=== PATIENT | male | born 1955 | race Caucasian/White ===

== ENCOUNTER → 2020-12-16 08:27 | Outpatient (BNVA) | payer MEDICARE, MEDICAID, SELFPAY | PROVIDERS: PCP Family Medicine; Visit Provider Anesthesiology | DX: M96.1 Postlaminectomy syndrome, not elsewhere classified (principal); M51.16 Intervertebral disc disorders with radiculopathy, lumbar region; G89.4 Chronic pain syndrome; Z79.899 Other long term (current) drug therapy | CPT/HCPCS: 99212 ==

== ENCOUNTER 2021-03-21 07:26 | Day surgery (SDC) | payer MEDICARE, MEDICAID, SELFPAY ==
[2021-03-17 13:58] VITALS: BMI 27.9
--- NOTE | 2021-03-20 09:15 | P.CONAN_ITS ---
Documented by User: Aiyana Andre 03/20/21 09:15 HPI - Anesthesia Eval Consult details Narrative: 65yo M for Lumbar Spinal Cord Simulation Trial prn opioids PMFSH Active Problems Active Problems: All Active Problems (Updated 03/17/21 @ 14:00 by Davina Bae) Chronic pain syndrome (Acute) Radiculopathy due to lumbar intervertebral disc disorder (Acute) Postlaminectomy syndrome (Acute) Past Medical History Medical History Chronic pain syndrome History of numbness History of urinary retention Postlaminectomy syndrome Radiculopathy due to lumbar intervertebral disc disorder Surgical History Surgical History History of back surgery History of basal cell carcinoma excision History of laminectomy History of lumbar laminectomy Hx of arthroscopy of shoulder Hx of repair of rotator cuff Social History Social History Patient Tobacco Use Status: Former Tobacco user Quit Date: years ago Are you DNR?: No Advance Directives: No Advance Directives Information Provided: No Advance Directives on File: No Meds Allergies Allergy/AdvReac Type Severity Reaction Status Date / Time No Known Allergies Allergy Verified 03/17/21 14:01 [No Known Allergies*] Home Medications Medication Instructions Recorded Confirmed Last Taken Type hydrocodone 7.5 mg-acetaminophen 1 tab PO BID PRN 12/16/20 03/17/21 Unknown History 300 mg tablet pregabalin 75 mg capsule 75 mg PO DAILY 12/16/20 03/17/21 Unknown History quetiapine 50 mg tablet 100 mg PO BEDTIME 12/16/20 03/17/21 Unknown History selegiline 6 mg/24 hr transdermal 1 patch TRANSDERMAL DAILY 12/16/20 03/17/21 Unknown History 24 hour patch Exam Exam Date and Time: March 20, 2021 0915 Height,Weight and Vital Signs: Height 5 ft 10 in Weight 88.451 kg Assessment and Plan Assessment Anesthesia Assessment: Chart Reviewed Documented by User: Saira Barron 03/21/21 08:31 [facility] Past Medical History Medical History Chronic pain syndrome History of numbness History of urinary retention Postlaminectomy syndrome Radiculopathy due to lumbar intervertebral disc disorder Family History Family history of problems with anesthesia: No Surgical History Surgical History History of back surgery History of basal cell carcinoma excision History of laminectomy History of lumbar laminectomy Hx of arthroscopy of shoulder Hx of repair of rotator cuff History of Problems with Anesthesia: No Social History Social History Patient Tobacco Use Status: Former Tobacco user Quit Date: years ago Are you DNR?: No Advance Directives: No Advance Directives Information Provided: No Advance Directives on File: No Meds Allergies Allergy/AdvReac Type Severity Reaction Status Date / Time No Known Allergies Allergy Verified 03/17/21 14:01 [No Known Allergies*] Home Medications Medication Instructions Recorded Confirmed Last Taken Type hydrocodone 7.5 mg-acetaminophen 1 tab PO BID PRN 12/16/20 03/17/21 Unknown History 300 mg tablet pregabalin 75 mg capsule 75 mg PO DAILY 12/16/20 03/17/21 Unknown History quetiapine 50 mg tablet 100 mg PO BEDTIME 12/16/20 03/17/21 Unknown History selegiline 6 mg/24 hr transdermal 1 patch TRANSDERMAL DAILY 12/16/20 03/17/21 Unknown History 24 hour patch Exam Height,Weight and Vital Signs: Vital Signs Temp Pulse Resp BP Pulse Ox 03/21/21 07:45 96.3 F L 56 16 132/82 97 Airway Mallampati Class: II TM Dist: >3cm Neck ROM: Full Loose/Missing/Broken Teeth: No Heart: RRR Lungs: CTAB Assessment and Plan Assessment Anesthesia Assessment: Anesthesia Plan Discussed and Chart Reviewed Final Anesthetic Review NPO: Yes ASA Class: II Final Preanesthetic Review: No Changes in Pt Med Stat, Meds/Allgs Chart Reviewed, Consent Obtained/Reviewed and Anes Risks/Benef Reviewed Patient Risk: Low Procedure Risk: Low Assessment/Block/Sedation in SS: Assess/Block/Sedation-SS Anesthetic Plan Anesthetic Plan: MAC: Disposition: Standard PACU
--- NOTE | ~2021-03-21 | FL_ITS ---
EXAMINATION: XR FLUOROSCOPY WITH IMAGES CLINICAL INFORMATION: Lumbar spinal cord stimulation. COMPARISON: None. TECHNIQUE: Fluoroscopy performed by Dr. Dimas Bhardwaj. Fluoroscopy time: 24.3 minutes DAP: 63 mGycm2 Images: 3 FINDINGS: Images demonstrate lead placement projecting over the lower thoracic spinal canal. FL/FL guidance in OR IMPRESSION: Fluoroscopic guidance for lumbar spinal cord stimulation.
[2021-03-21 07:45] VITALS: BP 132/82; PULSE 56; RESP 16; TEMP 35.7; O2SAT 97
[2021-03-21] MEDS: Lactated Ringers 1,000 ML 100 ML IVCONT (08:00)
--- NOTE | 2021-03-21 08:31 | MHC.SHP ---
Pre-Procedural Eval Section A The patient is an INPATIENT: No Changes since office visit: Yes Patient answered all questions The History & Physical has been completed within 30 days and I have reviewed it.: No Section B Chief Complaint: Postlaminectomy syndrome Details of Present Illness: as above, radiculopathy LE right Relevant Family History (Specify if Yes): No Relevant Social History: None Present Medications: None Medical History: Significant History (lumbar fusion) Allergies: Allergies Allergy/AdvReac Type Severity Reaction Status Date / Time No Known Allergies Allergy Verified 03/17/21 14:01 [No Known Allergies*] Review of Systems Sugical H&P ROS: Negative: Constitution, Cardiovascular, Respiratory, Neurological, Psychiatric, Hem-Onc, Allergic/Immunologic, Gastrointestinal, Genitourinary, Musculoskeletal, Integumentary, Endocrine and Eyes/Ears/Nose/Throat Exam Surgical H&P Exam: Normal: HEENT, Normal: Heart, Normal: Lungs, Normal: Extremities, Normal: Abdomen, Normal: Skin and Normal: Neurological Plan Diagnosis/Plan: Unchanged I have reviewed the history and physical and performed a pertinent physical examination on my patient. No changes have occurred unless specified.
[2021-03-21 11:15] VITALS: BP 148/71; PULSE 45; RESP 18; TEMP 36.2; O2SAT 98
--- NOTE | 2021-03-21 11:26 | P.BOP_ITS ---
Brief Operative Note Date of Service: 03/21/21 Pre-op diagnosis: Postlaminectomy syndrome Post-op diagnosis: same Procedure: Trial of [employer] spinal cord stimulator Implants: None permanent Surgeon: Dimas Bhardwaj MD Anesthesia: MAC Was an [employer] Instructor used for this Procedure?: No Estimated blood loss (mL): 5 Disposition: PACU
--- NOTE | 2021-03-21 11:28 | P.OP_ITS ---
Operative Note Operative Note Date of Service: 03/21/21 Narrative: Hernán is very pleasant 65 years old gentleman who came today into the operating room for trial of spinal cord stimulator for the treatment of pain related to degenerative disc disease, postlaminectomy syndrome and chronic pain syndrome. Preoperatively patient received 2 g cefazolin _approximately 30 minutes before the procedure. After obtaining informed consent patient was brought to the operating room, he was positioned prone on operating table, [employer] monitors were applied and patient was deeply sedated. Time-out was performed delineating correct site, side, the nature of the proc edure, patient's allergy, preoperative antibiotic. All operating room staff was participating in OR time-out procedure. Patient's entire back was prepped with ChloraPrep twice and draped with full body drape. Sterilely draped C-arm was brought over operating field and square picture of T12, L1, L2 vertebrae as were demonstrated on the screen. . Attention FIRST was concentrated on the RIGHT T12-L1 epidural interspace. The location of the projection of the right pedicle center of the L2 vertebra was found on the skin using C-arm. This location was injected with mixture of lidocaine 2% and Marcaine 0.5% 5 cc in approximate direction of needle advancement.. After that 10 cm 14 gauge straight introducer epidural needle was inserted through the césar in the skin and advanced toward T12-L1 epidural interspace. The advancement of the needle was performed on anterior posterior and lateral views. Guitar wire and loss of resistance technique were used to locate epidural space. When guitar wire was spread in the epidural fashion, epidural lead was inserted through the skin and it was advanced in the posterior epidural space to the mid body of T8 vertebra slightly right to midline. After that location of the projection of the LEFT pedicle center of the L2 vertebra was found -using C-arm. This location was injected with mixture of lidocaine 2% and Marcaine 0.5% 5 cc.. . 10 cm 14 gauge straight introducer epidural needle was inserted through the skin and advanced to T12-L1 epidural interspace. The advancement of the needle was performed on anterior posterior and lateral views. Guitar wire and loss of resistance technique were used to locate epidural space. When guitar wire was spread in the epidural fashion, epidural lead was inserted through the needle and an attempt of the advancement of the epidural lead was made to the target of the T8 vertebra in the posterior epidural space. However on this side the resistance was felt secondary to epidural adhesions. The epidural lead was not able to advance more than 3 and half to 4 cm from the needle tip. In the projection of the T12 vertebra the lead felt resistance and deviated into the anterior epidural space. After that attention was concentrated on the RIGHT T11-T12 epidural interspace. The location of the projection of the right pedicle center of the L1 vertebra was found on the skin using C-arm. This location was injected with mixture of lidocaine 2% and Marcaine 0.5% 5 cc in approximate direction of needle advancement.. After that 10 cm 14 gauge straight introducer epidural needle was inserted through the césar in the skin and advanced toward T11-T12 epidural interspace. The advancement of the needle was performed on anterior posterior and lateral views. Guitar wire and loss of resistance technique were used to locate epidural space. When guitar wire was spread in the epidural fashion, epidural lead was inserted through the skin and it was advanced in the posterior epidural space to the mid body of T8 vertebra slightly right to midline. However when we made lateral x-ray this lead appeared to be in the anterior epidural space. The attempt of the advancement of the epidural space left to the existing electrode was not successful. Again the lead was deviating mostly to the right gutter. At this moment the needle was withdrawn and blue sheath introducer was dislodged over the epidural lead. First short and then long blue sheath introducer was used in the attempt to direct the epidural lead appropriately. However unfortunately the epidural lead continued to deviate aw ay from the posterior epidural space into the gutter and most likely into anterior epidural space. After that attention was concentrated on the right L1-L2 epidural interspace. At the projection of the L 3 right pedicle the skin injection was made with mixture of lidocaine 2% and Marcaine 0.5%. Again 10 cm 14 gauge straight introducer epidural needle was inserted through the skin advanced to were L1-L2 epidural interspace. Loss of resistance technique to air and guitar wire were used to locate epidural space. When the epidural space was reached guitar wire was spread in the epidural fashion. After that the electrode was inserted into the needle and was advanced to were the epidural space immediately left from the existing electrode. Lateral picture was performed demonstrating epidural leads in the posterior epidural space. It appears to be that both epidural leads were position slightly right to the midline. At this moment the patient was awaken and the epidural leads were connected to testing device. The test was performed demonstrating good spread of the epidural space stimulation in the right lower extremity as well as in the lower back on the right. The patient did not feel any stimulation on the left. The patient's pain is mostly on the right lower extremity. The decision was made to continue with the trial of those leads in the patient's epidural space. After that the epidural needles were removed while care was taken to keep the epidural electrodes in place. Anchoring devices were dislodged on the each of the epidural leads to the level of the skin. They were engaged at the level of the skin. After that they were sutured to the skin using 0 silk sutures Bacitracin ointment was applied to the level of the skin. Sterile dressing was applied. At this moment patient was taken to the PACU where he recovered uneventfully.
[2021-03-21 11:30] VITALS: BP 137/77; PULSE 55; RESP 17; O2SAT 98
[2021-03-21 11:45] VITALS: BP 138/85; PULSE 48; RESP 17; O2SAT 97
[2021-03-21 12:00] VITALS: BP 150/84; PULSE 47; RESP 17; O2SAT 98
[2021-03-21 12:12] VITALS: BP 143/84; PULSE 50; RESP 17; O2SAT 98
== END 2021-03-21 12:50 | disposition home or self-care (01) ==
PROVIDERS: PCP Family Medicine; Visit Provider Anesthesiology
PROC: (CPT 63650; principal; 2021-03-21 09:00)
DX: M96.1 Postlaminectomy syndrome, not elsewhere classified (principal); M51.16 Intervertebral disc disorders with radiculopathy, lumbar region; G89.4 Chronic pain syndrome; G96.12 Meningeal adhesions (cerebral) (spinal); Z87.891 Personal history of nicotine dependence; Z79.899 Other long term (current) drug therapy
CPT/HCPCS: 63650 ×2; C1778; J0690; J1100; J2250; J2405; J3010

== ENCOUNTER → 2021-03-26 08:59 | Outpatient (BNVA) | payer MEDICARE, MEDICAID, SELFPAY | PROVIDERS: PCP Family Medicine; Visit Provider Anesthesiology | DX: M96.1 Postlaminectomy syndrome, not elsewhere classified (principal); M51.16 Intervertebral disc disorders with radiculopathy, lumbar region; G89.4 Chronic pain syndrome | CPT/HCPCS: 99212 ==

== ENCOUNTER → 2021-03-28 15:36 | Outpatient (BNVA) | payer MEDICARE, MEDICAID, SELFPAY | PROVIDERS: PCP Family Medicine; Visit Provider Anesthesiology | DX: Z96.82 Presence of neurostimulator (principal) | CPT/HCPCS: 99211 ==

== ENCOUNTER 2024-01-19 14:09 | Outpatient (AMB) | payer MEDICARE, MEDICAID, SELFPAY ==
--- NOTE | 2024-01-19 14:15 | A.OFFVIS_ITS ---
Intake Vital Signs 01/19/24 14:19 Height 5 ft 10 in Weight 199 lb 6 oz BMI 28.6 BP 128/82 Blood Pressure Location Lt brachial Position Sitting Respiration 16 Pulse 57 Pulse Source Pulse Oximeter Pulse Oximetry (%) 97 Oxygen Delivery Method Room Air Intake Visit Reasons: PROCEDURE OPTIONS Intake Note: Patient comes in to discuss procedure options. Reports pain 5/10. Allergies No Known Allergies [No Known Allergies*] Allergy (Verified 01/19/24 14:18) HPI HPI Comments History of Present Illness Details Hernán is back in my office after 2 years of absence. He is suffering from postlaminectomy syndrome. I tried spinal cord stimulator on him [employer]. The procedure was very difficult technically. However I was able to establish 2 leads in the thoracic spine. Patient reported minimal pain improvement while on stimulation. At the end of the [employer] trial he was switched to [employer] SCS, unfortunately that did not help his pain in more extent either. He was absent from my care for 2 years now he is coming back requesting the discussion about pain pump she was offered to him at that time. I explained to him the procedure, I gave him brochure of [facility] point psychology to schedule evaluation. As soon as he will pass evaluation I will schedule him for pain pump trial. He is currently taking [place] 7.5 mg and I prefer to try 1st bupivacaine. He also reports some stress incontinence increased urging with urination. Bupivacaine in the situation may be helpful for this condition as well. Prior: referral from Dr. Ch for evaluation for a spinal cord stimulator. He is s/p laminectomy L3-4 and L5-S1 discectomy with posterior lateral fusion. He continues to suffer from a right L5 radiculopathy, which is an EMG confirmed. Updated MRI showed no significant compression of L5 nerve root. It did show right L3 nerve root compression. Dr. Ch did not recommend additional surgical intervention and advised he undergo a SCS trial, and thus he was referred to us. He describes a numbness and burning down his right posterior lateral leg extending to the top of his right into his toes. This is worsened with sitting, reaching pain level 8-9/10. He had done extensive PT and also had multiple injections prior to his surgery while seeing pain management provider Dr. Geronimo in [place]. [facility] Medical History Chronic pain syndrome History of numbness History of urinary retention Postlaminectomy syndrome Radiculopathy due to lumbar intervertebral disc disorder Surgical History History of back surgery History of basal cell carcinoma excision History of laminectomy History of lumbar laminectomy Hx of arthroscopy of shoulder Hx of repair of rotator cuff Social History Patient Tobacco Use Status: Former Tobacco user Quit Date: years ago Review of Systems Const All systems reviewed & are unremarkable except as noted in HPI and below ENT Reports Normal hearing present Neuro Reports Normal hearing present, Denies confusion and Denies Sensory deficit (Neuro) Psych Denies confusion Physical Exam Vital Signs: Last Vital Signs Pulse 57 01/19/24 14:19 Resp 16 01/19/24 14:19 BP 128/82 01/19/24 14:19 Pulse Ox 97 01/19/24 14:19 Oxygen Delivery Method Room Air 01/19/24 14:19 BMI result Body Mass Index 28.6 Const General: No confusion Orientation/consciousness: No confusion Eyes Pupils: Equal, round and reactive pupils present EOM: EOMs intact bilaterally Chest Chest palpation & inspection: normal inspection of the chest Resp Effort & Inspection: normal respiratory effort, able to speak in complete sentences, normal respiratory pattern, no audible wheezes and no cough Cardio Jugular venous distension: no JVD Back/Spine/Pelvis Other: Lumbar Spine/Lower back/SIJ: SACROILIAC JOINT No tenderness to palpation. INSPECTION: normal curvature of spine, scar from previous surgery. RANGE OF MOTION decreased extention. PALPATION: no vertebral spine tenderness. STRAIGHT LEG RAISING TEST: positive at 45 degrees on right. MOTOR SYSTEM: 5/5 bilateral lower extremities. SENSORY EXAM: paresthesias right L4-5 distribution. REFLEXES: symmetrical 2+. GAIT: unremarkable. Neuro General: No confusion Cranial nerves: Yes Equal, round and reactive pupils present and Yes Normal hearing present Sensory Exam: No Sensory deficit (Neuro) Psych Speech and movement: Normal speech and movement present Affect: normal affect Attitude: cooperative Thought process: Normal thought process present Thought content: Normal thought content present Insight: Good insight present (Psych) Judgement: Good judgement present (Psych) Assessment & Plan Assessment & Plan (1) Postlaminectomy syndrome: Code(s): M96.1 - Postlaminectomy syndrome, not elsewhere classified (2) Radiculopathy due to lumbar intervertebral disc disorder: Code(s): M51.16 - Intervertebral disc disorders with radiculopathy, lumbar region (3) Chronic pain syndrome: Code(s): G89.4 - Chronic pain syndrome Plan Two years ago neither Nevro no [employer] SCS trial were helpful for this patient's pain. Pain pump was offered to the patient for treatment of postlaminectomy syndrome /chronic pain syndrome. Now he is in my office, we need to repeat psychological evaluation because the previous 1 . As soon as he passes psychological evaluation I will do trial with bupivacaine see the reasoning above. . Patient Instructions: I here by testify that I spent 32 minutes in conversation with this patient, as well as evaluating his prior records, prior diagnostic images as well as completing this note. Coding Level of Care Code Est Pt Level 4 (59270) Diagnoses Postlaminectomy syndrome M96.1 Radiculopathy due to lumbar intervertebral disc disorder M51.16 Chronic pain syndrome G89.4
[2024-01-19 14:19] VITALS: BP 128/82; PULSE 57; RESP 16; O2SAT 97; BMI 28.6
== END 2024-01-19 14:37 | disposition home or self-care (01) ==
PROVIDERS: PCP Family Medicine; Visit Provider Anesthesiology
DX: M96.1 Postlaminectomy syndrome, not elsewhere classified (principal); M51.16 Intervertebral disc disorders with radiculopathy, lumbar region; G89.4 Chronic pain syndrome
CPT/HCPCS: 99214

== ENCOUNTER → 2024-01-19 14:09 | Outpatient (BNVA) | payer MEDICARE, MEDICAID, SELFPAY | PROVIDERS: PCP Family Medicine; Visit Provider Anesthesiology | DX: M96.1 Postlaminectomy syndrome, not elsewhere classified (principal); M51.16 Intervertebral disc disorders with radiculopathy, lumbar region; G89.4 Chronic pain syndrome | CPT/HCPCS: 99212 ==

== ENCOUNTER 2024-03-07 06:14 | Outpatient (REF) | payer MEDICARE, MEDICAID, SELFPAY ==
--- NOTE | ~2024-03-07 | FL_ITS ---
EXAMINATION: XR FLUOROSCOPY WITH IMAGES CLINICAL INFORMATION: Chronic pain syndrome. COMPARISON: None available. TECHNIQUE: Fluoroscopy Supervised By: Dr. Bhardwaj. Fluoroscopy Time: 2 min. Cumulative Dose: 4.03 mGy. DAP: 0.0700 Gycm2. Images: 2. FINDINGS: Intraoperative fluoroscopy and spot films were performed during a procedure in the OR. Spinal needle is present in the epidural space at the L3 level. Degenerative changes are seen at L3-L4 and L4-L5. Please see Dr. Bhardwaj's report for complete details. FL/FL guidance in treatment room IMPRESSION: Intraoperative fluoroscopy and spot films were obtained. Please see Dr. Bhardwaj's report for complete details.
== END 2024-03-07 06:15 | disposition home or self-care (01) ==
LOC: CF 06:14
PROVIDERS: Visit Provider Anesthesiology
DX: G89.4 Chronic pain syndrome (principal); M51.16 Intervertebral disc disorders with radiculopathy, lumbar region; M96.1 Postlaminectomy syndrome, not elsewhere classified
CPT/HCPCS: 62323; J0665

== ENCOUNTER 2024-03-07 10:36 | Outpatient (AMB) | payer MEDICARE, MEDICAID, SELFPAY ==
--- NOTE | 2024-03-07 11:05 | A.OFFVIS_ITS ---
Vital Signs 03/07/24 12:30 03/07/24 12:31 Height 5 ft 10 in Weight 199 lb BMI 28.6 BP 124/74 126/64 Blood Pressure Location Lt brachial Lt brachial Position Sitting Sitting Respiration 20 18 Pulse 70 73 Pulse Source Pulse Oximeter Pulse Oximeter Pulse Oximetry (%) 98 96 Oxygen Delivery Method Room Air Room Air Comment Pre-Op Post-Op Intake Visit Reasons: ITDD TRIAL WITH BUPIVACAIN Allergies No Known Allergies [No Known Allergies*] Allergy (Verified 01/19/24 14:18) [facility] Medical History Chronic pain syndrome History of numbness History of urinary retention Postlaminectomy syndrome Radiculopathy due to lumbar intervertebral disc disorder Surgical History History of back surgery History of basal cell carcinoma excision History of laminectomy History of lumbar laminectomy Hx of arthroscopy of shoulder Hx of repair of rotator cuff Social History Patient Tobacco Use Status: Former Tobacco user Quit Date: years ago Physical Exam Vital Signs: Last Vital Signs Pulse 73 03/07/24 12:31 Resp 18 03/07/24 12:31 BP 126/64 03/07/24 12:31 Pulse Ox 96 03/07/24 12:31 Oxygen Delivery Method Room Air 03/07/24 12:31 BMI result Body Mass Index 28.6 Assessment & Plan Assessment & Plan (1) Chronic pain syndrome: Code(s): G89.4 - Chronic pain syndrome Category: Medical (2) Radiculopathy due to lumbar intervertebral disc disorder: Code(s): M51.16 - Intervertebral disc disorders with radiculopathy, lumbar region Category: Medical (3) Postlaminectomy syndrome: Code(s): M96.1 - Postlaminectomy syndrome, not elsewhere classified Category: Medical Plan Intrathecal pain pump trial Informed consent was explained to the patient. All questions were explained and answered. The patient was taken inside of the operating room where she was positioned prone on the operating table. Time-out was performed delineating patient's name and date of , correct site, side, the nature of the procedure, patient's allergy, All operating room staff and the patient were participating in OR time-out procedure. the patient's lower back was prepped with ChloraPrep and draped with sterile utility draped. Sterilely draped C-arm was brought over the operating field and sq picture of lumbar vertebrae were delineated on the screen. the target of needle insertion was chosen between L2 and L3 vertebrae. The projection of the right lamina of the L3 vertebra was chosen as the starting point of the injection. 22 gauge 3-1/2 inch Wittaker needle was inserted through the skin after skin wheal was raised with lidocaine 2%. The needle was directed to the L2-L3 interlaminar space. The advancement of the needle was performed on intermittent anterior posterior and lateral views. On anterior posterior view needle was positioned strictly in the midline. On the lateral view needle entered in the projection of the center of the spinal canal. At that moment the stylet was removed from the needle and clear flow CSF was detected in the needle hub. After that 3 mLof the solution containing trial medication preservative-free bupivacaine 2.5 mg was injected into the needle. After that needle was removed sterile dressing was applied. Patient tolerated procedure well. He was taken outside of the operating room to the recovery room where he recovered uneventfully. Orders: Orders FL guidance in treatment room Today G89.4 - Chronic pain syndrome Coding Level of Care Code Procedure Only Diagnoses Chronic pain syndrome G89.4 Radiculopathy due to lumbar intervertebral disc disorder M51.16 Postlaminectomy syndrome M96.1
[2024-03-07 12:30] VITALS: BP 124/74; PULSE 70; RESP 20; O2SAT 98; BMI 28.6
[2024-03-07 12:31] VITALS: BP 126/64; PULSE 73; RESP 18; O2SAT 96
== END 2024-03-07 12:32 | disposition home or self-care (01) ==
LOC: HO.PMCPRC 10:36
PROVIDERS: PCP Family Medicine; Visit Provider Anesthesiology
DX: M51.16 Intervertebral disc disorders with radiculopathy, lumbar region (principal); M96.1 Postlaminectomy syndrome, not elsewhere classified; G89.4 Chronic pain syndrome
CPT/HCPCS: 62323

== ENCOUNTER 2024-03-13 11:22 | Outpatient (AMB) | payer MEDICARE, MEDICAID, SELFPAY ==
--- NOTE | 2024-03-13 11:28 | A.OFFVIS_ITS ---
Intake Visit Reasons: ITDD TRIAL WITH BUPIVACAIN Allergies No Known Allergies [No Known Allergies*] Allergy (Verified 01/19/24 14:18) HPI Comments Details: Markers in my office to assess results of the trial of pain pump with bupivacaine. He reports about 65-70% pain improvement for the 1st hours after the trial. He reported today that he tried to perform most of the maneuvers which usually aggravate his pain in the back, he reported that he was able to complete all the tasks which usually were almost impossible for him. He wants to schedule an implant. He was asking multiple questions about the pain pump today. I answered them for the patient to complete satisfaction. Prior: Originally he was referred by Dr. Nix for evaluation for spinal cord stimulator. He is status post laminectomy L3-L4 and L5-S1 diskectomy with posterior lateral fusion. He has L5 radiculopathy EMG confirmed. On recommendation of Dr. Ch I tried spinal cord stimulator on him [facility]. The procedure was very difficult technically. However I was able to establish 2 leads in the thoracic spine. Patient reported minimal pain improvement while on stimulation. At the end of the [facility] scientific trial he was switched to Nevro SCS, unfortunately that did not help his pain in more extent either. He was absent from my care for 2 years now he is coming back requesting the discussion about pain pump she was offered to him at that time. I explained to him the procedure, I gave him brochure of [employer] to schedule evaluation. As soon as he will pass evaluation I will schedule him for pain pump trial. He is currently taking [place] 7.5 mg and I prefer to try 1st bupivacaine. He also reports some stress incontinence increased urging with urination. Bupivacaine in the situation may be helpful for this condition as well. Dr. Ch did not recommend additional surgical intervention and advised he undergo a SCS trial, and thus he was referred to us. He describes a numbness and burning down his right posterior lateral leg extending to the top of his right into his toes. This is worsened with sitting, reaching pain level 8-9/10. He had done extensive PT and also had multiple injections prior to his surgery while seeing pain management provider Dr. Geronimo in [place]. [facility] Medical History Chronic pain syndrome History of numbness History of urinary retention Postlaminectomy syndrome Radiculopathy due to lumbar intervertebral disc disorder Surgical History History of back surgery History of basal cell carcinoma excision History of laminectomy History of lumbar laminectomy Hx of arthroscopy of shoulder Hx of repair of rotator cuff Social History Patient Tobacco Use Status: Former Tobacco user Review of Systems Const All systems reviewed & are unremarkable except as noted in HPI and below ENT Reports Normal hearing present Neuro Reports Normal hearing present, Denies confusion and Denies Sensory deficit (Neuro) Psych Denies confusion Physical Exam Const General: No confusion Orientation/consciousness: No confusion Eyes Pupils: Equal, round and reactive pupils present EOM: EOMs intact bilaterally Chest Chest palpation & inspection: normal inspection of the chest Resp Effort & Inspection: normal respiratory effort, able to speak in complete sentences, normal respiratory pattern, no audible wheezes and no cough Cardio Jugular venous distension: no JVD Back/Spine/Pelvis Other: Lumbar Spine/Lower back/SIJ: SACROILIAC JOINT No tenderness to palpation. INSPECTION: normal curvature of spine, scar from previous surgery. RANGE OF MOTION decreased extention. PALPATION: no vertebral spine tenderness. STRAIGHT LEG RAISING TEST: positive at 45 degrees on right. MOTOR SYSTEM: 5/5 bilateral lower extremities. SENSORY EXAM: paresthesias right L4-5 distribution. REFLEXES: symmetrical 2+. GAIT: unremarkable. Neuro General: No confusion Cranial nerves: Yes Equal, round and reactive pupils present and Yes Normal hearing present Sensory Exam: No Sensory deficit (Neuro) Psych Speech and movement: Normal speech and movement present Affect: normal affect Attitude: cooperative Thought process: Normal thought process present Thought content: Normal thought content present Insight: Good insight present (Psych) Judgement: Good judgement present (Psych) Assessment & Plan Assessment & Plan (1) Chronic pain syndrome: Code(s): G89.4 - Chronic pain syndrome Category: Medical (2) Radiculopathy due to lumbar intervertebral disc disorder: Code(s): M51.16 - Intervertebral disc disorders with radiculopathy, lumbar region Category: Medical (3) Postlaminectomy syndrome: Code(s): M96.1 - Postlaminectomy syndrome, not elsewhere classified Category: Medical Plan I will schedule the patient for implantation of the pain pump. I will order bupivacaine preservative-free 10 mg to start the patient on the medication immediately the day of the surgery. He will be given PTM device as well. After surgery is approved I will schedule the patient in the operating room for implant. Patient Instructions: I here by testify that I spent 38 minutes in conversation with this patient as well as planning his care and organizing this note. Coding Level of Care Code Est Pt Level 4 (96837) Diagnoses Chronic pain syndrome G89.4 Radiculopathy due to lumbar intervertebral disc disorder M51.16 Postlaminectomy syndrome M96.1
== END 2024-03-13 12:04 | disposition home or self-care (01) ==
PROVIDERS: PCP Family Medicine; Visit Provider Anesthesiology
DX: G89.4 Chronic pain syndrome (principal); M51.16 Intervertebral disc disorders with radiculopathy, lumbar region; M96.1 Postlaminectomy syndrome, not elsewhere classified
CPT/HCPCS: 99214

== ENCOUNTER → 2024-03-13 11:22 | Outpatient (BNVA) | payer MEDICARE, MEDICAID, SELFPAY | PROVIDERS: PCP Family Medicine; Visit Provider Anesthesiology | DX: G89.4 Chronic pain syndrome (principal); M96.1 Postlaminectomy syndrome, not elsewhere classified; M51.16 Intervertebral disc disorders with radiculopathy, lumbar region; N31.9 Neuromuscular dysfunction of bladder, unspecified; N39.46 Mixed incontinence | CPT/HCPCS: 99212 ==

== ENCOUNTER 2024-05-12 07:45 | Day surgery (SDC) | payer MEDICARE, MEDICAID, SELFPAY ==
--- NOTE | 2024-05-10 14:37 | HO.ANESPROP2 ---
Documented by User: Aiyana Andre NP 05/10/24 14:40 HPI - Anesthesia Eval Consult details Narrative: 68yo M for Intrathecal Drug Delivery Pain Pump Implant PMFSH Active Problems Active Problems: All Active Problems Chronic pain syndrome (Acute) Radiculopathy due to lumbar intervertebral disc disorder (Acute) Postlaminectomy syndrome (Acute) Past Medical History Medical History History of urinary retention History of numbness Chronic pain syndrome Radiculopathy due to lumbar intervertebral disc disorder Postlaminectomy syndrome Family History Family history of problems with anesthesia: No Surgical History Surgical History History of surgery History of basal cell carcinoma excision History of lumbar laminectomy History of laminectomy History of back surgery Hx of arthroscopy of shoulder Hx of repair of rotator cuff History of Problems with Anesthesia: No Social History Social History Patient Tobacco Use Status: Former Tobacco user Use of substances other than those prescribed or required for medical reasons: No Are you DNR?: No Advance Directives: No Advance Directives Information Provided: Yes Meds Allergies Allergy/AdvReac Type Severity Reaction Status Date / Time No Known Allergies Allergy Verified 01/19/24 14:18 [No Known Allergies*] Home Medications ?Medication ?Instructions ?Recorded ?Confirmed ?Last Taken ?Type hydrocodone 7.5 mg-acetaminophen 1 tab PO BID PRN Pain 12/16/20 03/28/21 Unknown History 300 mg tablet pregabalin 75 mg capsule 75 mg PO DAILY 12/16/20 03/28/21 Unknown History quetiapine 50 mg tablet (Seroquel) 100 mg PO BEDTIME 12/16/20 03/28/21 Unknown History selegiline 6 mg/24 hr transdermal 1 patch transdermal DAILY 12/16/20 03/28/21 Unknown History 24 hour patch (Emsam) Assessment and Plan Assessment Anesthesia Assessment: Chart Reviewed Final Anesthetic Review Family History of Problems with Anesthesia: No History of Problems with Anesthesia: No Documented by User: Sonya Parikh MD 05/12/24 09:08 [facility] Past Medical History Medical History History of urinary retention History of numbness Chronic pain syndrome Radiculopathy due to lumbar intervertebral disc disorder Postlaminectomy syndrome Surgical History Surgical History History of surgery History of basal cell carcinoma excision History of lumbar laminectomy History of laminectomy History of back surgery Hx of arthroscopy of shoulder Hx of repair of rotator cuff Social History Social History Patient Tobacco Use Status: Former Tobacco user Use of substances other than those prescribed or required for medical reasons: No Are you DNR?: No Advance Directives: No Advance Directives Information Provided: Yes Meds Allergies Allergy/AdvReac Type Severity Reaction Status Date / Time No Known Allergies Allergy Verified 01/19/24 14:18 [No Known Allergies*] Home Medications ?Medication ?Instructions ?Recorded ?Confirmed ?Last Taken ?Type hydrocodone 7.5 mg-acetaminophen 1 tab PO BID PRN Pain 12/16/20 03/28/21 Unknown History 300 mg tablet pregabalin 75 mg capsule 75 mg PO DAILY 12/16/20 03/28/21 Unknown History quetiapine 50 mg tablet (Seroquel) 100 mg PO BEDTIME 12/16/20 03/28/21 Unknown History selegiline 6 mg/24 hr transdermal 1 patch transdermal DAILY 12/16/20 03/28/21 Unknown History 24 hour patch (Emsam) Exam Airway Mallampati Class: II TM Dist: >3cm Neck ROM: Limited Heart: rrr Lungs: cta Assessment and Plan Assessment Anesthesia Assessment: Anesthesia Plan Discussed Final Anesthetic Review NPO: Yes ASA Class: III Final Preanesthetic Review: No Changes in Pt Med Stat, Meds/Allgs Chart Reviewed, Consent Obtained/Reviewed and Anes Risks/Benef Reviewed Patient Risk: Intermediate Procedure Risk: Intermediate Anesthetic Plan Anesthetic Plan: GA Disposition: Standard PACU
--- NOTE | ~2024-05-12 | FL_ITS ---
EXAMINATION: XR FLUOROSCOPY WITH IMAGES CLINICAL INFORMATION: Epidural pain catheter/pump placement, lumbar spine COMPARISON: 03/07/2024 TECHNIQUE: Fluoroscopy provided to: Dr. Bhardwaj Fluoroscopy time: 0.4 minutes DAP: 3.43 Gycm2 Images: 3 FINDINGS: 3 images demonstrate probe overlying the dorsal right pedicle of L2, with subsequent lateral view of needle in place just below left L1 pedicle, and final image demonstrating localizer hemostat clamp tip overlying the left sacral wing. FL/FL guidance in OR IMPRESSION: Fluoroscopic guidance. Please refer to the full operative report for details. Electronically signed by: Roberto Fairchild MD 07/06/2024 03:51 PM EDT
[2024-05-12 07:54] VITALS: BMI 27.8
[2024-05-12 08:13] VITALS: BP 128/81; PULSE 57; RESP 16; TEMP 36.5; O2SAT 98
[2024-05-12] MEDS: Lactated Ringers 1,000 ML 100 ML IVCONT (08:27)
--- NOTE | 2024-05-12 09:14 | MHC.SHP ---
Pre-Procedural Eval Section A - 24 Hr Update-Section A only Date of Service: 05/12/24 Section B - Complete if H&P > 30 days Chief Complaint: Postlaminectomy syndrome, not elsewhere classified Details of Present Illness: As above Relevant Family History (Specify if Yes): No Relevant Social History: None Medical History: No relevant PMH History of Previous Operations: No relevant previous surgery Allergies: Allergies Allergy/AdvReac Type Severity Reaction Status Date / Time No Known Allergies Allergy Verified 01/19/24 14:18 [No Known Allergies*] Review of Systems Sugical H&P ROS: Negative: Constitution, Cardiovascular, Respiratory, Neurological, Psychiatric, Hem-Onc, Allergic/Immunologic, Gastrointestinal, Genitourinary, Musculoskeletal, Integumentary, Endocrine and Eyes/Ears/Nose/Throat Exam Surgical H&P Exam: Normal: HEENT, Normal: Heart, Normal: Lungs, Normal: Extremities, Normal: Abdomen, Normal: Skin and Normal: Neurological Plan Diagnosis/Plan: Unchanged I have reviewed the history and physical and performed a pertinent physical examination on my patient. No changes have occurred unless specified. Time Spent With Patient Time: Total time managing care of this patient today ___5 _ minutes.
[2024-05-12 11:02] LABS: MRSA Nasal PCR NEGATIVE (Negative); SA Nasal PCR POSITIVE (Negative)
--- NOTE | 2024-05-12 12:07 | PM.OP ---
Brief Operative Note Date of Service: 05/12/24 Pre-op diagnosis: Postlaminectomy syndrome, chronic pain syndrome. Post-op diagnosis: same Procedure: Implantation of intrathecal drug delivery system pain pump [employer] SynchroMed 3 and ascenda intrathecal catheter. Implants: SynchroMed 3 intrathecal pain pump and ascenda intrathecal catheter Surgeon: Dimas Bhardwaj MD Anesthesia: GETA Was an [employer] used for this Procedure?: No Estimated blood loss (mL): 28 Condition: stable Disposition: PACU
--- NOTE | 2024-05-12 12:10 | P.OP_ITS ---
Operative Note Operative Note Date of Service: 05/12/24 Narrative: Implantation of intrathecal drug delivery system pain pump SynchroMed 3 and intrathecal catheter Ascenda. After obtaining informed consent and explaining to the patient risks, benefits and alternatives to treat her pain, the patient was brought up to the operating room where he was positioned supine on the stretcher. [employer] monitors were applied and general anesthesia was induced with endotracheal intubation. After that the patient was transferred to the operating table prone. All pressure points protected. The patient received antibiotic cefazolin 2 g intravenously 30 minutes before incision. Time-out was performed delineating correct site and side of the procedure, name and date of of the patient, risk of fire, need for antibiotic prophylaxis risk of DVT and need for DVT prophylaxis. After that the patient entire back was prepped with chloroprep and draped with fool body drape including ioban film. Sterilely drape C-arm was brought over the OR field and square pictures of the T12, L1, L2, L3 vertebrae were demonstrated on the screen. the entrance point for the catheter was chosen as the L1-L2 interspace. In the strict midline fashion 6.5 cm vertical skin incision was made with #10 scalpel. The incision was widened with the Weitlaner retractor and deepened with electrocautery. Thorough hemostasis was obtained using electrocautery. the prevertebral fascia was freed from overlaying tissues. After that 100 mm introducer spinal 16 g needle was incerted under x-ray guidance in the projection of the right L2 pedicle. The needle advanced under the x-ray guidance with intemitteny A-P and lateral pictures toward the spinal canal. When on the lateral view the needle entered the spinal canal the stylet was removed and the clear flow of the CSF was obtain through the needle hub. Intrathecal Ascenda catheter was inserted through the needle and advanced under the x-ray guidance toward the mid T8 vertebral body projection. The stylet was removed from the catheter and the flow of CSF fluid straw colored and clear was observed coming from the catheter. Purse-string suture was applied surrounding the a needle and it was tied. After that the needle was withdrawn with care taken to keep the catheter in place. Anchoring device was dislodged on the catheter and advanced until it met prevertebral fascia. It was engaged on the body of the catheter. Three anchoring Tycron sutures were used to suture left wing of the anchor to prevertebral fascia . After that the thorough irrigation of the wound was performed and wound was packed with vancomycin soaked 4 x 4. Attention then was concentrated on the patient's left buttock. Sterilely draped C-arm was brought over the operative field again and position of the patient's iliac crest on the left was demonstrated on the screen. 2 cm below the projection of the iliac crest to the skin of the local anesthetic bupivacaine was injected in the linear horizontal fashion. After that 9.5 cm incision was performed in patient's left buttock alongside the injected line. Thorough hemostasis was obtained using cautery device. After that the wound was widened and made 2.5 cm deep . The wound was extended medially and laterally as well as caudally and cranially to form the space to accommodate the body of the pump. Thorough hemostasis was performed. The wound was irrigated with vancomycin containing normal saline and then tunneling device was used to connect both wounds and dislodged the intrathecal catheter into the side left buttock wound. The catheter was trimmed appropriately after that and sutureless connection device was mounted on the catheter. After that sutureless connection device was connected to the pump. Aspiration of the side port of the pump revealed clear flow of CSF. Two anchoring 0-0 Tycron sutures were applied in most superior lateral and inferior lateral corners of the wound. After that the sutures were connected to the bracket is on the body of the pump, intrathecal catheter was gathered behind the body of the pump and pump was dislodged into the wound. After that the anchoring sutures were tied. Aspiration of the side port of the pump again revealed clear flow of CSF without blood or air. Thorough irrigation was performed again in both wounds. Thorough hemostasis was verified. 0 polisorb sutures were used to close both wounds, 2-0 suture of the same nature were used to approximate the skin. Sandie were applied to the skin line and Bacitracin ointment was applied to the staple lines. Sterile dressing with sterile 4x4s was performed, abdominal binder was applied. Upon completion of the procedure patient was awaken extubated and taken outside of the operating room to recovery room where HE recovered uneventfully.
[2024-05-12 12:11] VITALS: BP 139/65; PULSE 94; RESP 14; TEMP 36.1; O2SAT 94
[2024-05-12 12:15] VITALS: BP 110/65; PULSE 63; RESP 16; O2SAT 95
[2024-05-12 12:20] VITALS: BP 117/57; PULSE 61; RESP 16; O2SAT 96
[2024-05-12 12:24] VITALS: BP 119/61; PULSE 61; RESP 16; O2SAT 95
[2024-05-12 12:38] VITALS: BP 125/62; PULSE 60; RESP 18; TEMP 36.1; O2SAT 18
== END 2024-05-12 13:25 | disposition home or self-care (01) ==
PROVIDERS: Registered Nurse Emergency; PCP Family Medicine; Visit Provider Anesthesiology
PROC: (CPT 62362; principal; 2024-05-12 09:30)
DX: M51.16 Intervertebral disc disorders with radiculopathy, lumbar region (principal); G89.4 Chronic pain syndrome; M96.1 Postlaminectomy syndrome, not elsewhere classified; Z87.891 Personal history of nicotine dependence
CPT/HCPCS: 62362; 62350; 87640; 87641; C1755; C1772; J0330; J0690; J1100; J1596; J2250; J2405; J2704; J2795; J3010; J3370

== ENCOUNTER → 2024-05-12 07:45 | Outpatient (BNV) | payer MEDICARE, MEDICAID, SELFPAY | PROVIDERS: PCP Family Medicine; Visit Provider Anesthesiology | DX: M96.1 Postlaminectomy syndrome, not elsewhere classified (principal); G89.4 Chronic pain syndrome | CPT/HCPCS: 62362 ==

== ENCOUNTER 2024-05-17 08:57 | Outpatient (AMB) | payer MEDICARE, MEDICAID, SELFPAY ==
--- NOTE | 2024-05-17 09:01 | A.OFFVIS_ITS ---
Vital Signs 05/17/24 09:26 Height 5 ft 9 in Weight 187 lb 6 oz BMI 27.7 BP 116/74 Blood Pressure Location Lt brachial Position Sitting Respiration 16 Pulse 73 Pulse Source Pulse Oximeter Pulse Oximetry (%) 98 Oxygen Delivery Method Room Air Intake Visit Reasons: S/p ITDD Pain Pump Implant 05/12/24 Intake Note: Patient comes in for post-op. Reports pain 5/10. Allergies No Known Allergies [No Known Allergies*] Allergy (Verified 05/17/24 09:26) HPI Comments Details: Hernán is in my office today after implantation of intrathecal bupivacaine pain pump. He did not use the device yet. He will be using the device and in 1 week he will report on effectiveness of the device. At the time we can adjust the frequency of the application of the bolus doses or we can adjust the magnitude of the doses itself. The patient was informed that he needs to continue using the device and report any side effects and or complications of the medication as well as effectiveness of the medication itself. The dressing change was performed today. The wounds are minimally swollen, no redness, no tenderness on palpation, no local temperature increase, no pathological discharge, edges competent, sonia are competent. The wounds were worst with ChloraPrep sterile dressing with sterile 4x4s were applied. Dressing change and staple removal in 1 week. Hernán head 70% pain improvement after the bupivacaine trial. Prior: Originally he was referred by Dr. Nix for evaluation for spinal cord stimulator. He is status post laminectomy L3-L4 and L5-S1 diskectomy with posterior lateral fusion. He has L5 radiculopathy EMG confirmed. On recommendation of Dr. Ch I tried spinal cord stimulator on him [place] [facility]. The procedure was very difficult technically. However I was able to establish 2 leads in the thoracic spine. Patient reported minimal pain improvement while on stimulation. At the end of the [place] [facility] trial he was switched to Nevro SCS, unfortunately that did not help his pain in more extent either. He was absent from my care for 2 years now he is coming back requesting the discussion about pain pump she was offered to him at that time. I explained to him the procedure, I gave him brochure of [employer] [facility] [employer] to schedule evaluation. As soon as he will pass evaluation I will schedule him for pain pump trial. He is currently taking [place] 7.5 mg and I prefer to try 1st bupivacaine. He also reports some stress incontinence increased urging with urination. Bupivacaine in the situation may be helpful for this condition as well. Dr. Ch did not recommend additional surgical intervention and advised he undergo a SCS trial, and thus he was referred to us. He describes a numbness and burning down his right posterior lateral leg extending to the top of his right into his toes. This is worsened with sitting, reaching pain level 8-9/10. He had done extensive PT and also had multiple injections prior to his surgery while seeing pain management provider Dr. Geronimo in [place]. [facility] Medical History History of urinary retention History of numbness Chronic pain syndrome Radiculopathy due to lumbar intervertebral disc disorder Postlaminectomy syndrome Surgical History History of surgery History of basal cell carcinoma excision History of lumbar laminectomy History of laminectomy History of back surgery Hx of arthroscopy of shoulder Hx of repair of rotator cuff Social History Patient Tobacco Use Status: Former Tobacco user Review of Systems Const All systems reviewed & are unremarkable except as noted in HPI and below ENT Reports Normal hearing present Neuro Reports Normal hearing present, Denies confusion and Denies Sensory deficit (Neuro) Psych Denies confusion Physical Exam Vital Signs: Last Vital Signs Pulse 73 05/17/24 09:26 Resp 16 05/17/24 09:26 BP 116/74 05/17/24 09:26 Pulse Ox 98 05/17/24 09:26 Oxygen Delivery Method Room Air 05/17/24 09:26 BMI result Body Mass Index 27.7 Const General: No confusion Orientation/consciousness: No confusion Eyes Pupils: Equal, round and reactive pupils present EOM: EOMs intact bilaterally Chest Chest palpation & inspection: normal inspection of the chest Resp Effort & Inspection: normal respiratory effort, able to speak in complete sentences, normal respiratory pattern, no audible wheezes and no cough Cardio Jugular venous distension: no JVD Back/Spine/Pelvis Other: Lumbar Spine/Lower back/SIJ: SACROILIAC JOINT No tenderness to palpation. INSPECTION: normal curvature of spine, scar from previous surgery. RANGE OF MOTION decreased extention. PALPATION: no vertebral spine tenderness. STRAIGHT LEG RAISING TEST: positive at 45 degrees on right. MOTOR SYSTEM: 5/5 bilateral lower extremities. SENSORY EXAM: paresthesias right L4-5 distribution. REFLEXES: symmetrical 2+. GAIT: unremarkable. Neuro General: No confusion Cranial nerves: Yes Equal, round and reactive pupils present and Yes Normal hearing present Sensory Exam: No Sensory deficit (Neuro) Psych Speech and movement: Normal speech and movement present Affect: normal affect Attitude: cooperative Thought process: Normal thought process present Thought content: Normal thought content present Insight: Good insight present (Psych) Judgement: Good judgement present (Psych) Assessment & Plan Assessment & Plan (1) Chronic pain syndrome: Code(s): G89.4 - Chronic pain syndrome Category: Medical (2) Radiculopathy due to lumbar intervertebral disc disorder: Code(s): M51.16 - Intervertebral disc disorders with radiculopathy, lumbar region Category: Medical (3) Postlaminectomy syndrome: Code(s): M96.1 - Postlaminectomy syndrome, not elsewhere classified Category: Medical Plan Implantation of the pain pump was performed on 05/12/2024. The patient did not use the pump yet of 1 attempt to apply the PTM dose. Dressing changes as above. Wounds are healing appropriately. Staple removal in 1 week. Next week the pump can not be read and depending on how the patient reports the magnitude of the pain relief on the dose and longevity of pain relief on the dose the doses need to be adjusted. The patient is taking gabapentinoids and he is concerned about combination of those medications with oral opioids for postoperative pain. The risks were explained to the patient. The patient understood the risks. He was prescribed postoperatively Narcan and he expressed understanding of the Narcan action. He states that his is dental hygienist and she knows how to use Narcan. Patient Instructions: I here by testify that I spent 32 minutes in conversation with this patient as well as planning his care and organizing this note. Coding Level of Care Code Est Pt Level 4 (70612) Diagnoses Chronic pain syndrome G89.4 Radiculopathy due to lumbar intervertebral disc disorder M51.16 Postlaminectomy syndrome M96.1
[2024-05-17 09:26] VITALS: BP 116/74; PULSE 73; RESP 16; O2SAT 98; BMI 27.7
== END 2024-05-17 09:18 | disposition home or self-care (01) ==
PROVIDERS: PCP Family Medicine; Visit Provider Anesthesiology
DX: G89.4 Chronic pain syndrome (principal); M51.16 Intervertebral disc disorders with radiculopathy, lumbar region; M96.1 Postlaminectomy syndrome, not elsewhere classified
CPT/HCPCS: 99024

== ENCOUNTER → 2024-05-17 08:57 | Outpatient (BNVA) | payer MEDICARE, MEDICAID, SELFPAY | PROVIDERS: PCP Family Medicine; Visit Provider Anesthesiology | DX: M51.16 Intervertebral disc disorders with radiculopathy, lumbar region (principal); M96.1 Postlaminectomy syndrome, not elsewhere classified; G89.4 Chronic pain syndrome | CPT/HCPCS: 99212 ==

== ENCOUNTER 2024-05-26 10:37 | Outpatient (AMB) | payer MEDICARE, MEDICAID, SELFPAY ==
--- NOTE | 2024-05-26 10:38 | MHC.OFFVIS ---
Vital Signs 05/26/24 10:48 Height 5 ft 9 in Weight 187 lb BMI 27.6 BP 119/73 Blood Pressure Location Lt brachial Position Sitting Pulse 67 Pulse Source Pulse Oximeter Pulse Oximetry (%) 97 Oxygen Delivery Method Room Air Intake Visit Reasons: S/p ITDD Pain Pump Implant 05/12/24 (2nd visit) Allergies No Known Allergies [No Known Allergies*] Allergy (Verified 05/26/24 10:48) HPI Comments Details: Patient is a pleasant 68 years old male presents today for sonia removal, 2 weeks status post ITDD Pain Pump Implant 05/12/[address] Bhardwaj. Patient reports he used the device for the first time last week and felt slightly lightheaded and nauseous with mild weakness in his legs which lasted for half?an hour. He rested and symptoms self-resolve. Patient reports he continued to use PTM bolus on most days since implant with missing a few days in between without any further side effects. The dressings were removed. The incisional wounds are slightly swollen with mild redness at sonia points but no incisional line redness, tenderness, erythema, temperature increase or pathological discharge. The wounds were washed with ChloraPrep and sonia were removed today. The wounds were washed again with ChloraPrep, Steri-strips and bacitracin ointment with dry sterile dressings were applied. The ITDD machine was interrogated today and PTM bolus dose was adjusted from 2.5 mg once a day to 0.5 mg twice a day per Dr. Elena. At this time, he reports acute pain due to recent surgery and chronic pain syndrome, post laminectomy syndrome. He continues to take hydrocodone-acetaminophen and Pregabalin. We will continue to work on establishing good pain control for this patient.?Denies any recent cough, cold, infection, fever, any significant changes in her medical history, medications or recent hospitalizations. PRIOR Dr. Bhardwaj 05/17/24: Hernán is in my office today after implantation of intrathecal bupivacaine pain pump. He did not use the device yet. He will be using the device and in 1 week he will report on effectiveness of the device. At the time we can adjust the frequency of the application of the bolus doses or we can adjust the magnitude of the doses itself. The patient was informed that he needs to continue using the device and report any side effects and or complications of the medication as well as effectiveness of the medication itself. The dressing change was performed today. The wounds are minimally swollen, no redness, no tenderness on palpation, no local temperature increase, no pathological discharge, edges competent, sonia are competent. The wounds were worst with ChloraPrep sterile dressing with sterile 4x4s were applied. Dressing change and staple removal in 1 week. Hernán head 70% pain improvement after the bupivacaine trial. Prior: Originally he was referred by Dr. Nix for evaluation for spinal cord stimulator. He is status post laminectomy L3-L4 and L5-S1 diskectomy with posterior lateral fusion. He has L5 radiculopathy EMG confirmed. On recommendation of Dr. Ch I tried spinal cord stimulator on him [place] [employer]. The procedure was very difficult technically. However I was able to establish 2 leads in the thoracic spine. Patient reported minimal pain improvement while on stimulation. At the end of the [place] [employer] trial he was switched to [place] SCS, unfortunately that did not help his pain in more extent either. He was absent from my care for 2 years now he is coming back requesting the discussion about pain pump she was offered to him at that time. I explained to him the procedure, I gave him brochure of [facility] to schedule evaluation. As soon as he will pass evaluation I will schedule him for pain pump trial. He is currently taking [place] 7.5 mg and I prefer to try 1st bupivacaine. He also reports some stress incontinence increased urging with urination. Bupivacaine in the situation may be helpful for this condition as well. Dr. Ch did not recommend additional surgical intervention and advised he undergo a SCS trial, and thus he was referred to us. He describes a numbness and burning down his right posterior lateral leg extending to the top of his right into his toes. This is worsened with sitting, reaching pain level 8-9/10. He had done extensive PT and also had multiple injections prior to his surgery while seeing pain management provider Dr. Geronimo in [place]. [facility] Medical History History of urinary retention History of numbness Chronic pain syndrome Radiculopathy due to lumbar intervertebral disc disorder Postlaminectomy syndrome Surgical History History of surgery History of basal cell carcinoma excision History of lumbar laminectomy History of laminectomy History of back surgery Hx of arthroscopy of shoulder Hx of repair of rotator cuff Social History Patient Tobacco Use Status: Former Tobacco user Review of Systems Const All systems reviewed & are unremarkable except as noted in HPI and below Physical Exam Vital Signs: Last Vital Signs Pulse 67 05/26/24 10:48 BP 119/73 05/26/24 10:48 Pulse Ox 97 05/26/24 10:48 Oxygen Delivery Method Room Air 05/26/24 10:48 BMI result Body Mass Index 27.6 General: Appears afebrile. No acute distress. Alert and oriented. Mood and affect appropriate. Follows and participates in conversation appropriately. Respiratory effort is unlabored. No cough. Able to transition from sit to stand unassisted. Uses cane with ambulation. Ambulates with bilaterally normal heel strike and toe off. Dressing change done in clinic today. Sonia were removed. No tenderness overlying the pump device. Psych Appearance: grossly normal Mental Status: mental status grossly normal Speech and movement: Normal speech and movement present Affect: normal affect Attitude: cooperative Thought process: Normal thought process present Thought content: Normal thought content present, suicidality (none), no hallucinations and No Depressive thoughts present Insight: Good insight present (Psych) Judgement: Good judgement present (Psych) Results Reviewed Results Reviewed: MRI FINDINGS: MRI 10/2019: Postoperative and degenerative changes. Moderate to marked narrowing right L3 nerve root with effacement foraminal. Suspected right L3 nerve root construction. Improved alignment/diminished anterolisthesis L5 referable to S1 and decreased severity of L5 nerve root foraminal stenosis Assessment & Plan Assessment & Plan (1) Chronic pain syndrome: Code(s): G89.4 - Chronic pain syndrome Category: Medical (2) Radiculopathy due to lumbar intervertebral disc disorder: Code(s): M51.16 - Intervertebral disc disorders with radiculopathy, lumbar region Category: Medical (3) Postlaminectomy syndrome: Code(s): M96.1 - Postlaminectomy syndrome, not elsewhere classified Category: Medical (4) S/P insertion of intrathecal pump: Code(s): Z98.890 - Other specified postprocedural states Category: Surgical Plan Patient is 2 weeks s/p Implantation of the pain pump which was performed on 05/12/2024. The patient has initiated device use and reported mild lightheadedness, nausea and leg weakness on 1st attempt of PTM dose which self-resolved within 30 min per patient. He continued to use PTM one bolus/day on most days per patient without any further side effects. Dressing changes as above. Wounds are healing appropriately. Staple were removed today. Patient may remove dressing in 3 days and start shower, he is aware to leave Steri-strips intact. Activity restrictions and precautions were reviewed with patient. We will continue to work on establishing good pain control for this patient.?Patient will follow up with Dr. Bhardwaj in 2 weeks and sooner as needed. Coding Level of Care Code Est Pt Level 4 (20947) Diagnoses Chronic pain syndrome G89.4 Radiculopathy due to lumbar intervertebral disc disorder M51.16 Postlaminectomy syndrome M96.1 S/P insertion of intrathecal pump Z98.890
[2024-05-26 10:48] VITALS: BP 119/73; PULSE 67; O2SAT 97; BMI 27.6
== END 2024-05-26 11:21 | disposition home or self-care (01) ==
PROVIDERS: PCP Family Medicine; Visit Provider Nurse Practitioner Family
DX: G89.4 Chronic pain syndrome (principal); M51.16 Intervertebral disc disorders with radiculopathy, lumbar region; M96.1 Postlaminectomy syndrome, not elsewhere classified; Z98.890 Other specified postprocedural states
CPT/HCPCS: 99214

== ENCOUNTER → 2024-05-26 10:37 | Outpatient (BNVA) | payer MEDICARE, SELFPAY | PROVIDERS: PCP Family Medicine; Visit Provider Nurse Practitioner Family | DX: M54.16 Radiculopathy, lumbar region (principal); M96.1 Postlaminectomy syndrome, not elsewhere classified; G89.4 Chronic pain syndrome; Z98.890 Other specified postprocedural states | CPT/HCPCS: 99212 ==

== ENCOUNTER 2024-06-15 10:42 | Outpatient (AMB) | payer MEDICARE, MEDICAID, SELFPAY ==
[2024-06-15 10:47] VITALS: BP 128/77; PULSE 54; O2SAT 97; BMI 27.3
--- NOTE | 2024-06-15 10:47 | MHC.OFFVIS ---
Vital Signs 06/15/24 10:47 Height 5 ft 9 in Weight 185 lb BMI 27.3 BP 128/77 Blood Pressure Location Rt brachial Position Sitting Pulse 54 Pulse Source Pulse Oximeter Pulse Oximetry (%) 97 Oxygen Delivery Method Room Air Intake Visit Reasons: 2 weeks follow up Allergies No Known Allergies [No Known Allergies*] Allergy (Verified 06/15/24 10:48) Medication List - Last Reconciled 06/15/24 by Trini Sullivan cephalexin 1,000 mg (2 x 500 mg) PO Q8H 16 days hydrocodone-acetaminophen 7.5-300 mg 1 tab PO BID PRN hydrocodone-acetaminophen 7.5-300 mg 1 tab PO Q4H PRN 5 days MDD 6 pills naloxone 4 mg/actuation 4 mg intranasal Q2M 1 day pregabalin 75 mg PO DAILY quetiapine (Seroquel) 100 mg PO BEDTIME selegiline (Emsam) 1 patch transdermal DAILY HPI Comments Details: Hernán presents back to the office today for follow-up, he is 4 weeks status post ITDD Pain Pump Implant 05/12/[address] Bhardwaj. At last visit PTM boluses were adjusted from 2.5 mg once a day to 0.5 mg twice daily. He reports no improvement in his pain since the adjustments. He is no longer having side effects that he was doing with the higher dose however there is no pain relief on the current dose. Pain today is rated as a 5/10, worse with activity and in the evenings Denies any cough, fever, chills, pain at the surgical site, nausea, vomiting, diarrhea Prior: Patient is a pleasant 68 years old male presents today for sonia removal, 2 weeks status post ITDD Pain Pump Implant 05/12/[address] Bhardwaj. Patient reports he used the device for the first time last week and felt slightly lightheaded and nauseous with mild weakness in his legs which lasted for half?an hour. He rested and symptoms self-resolve. Patient reports he continued to use PTM bolus on most days since implant with missing a few days in between without any further side effects. The dressings were removed. The incisional wounds are slightly swollen with mild redness at sonia points but no incisional line redness, tenderness, erythema, temperature increase or pathological discharge. The wounds were washed with ChloraPrep and sonia were removed today. The wounds were washed again with ChloraPrep, Steri-strips and bacitracin ointment with dry sterile dressings were applied. The ITDD machine was interrogated today and PTM bolus dose was adjusted from 2.5 mg once a day to 0.5 mg twice a day per Dr. Elena. At this time, he reports acute pain due to recent surgery and chronic pain syndrome, post laminectomy syndrome. He continues to take hydrocodone-acetaminophen and Pregabalin. We will continue to work on establishing good pain control for this patient.?Denies any recent cough, cold, infection, fever, any significant changes in her medical history, medications or recent hospitalizations. PRIOR Dr. Bhardwaj 05/17/24: Hernán is in my office today after implantation of intrathecal bupivacaine pain pump. He did not use the device yet. He will be using the device and in 1 week he will report on effectiveness of the device. At the time we can adjust the frequency of the application of the bolus doses or we can adjust the magnitude of the doses itself. The patient was informed that he needs to continue using the device and report any side effects and or complications of the medication as well as effectiveness of the medication itself. The dressing change was performed today. The wounds are minimally swollen, no redness, no tenderness on palpation, no local temperature increase, no pathological discharge, edges competent, sonia are competent. The wounds were worst with ChloraPrep sterile dressing with sterile 4x4s were applied. Dressing change and staple removal in 1 week. Hernán head 70% pain improvement after the bupivacaine trial. Prior: Originally he was referred by Dr. Nix for evaluation for spinal cord stimulator. He is status post laminectomy L3-L4 and L5-S1 diskectomy with posterior lateral fusion. He has L5 radiculopathy EMG confirmed. On recommendation of Dr. Ch I tried spinal cord stimulator on him [place] [employer]. The procedure was very difficult technically. However I was able to establish 2 leads in the thoracic spine. Patient reported minimal pain improvement while on stimulation. At the end of the [place] [employer] trial he was switched to Nev[place] SCS, unfortunately that did not help his pain in more extent either. He was absent from my care for 2 years now he is coming back requesting the discussion about pain pump she was offered to him at that time. I explained to him the procedure, I gave him brochure of [employer] [facility] to schedule evaluation. As soon as he will pass evaluation I will schedule him for pain pump trial. He is currently taking [place] 7.5 mg and I prefer to try 1st bupivacaine. He also reports some stress incontinence increased urging with urination. Bupivacaine in the situation may be helpful for this condition as well. Dr. Ch did not recommend additional surgical intervention and advised he undergo a SCS trial, and thus he was referred to us. He describes a numbness and burning down his right posterior lateral leg extending to the top of his right into his toes. This is worsened with sitting, reaching pain level 8-9/10. He had done extensive PT and also had multiple injections prior to his surgery while seeing pain management provider Dr. Geronimo in [place]. [facility] Medical History History of urinary retention History of numbness Chronic pain syndrome Radiculopathy due to lumbar intervertebral disc disorder Postlaminectomy syndrome Surgical History History of surgery History of basal cell carcinoma excision History of lumbar laminectomy History of laminectomy History of back surgery Hx of arthroscopy of shoulder Hx of repair of rotator cuff Social History Patient Tobacco Use Status: Former Tobacco user Review of Systems Const All systems reviewed & are unremarkable except as noted in HPI and below Physical Exam Vital Signs: Last Vital Signs Pulse 54 06/15/24 10:47 BP 128/77 06/15/24 10:47 Pulse Ox 97 06/15/24 10:47 Oxygen Delivery Method Room Air 06/15/24 10:47 BMI result Body Mass Index 27.3 General: awake, alert, oriented. Answers questions appropriately. Fully engaged in examination. Skin: warm, dry, intact. Well-healed surgical scar left lower back without warmth, erythema, exudate, dehiscence HEENT: Normocephalic. Hearing intact. Cardiac: External chest normal in appearance. Respiratory: No cough, audible wheezing or stridor. Abdomen: without gross distension. MS: No obvious swelling or deformities. Neurological: Oriented to person, place, time and situation. Thought process intact. No gait abnormalities appreciated. Psychiatric: Appropriate mood and affect. Good judgment and insight. Results Reviewed Results Reviewed: MRI FINDINGS: MRI 10/2019: Postoperative and degenerative changes. Moderate to marked narrowing right L3 nerve root with effacement foraminal. Suspected right L3 nerve root construction. Improved alignment/diminished anterolisthesis L5 referable to S1 and decreased severity of L5 nerve root foraminal stenosis Assessment & Plan Assessment & Plan (1) Chronic pain syndrome: Code(s): G89.4 - Chronic pain syndrome Category: Medical (2) Radiculopathy due to lumbar intervertebral disc disorder: Code(s): M51.16 - Intervertebral disc disorders with radiculopathy, lumbar region Category: Medical (3) Postlaminectomy syndrome: Code(s): M96.1 - Postlaminectomy syndrome, not elsewhere classified Category: Medical (4) S/P insertion of intrathecal pump: Code(s): Z98.890 - Other specified postprocedural states Category: Surgical Plan Patient presented to the office today for follow-up, 4 weeks s/p Implantation of the pain pump which was performed on 05/12/[address] Bhardwaj. Denies any further side effects. Denies improvement of his pain with current PTM doses. He will follow-up in the office in [address] Bhardwaj to discuss further medication dose adjustments All questions and concerns were answered, patient agrees to the plan. Follow up in 2 weeks, sooner if needed. Coding Level of Care Code Est Pt Level 3 (16936) Complex EM visit Add On G2211 Diagnoses Chronic pain syndrome G89.4 Radiculopathy due to lumbar intervertebral disc disorder M51.16 Postlaminectomy syndrome M96.1 S/P insertion of intrathecal pump Z98.890
== END 2024-06-15 11:17 | disposition home or self-care (01) ==
PROVIDERS: PCP Family Medicine; Visit Provider Registered Nurse Emergency
DX: G89.4 Chronic pain syndrome (principal); M51.16 Intervertebral disc disorders with radiculopathy, lumbar region; M96.1 Postlaminectomy syndrome, not elsewhere classified; Z98.890 Other specified postprocedural states
CPT/HCPCS: 99213; G2211

== ENCOUNTER → 2024-06-15 10:42 | Outpatient (BNVA) | payer MEDICARE, MEDICAID, SELFPAY | PROVIDERS: PCP Family Medicine; Visit Provider Registered Nurse Emergency | DX: M51.16 Intervertebral disc disorders with radiculopathy, lumbar region (principal); M96.1 Postlaminectomy syndrome, not elsewhere classified; G89.4 Chronic pain syndrome; Z98.890 Other specified postprocedural states | CPT/HCPCS: 99212 ==

== ENCOUNTER 2024-06-28 09:53 | Outpatient (AMB) | payer MEDICARE, MEDICAID, SELFPAY ==
--- NOTE | 2024-06-28 09:54 | A.OFFVIS_ITS ---
Vital Signs 06/28/24 10:00 Height 5 ft 9 in Weight 185 lb BMI 27.3 BP 124/68 Blood Pressure Location Lt brachial Position Sitting Respiration 16 Pulse 70 Pulse Source Pulse Oximeter Pulse Oximetry (%) 100 Oxygen Delivery Method Room Air Intake Visit Reasons: 2 Week Follow Up Intake Note: Patient comes in for two weeks followup. Reports pain 02/17. Allergies No Known Allergies [No Known Allergies*] Allergy (Verified 06/28/24 10:01) HPI Comments Details: Hernán is today in the office for pain pump adjustment. He was previously seen in the office by Dr. Elena with complains that PTM dose causes him nausea, weakness in bilateral lower extremity lightheadedness, lightheadedness. He has continuous rate was elevated to 0.7 and PTM dose was decreased to 0.5 b.i.d. from 2.5 q.d.. His symptoms most likely are secondary to rostral spread of the medication. It is sympathetic blockade with a weakness and blood pressure decreased. Today I examined the patient and his pain pump was interrogated. Increase his PTM dose to 0.7 and I recommended him to assume reverse Trendelenburg position while administering PTM dose to allow hyperbaric bupivacaine 2 flow up into the projection of the lumbar area. I also will consider in the future to increase the dose and spread out the time of the administration of the dose to decrease the indications ability to act on sympathetic system. Prior: Patient is a pleasant 68 years old male presents today for sonia removal, 2 weeks status post ITDD Pain Pump Implant 05/12/[address] Bhardwaj. Patient reports he used the device for the first time last week and felt slightly lightheaded and nauseous with mild weakness in his legs which lasted for half?an hour. He rested and symptoms self-resolve. Patient reports he continued to use PTM bolus on most days since implant with missing a few days in between without any further side effects. The dressings were removed. The incisional wounds are slightly swollen with mild redness at sonia points but no incisional line redness, tenderness, erythema, temperature increase or pathological discharge. The wounds were washed with ChloraPrep and sonia were removed today. The wounds were washed again with ChloraPrep, Steri-strips and bacitracin ointment with dry sterile dressings were applied. The ITDD machine was interrogated today and PTM bolus dose was adjusted from 2.5 mg once a day to 0.5 mg twice a day per Dr. Elena. At this time, he reports acute pain due to recent surgery and chronic pain syndrome, post laminectomy syndrome. He continues to take hydrocodone-acetaminophen and Pregabalin. We will continue to work on establishing good pain control for this patient.?Denies any recent cough, cold, infection, fever, any significant changes in her medical history, medications or recent hospitalizations. PRIOR Dr. Bhardwaj 05/17/24: Hernán is in my office today after implantation of intrathecal bupivacaine pain pump. He did not use the device yet. He will be using the device and in 1 week he will report on effectiveness of the device. At the time we can adjust the frequency of the application of the bolus doses or we can adjust the magnitude of the doses itself. The patient was informed that he needs to continue using the device and report any side effects and or complications of the medication as well as effectiveness of the medication itself. The dressing change was performed today. The wounds are minimally swollen, no redness, no tenderness on palpation, no local temperature increase, no pathological discharge, edges competent, sonia are competent. The wounds were worst with ChloraPrep sterile dressing with sterile 4x4s were applied. Dressing change and staple removal in 1 week. Hernán head 70% pain improvement after the bupivacaine trial. Prior: Originally he was referred by Dr. Nix for evaluation for spinal cord stimulator. He is status post laminectomy L3-L4 and L5-S1 diskectomy with posterior lateral fusion. He has L5 radiculopathy EMG confirmed. On recommendation of Dr. Ch I tried spinal cord stimulator on him [place] [employer]. The procedure was very difficult technically. However I was able to establish 2 leads in the thoracic spine. Patient reported minimal pain improvement while on stimulation. At the end of the [place] [employer] trial he was switched to Nevro SCS, unfortunately that did not help his pain in more extent either. He was absent from my care for 2 years now he is coming back requesting the discussion about pain pump she was offered to him at that time. I explained to him the procedure, I gave him brochure of [facility] to schedule evaluation. As soon as he will pass evaluation I will schedule him for pain pump trial. He is currently taking [place] 7.5 mg and I prefer to try 1st bupivacaine. He also reports some stress incontinence increased urging with urination. Bupivacaine in the situation may be helpful for this condition as well. Dr. Ch did not recommend additional surgical intervention and advised he undergo a SCS trial, and thus he was referred to us. He describes a numbness and burning down his right posterior lateral leg extending to the top of his right into his toes. This is worsened with sitting, reaching pain level 8-9/10. He had done extensive PT and also had multiple injections prior to his surgery while seeing pain management provider Dr. Geronimo in [place]. [facility] Medical History History of urinary retention History of numbness Chronic pain syndrome Radiculopathy due to lumbar intervertebral disc disorder Postlaminectomy syndrome Surgical History History of surgery History of basal cell carcinoma excision History of lumbar laminectomy History of laminectomy History of back surgery Hx of arthroscopy of shoulder Hx of repair of rotator cuff Social History Patient Tobacco Use Status: Former Tobacco user Review of Systems Const All systems reviewed & are unremarkable except as noted in HPI and below Physical Exam Vital Signs: Last Vital Signs Pulse 70 06/28/24 10:00 Resp 16 06/28/24 10:00 BP 124/68 06/28/24 10:00 Pulse Ox 100 06/28/24 10:00 Oxygen Delivery Method Room Air 06/28/24 10:00 BMI result Body Mass Index 27.3 General: awake, alert, oriented. Answers questions appropriately. Fully engaged in examination. Skin: warm, dry, intact. Well-healed surgical scar left lower back without w armth, erythema, exudate, dehiscence HEENT: Normocephalic. Hearing intact. Cardiac: External chest normal in appearance. Respiratory: No cough, audible wheezing or stridor. Abdomen: without gross distension. MS: No obvious swelling or deformities. Neurological: Oriented to person, place, time and situation. Thought process intact. No gait abnormalities appreciated. Psychiatric: Appropriate mood and affect. Good judgment and insight. Assessment & Plan Assessment & Plan (1) Chronic pain syndrome: Code(s): G89.4 - Chronic pain syndrome Category: Medical (2) Radiculopathy due to lumbar intervertebral disc disorder: Code(s): M51.16 - Intervertebral disc disorders with radiculopathy, lumbar region Category: Medical (3) Postlaminectomy syndrome: Code(s): M96.1 - Postlaminectomy syndrome, not elsewhere classified Category: Medical (4) S/P insertion of intrathecal pump: Code(s): Z98.890 - Other specified postprocedural states Category: Surgical Plan Patient presented to the office today for follow-up, the adjustment of the medication was performed as above. Recommendation of the body positioning with administration of the bupivacaine was given to the patient. He would need to assume reverse Trendelenburg position to allow hyperbaric bupivacaine to spread out caudally and not cranially. I will consider next time he is here to increase the time of the administration of the PTM doses. I will see this patient in 1 week for pump adjustment. Coding Level of Care Code Est Pt Level 3 (84138) Diagnoses Chronic pain syndrome G89.4 Radiculopathy due to lumbar intervertebral disc disorder M51.16 Postlaminectomy syndrome M96.1 S/P insertion of intrathecal pump Z98.890
[2024-06-28 10:00] VITALS: BP 124/68; PULSE 70; RESP 16; O2SAT 100; BMI 27.3
== END 2024-06-28 10:10 | disposition home or self-care (01) ==
PROVIDERS: PCP Family Medicine; Visit Provider Anesthesiology
DX: G89.4 Chronic pain syndrome (principal); M51.16 Intervertebral disc disorders with radiculopathy, lumbar region; M96.1 Postlaminectomy syndrome, not elsewhere classified; Z98.890 Other specified postprocedural states
CPT/HCPCS: 99213

== ENCOUNTER → 2024-06-28 09:53 | Outpatient (BNVA) | payer MEDICARE, MEDICAID, SELFPAY | PROVIDERS: PCP Family Medicine; Visit Provider Anesthesiology | DX: G89.4 Chronic pain syndrome (principal); M51.16 Intervertebral disc disorders with radiculopathy, lumbar region; M96.1 Postlaminectomy syndrome, not elsewhere classified; Z45.1 Encounter for adjustment and management of infusion pump; Z98.890 Other specified postprocedural states; Z79.899 Other long term (current) drug therapy | CPT/HCPCS: 99212 ==

== ENCOUNTER 2024-07-05 13:09 | Outpatient (AMB) | payer MEDICARE, MEDICAID, SELFPAY ==
--- NOTE | 2024-07-05 13:14 | MHC.OFFVIS ---
Vital Signs 07/05/24 13:17 Height 5 ft 9 in Weight 195 lb 4 oz BMI 28.8 BP 132/72 Blood Pressure Location Lt brachial Position Sitting Respiration 16 Pulse 89 Pulse Source Pulse Oximeter Pulse Oximetry (%) 98 Oxygen Delivery Method Room Air Intake Visit Reasons: 1 Week Follow Up Intake Note: Patient comes in for 1 week follow up. Reports pain 6/10. Allergies No Known Allergies [No Known Allergies*] Allergy (Verified 07/05/24 13:23) HPI Comments Details: Hernán is today in the office for 2nd pain pump adjustment. He was seen by me and I increased the doses of the PTM on the patient to 0.75 mg on demand twice a day and I recommended patient to assume horizontal position with pelvic elevated to receive the medication during the 5 minutes. Today I increased the dose to 1 mg on demand and I also increase the time of the dose administration to 35 minutes the frequency of administration remains twice a day. If patient does not have any additional side effects I will continue to escalate doses of bupivacaine until patient comfortable or until side effects reached. Alternatively patient currently is in the opioid program with a primary care physician he receives [place] 7.5 mg/350 mg 3 times a day. If he is willing to stop his oral opioid medications we can try to introduce intrathecal opioid such as hydromorphone or morphine. He was previously seen in the office by Dr. Elena with complains that PTM dose causes him nausea, weakness in bilateral lower extremity lightheadedness, lightheadedness. He has continuous rate was elevated to 0.7 and PTM dose was decreased to 0.5 b.i.d. from 2.5 q.d.. His symptoms most likely are secondary to rostral spread of the medication. It is sympathetic blockade with a weakness and blood pressure decreased. Today I examined the patient and his pain pump was interrogated. Increase his PTM dose to 0.7 and I recommended him to assume reverse Trendelenburg position while administering PTM dose to allow hyperbaric bupivacaine 2 flow up into the projection of the lumbar area. I also will consider in the future to increase the dose and spread out the time of the administration of the dose to decrease the indications ability to act on sympathetic system. Prior: Patient is a pleasant 68 years old male presents today for sonia removal, 2 weeks status post ITDD Pain Pump Implant 05/12/[address] Bhardwaj. Patient reports he used the device for the first time last week and felt slightly lightheaded and nauseous with mild weakness in his legs which lasted for half?an hour. He rested and symptoms self-resolve. Patient reports he continued to use PTM bolus on most days since implant with missing a few days in between without any further side effects. The dressings were removed. The incisional wounds are slightly swollen with mild redness at sonia points but no incisional line redness, tenderness, erythema, temperature increase or pathological discharge. The wounds were washed with ChloraPrep and sonia were removed today. The wounds were washed again with ChloraPrep, Steri-strips and bacitracin ointment with dry sterile dressings were applied. The ITDD machine was interrogated today and PTM bolus dose was adjusted from 2.5 mg once a day to 0.5 mg twice a day per Dr. Elena. At this time, he reports acute pain due to recent surgery and chronic pain syndrome, post laminectomy syndrome. He continues to take hydrocodone-acetaminophen and Pregabalin. We will continue to work on establishing good pain control for this patient.?Denies any recent cough, cold, infection, fever, any significant changes in her medical history, medications or recent hospitalizations. PRIOR Dr. Bhardwaj 05/17/24: Hernán is in my office today after implantation of intrathecal bupivacaine pain pump. He did not use the device yet. He will be using the device and in 1 week he will report on effectiveness of the device. At the time we can adjust the frequency of the application of the bolus doses or we can adjust the magnitude of the doses itself. The patient was informed that he needs to continue using the device and report any side effects and or complications of the medication as well as effectiveness of the medication itself. The dressing change was performed today. The wounds are minimally swollen, no redness, no tenderness on palpation, no local temperature increase, no pathological discharge, edges competent, sonia are competent. The wounds were worst with ChloraPrep sterile dressing with sterile 4x4s were applied. Dressing change and staple removal in 1 week. Hernán head 70% pain improvement after the bupivacaine trial. Prior: Originally he was referred by Dr. Nix for evaluation for spinal cord stimulator. He is status post laminectomy L3-L4 and L5-S1 diskectomy with posterior lateral fusion. He has L5 radiculopathy EMG confirmed. On recommendation of Dr. Ch I tried spinal cord stimulator on him [place] [employer]. The procedure was very difficult technically. However I was able to establish 2 leads in the thoracic spine. Patient reported minimal pain improvement while on stimulation. At the end of the [place] [employer] trial he was switched to Nevro SCS, unfortunately that did not help his pain in more extent either. He was absent from my care for 2 years now he is coming back requesting the discussion about pain pump she was offered to him at that time. I explained to him the procedure, I gave him brochure of [facility] to schedule evaluation. As soon as he will pass evaluation I will schedule him for pain pump trial. He is currently taking [place] 7.5 mg and I prefer to try 1st bupivacaine. He also reports some stress incontinence increased urging with urination. Bupivacaine in the situation may be helpful for this condition as well. Dr. Ch did not recommend additional surgical intervention and advised he undergo a SCS trial, and thus he was referred to us. He describes a numbness and burning down his right posterior lateral leg extending to the top of his right into his toes. This is worsened with sitting, reaching pain level 8-9/10. He had done extensive PT and also had multiple injections prior to his surgery while seeing pain management provider Dr. Geronimo in [place]. [facility] Medical History History of urinary retention History of numbness Chronic pain syndrome Radiculopathy due to lumbar intervertebral disc disorder Postlaminectomy syndrome Surgical History History of surgery History of basal cell carcinoma excision History of lumbar laminectomy History of laminectomy History of back surgery Hx of arthroscopy of shoulder Hx of repair of rotator cuff Social History Patient Tobacco Use Status: Former Tobacco user Review of Systems Const All systems reviewed & are unremarkable except as noted in HPI and below Physical Exam Vital Signs: Last Vital Signs Pulse 89 07/05/24 13:17 Resp 16 07/05/24 13:17 BP 132/72 07/05/24 13:17 Pulse Ox 98 07/05/24 13:17 Oxygen Delivery Method Room Air 07/05/24 13:17 BMI result Body Mass Index 28.8 General: awake, alert, oriented. Answers questions appropriately. Fully engaged in examination. Skin: warm, dry, intact. Well-healed surgical scar left lower back without warmth, erythema, exudate, dehiscence HEENT: Normocephalic. Hearing intact. Cardiac: External chest normal in appearance. Respiratory: No cough, audible wheezing or stridor. Abdomen: without gross distension. MS: No obvious swelling or deformities. Neurological: Oriented to person, place, time and situation. Thought process intact. No gait abnormalities appreciated. Psychiatric: Appropriate mood and affect. Good judgment and insight. Assessment & Plan Assessment & Plan (1) Chronic pain syndrome: Code(s): G89.4 - Chronic pain syndrome Category: Medical (2) Radiculopathy due to lumbar intervertebral disc disorder: Code(s): M51.16 - Intervertebral disc disorders with radiculopathy, lumbar region Category: Medical (3) Postlaminectomy syndrome: Code(s): M96.1 - Postlaminectomy syndrome, not elsewhere classified Category: Medical (4) S/P insertion of intrathecal pump: Code(s): Z98.890 - Other specified postprocedural states Category: Surgical Plan Hernán presented to the office today for follow-up, the adjustment of the medication was performed as above. Recommendation of the body positioning with administration of the bupivacaine was given to the patient. He would need to assume Trendelenburg position to allow hypobaric bupivacaine to spread out caudally and not cranially. I also increased the the time of the administration of the dose to 35 minutes from 5 minutes. Patient Instructions: I here by testify that I spent 35 minutes in conversation with this patient as well as planning his care and organizing this note. Coding Level of Care Code Est Pt Level 4 (23140) Diagnoses Chronic pain syndrome G89.4 Radiculopathy due to lumbar intervertebral disc disorder M51.16 Postlaminectomy syndrome M96.1 S/P insertion of intrathecal pump Z98.890
[2024-07-05 13:17] VITALS: BP 132/72; PULSE 89; RESP 16; O2SAT 98; BMI 28.8
== END 2024-07-05 13:53 | disposition home or self-care (01) ==
PROVIDERS: PCP Family Medicine; Visit Provider Anesthesiology
DX: G89.4 Chronic pain syndrome (principal); M51.16 Intervertebral disc disorders with radiculopathy, lumbar region; M96.1 Postlaminectomy syndrome, not elsewhere classified; Z98.890 Other specified postprocedural states
CPT/HCPCS: 99214

== ENCOUNTER → 2024-07-05 13:09 | Outpatient (BNVA) | payer MEDICARE, MEDICAID, SELFPAY | PROVIDERS: PCP Family Medicine; Visit Provider Anesthesiology | DX: M51.16 Intervertebral disc disorders with radiculopathy, lumbar region (principal); M96.1 Postlaminectomy syndrome, not elsewhere classified; G89.4 Chronic pain syndrome; Z98.890 Other specified postprocedural states | CPT/HCPCS: 99212 ==

== ENCOUNTER 2024-07-13 11:19 | Outpatient (AMB) | payer MEDICARE, MEDICAID, SELFPAY ==
--- NOTE | 2024-07-13 11:20 | A.OFFVIS_ITS ---
Vital Signs 07/13/24 11:26 Height 5 ft 9 in Weight 195 lb BMI 28.8 BP 125/67 Blood Pressure Location Lt brachial Position Sitting Respiration 16 Pulse 8 L Pulse Source Pulse Oximeter Pulse Oximetry (%) 98 Oxygen Delivery Method Room Air Intake Visit Reasons: F/U Intake Note: Patient comes in for pain pump adjustment. Reports pain 03/20. Allergies No Known Allergies [No Known Allergies*] Allergy (Verified 07/13/24 11:28) HPI Comments Details: Hernán is today in the office for 3rd pain pump adjustment. He was seen by me and I increased the doses of the PTM on the patient to 0.75 mg on demand twice a day and I recommended patient to assume horizontal position with pelvic elevated to receive the medication during the 5 minutes. Today I increased the dose to 1,5 mg on demand over the course of 45 minutes the frequency of administration remains twice a day. He reports no additional side effects from the medications however he denies any help from the boluses. I told him that at this time we can try to add hydromorphone to the admixture of his pain pump, if he will stop his oral opioid medications. He stated today that he takes them as needed and on rare basis and he can easily stop his hydrocodone. Next time in 20 days from today I will refill his pump with new medication admixture which will contain bupivacaine 10 milligrams/mL and hydromorphone 300 micro g per mL. His pain is mostly pain in the right lower extremity radiating to the foot. He was previously seen in the office by Dr. Elena with complains that PTM dose causes him nausea, weakness in bilateral lower extremity lightheadedness, lightheadedness. He has continuous rate was elevated to 0.7 and PTM dose was decreased to 0.5 b.i.d. from 2.5 q.d.. His symptoms most likely are secondary to rostral spread of the medication. It is sympathetic blockade with a weakness and blood pressure decreased. Today I examined the patient and his pain pump was interrogated. Increase his PTM dose to 0.7 and I recommended him to assume reverse Trendelenburg position while administering PTM dose to allow hyperbaric bupivacaine 2 flow up into the projection of the lumbar area. I also will consider in the future to increase the dose and spread out the time of the administration of the dose to decrease the indications ability to act on sympathetic system. Prior: Patient is a pleasant 68 years old male presents today for sonia removal, 2 weeks status post ITDD Pain Pump Implant 05/12/[address] Bhardwaj. Patient reports he used the device for the first time last week and felt slightly lightheaded and nauseous with mild weakness in his legs which lasted for half?an hour. He rested and symptoms self-resolve. Patient reports he continued to use PTM bolus on most days since implant with missing a few days in between without any further side effects. The dressings were removed. The incisional wounds are slightly swollen with mild redness at sonia points but no incisional line redness, tenderness, erythema, temperature increase or pathological discharge. The wounds were washed with ChloraPrep and sonia were removed today. The wounds were washed again with ChloraPrep, Steri-strips and bacitracin ointment with dry sterile dressings were applied. The ITDD machine was interrogated today and PTM bolus dose was adjusted from 2.5 mg once a day to 0.5 mg twice a day per Dr. Elena. At this time, he reports acute pain due to recent surgery and chronic pain syndrome, post laminectomy syndrome. He continues to take hydrocodone-acetaminophen and Pregabalin. We will continue to work on establishing good pain control for this patient.?Denies any recent cough, cold, infection, fever, any significant changes in her medical history, medications or recent hospitalizations. PRIOR Dr. Bhardwaj 05/17/24: Hernán is in my office today after implantation of intrathecal bupivacaine pain pump. He did not use the device yet. He will be using the device and in 1 week he will report on effectiveness of the device. At the time we can adjust the frequency of the application of the bolus doses or we can adjust the magnitude of the doses itself. The patient was informed that he needs to continue using the device and report any side effects and or complications of the medication as well as effectiveness of the medication itself. The dressing change was performed today. The wounds are minimally swollen, no redness, no tenderness on palpation, no local temperature increase, no pathological discharge, edges competent, sonia are competent. The wounds were worst with ChloraPrep sterile dressing with sterile 4x4s were applied. Dressing change and staple removal in 1 week. Hernán head 70% pain improvement after the bupivacaine trial. Prior: Originally he was referred by Dr. Nix for evaluation for spinal cord stimulator. He is status post laminectomy L3-L4 and L5-S1 diskectomy with posterior lateral fusion. He has L5 radiculopathy EMG confirmed. On recommendation of Dr. Ch I tried spinal cord stimulator on him [place] [employer]. The procedure was very difficult technically. However I was able to establish 2 leads in the thoracic spine. Patient reported minimal pain improvement while on stimulation. At the end of the [place] [employer] trial he was switched to Nevro SCS, unfortunately that did not help his pain in more extent either. He was absent from my care for 2 years now he is coming back requesting the discussion about pain pump she was offered to him at that time. I explained to him the procedure, I gave him brochure of [facility] point psychology to schedule evaluation. As soon as he will pass evaluation I will schedule him for pain pump trial. He is currently taking [place] 7.5 mg and I prefer to try 1st bupivacaine. He also reports some stress incontinence increased urging with urination. Bupivacaine in the situation may be helpful for this condition as well. Dr. Ch did not recommend additional surgical intervention and advised he undergo a SCS trial, and thus he was referred to us. He describes a numbness and burning down his right posterior lateral leg extending to the top of his right into his toes. This is worsened with sitting, reaching pain level 8-9/10. He had done extensive PT and also had multiple injections prior to his surgery while seeing pain management provider Dr. Geronimo in [place]. [facility] Medical History History of urinary retention History of numbness Chronic pain syndrome Radiculopathy due to lumbar intervertebral disc disorder Postlaminectomy syndrome Surgical History History of surgery History of basal cell carcinoma excision History of lumbar laminectomy History of laminectomy History of back surgery Hx of arthroscopy of shoulder Hx of repair of rotator cuff Social History Patient Tobacco Use Status: Former Tobacco user Review of Systems Const All systems reviewed & are unremarkable except as noted in HPI and below Physical Exam Vital Signs: Last Vital Signs Pulse 8 L 07/13/24 11:26 Resp 16 07/13/24 11:26 BP 125/67 07/13/24 11:26 Pulse Ox 98 07/13/24 11:26 Oxygen Delivery Method Room Air 07/13/24 11:26 BMI result Body Mass Index 28.8 General: awake, alert, oriented. Answers questions appropriately. Fully engaged in examination. Skin: warm, dry, intact. Well-healed surgical scar left lower back without warmth, erythema, exudate, dehiscence HEENT: Normocephalic. Hearing intact. Cardiac: External chest normal in appearance. Respiratory: No cough, audible wheezing or stridor. Abdomen: without gross distension. MS: No obvious swelling or deformities. Neurological: Oriented to person, place, time and situation. Thought process intact. No gait abnormalities appreciated. Psychiatric: Appropriate mood and affect. Good judgment and insight. Assessment & Plan Assessment & Plan (1) Chronic pain syndrome: Code(s): G89.4 - Chronic pain syndrome Category: Medical (2) Radiculopathy due to lumbar intervertebral disc disorder: Code(s): M51.16 - Intervertebral disc disorders with radiculopathy, lumbar region Category: Medical (3) Postlaminectomy syndrome: Code(s): M96.1 - Postlaminectomy syndrome, not elsewhere classified Category: Medical (4) S/P insertion of intrathecal pump: Code(s): Z98.890 - Other specified postprocedural states Category: Surgical Plan Hernán presented to the office today for follow-up, the adjustment of the medication was performed as above. Next time in 20 days we will refill his pain pump with new admixture containing hydromorphone 300 micro g per mL as well as bupivacaine 10 milligrams/mL. Escalation of hydromorphone probably will be needed to reach all of significant comfort for this patient. Coding Level of Care Code Est Pt Level 3 (36928) Diagnoses Chronic pain syndrome G89.4 Radiculopathy due to lumbar intervertebral disc disorder M51.16 Postlaminectomy syndrome M96.1 S/P insertion of intrathecal pump Z98.890
[2024-07-13 11:26] VITALS: BP 125/67; PULSE 8; RESP 16; O2SAT 98; BMI 28.8
== END 2024-07-13 11:42 | disposition home or self-care (01) ==
PROVIDERS: PCP Family Medicine; Visit Provider Anesthesiology
DX: G89.4 Chronic pain syndrome (principal); M51.16 Intervertebral disc disorders with radiculopathy, lumbar region; M96.1 Postlaminectomy syndrome, not elsewhere classified; Z98.890 Other specified postprocedural states
CPT/HCPCS: 99213

== ENCOUNTER → 2024-07-13 11:19 | Outpatient (BNVA) | payer MEDICARE, MEDICAID, SELFPAY | PROVIDERS: PCP Family Medicine; Visit Provider Anesthesiology | DX: M51.16 Intervertebral disc disorders with radiculopathy, lumbar region (principal); M96.1 Postlaminectomy syndrome, not elsewhere classified; G89.4 Chronic pain syndrome; Z98.890 Other specified postprocedural states | CPT/HCPCS: 99212 ==

== ENCOUNTER 2024-07-31 11:00 | Outpatient (AMB) | payer MEDICARE, MEDICAID, SELFPAY ==
--- NOTE | 2024-07-31 11:08 | A.OFFVIS_ITS ---
Vital Signs 07/31/24 11:17 Height 5 ft 9 in Weight 196 lb 4 oz BMI 29.0 BP 116/65 Blood Pressure Location Lt brachial Position Sitting Respiration 16 Pulse 60 Pulse Source Pulse Oximeter Pulse Oximetry (%) 97 Oxygen Delivery Method Room Air Intake Visit Reasons: ITDD REFILL Intake Note: Patient comes in for intrathecal medication refill. Reports pain 03/20. Allergies No Known Allergies [No Known Allergies*] Allergy (Verified 07/31/24 11:17) HPI Comments Details: Hernán is today in the office for new pump refill and pump adjustment. We ordered today a new medication for this patient which was containing 300 micro g per mL of hydromorphone and 10 milligrams/mL of bupivacaine. The new continuous dose will be guided by concentration of hydromorphone. The minimal dose of hydromorphone is 14.45 micro g a day. With corresponding 0.482 mg of bupivacaine a day. Bridge bolus will be introduced 483 hours. After completion of the bridge bolus patient will be able to receive 60 micro g of hydromorphone and corresponding 1.9 mg of bupivacaine over the course of 60 minutes twice a day. Prior to this he was receiving bupivacaine 1.4 mg a day over the course of 45 minutes and it did not result in any complications like weakness nausea lightheadedness. Risks of hydromorphone and bupivacaine were explained to the patient. Patient has Narcan at home. His relatives know how to use Narcan and when the indication to use Narcan. The patient's next appointment will be scheduled in 40 days. However we would need to schedule him for pump pain adjustments provided this concentrations of the medications will not result in good pain relief. He was previously seen in the office by Dr. Elena with complains that PTM dose causes him nausea, weakness in bilateral lower extremity lightheadedness, lightheadedness. He has continuous rate was elevated to 0.7 and PTM dose was decreased to 0.5 b.i.d. from 2.5 q.d.. His symptoms most likely are secondary to rostral spread of the medication. It is sympathetic blockade with a weakness and blood pressure decreased. Today I examined the patient and his pain pump was interrogated. Increase his PTM dose to 0.7 and I recommended him to assume reverse Trendelenburg position while administering PTM dose to allow hyperbaric bupivacaine 2 flow up into the projection of the lumbar area. I also will consider in the future to increase the dose and spread out the time of the administration of the dose to decrease the indications ability to act on sympathetic system. Prior: Patient is a pleasant 68 years old male presents today for sonia removal, 2 weeks status post ITDD Pain Pump Implant 05/12/[address] Bhardwaj. Patient reports he used the device for the first time last week and felt slightly lightheaded and nauseous with mild weakness in his legs which lasted for half?an hour. He rested and symptoms self-resolve. Patient reports he continued to use PTM bolus on most days since implant with missing a few days in between without any further side effects. The dressings were removed. The incisional wounds are slightly swollen with mild redness at sonia points but no incisional line redness, tenderness, erythema, temperature increase or pathological discharge. The wounds were washed with ChloraPrep and sonia were removed today. The wounds were washed again with ChloraPrep, Steri-strips and bacitracin ointment with dry sterile dressings were applied. The ITDD machine was interrogated today and PTM bolus dose was adjusted from 2.5 mg once a day to 0.5 mg twice a day per Dr. Elena. At this time, he reports acute pain due to recent surgery and chronic pain syndrome, post laminectomy syndrome. He continues to take hydrocodone-acetaminophen and Pregabalin. We will continue to work on establishing good pain control for this patient.?Denies any recent cough, cold, infection, fever, any significant changes in her medical history, medications or recent hospitalizations. PRIOR Dr. Bhardwaj 05/17/24: Hernán is in my office today after implantation of intrathecal bupivacaine pain pump. He did not use the device yet. He will be using the device and in 1 week he will report on effectiveness of the device. At the time we can adjust the frequency of the application of the bolus doses or we can adjust the magnitude of the doses itself. The patient was informed that he needs to continue using the device and report any side effects and or complications of the medication as well as effectiveness of the medication itself. The dressing change was performed today. The wounds are minimally swollen, no redness, no tenderness on palpation, no local temperature increase, no pathological discharge, edges competent, sonia are competent. The wounds were worst with ChloraPrep sterile dressing with sterile 4x4s were applied. Dressing change and staple removal in 1 week. Hernán head 70% pain improvement after the bupivacaine trial. Prior: Originally he was referred by Dr. Nix for evaluation for spinal cord stimulator. He is status post laminectomy L3-L4 and L5-S1 diskectomy with posterior lateral fusion. He has L5 radiculopathy EMG confirmed. On recommendation of Dr. Ch I tried spinal cord stimulator on him [place] [employer]. The procedure was very difficult technically. However I was able to establish 2 leads in the thoracic spine. Patient reported minimal pain improvement while on stimulation. At the end of the [place] [employer] trial he was switched to Nevro SCS, unfortunately that did not help his pain in more extent either. He was absent from my care for 2 years now he is coming back requesting the discussion about pain pump she was offered to him at that time. I explained to him the procedure, I gave him brochure of [facility] point [facility] to schedule evaluation. As soon as he will pass evaluation I will s chedule him for pain pump trial. He is currently taking [place] 7.5 mg and I prefer to try 1st bupivacaine. He also reports some stress incontinence increased urging with urination. Bupivacaine in the situation may be helpful for this condition as well. Dr. Ch did not recommend additional surgical intervention and advised he undergo a SCS trial, and thus he was referred to us. He describes a numbness and burning down his right posterior lateral leg extending to the top of his right into his toes. This is worsened with sitting, reaching pain level 8-9/10. He had done extensive PT and also had multiple injections prior to his surgery while seeing pain management provider Dr. Geronimo in [place]. [facility] Medical History History of urinary retention History of numbness Chronic pain syndrome Radiculopathy due to lumbar intervertebral disc disorder Postlaminectomy syndrome Surgical History History of surgery History of basal cell carcinoma excision History of lumbar laminectomy History of laminectomy History of back surgery Hx of arthroscopy of shoulder Hx of repair of rotator cuff Social History Patient Tobacco Use Status: Former Tobacco user Review of Systems Const All systems reviewed & are unremarkable except as noted in HPI and below ENT Reports Normal hearing present Neuro Reports Normal hearing present, Denies confusion and Denies Sensory deficit (Neuro) Psych Denies confusion Physical Exam Vital Signs: Last Vital Signs Pulse 60 07/31/24 11:17 Resp 16 07/31/24 11:17 BP 116/65 07/31/24 11:17 Pulse Ox 97 07/31/24 11:17 Oxygen Delivery Method Room Air 07/31/24 11:17 BMI result Body Mass Index 29.0 Const General: No confusion Orientation/consciousness: No confusion Eyes Pupils: Equal, round and reactive pupils present EOM: EOMs intact bilaterally Chest Chest palpation & inspection: normal inspection of the chest Resp Effort & Inspection: normal respiratory effort, able to speak in complete sentences, normal respiratory pattern, no audible wheezes and no cough Cardio Jugular venous distension: no JVD Back/Spine/Pelvis Other: Lumbar Spine/Lower back/SIJ: SACROILIAC JOINT No tenderness to palpation. INSPECTION: normal curvature of spine, scar from previous surgery. RANGE OF MOTION decreased extention. PALPATION: no vertebral spine tenderness. STRAIGHT LEG RAISING TEST: positive at 45 degrees on right. MOTOR SYSTEM: 5/5 bilateral lower extremities. SENSORY EXAM: paresthesias right L4-5 distribution. REFLEXES: symmetrical 2+. GAIT: unremarkable. Neuro General: No confusion Cranial nerves: Yes Equal, round and reactive pupils present and Yes Normal hearing present Sensory Exam: No Sensory deficit (Neuro) Psych Speech and movement: Normal speech and movement present Affect: normal affect Attitude: cooperative Thought process: Normal thought process present Thought content: Normal thought content present Insight: Good insight present (Psych) Judgement: Good judgement present (Psych) Assessment & Plan Assessment & Plan (1) Chronic pain syndrome: Code(s): G89.4 - Chronic pain syndrome Category: Medical (2) Radiculopathy due to lumbar intervertebral disc disorder: Code(s): M51.16 - Intervertebral disc disorders with radiculopathy, lumbar region Category: Medical (3) Postlaminectomy syndrome: Code(s): M96.1 - Postlaminectomy syndrome, not elsewhere classified Category: Medical (4) S/P insertion of intrathecal pump: Code(s): Z98.890 - Other specified postprocedural states Category: Surgical Plan: The pump refill is as below. We will schedule him for new pump refill. However if he wants new pump adjustment we will invite him in the office for new pump adjustments. Plan ? Intrathecal pump refill. THE PATIENT CAME TODAY IN THE office for THE CHANGE OF THE MEDICATION IN her PAIN PUMP. The name and date of were verified and informed consent was obtained for the procedure. ?The pump was interrogated and the residual amount of fluid was found to be 5.6 mL. SHE WAS POSITIONED prone on the bed AND THE AREA OF THE INTRATHECAL PUMP WAS PREPPED WITH CHLORAPREP. The fenestrated drape was sterilely applied over the area of the pump. Sterile gloves were worn and of the aspiration system was assembled containing 2 in 22 gauge noncoring needle, the needle was connected to extension tubing which was connected to the 20 cc sterile syringe. The pain pump was palpated under the skin in the patient's right buttock area. The needle was inserted through the skin and the central plug of the pain pump and fluid was aspirated. The clear fluid was going into the syringe the total amount of the fluid was 6.2 mL .. After that a new batch? of medication was obtained which was containing hydromorphone in concentration 300 micro g/ml and bupivacaine 10 mg per ml. The admixture was made in 20 cc syringe prepared by [facility] compounding pharmacy. The syringe was connected to the bacterial filter, and then connected to the extension tubing. After that the medication in the syringe was slowly instilled into the pump with aspirations at 15 and 5 cc lemons.? The pump was reprogrammed for the doses of hydromorphone 14.45 mcg per day with corresponding dose of bupivacaine the rate of the administration will be over 1 hour.? The patient was given 2. doses of PTM 60 micrograms intrathecally with corresponding dose of bupivacaine of 1.998 mg. The patient will be able to receive this medication twice a day. Coding Level of Care Code Est Pt Level 3 (97473) Procedure Only Diagnoses Chronic pain syndrome G89.4 Radiculopathy due to lumbar intervertebral disc disorder M51.16 Postlaminectomy syndrome M96.1 S/P insertion of intrathecal pump Z98.890
[2024-07-31 11:17] VITALS: BP 116/65; PULSE 60; RESP 16; O2SAT 97; BMI 29.0
== END 2024-07-31 12:23 | disposition home or self-care (01) ==
PROVIDERS: PCP Family Medicine; Visit Provider Anesthesiology
DX: G89.4 Chronic pain syndrome (principal); M51.16 Intervertebral disc disorders with radiculopathy, lumbar region; M96.1 Postlaminectomy syndrome, not elsewhere classified; Z45.1 Encounter for adjustment and management of infusion pump
CPT/HCPCS: 62370; 99213

== ENCOUNTER → 2024-07-31 11:00 | Outpatient (BNVA) | payer MEDICARE, MEDICAID, SELFPAY | PROVIDERS: PCP Family Medicine; Visit Provider Anesthesiology | DX: Z45.89 Encounter for adjustment and management of other implanted devices (principal); M51.16 Intervertebral disc disorders with radiculopathy, lumbar region; M96.1 Postlaminectomy syndrome, not elsewhere classified; G89.4 Chronic pain syndrome | CPT/HCPCS: 99212 ==

== ENCOUNTER 2024-08-09 09:42 | Outpatient (AMB) | payer MEDICARE, MEDICAID, SELFPAY ==
--- NOTE | 2024-08-09 09:45 | MHC.OFFVIS ---
Vital Signs 08/09/24 09:50 Height 5 ft 9 in Weight 196 lb 4 oz BMI 29.0 BP 124/70 Blood Pressure Location Lt brachial Position Sitting Respiration 16 Pulse 96 Pulse Source Pulse Oximeter Pulse Oximetry (%) 96 Oxygen Delivery Method Room Air Intake Visit Reasons: Pain Pump Follow Up Intake Note: Patient comes in for pain pump follow up. Reports pain 10. Allergies No Known Allergies [No Known Allergies*] Allergy (Verified 08/09/24 09:50) HPI Comments Details: Hernán is today in the office for new pump refill and pump adjustment. He developed side effect on the opioid medication added to the bupivacaine. He reports urinary retention. He reports difficulty urinating, he reports that he is able to urinate but he has to do it several times. There is no complete urinary retention. I will refer him to the urologist to make sure that there is no urological pathology which could make issues aggravated in combination with intrathecal medications. I will refer him to our urologist Dr. Morse. Today I interrogated his pain pump. Unfortunately I can not make the continuous dose smaller. He reports the issue to persist even if he does not invoke the PTM device. I decrease the dose the PTM for him to hydromorphone 40 micro g per mL and at the same time I increase the time of the administration of PTM dose to 30 minutes. He reports his pain is getting better with the addition of the hydromorphone and I want to preserve this medication. I will try in the future to stop bupivacaine and maybe without bupivacaine his urinary retention will become better. We will try to joel the new medication hydromorphone 0.3 mg/300 micro g per mL in 20 mL preservative-free syringe. He was previously seen in the office by Dr. Elena with complains that PTM dose causes him nausea, weakness in bilateral lower extremity lightheadedness, lightheadedness. He has continuous rate was elevated to 0.7 and PTM dose was decreased to 0.5 b.i.d. from 2.5 q.d.. His symptoms most likely are secondary to rostral spread of the medication. It is sympathetic blockade with a weakness and blood pressure decreased. Today I examined the patient and his pain pump was interrogated. Increase his PTM dose to 0.7 and I recommended him to assume reverse Trendelenburg position while administering PTM dose to allow hyperbaric bupivacaine 2 flow up into the projection of the lumbar area. I also will consider in the future to increase the dose and spread out the time of the administration of the dose to decrease the indications ability to act on sympathetic system. Prior: Patient is a pleasant 68 years old male presents today for sonia removal, 2 weeks status post ITDD Pain Pump Implant 05/12/[address] Bhardwaj. Patient reports he used the device for the first time last week and felt slightly lightheaded and nauseous with mild weakness in his legs which lasted for half?an hour. He rested and symptoms self-resolve. Patient reports he continued to use PTM bolus on most days since implant with missing a few days in between without any further side effects. The dressings were removed. The incisional wounds are slightly swollen with mild redness at sonia points but no incisional line redness, tenderness, erythema, temperature increase or pathological discharge. The wounds were washed with ChloraPrep and sonia were removed today. The wounds were washed again with ChloraPrep, Steri-strips and bacitracin ointment with dry sterile dressings were applied. The ITDD machine was interrogated today and PTM bolus dose was adjusted from 2.5 mg once a day to 0.5 mg twice a day per Dr. Elena. At this time, he reports acute pain due to recent surgery and chronic pain syndrome, post laminectomy syndrome. He continues to take hydrocodone-acetaminophen and Pregabalin. We will continue to work on establishing good pain control for this patient.?Denies any recent cough, cold, infection, fever, any significant changes in her medical history, medications or recent hospitalizations. PRIOR Dr. Bhardwaj 05/17/24: Hernán is in my office today after implantation of intrathecal bupivacaine pain pump. He did not use the device yet. He will be using the device and in 1 week he will report on effectiveness of the device. At the time we can adjust the frequency of the application of the bolus doses or we can adjust the magnitude of the doses itself. The patient was informed that he needs to continue using the device and report any side effects and or complications of the medication as well as effectiveness of the medication itself. The dressing change was performed today. The wounds are minimally swollen, no redness, no tenderness on palpation, no local temperature increase, no pathological discharge, edges competent, sonia are competent. The wounds were worst with ChloraPrep sterile dressing with sterile 4x4s were applied. Dressing change and staple removal in 1 week. Hernán head 70% pain improvement after the bupivacaine trial. Prior: Originally he was referred by Dr. Nix for evaluation for spinal cord stimulator. He is status post laminectomy L3-L4 and L5-S1 diskectomy with posterior lateral fusion. He has L5 radiculopathy EMG confirmed. On recommendation of Dr. Ch I tried spinal cord stimulator on him [place] [employer]. The procedure was very difficult technically. However I was able to establish 2 leads in the thoracic spine. Patient reported minimal pain improvement while on stimulation. At the end of the [place] [employer] trial he was switched to Nevro SCS, unfortunately that did not help his pain in more extent either. He was absent from my care for 2 years now he is coming back requesting the discussion about pain pump she was offered to him at that time. I explained to him the procedure, I gave him brochure of [facility] psychology to schedule evaluation. As soon as he will pass evaluation I will schedule him for pain pump trial. He is currently taking Joppa 7.5 mg and I prefer to try 1st bupivacaine. He also reports some stress incontinence increased urging with urination. Bupivacaine in the situation may be helpful for this condition as well. Dr. Ch did not recommend additional surgical intervention and advised he undergo a SCS trial, and thus he was referred to us. He describes a numbness and burning down his right posterior lateral leg extending to the top of his right into his toes. This is worsened with sitting, reaching pain level 8-9/10. He had done extensive PT and also had multiple injections prior to his surgery while seeing pain management provider Dr. Geronimo in [place]. [facility] Medical History History of urinary retention History of numbness Chronic pain syndrome Radiculopathy due to lumbar intervertebral disc disorder Postlaminectomy syndrome Surgical History History of surgery History of basal cell carcinoma excision History of lumbar laminectomy History of laminectomy History of back surgery Hx of arthroscopy of shoulder Hx of repair of rotator cuff Social History Patient Tobacco Use Status: Former Tobacco user Review of Systems Const All systems reviewed & are unremarkable except as noted in HPI and below ENT Reports Normal hearing present Neuro Reports Normal hearing present, Denies confusion and Denies Sensory deficit (Neuro) Psych Denies confusion Physical Exam Vital Signs: Last Vital Signs Pulse 96 08/09/24 09:50 Resp 16 08/09/24 09:50 BP 124/70 08/09/24 09:50 Pulse Ox 96 08/09/24 09:50 Oxygen Delivery Method Room Air 08/09/24 09:50 BMI result Body Mass Index 29.0 Const General: No confusion Orientation/consciousness: No confusion Eyes Pupils: Equal, round and reactive pupils present EOM: EOMs intact bilaterally Chest Chest palpation & inspection: normal inspection of the chest Resp Effort & Inspection: normal respiratory effort, able to speak in complete sentences, normal respiratory pattern, no audible wheezes and no cough Cardio Jugular venous distension: no JVD Back/Spine/Pelvis Other: Lumbar Spine/Lower back/SIJ: SACROILIAC JOINT No tenderness to palpation. INSPECTION: normal curvature of spine, scar from previous surgery. RANGE OF MOTION decreased extention. PALPATION: no vertebral spine tenderness. STRAIGHT LEG RAISING TEST: positive at 45 degrees on right. MOTOR SYSTEM: 5/5 bilateral lower extremities. SENSORY EXAM: paresthesias right L4-5 distribution. REFLEXES: symmetrical 2+. GAIT: unremarkable. Neuro General: No confusion Cranial nerves: Yes Equal, round and reactive pupils present and Yes Normal hearing present Sensory Exam: No Sensory deficit (Neuro) Psych Speech and movement: Normal speech and movement present Affect: normal affect Attitude: cooperative Thought process: Normal thought process present Thought content: Normal thought content present Insight: Good insight present (Psych) Judgement: Good judgement present (Psych) Assessment & Plan Assessment & Plan (1) Chronic pain syndrome: Code(s): G89.4 - Chronic pain syndrome Category: Medical (2) Radiculopathy due to lumbar intervertebral disc disorder: Code(s): M51.16 - Intervertebral disc disorders with radiculopathy, lumbar region Category: Medical (3) Postlaminectomy syndrome: Code(s): M96.1 - Postlaminectomy syndrome, not elsewhere classified Category: Medical (4) S/P insertion of intrathecal pump: Code(s): Z98.890 - Other specified postprocedural states Category: Surgical Plan: The pump refill is as below. We will schedule him for new pump refill. However if he wants new pump adjustment we will invite him in the office for new pump adjustments. Plan ? Intrathecal pump interrogation and adjustment. Intrathecal pain pump was interrogated. The continuous dose will stay the same it is a smaller dose at this concentration hydromorphone 14.45 micro g per mL. With corresponding dose of bupivacaine. PTM was changed as well, I decreased the amount of PTM to 39.98 micro g per mL over the course of 30 minutes instead of 9 minutes as before he will be able to administer 2 doses for himself of this medication. Coding Level of Care Code Est Pt Level 3 (72166) Procedure Only Diagnoses Chronic pain syndrome G89.4 Radiculopathy due to lumbar intervertebral disc disorder M51.16 Postlaminectomy syndrome M96.1 S/P insertion of intrathecal pump Z98.890
[2024-08-09 09:50] VITALS: BP 124/70; PULSE 96; RESP 16; O2SAT 96; BMI 29.0
== END 2024-08-09 10:10 | disposition home or self-care (01) ==
LOC: HO.PMC 09:42
PROVIDERS: PCP Family Medicine; Visit Provider Anesthesiology
DX: G89.4 Chronic pain syndrome (principal); M51.16 Intervertebral disc disorders with radiculopathy, lumbar region; M96.1 Postlaminectomy syndrome, not elsewhere classified; Z45.1 Encounter for adjustment and management of infusion pump
CPT/HCPCS: 95991; 99213

== ENCOUNTER → 2024-08-09 09:42 | Outpatient (BNVA) | payer MEDICARE, MEDICAID, SELFPAY | PROVIDERS: PCP Family Medicine; Visit Provider Anesthesiology | DX: G89.4 Chronic pain syndrome (principal); M51.16 Intervertebral disc disorders with radiculopathy, lumbar region; M96.1 Postlaminectomy syndrome, not elsewhere classified; Z97.8 Presence of other specified devices | CPT/HCPCS: 99212 ==

== ENCOUNTER 2024-08-14 11:40 | Outpatient (AMB) | payer MEDICARE, MEDICAID, SELFPAY ==
--- NOTE | 2024-08-14 11:42 | MHC.OFFVIS ---
Vital Signs 08/14/24 11:51 Height 5 ft 9 in Weight 196 lb BMI 28.9 BP 122/71 Blood Pressure Location Lt brachial Position Sitting Respiration 14 Pulse 59 Pulse Source Pulse Oximeter Pulse Oximetry (%) 97 Oxygen Delivery Method Room Air Intake Visit Reasons: ITDD refill Intake Note: Patient comes in for intrathecal medication refill. Reports pain 3-4. Allergies No Known Allergies [No Known Allergies*] Allergy (Verified 08/14/24 11:52) HPI Comments Details: Hernán is today in the office for new pump refill and pump adjustment. He developed side effect on the opioid medication added to the bupivacaine. He reports urinary retention. He reported difficulty urinating, he developed non complete urinary retention Today he came to the office to remove the old admixture of bupivacaine and hydromorphone and instill new medication of hydromorphone only. He reported today that he no longer experienced urinary retention. He also reported today that he started to feel pain getting better. The pump was interrogated today, and it was refilled. See refill as below. Prior: Patient is a pleasant 68 years old male presents today for sonia removal, 2 weeks status post ITDD Pain Pump Implant 05/12/24. Originally he was referred by Dr. Nix for evaluation for spinal cord stimulator. He is status post laminectomy L3-L4 and L5-S1 diskectomy with posterior lateral fusion. He has L5 radiculopathy EMG confirmed. On recommendation of Dr. Ch I tried spinal cord stimulator on him [place] [employer]. The procedure was very difficult technically. However I was able to establish 2 leads in the thoracic spine. Patient reported minimal pain improvement while on stimulation. At the end of the [place] [employer] trial he was switched to Nevro SCS, unfortunately that did not help his pain in more extent either. He was absent from my care for 2 years now he is coming back requesting the discussion about pain pump she was offered to him at that time. I explained to him the procedure, I gave him brochure of [facility] psychology to schedule evaluation. As soon as he will pass evaluation I will schedule him for pain pump trial. He is currently taking Jeffrey 7.5 mg and I prefer to try 1st bupivacaine. He also reports some stress incontinence increased urging with urination. Bupivacaine in the situation may be helpful for this condition as well. Dr. Ch did not recommend additional surgical intervention and advised he undergo a SCS trial, and thus he was referred to us. He describes a numbness and burning down his right posterior lateral leg extending to the top of his right into his toes. This is worsened with sitting, reaching pain level 8-9/10. He had done extensive PT and also had multiple injections prior to his surgery while seeing pain management provider Dr. Geronimo in [place]. COUNT INCLUDES THE [facility] Medical History History of urinary retention History of numbness Chronic pain syndrome Radiculopathy due to lumbar intervertebral disc disorder Postlaminectomy syndrome Surgical History History of surgery History of basal cell carcinoma excision History of lumbar laminectomy History of laminectomy History of back surgery Hx of arthroscopy of shoulder Hx of repair of rotator cuff Social History Patient Tobacco Use Status: Former Tobacco user Review of Systems Const All systems reviewed & are unremarkable except as noted in HPI and below ENT Reports Normal hearing present Neuro Reports Normal hearing present, Denies confusion and Denies Sensory deficit (Neuro) Psych Denies confusion Physical Exam Vital Signs: Last Vital Signs Pulse 59 08/14/24 11:51 Resp 14 08/14/24 11:51 BP 122/71 08/14/24 11:51 Pulse Ox 97 08/14/24 11:51 Oxygen Delivery Method Room Air 08/14/24 11:51 BMI result Body Mass Index 28.9 Const General: No confusion Orientation/consciousness: No confusion Eyes Pupils: Equal, round and reactive pupils present EOM: EOMs intact bilaterally Chest Chest palpation & inspection: normal inspection of the chest Resp Effort & Inspection: normal respiratory effort, able to speak in complete sentences, normal respiratory pattern, no audible wheezes and no cough Cardio Jugular venous distension: no JVD Back/Spine/Pelvis Other: Lumbar Spine/Lower back/SIJ: SACROILIAC JOINT No tenderness to palpation. INSPECTION: normal curvature of spine, scar from previous surgery. RANGE OF MOTION decreased extention. PALPATION: no vertebral spine tenderness. STRAIGHT LEG RAISING TEST: positive at 45 degrees on right. MOTOR SYSTEM: 5/5 bilateral lower extremities. SENSORY EXAM: paresthesias right L4-5 distribution. REFLEXES: symmetrical 2+. GAIT: unremarkable. Neuro General: No confusion Cranial nerves: Yes Equal, round and reactive pupils present and Yes Normal hearing present Sensory Exam: No Sensory deficit (Neuro) Psych Speech and movement: Normal speech and movement present Affect: normal affect Attitude: cooperative Thought process: Normal thought process present Thought content: Normal thought content present Insight: Good insight present (Psych) Judgement: Good judgement present (Psych) Assessment & Plan Assessment & Plan (1) Chronic pain syndrome: Code(s): G89.4 - Chronic pain syndrome Category: Medical (2) Radiculopathy due to lumbar intervertebral disc disorder: Code(s): M51.16 - Intervertebral disc disorders with radiculopathy, lumbar region Category: Medical (3) Postlaminectomy syndrome: Code(s): M96.1 - Postlaminectomy syndrome, not elsewhere classified Category: Medical (4) S/P insertion of intrathecal pump: Code(s): Z98.890 - Other specified postprocedural states Category: Surgical Plan: The pump refill is as below. We will schedule him for new pump refill in the October. However if he wants to make a new pump adjustments he is welcome to schedule an appointment with me in 2 weeks. The bridge bolus for 6 days was introduced pump program Plan ? Intrathecal pump refill. THE PATIENT CAME TODAY IN THE office for THE CHANGE OF THE MEDICATION IN her PAIN PUMP. The name and date of were verified and informed consent was obtained for the procedure. ?The pump was interrogated and the residual amount of fluid was found to be 18.6 mL. SHE WAS POSITIONED prone on the bed AND THE AREA OF THE INTRATHECAL PUMP WAS PREPPED WITH CHLORAPREP. The fenestrated drape was sterilely applied over the area of the pump. Sterile gloves were worn and of the aspiration system was assembled containing 2 in 22 gauge noncoring needle, the needle was connected to extension tubing which was connected to the 20 cc sterile syringe. The pain pump was palpated under the skin in the patient's right buttock area. The needle was inserted through the skin and the central plug of the pain pump and fluid was aspirated. The clear fluid was going into the syringe the total amount of the fluid was 18.3 mL .. After that a new batch? of medication was obtained which was containing hydromorphone in concentration 300 micro g/ml. The admixture was made in 20 cc syringe prepared by [facility] compounding pharmacy. The syringe was connected to the bacterial filter, and then connected to the extension tubing. After that the medication in the syringe was slowly instilled into the pump with aspirations at 15 and 5 cc lemons.? The pump was reprogrammed for the doses of hydromorphone 19.99 mcg per day The patient was given 2. doses of PTM 40 micrograms intrathecally twice in 24 hour 8 hours apart. The bridge bolus for 6 days was introduced. Coding Level of Care Code Est Pt Level 3 (39759) Procedure Only Diagnoses Chronic pain syndrome G89.4 Radiculopathy due to lumbar intervertebral disc disorder M51.16 Postlaminectomy syndrome M96.1 S/P insertion of intrathecal pump Z98.890
[2024-08-14 11:51] VITALS: BP 122/71; PULSE 59; RESP 14; O2SAT 97; BMI 28.9
== END 2024-08-14 12:16 | disposition home or self-care (01) ==
LOC: HO.PMC 11:41
PROVIDERS: PCP Family Medicine; Visit Provider Anesthesiology
DX: G89.4 Chronic pain syndrome (principal); M51.16 Intervertebral disc disorders with radiculopathy, lumbar region; M96.1 Postlaminectomy syndrome, not elsewhere classified; Z45.1 Encounter for adjustment and management of infusion pump
CPT/HCPCS: 62370; 99213

== ENCOUNTER → 2024-08-14 11:40 | Outpatient (BNVA) | payer MEDICARE, MEDICAID, SELFPAY | PROVIDERS: PCP Family Medicine; Visit Provider Anesthesiology | DX: M51.16 Intervertebral disc disorders with radiculopathy, lumbar region (principal); M96.1 Postlaminectomy syndrome, not elsewhere classified; G89.4 Chronic pain syndrome; Z98.890 Other specified postprocedural states | CPT/HCPCS: 62370; 99212 ==

== ENCOUNTER 2024-09-06 10:06 | Outpatient (AMB) | payer MEDICARE, SELFPAY ==
--- NOTE | 2024-09-06 10:20 | MHC.OFFVIS ---
Intake Visit Reasons: difficulty with urination Intake Note: New patient Presents for Difficulty Urination Any Urology Medication: None Antibiotic Allergies: None Blood Thinners: None Any Family History (Urological): Bladder Cancer? None Prostate Cancer? 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 He is a patient of . He is seen for the following urologic conditions - incomplete bladder emptying with weakness of stream Lower urinary tract symptoms Developed following intrathecal pump pain management Notices weak stream with incomplete in emptying No prior medications Plan bladder ultrasound, PSA, trial terazosin 2 month follow-up [facility] Medical History History of urinary retention History of numbness Chronic pain syndrome Radiculopathy due to lumbar intervertebral disc disorder Postlaminectomy syndrome Surgical History History of surgery History of basal cell carcinoma excision History of lumbar laminectomy History of laminectomy History of back surgery Hx of arthroscopy of shoulder Hx of repair of rotator cuff Social History Patient Tobacco Use Status: Former Tobacco user Review of Systems Const Denies chills and Denies fever(s) Card Reports no additional complaints and Denies syncope Resp Denies cough GI Denies abdominal pain and Denies heartburn Reports as per HPI and Denies change in libido Neuro Denies syncope Psych Denies change in libido Endo Denies change in libido Physical Exam Const General: cooperative, healthy appearing, comfortable and no acute distress Orientation/consciousness: patient oriented x3 HEENT Face and sinus: Yes normal facial exam Mouth: moist mucous membranes Neck Neck: Yes normal visual inspection, Yes full ROM and Yes trachea midline Chest Chest palpation & inspection: normal inspection of the chest Resp Effort & Inspection: normal respiratory effort, able to speak in complete sentences and no respiratory distress GI Inspection: Yes normal to inspection Back/Spine/Pelvis Cervical Spine: normal cervical lordosis Thoracic/Lumbar Spine: thoracic and lumbar spine normal to inspection Skin General skin exam: no rashes or lesions noted Neuro General: patient oriented x3, gait normal, tone normal and moves all extremities Extrem General: Yes normal to inspection and Yes capillary refill normal Office Procedures Post Void Residual Post Residual Void Post Void Residual (PVR): 207 [id number] Void Residual by ultrasound Assessment & Plan Assessment & Plan (1) Urinary retention with incomplete bladder emptying: Code(s): R33.9 - Retention of urine, unspecified Category: Medical Plan 2 month follow-up imaging, labs, medications Orders: Orders AMB Post Void Residual by ultrasound Today R33.9 - Retention of urine, unspecified US bladder Today R33.9 - Retention of urine, unspecified PSA,Total (Free>4and<10) Today R33.9 - Retention of urine, unspecified Medications: New terazosin 5 mg PO BEDTIME 30 days 30 caps 1RF N40.1 - Benign prostatic hyperplasia with lower urinary tract symptoms, R33.9 - Retention of urine, unspecified, R35.0 - Frequency of micturition Patient Instructions: Imaging studies, laboratory and physical exam results were discussed and reviewed in detail. No major barriers to patient understanding were identified. An opportunity to ask questions regarding the treatment plan was provided. All questions were answered. The patient expressed understanding and agreement with the above treatment plan. The patient is aware they should contact our office by phone for worsening of their current condition or the appearance of new urologic symptoms. Compliance is encouraged with any medications and followup testing that is ordered. It is a privilege to participate in the urologic care of your patient. If you have any questions or concerns regarding treatment for the above conditions, or other urologic issues, please do not hesitate to contact me. The office telephone contact is [phone]. This note is constructed using voice recognition software. While every effort has been made to ensure accuracy telecommunications specialist errors may have been included. Yours sincerely, Dr Daron Jackson MD, [facility] - Urology Providers of Expert, Compassionate Care for the Genitourinary System Coding Level of Care Code New Pt Level 4 (15150) Diagnoses Urinary retention with incomplete bladder emptying R33.9 CPT Codes Post Residual Void - PVR CPT Code: 44307-Yhrw Void Residual by ultrasound ([id number])
== END 2024-09-06 10:59 | disposition home or self-care (01) ==
PROVIDERS: PCP Family Medicine; Visit Provider Urology
DX: R33.9 Retention of urine, unspecified (principal)
CPT/HCPCS: 99204

== ENCOUNTER → 2024-09-06 10:06 | Outpatient (BNVA) | payer MEDICARE, SELFPAY | PROVIDERS: PCP Family Medicine; Visit Provider Urology | DX: R33.9 Retention of urine, unspecified (principal) | CPT/HCPCS: 51798; 99202 ==

== ENCOUNTER 2024-10-12 11:22 | Outpatient (AMB) | payer MEDICARE, MEDICAID, SELFPAY ==
--- NOTE | 2024-10-12 11:36 | MHC.OFFVIS ---
Vital Signs 10/12/24 11:38 Height 5 ft 9 in BP 122/64 Blood Pressure Location Lt brachial Position Sitting Pulse 62 Pulse Source Pulse Oximeter Pulse Oximetry (%) 96 Oxygen Delivery Method Room Air Intake Visit Reasons: ITDD Refill Allergies No Known Allergies [No Known Allergies*] Allergy (Verified 10/12/24 11:36) Medication List - Last Reconciled 10/12/24 by Paige Malloy, COMPUTER TECHNICIAN cephalexin 1,000 mg (2 x 500 mg) PO Q8H 16 days naloxone 4 mg/actuation 4 mg intranasal Q2M 1 day pregabalin 75 mg PO DAILY quetiapine (Seroquel) 100 mg PO BEDTIME selegiline (Emsam) 1 patch transdermal DAILY terazosin 5 mg PO BEDTIME 30 days HPI Comments Details: Hernán is today in the office for intrathecal pain pump refill. This time we will be refilling his pain pump with hydromorphone 300 micro g per mL. He reported today that he does not feel much of the pain relief from the pain pump. On top of that he reports that each time he attempts to apply PTM dose to alleviate his pain he feels dizziness and vertigo. This is unusual complication which would be related to his pain pump. I specifically asked him whether or not he has weakness in bilateral lower extremities or dizziness and he reported that dizziness is most likely he experiences. I decided today to stop his PTM and continue only with continuous dose of hydromorphone. We decided that patient will schedule an appointment with me for pump adjustment in 2 weeks. He also reports pain exacerbation with prolonged sitting and prolonged standing. 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 We decided that he will bring us the MRI copy from [place]. I also will schedule him to go for fresh MRI. Prior: Patient is a pleasant 68 years old male presents today for sonia removal, 2 weeks status post ITDD Pain Pump Implant 05/12/24. Originally he was referred by Dr. Nix for evaluation for spinal cord stimulator. He is status post laminectomy L3-L4 and L5-S1 diskectomy with posterior lateral fusion. He has L5 radiculopathy EMG confirmed. On recommendation of Dr. Ch I tried spinal cord stimulator on him [employer]. The procedure was very difficult technically. However I was able to establish 2 leads in the thoracic spine. Patient reported minimal pain improvement while on stimulation. At the end of the [place] [facility] trial he was switched to Nevro SCS, unfortunately that did not help his pain in more extent either. He was absent from my care for 2 years now he is coming back requesting the discussion about pain pump she was offered to him at that time. I explained to him the procedure, I gave him brochure of [facility] point psychology to schedule evaluation. As soon as he will pass evaluation I will schedule him for pain pump trial. He is currently taking [place] 7.5 mg and I prefer to try 1st bupivacaine. He also reports some stress incontinence increased urging with urination. Bupivacaine in the situation may be helpful for this condition as well. Dr. Ch did not recommend additional surgical intervention and advised he undergo a SCS trial, and thus he was referred to us. He describes a numbness and burning down his right posterior lateral leg extending to the top of his right into his toes. This is worsened with sitting, reaching pain level 8-9/10. He had done extensive PT and also had multiple injections prior to his surgery while seeing pain management provider Dr. Geronimo in [place]. [facility] Medical History History of urinary retention History of numbness Chronic pain syndrome Radiculopathy due to lumbar intervertebral disc disorder Postlaminectomy syndrome Surgical History History of surgery History of basal cell carcinoma excision History of lumbar laminectomy History of laminectomy History of back surgery Hx of arthroscopy of shoulder Hx of repair of rotator cuff Social History Patient Tobacco Use Status: Former Tobacco user Review of Systems Const All systems reviewed & are unremarkable except as noted in HPI and below ENT Reports Normal hearing present Neuro Reports Normal hearing present, Denies confusion and Denies Sensory deficit (Neuro) Psych Denies confusion Physical Exam Vital Signs: Last Vital Signs Pulse 62 10/12/24 11:38 BP 122/64 10/12/24 11:38 Pulse Ox 96 10/12/24 11:38 Oxygen Delivery Method Room Air 10/12/24 11:38 Const General: No confusion Orientation/consciousness: No confusion Eyes Pupils: Equal, round and reactive pupils present EOM: EOMs intact bilaterally Chest Chest palpation & inspection: normal inspection of the chest Resp Effort & Inspection: normal respiratory effort, able to speak in complete sentences, normal respiratory pattern, no audible wheezes and no cough Cardio Jugular venous distension: no JVD Back/Spine/Pelvis Other: Lumbar Spine/Lower back/SIJ: SACROILIAC JOINT No tenderness to palpation. INSPECTION: normal curvature of spine, scar from previous surgery. RANGE OF MOTION decreased extention. PALPATION: no vertebral spine tenderness. STRAIGHT LEG RAISING TEST: positive at 45 degrees on right. MOTOR SYSTEM: 5/5 bilateral lower extremities. SENSORY EXAM: paresthesias right L4-5 distribution. REFLEXES: symmetrical 2+. GAIT: unremarkable. Neuro General: No confusion Cranial nerves: Yes Equal, round and reactive pupils present and Yes Normal hearing present Sensory Exam: No Sensory deficit (Neuro) Psych Speech and movement: Normal speech and movement present Affect: normal affect Attitude: cooperative Thought process: Normal thought process present Thought content: Normal thought content present Insight: Good insight present (Psych) Judgement: Good judgement present (Psych) Assessment & Plan Assessment & Plan (1) Chronic pain syndrome: Code(s): G89.4 - Chronic pain syndrome Category: Medical (2) Radiculopathy due to lumbar intervertebral disc disorder: Code(s): M51.16 - Intervertebral disc disorders with radiculopathy, lumbar region Category: Medical (3) Postlaminectomy syndrome: Code(s): M96.1 - Postlaminectomy syndrome, not elsewhere classified Category: Medical (4) S/P insertion of intrathecal pump: Code(s): Z98.890 - Other specified postprocedural states Category: Surgical Plan: The pump refill is as below. Vertebra genic pain syndrome is suspected because patient complains on pain continuously increasing with prolonged sitting and prolonged standing. He has an MRI of the lumbar spine at home and he will bring us the disc. However this MRI is very old. I will schedule him for fresh MRI of the lumbar spine. If there are endplate changes I will discuss further intercept BVN RFA. (5) Vertebrogenic low back pain: Code(s): M54.51 - Vertebrogenic low back pain Category: Medical Plan ? Intrathecal pump refill. THE PATIENT CAME TODAY IN THE office for THE CHANGE OF THE MEDICATION IN her PAIN PUMP. The name and date of were verified and informed consent was obtained for the procedure. ?The pump was interrogated and the residual amount of fluid was found to be 14.8 mL. SHE WAS POSITIONED prone on the bed AND THE AREA OF THE INTRATHECAL PUMP WAS PREPPED WITH CHLORAPREP. The fenestrated drape was sterilely applied over the area of the pump. Sterile gloves were worn and of the aspiration system was assembled containing 2 in 22 gauge noncoring needle, the needle was connected to extension tubing which was connected to the 20 cc sterile syringe. The pain pump was palpated under the skin in the patient's right buttock area. The needle was inserted through the skin and the central plug of the pain pump and fluid was aspirated. The clear fluid was going into the syringe the total amount of the fluid was 14.6 mL .. After that a new batch? of medication was obtained which was containing hydromorphone in concentration 300 micro g/ml. The admixture was made in 20 cc syringe prepared by [facility] compounding pharmacy. The syringe was connected to the bacterial filter, and then connected to the extension tubing. After that the medication in the syringe was slowly instilled into the pump with aspirations at 15 and 5 cc lemons.? The pump was reprogrammed for the doses of hydromorphone 29.98 micro g per day . Orders: Orders MR lumbar spine wo/w con Today M54.51 - Vertebrogenic low back pain, M96.1 - Postlaminectomy syndrome, not elsewhere classified Coding Level of Care Code Est Pt Level 3 (07895) Procedure Only Diagnoses Chronic pain syndrome G89.4 Radiculopathy due to lumbar intervertebral disc disorder M51.16 Postlaminectomy syndrome M96.1 S/P insertion of intrathecal pump Z98.890 Vertebrogenic low back pain M54.51
[2024-10-12 11:38] VITALS: BP 122/64; PULSE 62; O2SAT 96
== END 2024-10-12 12:03 | disposition home or self-care (01) ==
PROVIDERS: PCP Family Medicine; Visit Provider Anesthesiology
DX: G89.4 Chronic pain syndrome (principal); M51.16 Intervertebral disc disorders with radiculopathy, lumbar region; M96.1 Postlaminectomy syndrome, not elsewhere classified; Z45.1 Encounter for adjustment and management of infusion pump
CPT/HCPCS: 62370; 99213

== ENCOUNTER → 2024-10-12 11:22 | Outpatient (BNVA) | payer MEDICARE, MEDICAID, SELFPAY | PROVIDERS: PCP Family Medicine; Visit Provider Anesthesiology | DX: Z45.89 Encounter for adjustment and management of other implanted devices (principal); M51.16 Intervertebral disc disorders with radiculopathy, lumbar region; M54.51 Vertebrogenic low back pain; M96.1 Postlaminectomy syndrome, not elsewhere classified; G89.4 Chronic pain syndrome | CPT/HCPCS: 62370; 99212 ==

== ENCOUNTER 2024-10-26 10:08 | Outpatient (AMB) | payer MEDICARE, MEDICAID, SELFPAY ==
--- NOTE | 2024-10-26 10:21 | A.OFFVIS_ITS ---
Intake Visit Reasons: Pain Pump Adjustment Allergies No Known Allergies [No Known Allergies*] Allergy (Verified 10/12/24 11:36) HPI Comments Details: Hernán is today in the office for intrathecal pain pump adjustment. He stated last time that he does not feel much of the pain relief from the pain pump. On top of that he reports that each time he attempts to apply PTM dose to alleviate his pain he feels dizziness and vertigo. This is unusual complication which would be related to his pain pump with hydromorphone. I specifically asked him whether or not he has weakness in bilateral lower extremities or dizziness and he reported that dizziness is most likely he experiences. Last time I put him on continuous dose of the hydromorphone only it was 30 micro g a day. Today I read his pump again and increased his dose to 42 micro g a day. I recommended patient come for next couple of weeks twice a week to continue escalation of the opioid doses. He also reports pain exacerbation with prolonged sitting and prolonged standing. 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 The copy from [place] is too old an MRI. He will be scheduled for the MRI today. Prior: status post ITDD Pain Pump Implant 05/12/24. Originally he was referred by Dr. Nix for evaluation for spinal cord stimulator. He is status post laminectomy L3-L4 and L5-S1 diskectomy with posterior lateral fusion. He has L5 radiculopathy EMG confirmed. On recommendation of Dr. Ch I tried spinal cord stimulator on him [place] [employer]. The procedure was very difficult technically. However I was able to establish 2 leads in the thoracic spine. Patient reported minimal pain improvement while on stimulation. At the end of the [place] scientific trial he was switched to Nevro SCS, unfortunately that did not help his pain in more extent either. He was absent from my care for 2 years , after that he came back requesting the discussion about pain pump he was offered to him at that time. Because the patient was on opioids [place] 7.5 mg TID, initially bupivacaine pain pump was considered however it resulted in poor pain control and side effects. He was switched for hydromorphone. Dr. Ch did not recommend additional surgical intervention and advised he undergo a SCS trial, and thus he was referred to us. He describes a numbness and burning down his right posterior lateral leg extending to the top of his right into his toes. This is worsened with sitting, reaching pain level 8-9/10. He had done extensive PT and also had multiple injections prior to his surgery while seeing pain management provider Dr. Geronimo in [place]. [facility] Medical History History of urinary retention History of numbness Chronic pain syndrome Radiculopathy due to lumbar intervertebral disc disorder Postlaminectomy syndrome Surgical History History of surgery History of basal cell carcinoma excision History of lumbar laminectomy History of laminectomy History of back surgery Hx of arthroscopy of shoulder Hx of repair of rotator cuff Social History Patient Tobacco Use Status: Former Tobacco user Review of Systems Const All systems reviewed & are unremarkable except as noted in HPI and below ENT Reports Normal hearing present Neuro Reports Normal hearing present, Denies confusion and Denies Sensory deficit (Neuro) Psych Denies confusion Physical Exam Const General: No confusion Orientation/consciousness: No confusion Eyes Pupils: Equal, round and reactive pupils present EOM: EOMs intact bilaterally Chest Chest palpation & inspection: normal inspection of the chest Resp Effort & Inspection: normal respiratory effort, able to speak in complete sentences, normal respiratory pattern, no audible wheezes and no cough Cardio Jugular venous distension: no JVD Back/Spine/Pelvis Other: Lumbar Spine/Lower back/SIJ: SACROILIAC JOINT No tenderness to palpation. INSPECTION: normal curvature of spine, scar from previous surgery. RANGE OF MOTION decreased extention. PALPATION: no vertebral spine tenderness. STRAIGHT LEG RAISING TEST: positive at 45 degrees on right. MOTOR SYSTEM: 5/5 bilateral lower extremities. SENSORY EXAM: paresthesias right L4-5 distribution. REFLEXES: symmetrical 2+. GAIT: unremarkable. Neuro General: No confusion Cranial nerves: Yes Equal, round and reactive pupils present and Yes Normal hearing present Sensory Exam: No Sensory deficit (Neuro) Psych Speech and movement: Normal speech and movement present Affect: normal affect Attitude: cooperative Thought process: Normal thought process present Thought content: Normal thought content present Insight: Good insight present (Psych) Judgement: Good judgement present (Psych) Assessment & Plan Assessment & Plan (1) Chronic pain syndrome: Code(s): G89.4 - Chronic pain syndrome Category: Medical (2) Radiculopathy due to lumbar intervertebral disc disorder: Code(s): M51.16 - Intervertebral disc disorders with radiculopathy, lumbar region Category: Medical (3) Postlaminectomy syndrome: Code(s): M96.1 - Postlaminectomy syndrome, not elsewhere classified Category: Medical (4) S/P insertion of intrathecal pump: Code(s): Z98.890 - Other specified postprocedural states Category: Surgical Plan: The pump adjustment is as below. The patient is recommended to come twice a week for the next 2 weeks to continue escalation of the doses. Vertebra genic pain syndrome is suspected because patient complains on pain continuously increasing with prolonged sitting and prolonged standing. He has an MRI of the lumbar spine at home and he will bring us the disc. However this MRI is very old. I will schedule him for fresh MRI of the lumbar spine. If there are endplate changes I will discuss further intercept BVN RFA. (5) Vertebrogenic low back pain: Code(s): M54.51 - Vertebrogenic low back pain Category: Medical Plan Intrathecal pain pump interrogation and adjustment. Intrathecal pain pump was interrogated, the doses of the continuous medications were increased from 30 micro g of hydromorphone to 42 micro g of hydromorphone. Patient reported this time not much of a pain improvement, however he did not complain on any side effects from the running medicine. He has a about 17 mL of the fluid in his pump and not soon he will be coming for pump refill. Coding Level of Care Code Est Pt Level 3 (89457) Procedure Only Diagnoses Chronic pain syndrome G89.4 Radiculopathy due to lumbar intervertebral disc disorder M51.16 Postlaminectomy syndrome M96.1 S/P insertion of intrathecal pump Z98.890 Vertebrogenic low back pain M54.51
== END 2024-10-26 10:41 | disposition home or self-care (01) ==
PROVIDERS: PCP Family Medicine; Visit Provider Anesthesiology
DX: G89.4 Chronic pain syndrome (principal); M51.16 Intervertebral disc disorders with radiculopathy, lumbar region; M96.1 Postlaminectomy syndrome, not elsewhere classified; Z98.890 Other specified postprocedural states; Z45.1 Encounter for adjustment and management of infusion pump; M54.51 Vertebrogenic low back pain
CPT/HCPCS: 62367; 99213

== ENCOUNTER → 2024-10-26 11:00 | Outpatient (BNV) | payer MEDICARE, MEDICAID, SELFPAY | PROVIDERS: Visit Provider Radiology Diagnostic Radiology | DX: M96.1 Postlaminectomy syndrome, not elsewhere classified (principal) | CPT/HCPCS: 72100 ==

== ENCOUNTER 2024-11-01 12:34 | Outpatient (REF) | payer MEDICARE, MEDICAID, SELFPAY ==
--- NOTE | ~2024-11-01 | US_ITS ---
CLINICAL HISTORY: R33.9 - Retention of urine, unspecified US Urinary Bladder Comparison: None Findings: No evidence of stone within the urinary bladder. Mild urinary bladder wall circumferential thickening likely due to bladder outlet obstruction. Prevoid volume: 337 mL. Postvoid volume: 173 mL Ureteral jets are visualized bilaterally. Prostate volume measures 52 mL. IMPRESSION: Enlarged prostate. Increased postvoid urinary bladder residue and mild circumferential urinary bladder wall thickening likely due to bladder outlet obstruction. This document has been electronically signed by: Addie Peoples MD on 11/02/2024 10:02:37
--- OUTSIDE RECORDS SUMMARY | 2024-11-01 14:24 | XMS_ITS | Clinical Summary ---
Author Organization [facility] Address [address] [place] [address] Care Team Providers Care Press Setter Name Role Phone Talisha Manzanares MD Primary Care Provider + Social History Tobacco Use Types Packs/Day Years Used Date Smoking Tobacco: Never Assessed Sex and Gender Information Value Date Recorded Sex Assigned at Not on file Gender Identity Not on file Sexual Orientation Not on file Plan of Treatment Health Maintenance Due Date Last Done Comments Hepatitis C Screening 1955 COVID-19 Vaccine (#1) 03/01/1956 Depression Screening 1967 Preventative Health Evaluation 1973 DTap / Tdap / Td (1 - Tdap) 1974 Colon Cancer Screening (Colonoscopy) 2000 Shingrix-Zoster Vaccine (1 of 2) 2005 Fall Risk Assessment 2020 Pneumococcal Vaccine (1 of 1 - PCV) 2020 Influenza Vaccine (#1) 2024 RSV Adult > 60+ Yrs or Pregn ant (1 - 1-dose 75+ series) 2030 Hepatitis B Vaccines Aged Out No long er eligible based on patient's age to complete this topic RSV Ped < 20 months Aged Out No longe r eligible based on patient's age to complete this topic Advance Directives For more information, please contact: [phone] Documents on File Type Date Recorded Patient Capacity Planning Engineer Expl anation Advance Directive and Living Will 04/19/2020 8:19 AM questionnaire Care Teams Press Setter Relationship Specialty Start Date End Date Talisha Manzanares MD [address] [place] [phone] PCP - General Family Medicine 10/31/18
--- OUTSIDE RECORDS SUMMARY | 2024-11-01 14:25 | XMS_ITS | Referral Summary ---
Author Organization [facility] Address [address] [place] [address] Care Team Providers Care Chyron Operator Name Role Phone Unavailable Primary Care Provider Unavailabl e Allergies No known active allergies Immunizations Name Administration Dates Next Due Covid-19, Pfizer, mRNA, [place] valent, PF 30 mcg/0.3 mL dose (for ages 12 and older) 02/05/2021,01/08/2021 Social History Tobacco Use Types Packs/Day Years Used Date Smoking Tobacco: Never Assessed Sex and Gender Information Value Date Recorded Sex Assigned at Male 01/08/2021 9:44 AM EDT Legal Sex Male 3:24 AM EDT Gender Identity Male 01/08/2021 9:44 AM EDT Sexual Orientation Straight 01/08/2021 9: 44 AM EDT Plan of Treatment Not on file [place]
--- OUTSIDE RECORDS SUMMARY | 2024-11-01 14:25 | XMS_ITS | Clinical Summary ---
Author Organization [facility] Address [address] [place] [address] Care Team Providers Care Commercial Crabber Name Role Phone Unavailable Primary Care Provider Unavailabl e Allergies No known active allergies Immunizations Name Administration Dates Next Due Covid-19, Pfizer, mRNA, [place] valent, PF 30 mcg/0.3 mL dose (for [...] 9: 44 AM EDT Plan of Treatment Health Maintenance Due Date Last Done Comments Cologuard 1955 Colon Cancer Screening 1955 Colonoscopy 1955 FOBT / Fit Test 1955 Sigmoidoscopy 1955 Zoster Vaccines (1 of 2) 2005 Pneumococcal Vaccine: 65+ Years (1 of 1 - PCV) 2020 COVID-19 Vaccine (3 - 2023-2 5 season) 2024 02/05/2021, 01/08/2021 Influenza Vaccine (#1) 2024 08/05/2020 Alcohol/Substance Use Screening 10/11/2024 Health Care Proxy Review 10/11/2024 DTaP,Tdap,and Td Vaccines (2 - Td or Tdap) 08/05/2030 08/05/2020 RSV Vaccine (60+ years old a nd patients) (1 - 1-dose 75+ series) 2030 Hepatitis B Vaccines Aged Out No long er eligible based on patient's age to complete this topic Insurance MEDICARE [employer]
--- OUTSIDE RECORDS SUMMARY | 2024-11-01 14:25 | XMS_ITS | Clinical Summary ---
Author Organization [facility] it Address [address] [place] [address] Care Team Providers Care Through Freight Engineer Name Role Phone Talisha Manzanares MD Primary Care Provider [phone] Immunizations Name Administration Dates Next Due Pfizer SARS-CoV-2 COVID-19, mRNA, LNP-S, preservative free 02/05/2021,01/08/2021 Surgical History Surgery Date Site/Laterality Comments OTHER SURGICAL HISTORY PROCEDURE: [place] SPINE DEVICE IMPLANT SURGERY Medical History Medical History Date Comments Depressive disorder DX:Depressiv e disorder Family History Medical History Relation Name Comments No Known Problems Brother No Known Problems Daughter No Known Problems Father No Known Problems Mother No Known Problems Other No Known Problems Sister No Known Problems Son Autoimmune disease Neg Hx Breast cancer Neg Hx Colon cancer Neg Hx Coronary artery disease Neg Hx Diabetes Neg Hx Heart attack Neg Hx Heart failure Neg Hx Hyperlipidemia Neg Hx Hypertension Neg Hx Mental illness Neg Hx Prostate cancer Neg Hx Sleep apnea Neg Hx Thyroid disease Neg Hx Relation Name Status Comments Brother Daughter Father Mother Other Sister Son Social History Tobacco Use Types Packs/Day Years Used Date Smoking Tobacco: Former Cigarettes Q uit: 10/11/1986 Smokeless Tobacco: Never Sex and Gender Information Value Date Recorded Sex Assigned at Not on file Gender Identity Not on file Sexual Orientation Not on file Obstetrics History Plan of Treatment Health Maintenance Due Date Last Done Comments DTaP,Tdap,and Td Vaccines (1 - Tdap) 1974 Zoster Vaccines (1 of 2) 2005 Pneumococcal Vaccine: 65+ Years (1 of 1 - PCV) 2020 Abdominal Aortic Aneurysm (AAA) Screen 09/08/2022 Cholesterol Screening (Lipid Panel) 09/08/2022 Colorectal Cancer Screening: Colonoscopy 09/08/2022 Depression Screening 09/08/2022 Falls Risk Assessment 09/08/2022 Hepatitis C Screening 09/08/2022 Social Influencers of Health Screening 09/08/2022 COVID-19 Vaccine (4 - 2023-2 5 season) 2024 04/06/2022, 02/05/2021, 01/08/2021 Influenza Vaccine (#1) 2024 06/30/2021 RSV Immunization Patients 60 + Years Old (1 - 1-dose 75+ series) 2030 HIB Vaccines Aged Out No longer eligi ble based on patient's age to complete this topic HPV Vaccines Aged Out No longer eligi ble based on patient's age to complete this topic Hepatitis A Vaccines Aged Out No long er eligible based on patient's age to complete this topic Hepatitis B Vaccines Aged Out No long er eligible based on patient's age to complete this topic IPV Vaccines Aged Out No longer eligi ble based on patient's age to complete this topic MMR Vaccines Aged Out No longer eligi ble based on patient's age to complete this topic Meningococcal ACWY Vaccine Aged Out N o longer eligible based on patient's age to complete this topic RSV Immunization Patients Under 20 months Aged Out No longer eligible b ased on patient's age to complete this topic Varicella Vaccines Aged Out No longer eligible based on patient's age to complete this topic Care Teams Through Freight Engineer Relationship Specialty Start Date End Date Talisha Manzanares MD [address] [place] [phone] PCP - General Family Medicine 10/31/18
--- OUTSIDE RECORDS SUMMARY | 2024-11-01 14:26 | XMS_ITS | Encounter Summary ---
Author Organization [facility] Address [address] [place] [address] Care Team Providers Care Assistant Professor Of Anthropology Name Role Phone Unavailable Primary Care Provider Unavailabl e Encounter Details Date Type Department Care Team (Late st Contact Info) Description 07/05/2017 Ophthalmology Data Conversion [facility] Historical Conversion Department [address] [place] [address] [address] Social History Tobacco Use Types Packs/Day Years Used Date Smoking Tobacco: Never Assessed Sex and Gender Information Value Date Recorded Sex Assigned at Male 01/08/2021 9:44 AM EDT Legal Sex Male 3:24 AM EDT Gender Identity Male 01/08/2021 9:44 AM EDT Sexual Orientation Straight 01/08/2021 9: 44 AM EDT documented as of this encounter Plan of Treatment Not on file documented as of this encounter Visit Diagnoses Not on filedocumented in this encounter
== END 2024-11-01 12:35 | disposition home or self-care (01) ==
LOC: HO.US 12:34
PROVIDERS: Visit Provider Urology
DX: R33.9 Retention of urine, unspecified (principal)
CPT/HCPCS: 76857

== ENCOUNTER → 2024-11-01 12:38 | Outpatient (BNV) | payer MEDICARE, MEDICAID, SELFPAY | PROVIDERS: Visit Provider Radiology Diagnostic Radiology | DX: N40.1 Benign prostatic hyperplasia with lower urinary tract symptoms (principal) | CPT/HCPCS: 76857 ==

== ENCOUNTER 2024-11-01 15:03 | Outpatient (AMB) | payer MEDICARE, MEDICAID, SELFPAY ==
--- NOTE | 2024-11-01 15:06 | MHC.OFFVIS ---
Vital Signs 11/01/24 15:07 Height 5 ft 9 in Weight 196 lb BMI 28.9 BP 127/58 L Blood Pressure Location Lt brachial Position Sitting Respiration 16 Pulse 61 Pulse Source Pulse Oximeter Pulse Oximetry (%) 98 Oxygen Delivery Method Room Air Intake Visit Reasons: Pain Pump Adjustment Allergies No Known Allergies [No Known Allergies*] Allergy (Verified 11/01/24 15:10) Medication List - Last Reconciled 11/01/24 by Debbie Beck LPN cephalexin 1,000 mg (2 x 500 mg) PO Q8H 16 days naloxone 4 mg/actuation 4 mg intranasal Q2M 1 day pregabalin 75 mg PO DAILY quetiapine (Seroquel) 100 mg PO BEDTIME selegiline (Emsam) 1 patch transdermal DAILY terazosin 5 mg PO BEDTIME 30 days HPI Comments Details: Hernán is today in the office for intrathecal pain pump adjustment and the follow-up. He has unusual side effect on PTM application of hydromorphone. Reports dizziness. We decided to continue with only simple continuous medication administration. The change of the doses see as below. He reports now that with increase of the dose to 42 micro g a day he starts to feel slightly better and reports improved mobility and activities of daily living. He states that because of the very cold weather he would usually fill his pain aggravated however now his pain is better despite the severe climate standing outside. We agreed on continuing the escalation until he feels more comfortable. He will schedule yet another appointment for escalation of the pain pump in 1 week. He is scheduled for MRI with and without contrast to evaluate possible endplate changes and position of the hardware in his lower back. Prior: status post ITDD Pain Pump Implant 05/12/24. Originally he was referred by Dr. Nix for evaluation for spinal cord stimulator. He is status post laminectomy L3-L4 and L5-S1 diskectomy with posterior lateral fusion. He has L5 radiculopathy EMG confirmed. On recommendation of Dr. Ch I tried spinal cord stimulator on him [employer]. The procedure was very difficult technically. However I was able to establish 2 leads in the thoracic spine. Patient reported minimal pain improvement while on stimulation. At the end of the [employer] trial he was switched to [place] SCS, unfortunately that did not help his pain in more extent either. He was absent from my care for 2 years , after that he came back requesting the discussion about pain pump he was offered to him at that time. Because the patient was on opioids [place] 7.5 mg TID, initially bupivacaine pain pump was considered however it resulted in poor pain control and side effects. He was switched for hydromorphone. Dr. Ch did not recommend additional surgical intervention and advised he undergo a SCS trial, and thus he was referred to us. He describes a numbness and burning down his right posterior lateral leg extending to the top of his right into his toes. This is worsened with sitting, reaching pain level 8-9/10. He had done extensive PT and also had multiple injections prior to his surgery while seeing pain management provider Dr. Geronimo in [place]. [facility] Medical History History of urinary retention History of numbness Chronic pain syndrome Radiculopathy due to lumbar intervertebral disc disorder Postlaminectomy syndrome Surgical History History of surgery History of basal cell carcinoma excision History of lumbar laminectomy History of laminectomy History of back surgery Hx of arthroscopy of shoulder Hx of repair of rotator cuff Social History Patient Tobacco Use Status: Former Tobacco user Review of Systems Const All systems reviewed & are unremarkable except as noted in HPI and below ENT Reports Normal hearing present Neuro Reports Normal hearing present, Denies confusion and Denies Sensory deficit (Neuro) Psych Denies confusion Physical Exam Vital Signs: Last Vital Signs Pulse 61 11/01/24 15:07 Resp 16 11/01/24 15:07 BP 127/58 L 11/01/24 15:07 Pulse Ox 98 11/01/24 15:07 Oxygen Delivery Method Room Air 11/01/24 15:07 BMI result Body Mass Index 28.9 Const General: No confusion Orientation/consciousness: No confusion Eyes Pupils: Equal, round and reactive pupils present EOM: EOMs intact bilaterally Chest Chest palpation & inspection: normal inspection of the chest Resp Effort & Inspection: normal respiratory effort, able to speak in complete sentences, normal respiratory pattern, no audible wheezes and no cough Cardio Jugular venous distension: no JVD Back/Spine/Pelvis Other: Lumbar Spine/Lower back/SIJ: SACROILIAC JOINT No tenderness to palpation. INSPECTION: normal curvature of spine, scar from previous surgery. RANGE OF MOTION decreased extention. PALPATION: no vertebral spine tenderness. STRAIGHT LEG RAISING TEST: positive at 45 degrees on right. MOTOR SYSTEM: 5/5 bilateral lower extremities. SENSORY EXAM: paresthesias right L4-5 distribution. REFLEXES: symmetrical 2+. GAIT: unremarkable. Neuro General: No confusion Cranial nerves: Yes Equal, round and reactive pupils present and Yes Normal hearing present Sensory Exam: No Sensory deficit (Neuro) Psych Speech and movement: Normal speech and movement present Affect: normal affect Attitude: cooperative Thought process: Normal thought process present Thought content: Normal thought content present Insight: Good insight present (Psych) Judgement: Good judgement present (Psych) Assessment & Plan Assessment & Plan (1) Chronic pain syndrome: Code(s): G89.4 - Chronic pain syndrome Category: Medical (2) Radiculopathy due to lumbar intervertebral disc disorder: Code(s): M51.16 - Intervertebral disc disorders with radiculopathy, lumbar region Category: Medical (3) Postlaminectomy syndrome: Code(s): M96.1 - Postlaminectomy syndrome, not elsewhere classified Category: Medical (4) S/P insertion of intrathecal pump: Code(s): Z98.890 - Other specified postprocedural states Category: Surgical Plan: The pump adjustment is as below. The patient is recommended to come once a week to continue escalation of the continuous doses of the medications. Vertebra genic pain syndrome is suspected because patient complains on pain continuously increasing with prolonged sitting and prolonged standing. He has an MRI of the lumbar spine at home and he will bring us the disc. However this MRI is very old. MRI of the lumbar spine is scheduled. If there are endplate changes I will discuss further intercept BVN RFA. (5) Vertebrogenic low back pain: Code(s): M54.51 - Vertebrogenic low back pain Category: Medical Plan Intrathecal pain pump interrogation and adjustment. Intrathecal pain pump was interrogated, the doses of the continuous medications were increased from 40 to micro g of hydromorphone to 59 micro g of hydromorphone. Patient reported this time not much of a pain improvement, however he did not complain on any side effects from the running medicine. He has a about 17 mL of the fluid in his pump and not soon he will be coming for pump refill. Coding Level of Care Code Est Pt Level 3 (97339) Procedure Only Diagnoses Chronic pain syndrome G89.4 Radiculopathy due to lumbar intervertebral disc disorder M51.16 Postlaminectomy syndrome M96.1 S/P insertion of intrathecal pump Z98.890 Vertebrogenic low back pain M54.51
[2024-11-01 15:07] VITALS: BP 127/58; PULSE 61; RESP 16; O2SAT 98; BMI 28.9
--- OUTSIDE RECORDS SUMMARY | 2024-11-01 17:32 | XMS_ITS | Clinical Summary ---
Author Organization [facility] it Address [address] [place] [address] Care Team Providers Care Valet Service Attendant Name Role Phone Talisha Manzanares MD Primary Care Provider [phone] Immunizations Name Administration Dates Next Due Pfizer SARS-CoV-2 COVID-19, mRNA, LNP-S, preservative free 02/05/2021,01/08/2021 Surgical History Surgery Date Site/Laterality Comments OTHER SURGICAL HISTORY PROCEDURE: [place] SPINE DEVICE IMPLANT SURGERY Medical History Medical [...] age to complete this topic Care Teams Valet Service Attendant Relationship Specialty Start Date End Date Talisha Manzanares MD [address] [place] [phone] PCP - General Family Medicine 10/31/18
--- OUTSIDE RECORDS SUMMARY | 2024-11-01 17:32 | XMS_ITS | Clinical Summary ---
Author Organization [facility] Address [address] [place] [address] Care Team Providers Care Dinkey Operator Slate Name Role Phone Talisha Manzanares MD Primary [...] Advance Directives For more information, please contact: [phone] Documents on File Type Date Recorded Patient Extension Edger Expl anation Advance Directive and Living Will 04/19/2020 8:19 AM questionnaire Care Teams Dinkey Operator Slate Relationship Specialty Start Date End Date Talisha Manzanares MD [address] [place] [phone] PCP - General Family Medicine 10/31/18
--- OUTSIDE RECORDS SUMMARY | 2024-11-01 17:33 | XMS_ITS | Encounter Summary ---
Author Organization [facility] Address [phone] [facility] [place] [address] Care Team Providers Care Candy Department Manager Name Role Phone Talisha Manzanares MD Primary Care Provider + Reason for Referral * Physical Therapy (Routine) - Closed Specialty Diagnoses / Procedures Referred By Xavier goldstein Referred To Contact Physical Therapy Diagnoses Encounter for rehabilitation Hernán Mejia PA [address] [place] [address] [facility] Parent [address] [place] [address] Referral ID Status Reason Start Date Expiration Date Visits Re quested Visits Authorized [id number] Closed 07/21/2021 07/21/2022 1 1 Encounter Details Date Type Department Care Team (Latest Contact Info) Description 07/21/2021 Transcribe Orders [facility] [address] [place] [address] Hernán Mejia PA [address] [place] [address] [email or web address] Encounter for rehabilitation (Primary Dx) Social History Tobacco Use Types Packs/Day Years Used Date Smoking Tobacco: Never Assessed Sex and Gender Information Value Date Recorded Sex Assigned at Male 07/29/2022 11:31 PM EDT Gender Identity Male 07/29/2022 11:31 PM EDT Sexual Orientation Not on file documented as of this encounter Plan of Treatment Upcoming Encounters Date Type Department Care Team (Late st Contact Info) Description 11/10/2024 2:00 PM EST Office Visit [facility] [place] [facility] Orthopedics & Sports Medicine [address] [place] [address] Hernán Grissom PA-C [address] [place] [address] [place] [address] [email or web address] Scheduled Referrals Name Type Priority Associated Diagnoses Orde r Schedule Ambulatory referral to [facility] Physical Therapy Outpatient Referral Routine Encounter for rehabilitation Ordered: 07/21/2021 documented as of this encounter Visit Diagnoses Diagnosis Encounter for rehabilitation- Primary documented in this encounter Care Teams Candy Department Manager Relationship Specialty Start Date End Date Talisha Manzanares MD [address] [place] [phone] [email or web address] PCP - General 07/27/17 documented as of this encounter Additional Source Comments The information contained in this document represents components of the legal health record. It is not the complete legal health record.[facility]
--- OUTSIDE RECORDS SUMMARY | 2024-11-01 17:33 | XMS_ITS | Encounter Summary ---
Author Organization [facility] Address [phone] [place] [address] Care Team Providers Care Pinion Staker Name Role Phone Talisha Manzanares MD Primary Care Provider + Encounter Details Date Type Department Care Team (Late Contact Info) Description 03/17/2023 Transcribe Orders [facility], Radio Flouroscopy [address] [place] [address] Juan [address] [place] [address] Social History Tobacco Use Types Packs/Day Years Used Date Smoking Tobacco: Former Smokeless Tobacco: Never Alcohol Use Standard Drinks/Week Comments Never 0 (1 standard drink = 0.6 oz pur e alcohol) Education Answer Date Recorded Are you interested in more education? Not on joseph e 02/05/2023 Are you concerned about learning? Not on file 02/05/2023 No 02/05/2023 No 02/05/2023 Digital Access Answer Date Recorded No 03/06/2023 No 03/06/2023 Reliable internet access at home? Not on file 03/06/2023 Device with a working camera? Not on file Sex and Gender Information Value Date Recorded Sex Assigned at Male 07/29/2022 11:31 PM EDT Gender Identity Male 07/29/2022 11:31 PM EDT Sexual Orientation Not on file documented as of this encounter Plan of Treatment Upcoming Encounters Date Type Department Care Team (Late Contact Info) Description 11/10/2024 2:00 PM EST Office Visit [facility] Orthopedics & Sports Medicine [address] [place] [address] Hernán Grissom PA-C [address] [place] [address] [place] [address] [email or web address] documented as of this encounter Visit Diagnoses Not on filedocumented in this encounter Care Teams Pinion Staker Relationship Specialty Start Date End Date Talisha Manzanares MD [address] [place], [place] [address] [address] [email or web address] PCP - General 07/27/17 documented as of this encounter Additional Source Comments The information contained in this document represents components of the legal health record. It is not the complete legal health record.[facility]
--- OUTSIDE RECORDS SUMMARY | 2024-11-01 17:33 | XMS_ITS | Clinical Summary ---
Author Organization [facility] Address [address] [place] [address] Care Team Providers Care Funeral Pre Need Consultant Name Role Phone Unavailable Primary Care Provider Unavailabl e Allergies No known active allergies Immunizations Name Administration Dates Next Due Covid-19, Pfizer, mRNA, [place] valent, PF 30 mcg/0.3 mL dose (for [...] age to complete this topic Insurance MEDICARE [facility]
--- OUTSIDE RECORDS SUMMARY | 2024-11-01 17:33 | XMS_ITS | Encounter Summary ---
Author Organization [facility] Address [phone] [address] [place] [address] Care Team Providers Care Food Production Machine Operator Name Role Phone Talisha Manzanares MD Primary Care Provider + Encounter Details Date Type Department Care Team ([facility] Contact Info) Description 10/08/2023 Procedure Pass [place] Admitting Dept - Virtual Department [address] [place] [address] Social History Tobacco Use Types Packs/Day Years Used Date Smoking Tobacco: Former Smokeless Tobacco: Never Comments:Quit in Alcohol Use Standard Drinks/Week Comments Not Currently 0 (1 standard drink = 0.6 oz pur e alcohol) quit 36 years ago Education Answer Date Recorded Are you interested [...] Upcoming Encounters Date Type Department Care Team ([facility] Contact Info) Description 11/10/2024 2:00 PM EST Office Visit [facility] Orthopedics & Sports Medicine [address] [place] [address] Hernán Grissom PA-C [address] [place] [address] [place] [address] [email or web address] documented as of this encounter Visit Diagnoses Not on filedocumented in this encounter Care Teams Food Production Machine Operator Relationship Specialty Start Date End Date Talisha Manzanares MD [address] [place] [address] PATRICIO Baires [phone] [email or web address] PCP - General 07/27/17 documented as of this encounter Additional Source Comments The information contained in this document represents components of the legal health record. It is not the complete legal health record.[facility]
--- OUTSIDE RECORDS SUMMARY | 2024-11-01 17:33 | XMS_ITS | Encounter Summary ---
Author Organization [facility] Address [phone] [address] [place] [address] Care Team Providers Care Dyed Raw Stock Blower Feeder Name Role Phone Talisha Manzanares MD Primary Care Provider + Encounter Details Date Type Department Care Team (Late st Contact Info) Description 10/22/2022 Telephone [facility] Spine [address] [place] [address] Pasha Cassidy MD [address] [place] [address] [email or web address] Social History Tobacco Use Types Packs/Day Years Used Date Smoking Tobacco: Former Smokeless Tobacco: Never Alcohol Use Standard Drinks/Week Comments Never 0 (1 standard drink = 0.6 oz pur e alcohol) Sex and Gender Information Value Date Recorded Sex Assigned at Male 07/29/2022 11:31 PM EDT Gender Identity Male 07/29/2022 11:31 PM EDT Sexual Orientation Not on file documented as of this encounter Plan of Treatment Upcoming Encounters Date Type Department Care Team (Late st Contact Info) Description 11/10/2024 2:00 PM EST Office Visit [facility] Orthopedics & Sports Medicine [address] [place] [address] Hernán Grissom PA-C [address] [place] [address] [place] [address] [email or web address] documented as of this encounter Visit Diagnoses Not on filedocumented in this encounter Care Teams Dyed Raw Stock Blower Feeder Relationship Specialty Start Date End Date Talisha Manzanares MD [address] [place] [address] [email or web address] PCP - General 07/27/17 documented as of this encounter Additional Source Comments The information contained in this document represents components of the legal health record. It is not the complete legal health record.[facility]
--- OUTSIDE RECORDS SUMMARY | 2024-11-01 17:33 | XMS_ITS | Encounter Summary ---
Author Organization [facility] Address [address] [place] [address] Care Team Providers Care Butadiene Converter Utility Operator Name Role Phone Unavailable Primary Care Provider Unavailabl e Encounter Details Date Type Department Care Team (Late st Contact Info) Description 07/05/2017 Ophthalmology Data Conversion [facility] Historical Conversion Department [address] [place] [address] [address] Social History Tobacco Use Types Packs/Day Years [...]
--- OUTSIDE RECORDS SUMMARY | 2024-11-01 17:33 | XMS_ITS | Encounter Summary ---
Author Organization [facility] Address [phone] [employer] [place] [address] Care Team Providers Care Histology Manager Name Role Phone Talisha Manzanares MD Primary Care Provider + Encounter Details Date Type Department Care Team ([facility] Contact Info) Description 11/01/2023 Procedure Pass [facility], X-Ray - [facility] [address] [place] [address] Social History Tobacco Use Types Packs/Day Years [...] Upcoming Encounters Date Type Department Care Team ([facility] Contact Info) Description 11/10/2024 2:00 PM EST Office Visit [facility] Orthopedics & Sports Medicine [address] [place] [address] Hernán Grissom PA-C [address] [place] [address] [place] [address] [email or web address] documented as of this encounter Visit Diagnoses Not on filedocumented in this encounter Care Teams Histology Manager Relationship Specialty Start Date End Date Talisha Manzanares MD [address] [place] [address] PATRICIO Baires [phone] [email or web address] PCP - General 07/27/17 documented as of this encounter Additional Source Comments The information contained in this document represents components of the legal health record. It is not the complete legal health record.[facility]
--- OUTSIDE RECORDS SUMMARY | 2024-11-01 17:33 | XMS_ITS | Encounter Summary ---
Author Organization [facility] Address [phone] [facility] [place] [address] Care Team Providers Care Recycling Technician Name Role Phone Talisha Manzanares MD Primary Care Provider + Encounter Details Date Type Department Care Team (Late Contact Info) Description 11/19/2022 Procedure Pass [facility], Radio Flouroscopy [address] [place] [address] Social History Tobacco Use Types Packs/Day Years [...] Description 11/10/2024 2:00 PM EST Office Visit [facility] Orthopedics & Sports Medicine [address] [place] [address] Hernán Grissom PA-C [address] [place] [address] [place] [address] documented as of this encounter Visit Diagnoses Not on filedocumented in this encounter Care Teams Recycling Technician Relationship Specialty Start Date End Date Talisha Manzanares MD [address] [place] [phone] [email or web address] PCP - General 07/27/17 documented as of this encounter Additional Source Comments The information contained in this document represents components of the legal health record. It is not the complete legal health record.[facility]
--- OUTSIDE RECORDS SUMMARY | 2024-11-01 17:33 | XMS_ITS | Encounter Summary ---
Author Organization [facility] Address [phone] [address] [place] [address] Care Team Providers Care Bond Clerk Name Role Phone Talisha Manzanares MD Primary Care Provider + Encounter Details Date Type Department Care Team ([facility] Contact Info) Description 09/22/2023 Procedure Pass [place] Admitting Dept - Virtual Department [address] [place] [address] Social History Tobacco Use Types Packs/Day Years [...] Upcoming Encounters Date Type Department Care Team ([facility] Contact Info) Description 11/10/2024 2:00 PM EST Office Visit [facility] Orthopedics & Sports Medicine [address] [place] [address] Hernán Grissom PA-C [address] [place] [address] [place] [address] [email or web address] documented as of this encounter Visit Diagnoses Not on filedocumented in this encounter Care Teams Bond Clerk Relationship Specialty Start Date End Date Talisha Manzanares MD [address] [place] [address] PATRICIO Baires [phone] [email or web address] PCP - General 07/27/17 documented as of this encounter Additional Source Comments The information contained in this document represents components of the legal health record. It is not the complete legal health record.[facility]
--- OUTSIDE RECORDS SUMMARY | 2024-11-01 17:33 | XMS_ITS | Encounter Summary ---
Author Organization [facility] Address [phone] [address] [place] [address] Care Team Providers Care Supervisor Printing Shop Name Role Phone Talisha Manzanares MD Primary Care Provider + Talisha Manzanares MD Unavailable [phone] Encounter Details Date Type Department Care Team (Late st Contact Info) Description 02/01/2018 Ancillary Orders Virtual Department [address] [place] [address] Estela Rowell PA-C [address] [place] [phone] [email or web address] Globus syndrome Social History Tobacco Use Types Packs/Day Years [...] Description 11/10/2024 2:00 PM EST Office Visit [facility] Orthopedics & Sports Medicine [address] [place] [address] Hernán Grissom PA-C [address] [place] [address] [place] [phone] documented as of this encounter Results * FL BARIUM SWALLOW ESOPHAGRAM SINGLE CONTRAST (02/09/2018 10:28 AM EDT) Anatomical Region Laterality Modality Chest Radiographic Elaina ging 02/09/2018 10:3 6 AM EDT Impressions 02/09/2018 10:38 AM EDT 1. ??Normal esophagram. 2. ??Severe cervical spine degenerative disc disease. FLUOROSCOPY TIME: ??1 min. 39 sec; ??11 IMAGES/FRAMES POS - [id number] Narrative 02/09/2018 10:38 AM EDT COMPARISON: None. BARIUM SWALLOW FINDINGS: Lieutenant Shift Supervisor lateral neck radiograph was obtained. ??Soft tissues are normal. ??Severe multilevel cervical spine disc space narrowing with endplate osteophytes and facet arthropathy. ??A double contrast barium swallow was performed. ??Low dose pulsed fluoroscopy was utilized with limited exposures to reduce radiation dose. ?? Esophagus is normal in contour and motility. ??No stricture, mass, ulceration, hiatal hernia or gastroesophageal reflux. ??Barium tablet passed into the stomach without difficulty. Procedure Note Romie Riddle MD - 02/09/2018 COMPARISON: None. BARIUM SWALLOW FINDINGS: Lieutenant Shift Supervisor lateral neck radiograph was obtained. Soft tissues are normal.Severe multilevel cervical spine disc space narrowing with endplateosteophytes and facet arthropathy. A double contrast barium swallow wasperformed. Low dose pulsed fluoroscopy was utilized with limitedexposures to reduce radiation dose. Esophagus is normal in contour andmotility. No stricture, mass, ulceration, hiatal hernia orgastroesophageal reflux. Barium tablet passed into the stomach withoutdifficulty. IMPRESSION: 1. Normal esophagram. 2. Severe cervical spine degenerative disc disease. FLUOROSCOPY TIME: 1 min. 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 It is not the complete legal health record.[facility]
--- OUTSIDE RECORDS SUMMARY | 2024-11-01 17:33 | XMS_ITS | Referral Summary ---
Author Organization [facility] Address [address] [place] [address] Care Team Providers Care Social Studies Teacher Name Role Phone Unavailable Primary Care Provider Unavailabl e Allergies No known active allergies Immunizations Name Administration Dates Next Due Covid-19, Pfizer, mRNA, [place] valent, PF 30 mcg/0.3 mL dose (for [...]
--- OUTSIDE RECORDS SUMMARY | 2024-11-01 17:33 | XMS_ITS | Encounter Summary ---
Author Organization [facility] Address [phone] [facility] [place] [address] Care Team Providers Care Pick Up Attendant Name Role Phone Talisha Manzanares MD Primary Care Provider + Encounter Details Date Type Department Care Team (Late Contact Info) Description 11/04/2021 Ancillary Orders [facility],Outside Imaging [address] [place] [address] System, Provider Not In, PhD Partners [address] [address] Social History Tobacco Use Types Packs/Day Years Used Date Smoking Tobacco: Never Smokeless Tobacco: Never Alcohol Use Standard Drinks/Week [...] Description 11/10/2024 2:00 PM EST Office Visit [facility] Orthopedics & Sports Medicine [address] [place] [address] Hernán Grissom PA-C [address] [place] [address] [place] [phone] documented as of this encounter Results * XR Upper Extremity Outside (No Interpretation) (10/09/2021 12:00 AM EST) Narrative SYSTEMGENERATED, DOCUMENTATION - 11/04/2021 8:54 AM EST This study is for PACS storage only and not for interpretation. Provider Not In System PhD IMG OUTSIDE I CYNTHIA W/OUT INTERPRETATION documented in this encounter Visit Diagnoses Not on filedocumented in this encounter Care Teams Pick Up Attendant Relationship Specialty Start Date End Date Talisha Manzanares MD [address] [place] [phone] [email or web address] PCP - General 07/27/17 documented as of this encounter Additional Source Comments The information contained in this document represents components of the legal health record. It is not the complete legal health record.[facility]
--- OUTSIDE RECORDS SUMMARY | 2024-11-01 17:33 | XMS_ITS | Encounter Summary ---
Author Organization [facility] Address [phone] [address] [place] [address] Care Team Providers Care Photographic Platemaker Name Role Phone Talisha Manzanares MD Primary Care Provider + Encounter Details Date Type Department Care Team (Late Contact Info) Description 12/24/2022 Transcribe Orders [facility] Outpatient Care, Radio Flouroscopy [address] [place] [address] Binta Harris [address] [place] [address] [email or web address] Social History Tobacco Use Types Packs/Day Years [...] Description 11/10/2024 2:00 PM EST Office Visit [facility] Orthopedics & Sports Medicine [address] [place] [address] Hernán Grissom PA-C [address] [place] [address] [place] [address] documented as of this encounter Visit Diagnoses Not on filedocumented in this encounter Care Teams Photographic Platemaker Relationship Specialty Start Date End Date Talisha Manzanares MD [address] [place] [phone] PCP - General 07/27/17 documented as of this encounter Additional Source Comments The information contained in this document represents components of the legal health record. It is not the complete legal health record.[facility]
--- OUTSIDE RECORDS SUMMARY | 2024-11-01 17:33 | XMS_ITS | Encounter Summary ---
Author Organization [facility] Address [phone] [address] [place] [address] Care Team Providers Care Biomedical Equipment Support Specialist Name Role Phone Talisha Manzanares MD Primary Care Provider + Encounter Details Date Type Department Care Team (Late Contact Info) Description 02/18/2023 Procedure Pass [facility] Outpatient Care, Radio Flouroscopy [address] [place] [address] Social History Tobacco Use Types Packs/Day Years Used Date Smoking Tobacco: Former Smokeless Tobacco: Never Alcohol Use Standard Drinks/Week Comments Never 0 (1 standard drink = 0.6 oz pur e alcohol) Education Answer Date Recorded Are you interested in more education? Not on joseph e 02/05/2023 Are you concerned about learning? Not on file 02/05/2023 No 02/05/2023 No 02/05/2023 Sex and Gender Information Value Date Recorded Sex Assigned at Male 07/29/2022 11:31 PM EDT Gender Identity Male 07/29/2022 11:31 PM EDT Sexual Orientation Not on file documented as of this encounter Plan of Treatment Upcoming Encounters Date Type Department Care Team (Late Contact Info) Description 11/10/2024 2:00 PM EST Office Visit [facility] Orthopedics & Sports Medicine [address] [place] [address] Hernán Grissom PA-C [address] [place] [address] [place] [address] [email or web address] documented as of this encounter Visit Diagnoses Not on filedocumented in this encounter Care Teams Biomedical Equipment Support Specialist Relationship Specialty Start Date End Date Talisha Manzanares MD [address] [place] [phone] [email or web address] PCP - General 07/27/17 documented as of this encounter Additional Source Comments The information contained in this document represents components of the legal health record. It is not the complete legal health record.[facility]
--- OUTSIDE RECORDS SUMMARY | 2024-11-01 17:33 | XMS_ITS | Encounter Summary ---
Author Organization [facility] Address [phone] [address] [place] [address] Care Team Providers Care Tube Sizer And Cutter Operator Name Role Phone Talisha Manzanares MD Primary Care Provider + Encounter Details Date Type Department Care Team ([facility] Contact Info) Description 11/01/2023 Procedure Pass [facility], [address] [address] Social History Tobacco Use Types Packs/Day Years [...] Description 11/10/2024 2:00 PM EST Office Visit [facility] Orthopedics & Sports Medicine [address] [place] [address] Hernán Grissom PA-C [address] [place] [address] [place] [address] [email or web address] documented as of this encounter Visit Diagnoses Not on filedocumented in this encounter Care Teams Tube Sizer And Cutter Operator Relationship Specialty Start Date End Date Talisha Manzanares MD [address] [place] [address] PATRICIO Baires [phone] [email or web address] PCP - General 07/27/17 documented as of this encounter Additional Source Comments The information contained in this document represents components of the legal health record. It is not the complete legal health record.[facility]
== END 2024-11-01 15:15 | disposition home or self-care (01) ==
PROVIDERS: Visit Provider Anesthesiology
DX: G89.4 Chronic pain syndrome (principal); M51.16 Intervertebral disc disorders with radiculopathy, lumbar region; M96.1 Postlaminectomy syndrome, not elsewhere classified; Z45.1 Encounter for adjustment and management of infusion pump; M54.51 Vertebrogenic low back pain
CPT/HCPCS: 62368

== ENCOUNTER → 2024-11-05 13:34 | Outpatient (BNV) | payer MEDICARE, MEDICAID, SELFPAY | PROVIDERS: Visit Provider Radiology Diagnostic Radiology | DX: M48.061 Spinal stenosis, lumbar region without neurogenic claudication (principal); M47.816 Spondylosis without myelopathy or radiculopathy, lumbar region | CPT/HCPCS: 72158 ==

== ENCOUNTER 2024-11-05 13:35 | Outpatient (REF) | payer MEDICARE, MEDICAID, SELFPAY ==
--- NOTE | ~2024-11-05 | MR_ITS ---
CLINICAL HISTORY: M96.1 - Postlaminectomy syndrome, not elsewhere classified Lspine pain radiating t hrough lower right ext. MR lumbar spine with and without gadolinium Comparison: CR/SR - XR LUMBAR SPINE 2-3V - 10/26/24 11:19 EST Findings: Grade 1 anterolisthesis of L5 on S1 and grade 1 retrolisthesis of L3 on L4 and L4 on L5 without change. Chronic pars defects at L5. No acute lumbar spine fracture. Degenerative type endplate marrow changes are present. There is no suspicious bone lesion. Status post posterior metallic and interbody fusion at L5-S1. No evidence of hardware failure. Cauda equina and conus medullaris within normal limits. L1-L2: No significant degenerative disc disease. Mild bilateral facet osteoarthritis with mild mass effect on the posterolateral margins of the thecal sac. No significant neural foraminal narrowing. L2-L3: Moderate broad-based disc bulge. Bilateral facet osteoarthritis. Mild central canal stenosis. Mild narrowing of bilateral neural foramina. L3-L4: Large disc osteophyte complex with mild thecal sac effacement. Facet osteoarthritis is also present. There is moderate stenosis of the right neural foramen and mild stenosis of the left neural foramen. L4-L5: Mild central disc bulge. Bilateral facet osteoarthritis. Moderate mass effect on the posterolateral margins of the thecal sac. Mild narrowing of bilateral neural foramina. L5-S1: Mild endplate proliferation. No significant central canal narrowing. Mild narrowing of the left neural foramen. Paraspinous musculature intact. IMPRESSION: 1. No acute abnormality of the lumbar spine. Multilevel spondylosis and facet osteoarthritis. Mild central canal stenosis at L2-L3. Moderate stenosis of the right neural foramina at L3-L4. 2. Status post surgical fusion at L5-S1. No evidence of hardware failure. This document has been electronically signed by: Jigna Stephen MD on 11/05/2024 15:33:00
--- OUTSIDE RECORDS SUMMARY | 2024-11-05 13:40 | XMS_ITS | Encounter Summary ---
Author Organization [facility] Address [phone] [address] [place] [address] Care Team Providers Care Door Assembler Name Role Phone Talisha Manzanares MD Primary Care Provider + Encounter Details Date Type Department Care Team (Late Contact Info) Description 12/24/2022 Transcribe Orders [facility] Outpatient Care, Radio Flouroscopy [address] [place] [address] Binta Harris [address] [place] [address] [email or web address] Social History Tobacco Use Types Packs/Day [...] Description 11/10/2024 2:00 PM EST Office Visit [facility] Orthopedics & Sports Medicine [address] [place] [address] Hernán Grissom PA-C [address] [place] [address] [place] [address] documented as of this encounter Visit Diagnoses Not on filedocumented in this encounter Care Teams Door Assembler Relationship Specialty Start Date End Date Talisha Manzanares MD [address] [place] [phone] PCP - General 07/27/17 documented as of this encounter Additional Source Comments The information contained in this document represents components of the legal health record. It is not the complete legal health record.[facility]
--- OUTSIDE RECORDS SUMMARY | 2024-11-05 13:40 | XMS_ITS | Clinical Summary ---
Author Organization [facility] Address [address] [place] [address] Care Team Providers Care Cracker Dough Mixer Name Role Phone Unavailable Primary Care Provider Unavailabl e Allergies No known active allergies Immunizations Name Administration Dates Next Due Covid-19, Pfizer, mRNA, [place] valent, PF 30 mcg/0.3 mL dose (for [...] age to complete this topic Insurance MEDICARE [facility]
--- OUTSIDE RECORDS SUMMARY | 2024-11-05 13:40 | XMS_ITS | Encounter Summary ---
Author Organization [facility] Address [phone] [address] [place] [address] Care Team Providers Care Wafer Machine Operator Name Role Phone Talisha Manzanares MD Primary Care Provider + Encounter Details Date Type Department Care Team ([facility] Contact Info) Description 10/08/2023 Procedure Pass [place] Admitting Dept - Virtual Department [address] [place] [address] Social History Tobacco Use Types Packs/Day Years [...] Upcoming Encounters Date Type Department Care Team ([facility] Contact Info) Description 11/10/2024 2:00 PM EST Office Visit [facility] Orthopedics & Sports Medicine [address] [place] [address] Hernán Grissom PA-C [address] [place] [address] [place] [address] [email or web address] documented as of this encounter Visit Diagnoses Not on filedocumented in this encounter Care Teams Wafer Machine Operator Relationship Specialty Start Date End Date Talisha Manzanares MD [address] [place] [address] PATRICIO Baires [phone] [email or web address] PCP - General 07/27/17 documented as of this encounter Additional Source Comments The information contained in this document represents components of the legal health record. It is not the complete legal health record.[facility]
--- OUTSIDE RECORDS SUMMARY | 2024-11-05 13:40 | XMS_ITS | Encounter Summary ---
Author Organization [facility] Address [phone] [facility] [place] [address] Care Team Providers Care Aircraft Air Conditioning Mechanic Name Role Phone Talisha Manzanares MD Primary Care Provider + Encounter Details Date Type Department Care Team (Late Contact Info) Description 11/19/2022 Procedure Pass [facility], Radio Flouroscopy [address] [place] [address] Social History Tobacco Use Types Packs/Day Years [...] Description 11/10/2024 2:00 PM EST Office Visit [facility] Orthopedics & Sports Medicine [address] [place] [address] Hernán Grissom PA-C [address] [place] [address] [place] [address] documented as of this encounter Visit Diagnoses Not on filedocumented in this encounter Care Teams Aircraft Air Conditioning Mechanic Relationship Specialty Start Date End Date Talisha Manznaares MD [address] [place] [address] [email or web address] PCP - General 07/27/17 documented as of this encounter Additional Source Comments The information contained in this document represents components of the legal health record. It is not the complete legal health record.[facility]
--- OUTSIDE RECORDS SUMMARY | 2024-11-05 13:40 | XMS_ITS | Encounter Summary ---
Author Organization [facility] Address [phone] [address] [place] [address] Care Team Providers Care Hydro Generation Supervisor Name Role Phone Talisha Manzanares MD Primary Care Provider + Talisha Manzanares MD Unavailable [phone] Encounter Details Date Type Department Care Team (Late st Contact Info) Description 02/01/2018 Ancillary Orders Virtual Department [address] [place] [address] Estela Rowell PA-C [address] [place] [phone] [email or web address] Globus syndrome Social History Tobacco Use Types [...] Description 11/10/2024 2:00 PM EST Office Visit [facility] Orthopedics & Sports Medicine [address] [place] [address] Hernán Grissom PA-C [address] [place] [address] [place] [address] documented as of this encounter Results * FL BARIUM SWALLOW ESOPHAGRAM SINGLE CONTRAST (02/09/2018 10:28 AM EDT) Anatomical Region Laterality Modality Chest Radiographic Elaina ging 02/09/2018 10:3 6 AM EDT Impressions 02/09/2018 10:38 AM EDT 1. ??Normal esophagram. 2. ??Severe cervical spine degenerative disc disease. FLUOROSCOPY TIME: ??1 min. 39 sec; ??11 IMAGES/FRAMES POS - [id number] Narrative 02/09/2018 10:38 AM EDT COMPARISON: None. BARIUM SWALLOW FINDINGS: Recoil Spring Winder lateral neck radiograph was obtained. ??Soft tissues [...] - 02/09/2018 COMPARISON: None. BARIUM SWALLOW FINDINGS: Recoil Spring Winder lateral neck radiograph was obtained. Soft tissues [...] min. 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 It is not the complete legal health record.[facility]
--- OUTSIDE RECORDS SUMMARY | 2024-11-05 13:40 | XMS_ITS | Encounter Summary ---
Author Organization [facility] Address [address] [place] [address] Care Team Providers Care Urogynaecologist Name Role Phone Unavailable Primary Care Provider Unavailabl e Encounter Details Date Type Department Care Team (Late st Contact Info) Description 07/05/2017 Ophthalmology Data Conversion [facility] Historical Conversion Department [address] [place] [address] [address] Social History Tobacco Use Types Packs/Day Years [...]
--- OUTSIDE RECORDS SUMMARY | 2024-11-05 13:40 | XMS_ITS | Clinical Summary ---
Author Organization [facility] Address [address] [place] [address] Care Team Providers Care Scallop Cutter Name Role Phone Talisha Manzanares MD Primary [...] Advance Directives For more information, please contact: [phone] Documents on File Type Date Recorded Patient Exhibit Cleaner Expl anation Advance Directive and Living Will 04/19/2020 8:19 AM questionnaire Care Teams Scallop Cutter Relationship Specialty Start Date End Date Talisha Manzanares MD [address] [place] [address] PCP - General Family Medicine 10/31/18
--- OUTSIDE RECORDS SUMMARY | 2024-11-05 13:40 | XMS_ITS | Encounter Summary ---
Author Organization [facility] Address [phone] [employer] [place] [address] Care Team Providers Care Manufacturing Quality Manager Name Role Phone Talisha Manzanares MD Primary Care Provider + Reason for Referral * Physical Therapy (Routine) - Closed Specialty Diagnoses / Procedures Referred By Xavier goldstein Referred To Contact Physical Therapy Diagnoses Encounter for rehabilitation Hernán Mejia PA [address] [place] [address] [facility] Parent [address] [place] [address] Referral ID Status Reason Start Date Expiration Date Visits Re quested Visits Authorized [id number] Closed 07/21/2021 07/21/2022 1 1 Encounter Details Date Type Department Care Team (Latest Contact Info) Description 07/21/2021 Transcribe Orders [facility] [address] [place] [address] Hernán Mejia PA [address] [place] [address] Encounter for rehabilitation (Primary Dx) Social History [...] Medical Group Orthopedics & Sports Medicine [address] [place] [address] Hernán Grissom PA-C [address] [place] [address] [place] [address] [email or web address] Scheduled Referrals Name Type Priority Associated Diagnoses Orde r Schedule Ambulatory referral to [facility] Physical Therapy Outpatient Referral Routine Encounter for rehabilitation Ordered: 07/21/2021 documented as of this encounter Visit Diagnoses Diagnosis Encounter for rehabilitation- Primary documented in this encounter Care Teams Manufacturing Quality Manager Relationship Specialty Start Date End Date Talisha Manzanares MD [address] [place] [phone] [email or web address] PCP - General 07/27/17 documented as of this encounter Additional Source Comments The information contained in this document represents components of the legal health record. It is not the complete legal health record.[facility]
--- OUTSIDE RECORDS SUMMARY | 2024-11-05 13:40 | XMS_ITS | Clinical Summary ---
Author Organization [facility] [employer] [employer] Address [phone] [address] [place] [address] Care Team Providers Care Finance Advisor Name Role Phone Talisha Manzanares MD Primary Care Provider + Allergies No known active allergies Medications Medication Sig Dispensed Refills Start Date End Date Status HYDROcodone-acetami nophen (NORCO) 7.5-325 mg per tablet Take 1 tablet by mouth as needed for pain (specific location in comments). Long-term management of chronic LBP and radiculopathy right leg. Taking a few times a week. Active QUEtiapine (SEROQUEL) 50 MG tablet Take 50 mg by mouth nightly at bedtime. 10/20/2021 Active pregabalin (LYRICA) 200 MG capsule Take 200 mg by mouth as needed. Taking 4-5 times a week for nerve pain 10/09/2021 Active ibuprofen (ADVIL,MOTRIN) 600 MG tablet Take 600 mg by mouth as needed for pain (specific location in comments). Taking 3-4 times week Active Active Problems Problem Noted Date Diagnosed Date History of basal cell carcinoma 08/25/2023 Basal cell carcinoma, scalp/neck 08/25/2023 Aspirin long-term use 08/25/2023 Chronic right-sided lumbar radiculopathy 023 07/30/2023 Assessment & Plan (07/30/2023 2:00 PM EDT): Patient follows with Dr. Mayes/physiatry. He has long history of LBP s/p L3-4 decompression and s/p L5-S1 OLIF (fusion procedure). He continues to have right LE radiculitis in L5 dermatome with numbness from the right gluteus posteriorly to the foot with numbness/tingling in the entire right foot. He is medically managed on pregabalin 200 mg PO taken as needed, ibuprofen 600 mg PO taken as needed and hydrocodone-acetaminophen (Pierce 7.5-325 mg) 1 table PO as needed with typical use being twice weekly. He has a contract with his PCP for chronic opioid management. Discussed the possibility that it may be more difficulty to control his post-operative pain given current chronic opioid use, however he is only using minimal Pierce at twice weekly and did discuss weaning back further preoperatively if he is able. Recommend multimodal analgesia (NSAIDs, acetaminophen, gabapentin, regional nerve blocks) to supplement whatever opioid medication he may receive intra-operatively. Defer to anesthesia team for further management. Patient was instructed to hold NSAID's x 1 week before surgery and to continue on Lyrica as needed perioperatively. Preop examination 07/30/2023 Assessment & Plan (07/30/2023 2:06 PM EDT): 67 [address] of [address] Manzanares with planned left total knee replacement on 09/22/23. Procedure risk is intermediate. Patient denies symptoms associated with acute coronary syndromes including unstable or severe angina, UT within 1 month, severe CHF, high grade arrhythmia or symptomatic valvular disease. Medical risk assessment at the surgical optimization clinic are as follows. RUBI cardiovascular risk score is 0.2 % risk of myocardial infarction or cardiac arrest, intraoperatively or up to 30 day post-operatively. If <1%, no further cardiac work-up recommended. STOP BANG score shows 3 points indicating an intermediate risk of sleep apnea. DASI score was 34.45 points, able to achieve at least 6.98 METS. If DASI >18, no further cardiac testing recommended. NSQIP cardiovascular risk score was below average at 0.1 % risk of cardiac complication, and below average at 0.7 % risk of VTE. RCRI score was 0.4 % risk for cardiovascular event including myocardial infarction, pulmonary edema, arrhythmia, cardiac arrest or complete heart block. This reflects very low risk on the scale. Patient's risk for major adverse cardiac events is low. This meets ACC/AHA guidelines for proceeding to non-cardiac surgery without additional testing. Blood work from 07/26/23 shows a hemoglobin A1c of 5.0%. CBC and BMP are unremarkable with a creatinine of 1.00, eGFR 82. EKG shows sinus bradycardia, HR 56 bpm. There is no evidence of acute or prior ischemia. The patient can proceed to the intended procedure without further work-up. He should have standard DVT and antibiotic prophylaxis. The patient was instructed to discontinue use of any NSAIDs, fish oil, turmeric, herbal supplements and multivitamins for 1 week before surgery. The patient has the following relative contraindications to same day discharge following joint replacement surgery: only consideration is current opioid use for chronic pain. Bipolar 1 disorder 06/10/2023 06/10/2023 Assessment & Plan (07/30/2023 2:14 PM EDT): Follows with Joan Morrell NP. Patient is doing well, mood is stable. No SI/HI. He has done very well on long-term management with quetiapine (Seroquel) 50 mg PO nightly and should continue this medication perioperatively. Resolved Problems Problem Noted Date Diagnosed Date Resolved Date Basal cell carcinoma 07/30/2023 07/30/2023 023 Hyperlipidemia 07/30/2023 07/30/2023 07/30/2023 Chronic back pain 07/30/2023 07/30/2023 Primary osteoarthritis of left knee 06/10/2023 07/30/2023 Depression 09/12/2020 06/10/2023 07/30/2023 Family History Medical History Relation Comments Alcohol abuse Father Cancer Mother Heart attack Mother PCI with/without stent Mother Diabetes mellitus Paternal Grandmother Polymyalgia rheumatica Sister 1 Alcohol abuse Sister 2 Relation Status Comments Father (Age 79) Mother Alive Paternal Grandmother Sister 1 Alive Sister 2 Alive Social History Tobacco Use Types Packs/Day Years Used Date Smoking Tobacco: Former Smokeless Tobacco: Never Tobacco Cessation:Counseling Given: Not Answered Comments:Quit in Alcohol Use Standard Drinks/Week Comments [...] PM EDT Sexual Orientation Not on file Last Filed Vital Signs Vital Sign Reading Time Taken Comments Blood Pressure 128/77 10/08/2023 2:03 PM EST Pulse 67 10/08/2023 2:03 PM EST Temperature - - Respiratory Rate - - Oxygen Saturation 97% 10/08/2023 2:03 PM EST Inhaled Oxygen Concentration - - Weight 88.5 kg (195 lb) 11/11/2023 2:37 PM EST Height 172.7 cm (5' 8 ) 11/11/2023 2:37 PM EST Body Mass Index 29.65 11/11/2023 2:37 PM EST Plan of Treatment Upcoming Encounters Date Type Department Care Team (Late st Contact Info) Description 11/10/2024 2:00 PM EST Office Visit [facility] Orthopedics & Sports Medicine [address] [place] [address] Hernán Grissom PA-C [address] [place] [address] [place] [address] [email or web address] Health Maintenance Due Date Last Done Comments DEPRESSION SCREENING 1967 SMOKING Hx and SMOKELESS TOBACCO SCREENING 1968 HEPATITIS B SCREENING 1973 HEPATITIS C SCREENING 1973 COLOGUARD 2000 FIT TEST 2000 FOBT 2000 SIGMOIDOSCOPY 2000 VIRTUAL COLONOSCOPY 2000 ABDOMINAL AORTIC ANEURYSM (AAA) SCREENING 2020 ZOSTER VACCINES (2 of 2) 05/26/2021 03/31/2021 LIPID PANEL 09/30/2023 09/30/2018, 09/23/2016 PNEUMOCOCCAL VACCINES (50+ years) (2 of 2 - PPSV23) 04/19/2024 04/19/2023 INFLUENZA VACCINE (#1) 2024 , 08/05/2020, 08/28/2016, Additional history exists COVID-19 VACCINE ( season) 2024 04/19/2023, 04/06/2022, 08/19/2021, Additional history exists COLONOSCOPY 10/15/2025 10/15/2015 COLORECTAL CANCER SCREENING 10/15/2025 SCREENING FOR DIABETES 07/26/2026 07/26/2023, 2022 Adult Td,Tdap Booster 08/05/2030 08/05/2020, 011 RSV VACCINE (1 - 1-dose 75+ series) 2030 HEPATITIS A VACCINES Aged Out No long er eligible based on patient's age to complete this topic HEPATITIS B VACCINES Aged Out No long er eligible based on patient's age to complete this topic HIB VACCINES Aged Out No longer eligi ble based on patient's age to complete this topic MENINGOCOCCAL VACCINES (ACWY) Aged Out No longer eligible based on patient's age to complete this topic Medical Devices Not on file Procedures Procedure Name Priority Date/Time Associated Diagnosis Comments OUTSIDE LDL Routine 09/23/2016 from Last 3 Months or Most Recently Relevant to Health Maintenance Results * Outside LDL (09/23/2016) LDL - External 120 50 - 250 mg/ml Historical Provider LAB BLOOD ORDERAB LES from Last 3 Months or Most Recently Relevant to Health Maintenance Care Teams Finance Advisor Relationship Specialty Start Date End Date Talisha [place] [address] [email or web address] PCP - General 07/27/17 Additional Source Comments The information contained in this document represents components of the legal health record. It is not the complete legal health record.[facility]
--- OUTSIDE RECORDS SUMMARY | 2024-11-05 13:40 | XMS_ITS | Encounter Summary ---
Author Organization [facility] Address [address] [place] [address] Care Team Providers Care Construction Secretary Name Role Phone Talisha Manzanares Primary Care Provider Natty vailable Encounter Details Date Type Department Care Team Description 11/20/2021 [facility] Neurosurgery [place] [address] [place] [address] Yong Ch MD, PHD Social History Tobacco Use Types Packs/Day Years Used Date Smoking Tobacco: Former Cigarettes Q uit: 1986 Smokeless Tobacco: Never Sex Assigned at Date Recorded Not on file COVID-19 Exposure Response Date Recorded In the last month, have you been in contact with someone who was confirmed or suspected to have Coronavirus / COVID-19? No / Unsure 11/20/2021 2:36 PM EST documented as of this encounter Plan of Treatment Not on file documented as of this encounter Visit Diagnoses Not on filedocumented in this encounter Care Teams Construction Secretary Relationship Specialty Start Date End Date Talisha Manzanares PCP - General Family Practice 11/13/19 documented as of this encounter
--- OUTSIDE RECORDS SUMMARY | 2024-11-05 13:40 | XMS_ITS | Encounter Summary ---
Author Organization [facility] Address [phone] [address] [place] [address] Care Team Providers Care Metallurgical Analyst Name Role Phone Talisha Manzanares MD Primary Care Provider + Encounter Details Date Type Department Care Team ([facility] Contact Info) Description 09/22/2023 Procedure Pass OR Admitting Dept - Virtual Department [address] [place] [address] Social History Tobacco Use Types Packs/Day Years [...] Upcoming Encounters Date Type Department Care Team ([facility] Contact Info) Description 11/10/2024 2:00 PM EST Office Visit [facility] Orthopedics & Sports Medicine [address] [place] [address] Hernán Grissom PA-C [address] [place] [address] [place] [address] [email or web address] documented as of this encounter Visit Diagnoses Not on filedocumented in this encounter Care Teams Metallurgical Analyst Relationship Specialty Start Date End Date Talisha Manzanares MD [address] [place] [address] PATRICIO Baires [address] [email or web address] PCP - General 07/27/17 documented as of this encounter Additional Source Comments The information contained in this document represents components of the legal health record. It is not the complete legal health record.[facility]
--- OUTSIDE RECORDS SUMMARY | 2024-11-05 13:40 | XMS_ITS | Encounter Summary ---
Author Organization [facility] Address [phone] [address] [email or web address] [address] Care Team Providers Care Lead Injection Mold Technician Name Role Phone Talisha Manzanares MD Primary Care Provider + Encounter Details Date Type Department Care Team (Late Contact Info) Description 02/18/2023 Procedure Pass [facility] Outpatient Care, Radio Flouroscopy [address] [place] [address] Social History Tobacco Use Types Packs/Day Years [...] Description 11/10/2024 2:00 PM EST Office Visit [facility] Orthopedics & Sports Medicine [address] [place] [address] Hernán Grissom PA-C [address] [place] [address] [place] [address] [email or web address] documented as of this encounter Visit Diagnoses Not on filedocumented in this encounter Care Teams Lead Injection Mold Technician Relationship Specialty Start Date End Date Talisha Manzanares MD [address] [place] [address] [email or web address] PCP - General 07/27/17 documented as of this encounter Additional Source Comments The information contained in this document represents components of the legal health record. It is not the complete legal health record.[facility]
--- OUTSIDE RECORDS SUMMARY | 2024-11-05 13:40 | XMS_ITS | Referral Summary ---
Author Organization [facility] Address [address] [place] [address] Care Team Providers Care Room Manager Name Role Phone Unavailable Primary Care Provider Unavailabl e Allergies No known active allergies Immunizations Name Administration Dates Next Due Covid-19, Pfizer, mRNA, Moultrie valent, PF 30 mcg/0.3 mL dose (for [...]
--- OUTSIDE RECORDS SUMMARY | 2024-11-05 13:40 | XMS_ITS | Encounter Summary ---
Author Organization [facility] Address [phone] [place] [address] Care Team Providers Care Milk Of Lime Slaker Name Role Phone Talisha Manzanares MD Primary Care Provider + Encounter Details Date Type Department Care Team (Late Contact Info) Description 03/17/2023 Transcribe Orders [facility], Radio Flouroscopy [address] [place] [address] Juan Stanton [address] [place] [address] Social History Tobacco Use Types [...] Description 11/10/2024 2:00 PM EST Office Visit [facility] Orthopedics & Sports Medicine [address] [place] [address] Hernán Grissom PA-C [address] [place] [address] [place] [address] [email or web address] documented as of this encounter Visit Diagnoses Not on filedocumented in this encounter Care Teams Milk Of Lime Slaker Relationship Specialty Start Date End Date Talisha Manzanares MD [address] [place], [place] [address] [address] [email or web address] PCP - General 07/27/17 documented as of this encounter Additional Source Comments The information contained in this document represents components of the legal health record. It is not the complete legal health record.[facility]
--- OUTSIDE RECORDS SUMMARY | 2024-11-05 13:40 | XMS_ITS | Encounter Summary ---
Author Organization [facility] Address [phone] [facility] [place] [address] Care Team Providers Care Plaster Model And Mold Maker Name Role Phone Talisha Manzanares MD Primary Care Provider + Encounter Details Date Type Department Care Team (Late Contact Info) Description 11/04/2021 Ancillary Orders [facility],Outside Imaging [address] [place] [address] System, Provider Not In, [facility] [address] [address] Social History Tobacco Use Types Packs/Day Years [...] Description 11/10/2024 2:00 PM EST Office Visit [facility] Orthopedics & Sports Medicine [address] [place] [address] Hernán Grissom PA-C [address] [place] [address] [place] [address] documented as of this encounter Results * XR Upper Extremity Outside (No Interpretation) (10/09/2021 12:00 AM EST) Narrative SYSTEMGENERATED, DOCUMENTATION - 11/04/2021 8:54 AM EST This study is for PACS storage only and not for interpretation. Provider Not In System PhD IMG OUTSIDE I CYNTHIA W/OUT INTERPRETATION documented in this encounter Visit Diagnoses Not on filedocumented in this encounter Care Teams Plaster Model And Mold Maker Relationship Specialty Start Date End Date Talisha Manzanares MD [address] [place] [address] [email or web address] PCP - General 07/27/17 documented as of this encounter Additional Source Comments The information contained in this document represents components of the legal health record. It is not the complete legal health record.[facility]
--- OUTSIDE RECORDS SUMMARY | 2024-11-05 13:40 | XMS_ITS | Encounter Summary ---
Author Organization [facility] Address [address] [place] [address] Care Team Providers Care Press Puller Name Role Phone Talisha Manzanares Primary Care Provider Natty vailable Encounter Details Date Type Department Care Team Description 09/17/2020 Release of Information Medical Records [address] [place] [address] Abstract, Provider Social History Tobacco Use Types Packs/Day Years Used Date Smoking Tobacco: Former Cigarettes Q uit: 1986 Smokeless Tobacco: Never Sex Assigned at Date Recorded Not on file COVID-19 Exposure Response Date Recorded In the last month, have you been in contact with someone who was confirmed or suspected to have Coronavirus / COVID-19? No / Unsure 09/12/2020 3:03 PM EST documented as of this encounter Plan of Treatment Not on file documented as of this encounter Visit Diagnoses Not on filedocumented in this encounter Care Teams Press Puller Relationship Specialty Start Date End Date Talisha Manzanares PCP - General Family Practice 11/13/19 documented as of this encounter
--- OUTSIDE RECORDS SUMMARY | 2024-11-05 13:40 | XMS_ITS | Clinical Summary ---
Author Organization [facility] it Address [address] [place] [address] Care Team Providers Care Marble Supervisor Name Role Phone Talisha Manzanares MD Primary Care Provider +1- [phone] Immunizations Name Administration Dates Next Due Pfizer SARS-CoV-2 COVID-19, mRNA, LNP-S, preservative free 02/05/2021,01/08/2021 Surgical History Surgery Date Site/Laterality Comments OTHER SURGICAL HISTORY PROCEDURE: [place] SPINE DEVICE IMPLANT SURGERY Medical History Medical [...] age to complete this topic Care Teams Marble Supervisor Relationship Specialty Start Date End Date Talisha Manzanares MD [address] [place] [phone] PCP - General Family Medicine 10/31/18
--- OUTSIDE RECORDS SUMMARY | 2024-11-05 13:40 | XMS_ITS | Encounter Summary ---
Author Organization [facility] Address [address] [place] [address] Care Team Providers Care Ingredient Specialist Name Role Phone Talisha Manzanares Primary Care Provider Natty vailable Encounter Details Date Type Department Care Team Description 01/13/2022 [facility] Neurosurgery [place] [address] [place] [address] Yong Ch MD, PHD Social History Tobacco Use Types Packs/Day Years Used Date Smoking Tobacco: Former Cigarettes Q uit: 1986 Smokeless Tobacco: Never Sex Assigned at Date Recorded Not on file documented as of this encounter Plan of Treatment Not on file documented as of this encounter Visit Diagnoses Not on filedocumented in this encounter Care Teams Ingredient Specialist Relationship Specialty Start Date End Date Talisha Manzanares PCP - General Family Practice 11/13/19 documented as of this encounter
--- OUTSIDE RECORDS SUMMARY | 2024-11-05 13:40 | XMS_ITS | Encounter Summary ---
Author Organization [facility] Address [phone] [place] [address] Care Team Providers Care Developer Prover Mechanical Name Role Phone Talisha Manzanares MD Primary Care Provider + Encounter Details Date Type Department Care Team (Late st Contact Info) Description 10/22/2022 Telephone [facility] Orthopaedic Spine [address] [place] [address] Pasha Cassidy MD [address] [place] [address] [email or web address] Social History Tobacco Use Types Packs/Day Years [...] Description 11/10/2024 2:00 PM EST Office Visit [facility] Orthopedics & Sports Medicine [address] [place] [address] Hernán Grissom PA-C [address] [place] [address] [place] [address] [email or web address] documented as of this encounter Visit Diagnoses Not on filedocumented in this encounter Care Teams Developer Prover Mechanical Relationship Specialty Start Date End Date Talisha Manzanares MD [address] [place] [address] [email or web address] PCP - General 07/27/17 documented as of this encounter Additional Source Comments The information contained in this document represents components of the legal health record. It is not the complete legal health record.[facility]
--- OUTSIDE RECORDS SUMMARY | 2024-11-05 13:40 | XMS_ITS | Encounter Summary ---
Author Organization [facility] Address [phone] [place] [address] Care Team Providers Care Brake Repairer Name Role Phone Talisha Manzanares MD Primary Care Provider + Encounter Details Date Type Department Care Team ([facility] Contact Info) Description 11/01/2023 Procedure Pass [facility], [address] [address] Social History Tobacco Use Types Packs/Day Years [...] Description 11/10/2024 2:00 PM EST Office Visit [facility] Orthopedics & Sports Medicine [address] [place] [address] Hernán Grissom PA-C [address] [place] [address] [place] [address] [email or web address] documented as of this encounter Visit Diagnoses Not on filedocumented in this encounter Care Teams Brake Repairer Relationship Specialty Start Date End Date Talisha Manzanares MD [address] [place] [address] PATRICIO Baires [address] [email or web address] PCP - General 07/27/17 documented as of this encounter Additional Source Comments The information contained in this document represents components of the legal health record. It is not the complete legal health record.[facility]
[2024-11-05] MEDS: gadobutroL 10 ML VIAL IVPUSH (14:42)
== END 2024-11-05 13:36 | disposition home or self-care (01) ==
LOC: HO.MRI 13:35
PROVIDERS: Visit Provider Anesthesiology
DX: M96.1 Postlaminectomy syndrome, not elsewhere classified (principal); M54.51 Vertebrogenic low back pain
CPT/HCPCS: 72158; A9585

== ENCOUNTER 2024-11-07 10:45 | Outpatient (AMB) | payer MEDICARE, SELFPAY ==
--- NOTE | 2024-11-07 10:52 | A.OFFVIS_ITS ---
Intake Visit Reasons: 2M PSA/Bladder US/PVR(set) Intake Note: Patient is present for 2M PSA/PVR/BLADDER US Urology Medication:TERAZOSIN Antibiotic Allergy:NONE Blood Thinner:NONE Last PVR:207ML'S Todays PVR:0ML'S Supervisor Paint Department Required: No Allergies No Known Allergies [No Known Allergies*] Allergy (Verified 11/07/24 10:53) HPI Comments Details: Hernán is a pleasant male. He is a patient of . He is seen for the following urologic conditions - incomplete bladder emptying with weakness of stream Two month follow-up Trial terazosin PSA 11/04 1.5 Imaging Bladder ultrasound - Prevoid volume: 337 mL. Postvoid volume: 173 mL Prostate volume measures 52 mL Lower urinary tract symptoms Developed following intrathecal pump pain management Notices weak stream with incomplete in emptying PFSH Medical History History of urinary retention History of numbness Chronic pain syndrome Radiculopathy due to lumbar intervertebral disc disorder Postlaminectomy syndrome Surgical History History of surgery History of basal cell carcinoma excision History of lumbar laminectomy History of laminectomy History of back surgery Hx of arthroscopy of shoulder Hx of repair of rotator cuff Social History Patient Tobacco Use Status: Former Tobacco user Office Procedures Post Void Residual Post Residual Void Post Void Residual (PVR): 0 [id number]-[id number] Void Residual by ultrasound Results AMB Urinalysis, Automated UA Leukoctes 0 Phil/uL Last Edit by ADITI Lynn on 11/07/24 11:06 UA Nitrite Negative Last Edit by ADITI Lynn on 11/07/24 11:06 UA Urobilinogen 0.2 mg/dL Last Edit by ADITI Lynn on 11/07/24 11:0 6 UA Protein 15 mg/dL Last Edit by ADITI Lynn on 11/07/24 11:06 UA pH 5.5 Last Edit by ADITI Lynn on 11/07/24 11:06 UA Blood 0 Azar/uL Last Edit by ADITI Lynn on 11/07/24 11:06 UA Specific Staley 1.030 Last Edit by ADITI Lynn on 11/07/24 11: 06 UA Ketone Negative Last Edit by ADITI Lynn on 11/07/24 11:06 UA Bilirubin 0 mg/dL Last Edit by ADITI Lynn on 11/07/24 11:06 UA Glucose 0 mg/dL Last Edit by ADITI Lynn on 11/07/24 11:06 Results Reviewed Results Reviewed: Laboratory Last Values Urine pH (Auto) 5.5 11/07/24 11:05 Specific Staley (Auto) 1.030 11/07/24 11:05 Urine Protein (Auto) 15 mg/dL 11/07/24 11:05 Glucose (UA)(Auto) 0 mg/dL 11/07/24 11:05 Urine Ketones (Auto) Negative 11/07/24 11:05 Urine Blood (Auto) 0 Azar/uL 11/07/24 11:05 Urine Nitrite (Auto) Negative 11/07/24 11:05 Urine Bilirubin (Auto) 0 mg/dL 11/07/24 11:05 Urine Urobilinogen (Auto) 0.2 mg/dL 11/07/24 11:05 Leukocyte Esterase (Auto) 0 Phil/uL 11/07/24 11:05 Assessment & Plan Assessment & Plan Orders: Orders AMB Urinalysis Automated Today Z13.9 - Encounter for screening, unspecified Coding CPT Codes Post Residual Void - PVR CPT Code: 09140-Kiuq Void Residual by ultrasound ([id number])
--- OUTSIDE RECORDS SUMMARY | 2024-11-07 11:51 | XMS_ITS | Encounter Summary ---
Author Organization [facility] Address [phone] [address] [place] [address] Care Team Providers Care Director Of Business Continuity Name Role Phone Talsiha Manzanares MD Primary Care Provider + Encounter Details Date Type Department Care Team ([facility] Contact Info) Description 11/01/2023 Procedure Pass [facility], X-Ray - [facility] [address] [place] [address] Social History Tobacco Use Types Packs/Day Years [...] Upcoming Encounters Date Type Department Care Team ([facility] Contact Info) Description 11/10/2024 2:00 PM EST Office Visit [facility] Orthopedics & Sports Medicine [address] [place] [address] Hernán Grissom PA-C [address] [place] [address] [place] [address] [email or web address] documented as of this encounter Visit Diagnoses Not on filedocumented in this encounter Care Teams Director Of Business Continuity Relationship Specialty Start Date End Date Talisha Manzanares MD [address] [place] [address] PATRICIO Baires [phone] [email or web address] PCP - General 07/27/17 documented as of this encounter Additional Source Comments The information contained in this document represents components of the legal health record. It is not the complete legal health record.[facility]
--- OUTSIDE RECORDS SUMMARY | 2024-11-07 11:51 | XMS_ITS | Encounter Summary ---
Author Organization [facility] Address [phone] [address] [place] [address] Care Team Providers Care Principal Secretary Name Role Phone Talisha Manzanares MD Primary Care Provider + Encounter Details Date Type Department Care Team ([facility] Contact Info) Description 10/08/2023 Procedure Pass OR Admitting Dept - Virtual Department [address] [place] [address] Social History Tobacco Use Types Packs/Day Years [...] Upcoming Encounters Date Type Department Care Team ([facility] Contact Info) Description 11/10/2024 2:00 PM EST Office Visit [facility] Orthopedics & Sports Medicine [address] [place] [address] Hernán Grissom PA-C [address] [place] [address] [place] [address] [email or web address] documented as of this encounter Visit Diagnoses Not on filedocumented in this encounter Care Teams Principal Secretary Relationship Specialty Start Date End Date Talisha Manzanares MD [address] [place] [address] PATRICIO Baires [phone] [email or web address] PCP - General 07/27/17 documented as of this encounter Additional Source Comments The information contained in this document represents components of the legal health record. It is not the complete legal health record.[facility]
--- OUTSIDE RECORDS SUMMARY | 2024-11-07 11:51 | XMS_ITS | Encounter Summary ---
Author Organization [facility] Address [address] [place] [address] Care Team Providers Care Plate Finisher Name Role Phone Talisha Manzanares Primary Care Provider Natty vailable Encounter Details Date Type Department Care Team Description 09/12/2019 Fitness Assistant Report Medical Records [address] [place] [address] Abdelrahman Zarate PA-C [address] [place] [address] [address] [place] [address] Social History Tobacco Use Types Packs/Day Years Used Date Smoking Tobacco: Never Assessed Sex Assigned at Date Recorded Not on file documented as of this encounter Plan of Treatment Not on file documented as of this encounter Visit Diagnoses Not on filedocumented in this encounter Care Teams Plate Finisher Relationship Specialty Start Date End Date Talisha Manzanares PCP - General Family Practice 11/13/19 documented as of this encounter
--- OUTSIDE RECORDS SUMMARY | 2024-11-07 11:51 | XMS_ITS | Clinical Summary ---
Author Organization [facility] Address [address] [place] [address] Care Team Providers Care Business Development Representative Name Role Phone Talisha Manzanares MD Primary [...] Advance Directives For more information, please contact: [phone] Documents on File Type Date Recorded Patient Airplane Fueler Expl anation Advance Directive and Living Will 04/19/2020 8:19 AM questionnaire Care Teams Business Development Representative Relationship Specialty Start Date End Date Talisha Manzanares MD [address] [place] [address] PCP - General Family Medicine 10/31/18
--- OUTSIDE RECORDS SUMMARY | 2024-11-07 11:51 | XMS_ITS | Encounter Summary ---
Author Organization [facility] Address [phone] [address] [place] [address] Care Team Providers Care Floor Steward/Stewardess Name Role Phone Talisha Manzanares MD Primary Care Provider + Encounter Details Date Type Department Care Team ([facility] Contact Info) Description 09/22/2023 Procedure Pass OR Admitting Dept - Virtual Department [address] [place] [address] Social History Tobacco Use Types Packs/Day Years [...] Upcoming Encounters Date Type Department Care Team ([facility] Contact Info) Description 11/10/2024 2:00 PM EST Office Visit [facility] Orthopedics & Sports Medicine [address] [place] [address] Hernán Grissom PA-C [address] [place] [address] [place] [address] [email or web address] documented as of this encounter Visit Diagnoses Not on filedocumented in this encounter Care Teams Floor Steward/Stewardess Relationship Specialty Start Date End Date Talisha Manzanares MD [address] [place] [address] PATRICIO Baires [phone] [email or web address] PCP - General 07/27/17 documented as of this encounter Additional Source Comments The information contained in this document represents components of the legal health record. It is not the complete legal health record.[facility]
--- OUTSIDE RECORDS SUMMARY | 2024-11-07 11:51 | XMS_ITS | Encounter Summary ---
Author Organization [facility] Address [address] [place] [address] Care Team Providers Care Turf Grower Name Role Phone Talisha Manzanares Primary Care Provider Natty vailable Encounter Details Date Type Department Care Team Description 08/08/2020 Instructor Of Sociology Report Medical Records [address] [place] [address] Yong Ch MD, PHD Social History Tobacco Use Types Packs/Day Years Used Date Smoking Tobacco: Never Assessed Sex Assigned at Date Recorded Not on file documented as of this encounter Plan of Treatment Not on file documented as of this encounter Visit Diagnoses Not on filedocumented in this encounter Care Teams Turf Grower Relationship Specialty Start Date End Date Talisha Manzanares PCP - General Family Practice 11/13/19 documented as of this encounter
--- OUTSIDE RECORDS SUMMARY | 2024-11-07 11:51 | XMS_ITS | Encounter Summary ---
Author Organization [facility] Address [phone] [address] [place] [address] Care Team Providers Care Sociology Instructor Name Role Phone Talisha Manzanares MD Primary Care Provider + Encounter Details Date Type Department Care Team ([facility] Contact Info) Description 11/01/2023 Procedure Pass [facility], [address] [address] Social History Tobacco Use Types Packs/Day Years [...] Description 11/10/2024 2:00 PM EST Office Visit [facility] Orthopedics & Sports Medicine [address] [place] [address] Hernán Grissom PA-C [address] [place] [address] [place] [address] [email or web address] documented as of this encounter Visit Diagnoses Not on filedocumented in this encounter Care Teams Sociology Instructor Relationship Specialty Start Date End Date Talisha Manzanares MD [address] [place] [address] PATRICIO Baires [phone] [email or web address] PCP - General 07/27/17 documented as of this encounter Additional Source Comments The information contained in this document represents components of the legal health record. It is not the complete legal health record.[facility]
--- OUTSIDE RECORDS SUMMARY | 2024-11-07 11:51 | XMS_ITS | Encounter Summary ---
Author Organization [employer] [facility] Address [phone] [address] [place] [address] Care Team Providers Care Cemetery Warden Name Role Phone Talisha Manzanares MD Primary Care Provider + Encounter Details Date Type Department Care Team (Late Contact Info) Description 02/18/2023 Procedure Pass [facility] Outpatient Care, Radio Flouroscopy [address] [place] [address] Social History Tobacco Use Types Packs/Day Years [...] Description 11/10/2024 2:00 PM EST Office Visit [facility] Orthopedics & Sports Medicine [address] [place] [address] Hernán Grissom PA-C [address] [place] [address] [place] [address] [email or web address] documented as of this encounter Visit Diagnoses Not on filedocumented in this encounter Care Teams Cemetery Warden Relationship Specialty Start Date End Date Talisha Manzanares MD [address] [place] [address] [email or web address] PCP - General 07/27/17 documented as of this encounter Additional Source Comments The information contained in this document represents components of the legal health record. It is not the complete legal health record.[facility]
--- OUTSIDE RECORDS SUMMARY | 2024-11-07 11:51 | XMS_ITS | Encounter Summary ---
Author Organization [facility] Address [phone] [place] [address] Care Team Providers Care Senior Adults Director Name Role Phone Talisha Manzanares MD Primary Care Provider + Encounter Details Date Type Department Care Team (Late Contact Info) Description 03/17/2023 Transcribe Orders [facility] Care, Radio Flouroscopy [address] [place] [address] Juan Stanton [address] [place] [address] Social History Tobacco Use Types [...] Description 11/10/2024 2:00 PM EST Office Visit [facility] Orthopedics & Sports Medicine [address] [place] [address] Hernán Grissom PA-C [address] [place] [address] [place] [address] [email or web address] documented as of this encounter Visit Diagnoses Not on filedocumented in this encounter Care Teams Senior Adults Director Relationship Specialty Start Date End Date Talisha Manzanares MD [address] [place], [place] [address] [address] [email or web address] PCP - General 07/27/17 documented as of this encounter Additional Source Comments The information contained in this document represents components of the legal health record. It is not the complete legal health record.[facility]
--- OUTSIDE RECORDS SUMMARY | 2024-11-07 11:52 | XMS_ITS | Encounter Summary ---
Author Organization [facility] Address [address] [place] [address] Care Team Providers Care Air Brake Man Name Role Phone Talisha Manzanares Primary Care Provider Natty vailable Encounter Details Date Type Department Care Team Description 09/03/2020 Transfer Records Medical Records [address] [place] [address] Abstract, Provider Social History Tobacco Use Types Packs/Day Years Used Date Smoking Tobacco: Never Assessed Sex Assigned at Date Recorded Not on file documented as of this encounter Plan of Treatment Not on file documented as of this encounter Visit Diagnoses Not on filedocumented in this encounter Care Teams Air Brake Man Relationship Specialty Start Date End Date Talisha Manzanares PCP - General Family Practice 11/13/19 documented as of this encounter
--- OUTSIDE RECORDS SUMMARY | 2024-11-07 11:52 | XMS_ITS | Encounter Summary ---
Author Organization [facility] Address [phone] [place] [address] Care Team Providers Care Forensic Science Technician Name Role Phone Talisha Manzanares MD Primary Care Provider + Encounter Details Date Type Department Care Team (Late Contact Info) Description 11/19/2022 Procedure Pass [facility]patient Care, Radio Flouroscopy [address] [place] [address] Social History Tobacco Use Types Packs/Day Years [...] Office Visit [facility] Orthopedics & Sports Medicine [address] [place] [address] Hernán Grissom PA-C [address] [place] [address] [place] [address] documented as of this encounter Visit Diagnoses Not on filedocumented in this encounter Care Teams Forensic Science Technician Relationship Specialty Start Date End Date Talisha Manzanares MD [address] [place] [address] [email or web address] PCP - General 07/27/17 documented as of this encounter Additional Source Comments The information contained in this document represents components of the legal health record. It is not the complete legal health record.[facility]
--- OUTSIDE RECORDS SUMMARY | 2024-11-07 11:52 | XMS_ITS | Encounter Summary ---
Author Organization [facility] Address [phone] [place] [address] Care Team Providers Care Ship Propeller Finisher Name Role Phone Talisha Manzanares MD Primary Care Provider + Encounter Details Date Type Department Care Team (Late st Contact Info) Description 10/22/2022 Telephone [facility] Orthopaedic Spine [address] [place] [address] Pasha Cassidy MD [address] [place] [address] [email or web address] Social History Tobacco [...] Description 11/10/2024 2:00 PM EST Office Visit [facility] Orthopedics & Sports Medicine [address] [place] [address] Hernán Grissom PA-C [address] [place] [address] [place] [address] [email or web address] documented as of this encounter Visit Diagnoses Not on filedocumented in this encounter Care Teams Ship Propeller Finisher Relationship Specialty Start Date End Date Talisha Manzanares MD [address] [place] [address] [email or web address] PCP - General 07/27/17 documented as of this encounter Additional Source Comments The information contained in this document represents components of the legal health record. It is not the complete legal health record.[facility]
--- OUTSIDE RECORDS SUMMARY | 2024-11-07 11:53 | XMS_ITS | Clinical Summary ---
Author Organization [employer] [facility] Address [phone] [address] [address] Care Team Providers Care Concrete Mixer Truck Driver Name Role Phone Talisha Manzanares MD Primary [...] mg PO taken as needed and hydrocodone-acetaminophen (Hebron 7.5-325 mg) 1 table PO as needed with typical use being twice weekly. He has a contract with his PCP for chronic opioid management. Discussed the possibility that it may be more difficulty to control his post-operative pain given current chronic opioid use, however he is only using minimal Hebron at twice weekly and did discuss weaning [...] coronary syndromes including unstable or severe angina, [place] within 1 month, severe CHF, high grade [...] 11/10/2024 2:00 PM EST Office Visit [facility] Orthopedics & Sports Medicine [address] [place] [address] Hernán Grissom PA-C [address] [place] [address] [place] [address] [email or web address] Health Maintenance Due Date Last Done Comments [...] Recently Relevant to Health Maintenance Care Teams Concrete Mixer Truck Driver Relationship Specialty Start Date End Date Talisha Manzanares [place] [address] [email or web address] PCP - General 07/27/17 Additional Source Comments The information contained in this document represents components of the legal health record. It is not the complete legal health record.[facility]
--- OUTSIDE RECORDS SUMMARY | 2024-11-07 11:53 | XMS_ITS | Clinical Summary ---
Author Organization [facility] Address [address] [place] [address] Care Team Providers Care Sales And Merchandising Representative Name Role Phone Talisha Manzanares MD Primary Care Provider [phone] Immunizations Name Administration Dates Next Due Pfizer SARS-CoV-2 COVID-19, mRNA, LNP-S, preservative free 02/05/2021,01/08/2021 Surgical History Surgery Date Site/Laterality Comments OTHER SURGICAL HISTORY PROCEDURE: NC SPINE DEVICE IMPLANT SURGERY Medical History Medical [...] age to complete this topic Care Teams Sales And Merchandising Representative Relationship Specialty Start Date End Date Talisha Manzanares MD [address] [place] [phone] PCP - General Family Medicine 10/31/18
--- OUTSIDE RECORDS SUMMARY | 2024-11-07 11:53 | XMS_ITS | Encounter Summary ---
Author Organization [facility] Address [address] [place] [address] Care Team Providers Care Bobbin Winder Name Role Phone Talisha Manzanares Primary Care Provider Natty vailable Encounter Details Date Type Department Care Team Description 01/13/2022 [facility] Neuro[facility] [place] [address] [place] [address] Yong Ch MD, PHD Social History Tobacco Use Types Packs/Day Years Used Date Smoking Tobacco: Former Cigarettes Q uit: 1986 Smokeless Tobacco: Never Sex Assigned at Date Recorded Not on file documented as of this encounter Plan of Treatment Not on file documented as of this encounter Visit Diagnoses Not on filedocumented in this encounter Care Teams Bobbin Winder Relationship Specialty Start Date End Date Talisha Manzanares PCP - General Family Practice 11/13/19 documented as of this encounter
--- OUTSIDE RECORDS SUMMARY | 2024-11-07 11:53 | XMS_ITS | Clinical Summary ---
Author Organization [facility] Address [address] [place] [address] Care Team Providers Care Mud Mixer Operator Name Role Phone Talisha Manzanares Primary Care Provider Natty vailable Allergies No known active allergies Medications Medication Sig Dispensed Refills Start Date End Date Status selegiline (EMSAM) 6 MG/24HR Place 1 Patch onto the skin daily. 0 Active lithium 150 MG capsule Take 150 mg by mouth daily. 0 Active quetiapine (SEROQUEL) 25 MG tablet Take 25 mg by mouth daily. 0 Active Multiple Vitamins-Minerals (MULTIVITAMIN MEN 50+) Tab Take 1 Tab by mouth daily. 0 Active Ascorbic Acid (VITAMIN C OR) Take 1 Tab by mouth daily. 0 Active Pyridoxine HCl (VITAMIN B6 OR) Take 1 Tab by mouth daily. 0 Active Cyanocobalamin (VITAMIN B-12 OR) Take 1 Tab by mouth daily. 0 Active MAGNESIUM OR Take 1 Tab by mouth daily. 0 Active ACETYLCYSTEINE OR Take 1 Tab by mouth daily. 0 Active dexamethasone (DECADRON) 10 MG/ML injectionIndications: Lumbar radiculitis 1 mL by Other route once for 1 dose. Epidural injection 1 Vial 0 10/23/2020 Active Active Problems Problem Noted Date Depression 09/12/2020 Family History Medical History Relation Name Comments No Known Problems Brother No Known Problems Daughter No Known Problems Father No Known Problems Mother No Known Problems Other No Known Problems Sister No Known Problems Son Autoimmune Negative Hx CA Breast Negative Hx CA Colon Negative Hx CA Prostate Negative Hx CAD Negative Hx CHF Negative Hx Cholesterol Level Negative Hx Diabetes Negative Hx Hypertension Negative Hx NC Negative Hx Mental Disorder Negative Hx Sleep Apnea Negative Hx Thyroid Disorder Negative Hx Relation Name Status Comments Brother Daughter Father Mother Other Sister Son Social History Tobacco Use Types Packs/Day Years Used Date Smoking Tobacco: Former Cigarettes Q uit: 1986 Smokeless Tobacco: Never Sex Assigned at Date Recorded Not on file Last Filed Vital Signs Vital Sign Reading Time Taken Comments Blood Pressure 120/60 10/23/2020 9:52 AM EST Pulse 68 10/23/2020 9:52 AM EST Temperature - - Respiratory Rate 12 10/23/2020 9:52 AM EST Oxygen Saturation - - Inhaled Oxygen Concentration - - Weight 74.8 kg (165 lb) 11/20/2021 3:28 PM EST Height 177.8 cm (5' 10 ) 11/20/2021 3:28 PM EST Body Mass Index 23.68 11/20/2021 3:28 PM EST Plan of Treatment Health Maintenance Due Date Last Done Comments DEPRESSION SCREEN 1967 HEPATITIS C SCREENING 1973 CHOLESTEROL SCREENING 1975 COLON CANCER SCREENING 2005 SHINGLES VACCINE (1 of 2) 2005 ABDOMINAL AORTIC ANEURYSM (AAA) SCREENING 2020 FALL RISK ASSESSMENT 2020 PNEUMOCOCCAL VACCINE (1 - PCV) 2020 Covid-19 Vaccine (3 - season) 2024, 01/08/2021 INFLUENZA (#1) 2024 06/30/2021 DTAP/TDAP/TD (2 - Td or Tdap) 08/05/2030 08/05/2020 Care Teams Mud Mixer Operator Relationship Specialty Start Date End Date Manzanares, Talisha J. PCP - General Family Practice 11/13/19
--- OUTSIDE RECORDS SUMMARY | 2024-11-07 11:53 | XMS_ITS | Encounter Summary ---
Author Organization [facility] Address [phone] [facility] [place] [address] Care Team Providers Care Founder And Chief Executive Officer Name Role Phone Talisha Manzanares MD Primary Care Provider + Encounter Details Date Type Department Care Team (Late Contact Info) Description 11/04/2021 Ancillary Orders [facility],Outside Imaging [address] [place] [address] System, Provider Not In, PhD Partners [address] [address] Social History Tobacco Use Types Packs/Day Years [...] Description 11/10/2024 2:00 PM EST Office Visit [facility] Orthopedics & Sports Medicine [address] [place] [address] Hernán Grissom PA-C [address] [place] [address] [place] [address] documented as of this encounter Results * XR Upper Extremity Outside (No Interpretation) (10/09/2021 12:00 AM EST) Narrative SYSTEMGENERATED, DOCUMENTATION - 11/04/2021 8:54 AM EST This study is for PACS storage only and not for interpretation. Provider Not In System PhD IMG OUTSIDE I CYNTHIA W/OUT INTERPRETATION documented in this encounter Visit Diagnoses Not on filedocumented in this encounter Care Teams Founder And Chief Executive Officer Relationship Specialty Start Date End Date Talisha Manzanares MD [address] [place] [address] [email or web address] PCP - General 07/27/17 documented as of this encounter Additional Source Comments The information contained in this document represents components of the legal health record. It is not the complete legal health record.[facility]
--- OUTSIDE RECORDS SUMMARY | 2024-11-07 11:53 | XMS_ITS | Encounter Summary ---
Author Organization [facility] Address [phone] [address] [place] [address] Care Team Providers Care Tester Regulator Name Role Phone Talisha Manzanares MD Primary Care Provider + Encounter Details Date Type Department Care Team (Late Contact Info) Description 12/24/2022 Transcribe Orders [facility] Outpatient Care, Radio Flouroscopy [address] [place] [address] Binta Harris [address] [place] [address] [email or web address] Social History Tobacco Use Types [...] Description 11/10/2024 2:00 PM EST Office Visit [facility] Orthopedics & Sports Medicine [address] [place] [address] Hernán Grissom PA-C [address] [place] [address] [place] [address] documented as of this encounter Visit Diagnoses Not on filedocumented in this encounter Care Teams Tester Regulator Relationship Specialty Start Date End Date Talisha Manzanares MD [address] [place] [phone] PCP - General 07/27/17 documented as of this encounter Additional Source Comments The information contained in this document represents components of the legal health record. It is not the complete legal health record.[facility]
--- OUTSIDE RECORDS SUMMARY | 2024-11-07 11:53 | XMS_ITS | Encounter Summary ---
Author Organization [facility] Address [phone] [facility] [place] [address] Care Team Providers Care Quarter Trimmer Name Role Phone Talisha Manzanares MD Primary Care Provider + Reason for Referral * Physical Therapy (Routine) - Closed Specialty Diagnoses / Procedures Referred By Xavier goldstein Referred To Contact Physical Therapy Diagnoses Encounter for rehabilitation Hernán Mejia PA [address] [place] [address] [facility] Parent [address] [place] [address] Referral ID Status Reason Start Date Expiration Date Visits Re quested Visits Authorized [id number] Closed 07/21/2021 07/21/2022 1 1 Encounter Details Date Type Department Care Team (Latest Contact Info) Description 07/21/2021 Transcribe Orders [facility] Rehabilitation Services [address] [place] [address] Hernán Mejia PA [address] [place] [address] [email or web address] Encounter for rehabilitation (Primary Dx) Social History [...] Description 11/10/2024 2:00 PM EST Office Visit [facility] Orthopedics & Sports Medicine [address] [place] [address] Hernán Grissom PA-C [address] [place] [address] [place] [address] [email or web address] Scheduled Referrals Name Type Priority Associated Diagnoses Orde r Schedule Ambulatory referral to [facility] Physical Therapy Outpatient Referral Routine Encounter for rehabilitation Ordered: 07/21/2021 documented as of this encounter Visit Diagnoses Diagnosis Encounter for rehabilitation- Primary documented in this encounter Care Teams Quarter Trimmer Relationship Specialty Start Date End Date Talisha Manzanares MD [address] [place] [phone] [email or web address] PCP - General 07/27/17 documented as of this encounter Additional Source Comments The information contained in this document represents components of the legal health record. It is not the complete legal health record.[facility]
--- OUTSIDE RECORDS SUMMARY | 2024-11-07 11:53 | XMS_ITS | Encounter Summary ---
Author Organization [facility] Address [phone] [address] [place] [address] Care Team Providers Care National Investigative Producer Name Role Phone Talisha Manzanares MD Primary Care Provider + Talisha Manzanares MD Unavailable Encounter Details Date Type Department Care Team (Late st Contact Info) Description 02/01/2018 Ancillary Orders Virtual Department [address] [place] [address] Estela Rowell PA-C [address] [place] [phone] [email or web address] Globus syndrome Social History Tobacco Use Types [...] Description 11/10/2024 2:00 PM EST Office Visit [facility] Orthopedics & Sports Medicine [address] [place] [address] Hernán Grissom PA-C [address] [place] [address] [place] [address] documented as of this encounter Results * FL BARIUM SWALLOW ESOPHAGRAM SINGLE CONTRAST (02/09/2018 10:28 AM EDT) Anatomical Region Laterality Modality Chest Radiographic Elaina ging 02/09/2018 10:3 6 AM EDT Impressions 02/09/2018 10:38 AM EDT 1. ??Normal esophagram. 2. ??Severe cervical spine degenerative disc disease. FLUOROSCOPY TIME: ??1 min. 39 sec; ??11 IMAGES/FRAMES POS - [id number] Narrative 02/09/2018 10:38 AM EDT COMPARISON: None. BARIUM SWALLOW FINDINGS: Rural Route [employer]rier lateral neck radiograph was obtained. ??Soft tissues [...] - 02/09/2018 COMPARISON: None. BARIUM SWALLOW FINDINGS: Rural Route Mail Carrier lateral neck radiograph was obtained. Soft tissues [...] min. 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 It is not the complete legal health record.[facility]
--- OUTSIDE RECORDS SUMMARY | 2024-11-07 11:53 | XMS_ITS | Referral Summary ---
Author Organization [facility] Address [address] [place] [address] Care Team Providers Care Highway Maintenance Supervisor Name Role Phone Unavailable Primary Care Provider Unavailabl e Allergies No known active allergies Immunizations Name Administration Dates Next Due Covid-19, Pfizer, mRNA, Dixon valent, PF 30 mcg/0.3 mL dose (for [...]
--- OUTSIDE RECORDS SUMMARY | 2024-11-07 11:53 | XMS_ITS | Encounter Summary ---
Author Organization [facility] Address [address] [place] [address] Care Team Providers Care Device Sales Consultant Name Role Phone Unavailable Primary Care Provider Unavailabl e Encounter Details Date Type Department Care Team (Late st Contact Info) Description 07/05/2017 Ophthalmology Data Conversion [facility] Historical Conversion Department [address] [place] [address] [address] [address] Social History Tobacco Use Types Packs/Day Years [...]
--- OUTSIDE RECORDS SUMMARY | 2024-11-07 11:53 | XMS_ITS | Clinical Summary ---
Author Organization [facility] Address [address] [place] [address] Care Team Providers Care Inside Parts Sales Name Role Phone Unavailable Primary Care Provider Unavailabl e Allergies No known active allergies Immunizations Name Administration Dates Next Due Covid-19, Pfizer, mRNA, Wells valent, PF 30 mcg/0.3 mL dose (for [...] age to complete this topic Insurance MEDICARE [facility]
== END 2024-11-07 12:11 | disposition home or self-care (01) ==
PROVIDERS: PCP Family Medicine; Visit Provider Urology
DX: Z13.9 Encounter for screening, unspecified (principal)

== ENCOUNTER → 2024-11-07 10:45 | Outpatient (BNVA) | payer MEDICARE, SELFPAY | PROVIDERS: PCP Family Medicine; Visit Provider Urology | DX: R33.9 Retention of urine, unspecified (principal) | CPT/HCPCS: 51798; 81003; 99212 ==

== ENCOUNTER 2024-11-09 15:18 | Outpatient (AMB) | payer MEDICARE, MEDICAID, SELFPAY ==
--- NOTE | 2024-11-09 15:20 | A.OFFVIS_ITS ---
Vital Signs 11/09/24 15:25 Height 5 ft 9 in Weight 195 lb BMI 28.8 BP 138/77 Blood Pressure Location Rt brachial Position Sitting Pulse 63 Pulse Source Pulse Oximeter Intake Visit Reasons: Discuss MRI Results Intake Note: Pain today 4.02/17 Hand Leather Trimmer Required: No Accompanied by: Self / Same As Patient Allergies No Known Allergies [No Known Allergies*] Allergy (Verified 11/09/24 15:27) HPI Comments Details: Hernán is today in the office for intrathecal pain pump adjustment and the follow- up. I invited him to discuss the results of the MRI he had in 10/27/2024. He has Modic type 2 changes at L3-L4 vertebra. He has L5 and S1 fusion. We discussed today possibility of doing intercept procedure, I honestly could not possibly guarantee that this will help his pain but nevertheless I think it is worth trying. I gave him brochure about intercept. I requested him to read and give me a call if he is interested in the procedure. We continue escalation of opioid medications on his pain pump. He reports some improvement with this pain. However the same time he reports ?fuzziness of the head ?. this might be a side effects of the opioid medication. He is taking Lyrica and in combination with Lyrica the mental cloudiness could be side effects exacerbation. I requested him to ask people who prescribe him Lyrica to stop this medication. At this time we are trying to achieve pain control by different means. Previously he reported dizziness on PTM application of the hydromorphone,, therefore PTM was stopped and we continued escalation of the continuous dose medication only. Unfortunately if with the escalation his mental cloudiness will increase I would have to stop hydromorphone and change it for less water-soluble medicine such as fentanyl. Whether or not fentanyl will be successful to treat his pain remains to be seen. Therefore I think it is very important to try intercept procedure to help his pain. Prior: status post ITDD Pain Pump Implant 05/12/24. Originally he was referred by Dr. Nix for evaluation for spinal cord stimulator. He is status post laminectomy L3-L4 and L5-S1 diskectomy with posterior lateral fusion. He has L5 radiculopathy EMG confirmed. On recommendation of Dr. Ch I tried spinal cord stimulator on him [employer]. The procedure was very difficult technically. However I was able to establish 2 leads in the thoracic spine. Patient reported minimal pain improvement while on stimulation. At the end of the [place] scientific trial he was switched to Nevro SCS, unfortunately that did not help his pain in more extent either. He was absent from my care for 2 years , after that he came back requesting the discussion about pain pump he was offered to him at that time. Because the patient was on opioids [place] 7.5 mg TID, initially bupivacaine pain pump was considered however it resulted in poor pain control and side effects. He was switched for hydromorphone. Dr. Ch did not recommend additional surgical intervention and advised he undergo a SCS trial, and thus he was referred to us. He describes a numbness and burning down his right posterior lateral leg extending to the top of his right into his toes. This is worsened with sitting, reaching pain level 8-9/10. He had done extensive PT and also had multiple injections prior to his surgery while seeing pain management provider Dr. Geronimo in [place]. [facility] Medical History History of urinary retention History of numbness Chronic pain syndrome Radiculopathy due to lumbar intervertebral disc disorder Postlaminectomy syndrome Surgical History History of surgery History of basal cell carcinoma excision History of lumbar laminectomy History of laminectomy History of back surgery Hx of arthroscopy of shoulder Hx of repair of rotator cuff Social History Patient Tobacco Use Status: Former Tobacco user Review of Systems Const All systems reviewed & are unremarkable except as noted in HPI and below ENT Reports Normal hearing present Neuro Reports Normal hearing present, Denies confusion and Denies Sensory deficit (Neuro) Psych Denies confusion Physical Exam Vital Signs: Last Vital Signs Pulse 63 11/09/24 15:25 BP 138/77 11/09/24 15:25 BMI result Body Mass Index 28.8 Const General: No confusion Orientation/consciousness: No confusion Eyes Pupils: Equal, round and reactive pupils present EOM: EOMs intact bilaterally Chest Chest palpation & inspection: normal inspection of the chest Resp Effort & Inspection: normal respiratory effort, able to speak in complete sentences, normal respiratory pattern, no audible wheezes and no cough Cardio Jugular venous distension: no JVD Back/Spine/Pelvis Other: Lumbar Spine/Lower back/SIJ: SACROILIAC JOINT No tenderness to palpation. INSPECTION: normal curvature of spine, scar from previous surgery. RANGE OF MOTION decreased extention. PALPATION: no vertebral spine tenderness. STRAIGHT LEG RAISING TEST: positive at 45 degrees on right. MOTOR SYSTEM: 5/5 bilateral lower extremities. SENSORY EXAM: paresthesias right L4-5 distribution. REFLEXES: symmetrical 2+. GAIT: unremarkable. Neuro General: No confusion Cranial nerves: Yes Equal, round and reactive pupils present and Yes Normal hearing present Sensory Exam: No Sensory deficit (Neuro) Psych Speech and movement: Normal speech and movement present Affect: normal affect Attitude: cooperative Thought process: Normal thought process present Thought content: Normal thought content present Insight: Good insight present (Psych) Judgement: Good judgement present (Psych) Results Reviewed Results Reviewed: MR lumbar spine with and without gadolinium Findings: Grade 1 anterolisthesis of L5 on S1 and grade 1 retrolisthesis of L3 on L4 and L4 on L5 without change. Chronic pars defects at L5. No acute lumbar spine fracture. Degenerative type endplate marrow changes are present. There is no suspicious bone lesion. Status post posterior metallic and interbody fusion at L5-S1. No evidence of hardware failure. Cauda equina and conus medullaris within normal limits. L1-L2: No significant degenerative disc disease. Mild bilateral facet osteoarthritis with mild mass effect on the posterolateral margins of the thecal sac. No significant neural foraminal narrowing. L2-L3: Moderate broad-based disc bulge. Bilateral facet osteoarthritis. Mild central canal stenosis. Mild narrowing of bilateral neural foramina. L3-L4: Large disc osteophyte complex with mild thecal sac effacement. Facet osteoarthritis is also present. There is moderate stenosis of the right neural foramen and mild stenosis of the left neural foramen. L4-L5: Mild central disc bulge. Bilateral facet osteoarthritis. Moderate mass effect on the posterolateral margins of the thecal sac. Mild narrowing of bilateral neural foramina. L5-S1: Mild endplate proliferation. No significant central canal narrowing. Mild narrowing of the left neural foramen. Paraspinous musculature intact. IMPRESSION: 1. No acute abnormality of the lumbar spine. Multilevel spondylosis and facet osteoarthritis. Mild central canal stenosis at L2-L3. Moderate stenosis of the right neural foramina at L3-L4. 2. Status post surgical fusion at L5-S1. No evidence of hardware failure. I personally examined the MRI of the patient and there are Modic type 2 changes at L3 and L4 vertebra as well as possible endplate changes at L5 and S1 vertebra. Assessment & Plan Assessment & Plan (1) Chronic pain syndrome: Code(s): G89.4 - Chronic pain syndrome Category: Medical (2) Radiculopathy due to lumbar intervertebral disc disorder: Code(s): M51.16 - Intervertebral disc disorders with radiculopathy, lumbar region Category: Medical (3) Postlaminectomy syndrome: Code(s): M96.1 - Postlaminectomy syndrome, not elsewhere classified Category: Medical (4) S/P insertion of intrathecal pump: Code(s): Z98.890 - Other specified postprocedural states Category: Surgical Plan: . Vertebra genic pain syndrome was suspected because patient complains on pain continuously increasing with prolonged sitting and prolonged standing. He was sent for the MRI of the lumbar spine results of which dictated as above. I offered today him BVN RFA intercept. Brochure was given. He will give us a call if he is interested. Otherwise we will continue escalation of the opioid medications, continue to watch after side effects, possibly change medications as discussed above. (5) Vertebrogenic low back pain: Code(s): M54.51 - Vertebrogenic low back pain Category: Medical Plan Plan of care as above Patient Instructions: I here by testify that I spent 35 minutes in conversation with this patient as well as evaluating diagnostic images and reading diagnostic reports of recent MRI as well as planning his care and organizing this note. Coding Level of Care Code Est Pt Level 4 (11447) Diagnoses Chronic pain syndrome G89.4 Radiculopathy due to lumbar intervertebral disc disorder M51.16 Postlaminectomy syndrome M96.1 S/P insertion of intrathecal pump Z98.890 Vertebrogenic low back pain M54.51
[2024-11-09 15:25] VITALS: BP 138/77; PULSE 63; BMI 28.8
--- OUTSIDE RECORDS SUMMARY | 2024-11-09 19:06 | XMS_ITS | Encounter Summary ---
Author Organization [facility] Address [phone] [facility] [place] [address] Care Team Providers Care Television Parts Tester Name Role Phone Talisha Manzanares MD Primary Care Provider + Encounter Details Date Type Department Care Team (Late Contact Info) Description 11/19/2022 Procedure Pass [facility] for Outpatient Care, Radio Flouroscopy [address] [address] Social History Tobacco Use Types Packs/Day Years [...] Description 11/10/2024 2:00 PM EST Office Visit [facility] Orthopedics & Sports Medicine [address] [place] [address] Hernán Grissom PA-C [address] [place] [address] [place] [address] documented as of this encounter Visit Diagnoses Not on filedocumented in this encounter Care Teams Television Parts Tester Relationship Specialty Start Date End Date Talisha Manzanares MD [address] [place] [address] [email or web address] PCP - General 07/27/17 documented as of this encounter Additional Source Comments The information contained in this document represents components of the legal health record. It is not the complete legal health record.[facility]
--- OUTSIDE RECORDS SUMMARY | 2024-11-09 19:06 | XMS_ITS | Encounter Summary ---
Author Organization [facility] Address [phone] [address] [place] [address] Care Team Providers Care Commercial Shrimping Captain Name Role Phone Talisha Manzanares MD Primary Care Provider + Encounter Details Date Type Department Care Team (Late st Contact Info) Description 10/22/2022 Telephone [facility] Orthopaedic Spine [address] [place] [address] Pasha Cassidy MD [address] [place] [address] [email or web address] Social History Tobacco Use Types Packs/Day Years [...] Description 11/10/2024 2:00 PM EST Office Visit [facility] Orthopedics & Sports Medicine [address] [place] [address] Hernán Grissom PA-C [address] [place] [address] [place] [address] [email or web address] documented as of this encounter Visit Diagnoses Not on filedocumented in this encounter Care Teams Commercial Shrimping Captain Relationship Specialty Start Date End Date Talisha Manzanares MD [address] [place] [address] [email or web address] PCP - General 07/27/17 documented as of this encounter Additional Source Comments The information contained in this document represents components of the legal health record. It is not the complete legal health record.[facility]
--- OUTSIDE RECORDS SUMMARY | 2024-11-09 19:06 | XMS_ITS | Encounter Summary ---
Author Organization [facility] Address [phone] [address] [place] [address] Care Team Providers Care Perinatal Director Name Role Phone Talisha Manzanares MD Primary Care Provider + Encounter Details Date Type Department Care Team ([facility] Contact Info) Description 11/01/2023 Procedure Pass [facility], X-Ray - [facility] [address] [place] [address] Social History Tobacco Use Types Packs/Day Years [...] Encounters Date Type Department Care Team ([facility] Contact Info) Description 11/10/2024 2:00 PM EST Office Visit [facility] Orthopedics & Sports Medicine [address] [place] [address] Hernán Grissom PA-C [address] [place] [address] [place] [address] [email or web address] documented as of this encounter Visit Diagnoses Not on filedocumented in this encounter Care Teams Perinatal Director Relationship Specialty Start Date End Date Talisha Manzanares MD [address] [place] [address] PATRICIO Baires [address] [email or web address] PCP - General 07/27/17 documented as of this encounter Additional Source Comments The information contained in this document represents components of the legal health record. It is not the complete legal health record.[facility]
--- OUTSIDE RECORDS SUMMARY | 2024-11-09 19:06 | XMS_ITS | Encounter Summary ---
Author Organization [employer] [facility] Address [phone] [address] [place] [address] Care Team Providers Care Clinical Research Monitor Name Role Phone Talisha Manzanares MD Primary Care Provider + Encounter Details Date Type Department Care Team (Late Contact Info) Description 02/18/2023 Procedure Pass [facility] Outpatient Care, Radio Flouroscopy [address] [place] [address] Social History Tobacco Use Types Packs/Day Years [...] Description 11/10/2024 2:00 PM EST Office Visit [facility] Orthopedics & Sports Medicine [address] [place] [address] Hernán Grissom PA-C [address] [place] [address] [place] [address] [email or web address] documented as of this encounter Visit Diagnoses Not on filedocumented in this encounter Care Teams Clinical Research Monitor Relationship Specialty Start Date End Date Talisha Manzanares MD [address] [place] [phone] [email or web address] PCP - General 07/27/17 documented as of this encounter Additional Source Comments The information contained in this document represents components of the legal health record. It is not the complete legal health record.[facility]
--- OUTSIDE RECORDS SUMMARY | 2024-11-09 19:06 | XMS_ITS | Clinical Summary ---
Author Organization [facility] Address [address] [place] [address] Care Team Providers Care Supervisor Engine Assembly Name Role Phone Talisha Manzanares MD Primary [...] Advance Directives For more information, please contact: [phone] Documents on File Type Date Recorded Patient Health And Wellness Sales Consultant Expl anation Advance Directive and Living Will 04/19/2020 8:19 AM questionnaire Care Teams Supervisor Engine Assembly Relationship Specialty Start Date End Date Talisha Manzanares MD [address] [place] [address] PCP - General Family Medicine 10/31/18
--- OUTSIDE RECORDS SUMMARY | 2024-11-09 19:06 | XMS_ITS | Encounter Summary ---
Author Organization [facility] Address [address] [place] [address] Care Team Providers Care Lean Six Sigma Black Belt Name Role Phone Unavailable Primary Care Provider Unavailabl e Encounter Details Date Type Department Care Team (Late st Contact Info) Description 07/05/2017 Ophthalmology Data Conversion [facility] Historical Conversion Department [address] [place] [address] [address] Social History Tobacco Use Types Packs/Day Years [...]
--- OUTSIDE RECORDS SUMMARY | 2024-11-09 19:06 | XMS_ITS | Encounter Summary ---
Author Organization [facility] Address [phone] [facility] [place] [address] Care Team Providers Care Welt Edge Rounder Name Role Phone Talisha Manzanares MD Primary Care Provider + Encounter Details Date Type Department Care Team ([facility] Contact Info) Description 09/22/2023 Procedure Pass OR Admitting Dept - Virtual Department [address] [place] [address] Social History Tobacco Use Types Packs/Day Years [...] Upcoming Encounters Date Type Department Care Team ([facility] Contact Info) Description 11/10/2024 2:00 PM EST Office Visit [facility] Orthopedics & Sports Medicine [address] [place] [address] Hernán Grissom PA-C [address] [place] [address] [place] [address] [email or web address] documented as of this encounter Visit Diagnoses Not on filedocumented in this encounter Care Teams Welt Edge Rounder Relationship Specialty Start Date End Date Talisha Manzanares MD [address] [place] [address] PATRICIO Baires [phone] [email or web address] PCP - General 07/27/17 documented as of this encounter Additional Source Comments The information contained in this document represents components of the legal health record. It is not the complete legal health record.[facility]
--- OUTSIDE RECORDS SUMMARY | 2024-11-09 19:06 | XMS_ITS | Encounter Summary ---
Author Organization [facility] Address [phone] [address] [place] [address] Care Team Providers Care Seamstress Fitter Name Role Phone Talisha Manzanares MD Primary Care Provider + Encounter Details Date Type Department Care Team ([facility] Contact Info) Description 10/08/2023 Procedure Pass OR Admitting Dept - Virtual Department [address] [place] [address] Social History Tobacco Use Types Packs/Day Years [...] Upcoming Encounters Date Type Department Care Team ([facility] Contact Info) Description 11/10/2024 2:00 PM EST Office Visit [facility] Orthopedics & Sports Medicine [address] [place] [address] Hernán Grissom PA-C [address] [place] [address] [place] [address] [email or web address] documented as of this encounter Visit Diagnoses Not on filedocumented in this encounter Care Teams Seamstress Fitter Relationship Specialty Start Date End Date Talisha Manzanares MD [address] [place] [address] PATRICIO Baires [phone] [email or web address] PCP - General 07/27/17 documented as of this encounter Additional Source Comments The information contained in this document represents components of the legal health record. It is not the complete legal health record.[facility]
--- OUTSIDE RECORDS SUMMARY | 2024-11-09 19:06 | XMS_ITS | Encounter Summary ---
Author Organization [facility] Address [phone] [address] [place] [address] Care Team Providers Care Class C Driver Name Role Phone Talisha Manzanares MD Primary Care Provider + Encounter Details Date Type Department Care Team ([facility] Contact Info) Description 11/01/2023 Procedure Pass [facility], [address] [address] Social History Tobacco Use Types Packs/Day Years [...] Description 11/10/2024 2:00 PM EST Office Visit [facility] Orthopedics & Sports Medicine [address] [place] [address] Hernán Grissom PA-C [address] [place] [address] [place] [address] [email or web address] documented as of this encounter Visit Diagnoses Not on filedocumented in this encounter Care Teams Class C Driver Relationship Specialty Start Date End Date Talisha Manzanares MD [address] [place] [address] PATRICIO Baires [phone] [email or web address] PCP - General 07/27/17 documented as of this encounter Additional Source Comments The information contained in this document represents components of the legal health record. It is not the complete legal health record.[facility]
--- OUTSIDE RECORDS SUMMARY | 2024-11-09 19:06 | XMS_ITS | Encounter Summary ---
Author Organization [facility] Address [phone] [place] [address] Care Team Providers Care Criminalist Name Role Phone Talisha Manzanares MD Primary Care Provider + Encounter Details Date Type Department Care Team (Late Contact Info) Description 03/17/2023 Transcribe Orders [facility], Radio Flouroscopy [address] [place] [address] Juan Stanton [address] [place] [address] Social History Tobacco Use Types [...] Medical Group Orthopedics & Sports Medicine [address] [place] [address] Hernán Grissom PA-C [address] [place] [address] [place] [address] [email or web address] documented as of this encounter Visit Diagnoses Not on filedocumented in this encounter Care Teams Criminalist Relationship Specialty Start Date End Date Talisha Manzanares MD [address] [place], [place] [address] [address] [email or web address] PCP - General 07/27/17 documented as of this encounter Additional Source Comments The information contained in this document represents components of the legal health record. It is not the complete legal health record.[facility]
--- OUTSIDE RECORDS SUMMARY | 2024-11-09 19:06 | XMS_ITS | Referral Summary ---
Author Organization [facility] Address [address] [place] [address] Care Team Providers Care Tax Agent Name Role Phone Unavailable Primary Care Provider Unavailabl e Allergies No known active allergies Immunizations Name Administration Dates Next Due Covid-19, Pfizer, mRNA, [place] valent, PF 30 mcg/0.3 mL dose (for [...]
--- OUTSIDE RECORDS SUMMARY | 2024-11-09 19:07 | XMS_ITS | Clinical Summary ---
Author Organization [facility] Address [address] [place] [address] Care Team Providers Care Prize Fighter Name Role Phone Talisha Manzanares MD Primary Care Provider [phone] Immunizations Name Administration Dates Next Due Pfizer SARS-CoV-2 COVID-19, mRNA, LNP-S, preservative free 02/05/2021,01/08/2021 Surgical History Surgery Date Site/Laterality Comments OTHER SURGICAL HISTORY PROCEDURE: [place] SPINE DEVICE IMPLANT SURGERY Medical History Medical [...] age to complete this topic Care Teams Prize Fighter Relationship Specialty Start Date End Date Talisha Manzanares MD [address] [place] [phone] PCP - General Family Medicine 10/31/18
--- OUTSIDE RECORDS SUMMARY | 2024-11-09 19:07 | XMS_ITS | Clinical Summary ---
Author Organization [facility] Address [address] [place] [address] Care Team Providers Care Licensed Esthetician Name Role Phone Unavailable Primary Care Provider Unavailabl e Allergies No known active allergies Immunizations Name Administration Dates Next Due Covid-19, Pfizer, mRNA, [place] valent, PF 30 mcg/0.3 mL dose (for [...] age to complete this topic Insurance MEDICARE [facility]
--- OUTSIDE RECORDS SUMMARY | 2024-11-09 19:07 | XMS_ITS | Clinical Summary ---
Author Organization [facility] Address [phone] [address] [place] [address] Care Team Providers Care Seafood And Service Meat Manager Name Role Phone Talisha Manzanares MD [...] mg PO taken as needed and hydrocodone-acetaminophen ([place] 7.5-325 mg) 1 table PO as needed with typical use being twice weekly. He has a contract with his PCP for chronic opioid management. Discussed the possibility that it may be more difficulty to control his post-operative pain given current chronic opioid use, however he is only using minimal Brooklyn at twice weekly and did discuss weaning [...] coronary syndromes including unstable or severe angina, NM within 1 month, severe CHF, high grade [...] Description 11/10/2024 2:00 PM EST Office Visit [facility] Orthopedics & Sports Medicine [address] [place] [address] Hernán Grissom PA-C [address] [place] [address] [place] [address] [email or web address] Health Maintenance Due Date Last Done Comments [...] Recently Relevant to Health Maintenance Care Teams Seafood And Service Meat Manager Relationship Specialty Start Date End Date Talisha [place] [address] [email or web address] PCP - General 07/27/17 Additional Source Comments The information contained in this document represents components of the legal health record. It is not the complete legal health record.[facility]
--- OUTSIDE RECORDS SUMMARY | 2024-11-09 19:07 | XMS_ITS | Encounter Summary ---
Author Organization [facility] Address [phone] [address] [place] [address] Care Team Providers Care Bsa Officer Name Role Phone Talisha Manzanares MD Primary Care Provider + Encounter Details Date Type Department Care Team (Late Contact Info) Description 12/24/2022 Transcribe Orders [facility] Outpatient Care, Radio Flouroscopy [address] [place] [address] Binta Harirs [address] [place] [address] [email or web address] Social History Tobacco Use Types Packs/Day Years [...] 11/10/2024 2:00 PM EST Office Visit [facility] Orthopedics & Sports Medicine [address] [place] [address] Hernán Grissom PA-C [address] [place] [address] [place] [address] documented as of this encounter Visit Diagnoses Not on filedocumented in this encounter Care Teams Bsa Officer Relationship Specialty Start Date End Date Talisha Manzanares MD [address] [place] [address] PCP - General 07/27/17 documented as of this encounter Additional Source Comments The information contained in this document represents components of the legal health record. It is not the complete legal health record.[facility]
--- OUTSIDE RECORDS SUMMARY | 2024-11-09 19:07 | XMS_ITS | Encounter Summary ---
Author Organization [facility] Address [phone] [facility] [place] [address] Care Team Providers Care Partner Marketing Intern Name Role Phone Talisha Manzanares MD Primary Care Provider + Encounter Details Date Type Department Care Team (Late Contact Info) Description 11/04/2021 Ancillary Orders [facility],Outside Imaging [address] [place] [address] System, Provider Not In, PhD Partners [address] [address] Social History Tobacco Use Types Packs/Day Years [...] Description 11/10/2024 2:00 PM EST Office Visit [facility] Orthopedics & Sports Medicine [address] [place] [address] Hernán Grissom PA-C [address] [place] [address] [place] [address] documented as of this encounter Results * XR Upper Extremity Outside (No Interpretation) (10/09/2021 12:00 AM EST) Narrative SYSTEMGENERATED, DOCUMENTATION - 11/04/2021 8:54 AM EST This study is for PACS storage only and not for interpretation. Provider Not In System PhD IMG OUTSIDE I CYNTHIA W/OUT INTERPRETATION documented in this encounter Visit Diagnoses Not on filedocumented in this encounter Care Teams Partner Marketing Intern Relationship Specialty Start Date End Date Talisha Manzanares MD [address] [place] [phone] [email or web address] PCP - General 07/27/17 documented as of this encounter Additional Source Comments The information contained in this document represents components of the legal health record. It is not the complete legal health record.[facility]
--- OUTSIDE RECORDS SUMMARY | 2024-11-09 19:07 | XMS_ITS | Encounter Summary ---
Author Organization [facility] Address [phone] [facility] [place] [address] Care Team Providers Care Cream Hauler Name Role Phone Talisha Manzanares MD Primary Care Provider + Reason for Referral * Physical Therapy (Routine) - Closed Specialty Diagnoses / Procedures Referred By Xavier goldstein Referred To Contact Physical Therapy Diagnoses Encounter for rehabilitation Hernán Mejia PA [address] [place] [address] [facility] Parent [address] [place] [id number] Referral ID Status Reason Start Date Expiration Date Visits Re quested Visits Authorized [id number] Closed 07/21/2021 07/21/2022 1 1 Encounter Details Date Type Department Care Team (Latest Contact Info) Description 07/21/2021 Transcribe Orders [facility] Rehabilitation Services [address] [place] [address] Hernán Mejia PA [address] [place] [address] Encounter for rehabilitation (Primary Dx) Social History [...] Description 11/10/2024 2:00 PM EST Office Visit [facility] Orthopedics & Sports Medicine [address] [place] [address] Hernán Grissom PA-C [address] [place] [address] [place] [address] [email or web address] Scheduled Referrals Name Type Priority Associated Diagnoses Orde r Schedule Ambulatory referral to [facility] Physical Therapy Outpatient Referral Routine Encounter for rehabilitation Ordered: 07/21/2021 documented as of this encounter Visit Diagnoses Diagnosis Encounter for rehabilitation- Primary documented in this encounter Care Teams Cream Hauler Relationship Specialty Start Date End Date Talisha Manzanares MD [address] [place] [phone] [email or web address] PCP - General 07/27/17 documented as of this encounter Additional Source Comments The information contained in this document represents components of the legal health record. It is not the complete legal health record.[facility]
--- OUTSIDE RECORDS SUMMARY | 2024-11-09 19:07 | XMS_ITS | Encounter Summary ---
Author Organization [facility] Address [phone] [address] [place] [address] Care Team Providers Care Target Network Analyst Name Role Phone Talisha Manzanares MD Primary Care Provider + Talisha Manzanares MD Unavailable [phone] Encounter Details Date Type Department Care Team (Late st Contact Info) Description 02/01/2018 Ancillary Orders Virtual Department [address] [place] [address] Esetla Rowell PA-C [address] [place] [phone] [email or web address] Globus syndrome Social History Tobacco Use Types [...] 11/10/2024 2:00 PM EST Office Visit [facility] Orthopedics & Sports Medicine [address] [place] [address] Hernán Grissom PA-C [address] [place] [address] [place] [address] documented as of this encounter Results * FL BARIUM SWALLOW ESOPHAGRAM SINGLE CONTRAST (02/09/2018 10:28 AM EDT) Anatomical Region Laterality Modality Chest Radiographic Elaina ging 02/09/2018 10:3 6 AM EDT Impressions 02/09/2018 10:38 AM EDT 1. ??Normal esophagram. 2. ??Severe cervical spine degenerative disc disease. FLUOROSCOPY TIME: ??1 min. 39 sec; ??11 IMAGES/FRAMES POS - [id number] Narrative 02/09/2018 10:38 AM EDT COMPARISON: None. BARIUM SWALLOW FINDINGS: Fashion Buyer lateral neck radiograph was obtained. ??Soft tissues [...] - 02/09/2018 COMPARISON: None. BARIUM SWALLOW FINDINGS: Fashion Buyer lateral neck radiograph was obtained. Soft tissues [...] min. 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 It is not the complete legal health record.[facility]
== END 2024-11-09 15:39 | disposition home or self-care (01) ==
PROVIDERS: PCP Family Medicine; Visit Provider Anesthesiology
DX: G89.4 Chronic pain syndrome (principal); M51.16 Intervertebral disc disorders with radiculopathy, lumbar region; M96.1 Postlaminectomy syndrome, not elsewhere classified; Z98.890 Other specified postprocedural states; M54.51 Vertebrogenic low back pain
CPT/HCPCS: 99214

== ENCOUNTER → 2024-11-09 15:18 | Outpatient (BNVA) | payer MEDICARE, MEDICAID, SELFPAY | PROVIDERS: PCP Family Medicine; Visit Provider Anesthesiology | DX: G89.4 Chronic pain syndrome (principal); M51.16 Intervertebral disc disorders with radiculopathy, lumbar region; M96.1 Postlaminectomy syndrome, not elsewhere classified; M54.51 Vertebrogenic low back pain; Z96.41 Presence of insulin pump (external) (internal); Z79.891 Long term (current) use of opiate analgesic; Z98.890 Other specified postprocedural states | CPT/HCPCS: 99212 ==

== ENCOUNTER 2024-11-22 13:42 | Outpatient (AMB) | payer MEDICARE, MEDICAID, SELFPAY ==
--- NOTE | 2024-11-22 13:45 | MHC.OFFVIS ---
Vital Signs 11/22/24 13:46 Height 5 ft 9 in Weight 195 lb BMI 28.8 BP 119/69 Blood Pressure Location Lt brachial Position Sitting Respiration 16 Pulse 69 Pulse Source Pulse Oximeter Pulse Oximetry (%) 97 Oxygen Delivery Method Room Air Intake Visit Reasons: PAIN PUMP REVISION AFTER MRI Health Care Coach Required: No Allergies No Known Allergies [No Known Allergies*] Allergy (Verified 11/22/24 13:47) Medication List - Last Reconciled 11/22/24 by Debbie Beck LPN cephalexin 1,000 mg (2 x 500 mg) PO Q8H 16 days naloxone 4 mg/actuation 4 mg intranasal Q2M 1 day pregabalin 75 mg PO DAILY quetiapine (Seroquel) 100 mg PO BEDTIME selegiline (Emsam) 1 patch transdermal DAILY terazosin 5 mg PO BEDTIME 90 days HPI Comments Details: Hernán is today in the office for intrathecal pain pump adjustment and the follow-up. He also had an MRI and he came to us today to check if his pain pump is working. Pain pump was interrogated. The pain pump doses were adjusted see the report of the adjustment as below. He reports already increased mobility, improved activities of daily living, improved social interactions, he reports that he starts to feel improvement from the pain pump action. He is still complaining on pain level 5 to 6/10. He reports that this pain level might be elevated because of the increased activity. We discussed today his urinary retention, he reports that he is able to urinate several times a day. However the residuals unknown to me. He was seen by Dr. Jackson, no further actions is recommended for now. Briefly other medications described to the patient to treat his pain, Prialt could be 1 of them. His next pump refill will be scheduled in 20 days. Last time we discussed the results of the MRI he had in 10/27/2024. He has Modic type 2 changes at L3-L4 vertebra. He has L5 and S1 fusion. We discussed today possibility of doing intercept procedure, I honestly could not possibly guarantee that this will help his pain but nevertheless I think it is worth trying. Last time I gave him brochure about intercept. We did not discuss it today. We continue escalation of opioid medications on his pain pump. He reports some improvement with this pain. However the same time he reports ?fuzziness of the head ?. this might be a side effects of the opioid medication. He is taking Lyrica and in combination with Lyrica the mental cloudiness could be side effects exacerbation. I requested him to ask people who prescribe him Lyrica to stop this medication. At this time we are trying to achieve pain control by different means. Previously he reported dizziness on PTM application of the hydromorphone,, therefore PTM was stopped and we continued escalation of the continuous dose medication only. Unfortunately if with the escalation his mental cloudiness will increase I would have to stop hydromorphone and change it for less water-soluble medicine such as fentanyl. Whether or not fentanyl will be successful to treat his pain remains to be seen. Therefore I think it is very important to try intercept procedure to help his pain. Prior: status post ITDD Pain Pump Implant 05/12/24. Originally he was referred by Dr. Nix for evaluation for spinal cord stimulator. He is status post laminectomy L3-L4 and L5-S1 diskectomy with posterior lateral fusion. He has L5 radiculopathy EMG confirmed. On recommendation of Dr. Ch I tried spinal cord stimulator on him [employer] scientific. The procedure was very difficult technically. However I was able to establish 2 leads in the thoracic spine. Patient reported minimal pain improvement while on stimulation. At the end of the [employer] scientific trial he was switched to [place] SCS, unfortunately that did not help his pain in more extent either. He was absent from my care for 2 years , after that he came back requesting the discussion about pain pump he was offered to him at that time. Because the patient was on opioids [place] 7.5 mg TID, initially bupivacaine pain pump was considered however it resulted in poor pain control and side effects. He was switched for hydromorphone. Dr. Ch did not recommend additional surgical intervention and advised he undergo a SCS trial, and thus he was referred to us. He describes a numbness and burning down his right posterior lateral leg extending to the top of his right into his toes. This is worsened with sitting, reaching pain level 8-9/10. He had done extensive PT and also had multiple injections prior to his surgery while seeing pain management provider Dr. Geronimo in [place]. [facility] Medical History History of urinary retention History of numbness Chronic pain syndrome Radiculopathy due to lumbar intervertebral disc disorder Postlaminectomy syndrome Surgical History History of surgery History of basal cell carcinoma excision History of lumbar laminectomy History of laminectomy History of back surgery Hx of arthroscopy of shoulder Hx of repair of rotator cuff Social History Patient Tobacco Use Status: Former Tobacco user Review of Systems Const All systems reviewed & are unremarkable except as noted in HPI and below ENT Reports Normal hearing present Neuro Reports Normal hearing present, Denies confusion and Denies Sensory deficit (Neuro) Psych Denies confusion Physical Exam Vital Signs: Last Vital Signs Pulse 69 11/22/24 13:46 Resp 16 11/22/24 13:46 BP 119/69 11/22/24 13:46 Pulse Ox 97 11/22/24 13:46 Oxygen Delivery Method Room Air 11/22/24 13:46 BMI result Body Mass Index 28.8 Const General: No confusion Orientation/consciousness: No confusion Eyes Pupils: Equal, round and reactive pupils present EOM: EOMs intact bilaterally Chest Chest palpation & inspection: normal inspection of the chest Resp Effort & Inspection: normal respiratory effort, able to speak in complete sentences, normal respiratory pattern, no audible wheezes and no cough Cardio Jugular venous distension: no JVD Back/Spine/Pelvis Other: Lumbar Spine/Lower back/SIJ: SACROILIAC JOINT No tenderness to palpation. INSPECTION: normal curvature of spine, scar from previous surgery. RANGE OF MOTION decreased extention. PALPATION: no vertebral spine tenderness. STRAIGHT LEG RAISING TEST: positive at 45 degrees on right. MOTOR SYSTEM: 5/5 bilateral lower extremities. SENSORY EXAM: paresthesias right L4-5 distribution. REFLEXES: symmetrical 2+. GAIT: unremarkable. Neuro General: No confusion Cranial nerves: Yes Equal, round and reactive pupils present and Yes Normal hearing present Sensory Exam: No Sensory deficit (Neuro) Psych Speech and movement: Normal speech and movement present Affect: normal affect Attitude: cooperative Thought process: Normal thought process present Thought content: Normal thought content present Insight: Good insight present (Psych) Judgement: Good judgement present (Psych) Results Reviewed Results Reviewed: MR lumbar spine with and without gadolinium Findings: Grade 1 anterolisthesis of L5 on S1 and grade 1 retrolisthesis of L3 on L4 and L4 on L5 without change. Chronic pars defects at L5. No acute lumbar spine fracture. Degenerative type endplate marrow changes are present. There is no suspicious bone lesion. Status post posterior metallic and interbody fusion at L5-S1. No evidence of hardware failure. Cauda equina and conus medullaris within normal limits. L1-L2: No significant degenerative disc disease. Mild bilateral facet osteoarthritis with mild mass effect on the posterolateral margins of the thecal sac. No significant neural foraminal narrowing. L2-L3: Moderate broad-based disc bulge. Bilateral facet osteoarthritis. Mild central canal stenosis. Mild narrowing of bilateral neural foramina. L3-L4: Large disc osteophyte complex with mild thecal sac effacement. Facet osteoarthritis is also present. There is moderate stenosis of the right neural foramen and mild stenosis of the left neural foramen. L4-L5: Mild central disc bulge. Bilateral facet osteoarthritis. Moderate mass effect on the posterolateral margins of the thecal sac. Mild narrowing of bilateral neural foramina. L5-S1: Mild endplate proliferation. No significant central canal narrowing. Mild narrowing of the left neural foramen. Paraspinous musculature intact. IMPRESSION: 1. No acute abnormality of the lumbar spine. Multilevel spondylosis and facet osteoarthritis. Mild central canal stenosis at L2-L3. Moderate stenosis of the right neural foramina at L3-L4. 2. Status post surgical fusion at L5-S1. No evidence of hardware failure. I personally examined the MRI of the patient and there are Modic type 2 changes at L3 and L4 vertebra as well as possible endplate changes at L5 and S1 vertebra. Assessment & Plan Assessment & Plan (1) Chronic pain syndrome: Code(s): G89.4 - Chronic pain syndrome Category: Medical (2) Radiculopathy due to lumbar intervertebral disc disorder: Code(s): M51.16 - Intervertebral disc disorders with radiculopathy, lumbar region Category: Medical (3) Postlaminectomy syndrome: Code(s): M96.1 - Postlaminectomy syndrome, not elsewhere classified Category: Medical (4) S/P insertion of intrathecal pump: Code(s): Z98.890 - Other specified postprocedural states Category: Surgical Plan: . Vertebra genic pain syndrome was suspected because patient complains on pain continuously increasing with prolonged sitting and prolonged standing. He was sent for the MRI of the lumbar spine results of which dictated as above. I offered him BVN RFA intercept. He did not make a decision yet. The I DDD adjustments see as above. Next appointment for new pump refill is in 20 days. (5) Vertebrogenic low back pain: Code(s): M54.51 - Vertebrogenic low back pain Category: Medical Plan Pain pump adjustment. The patient pain pump was interrogated, the continuous dose of the medication was increased from 56.86 micro g 2 82.1 micro g which justifies 39% of pain medication dose increase. The pump appears to be working properly. Coding Level of Care Code Est Pt Level 3 (90853) Procedure Only Diagnoses Chronic pain syndrome G89.4 Radiculopathy due to lumbar intervertebral disc disorder M51.16 Postlaminectomy syndrome M96.1 S/P insertion of intrathecal pump Z98.890 Vertebrogenic low back pain M54.51
[2024-11-22 13:46] VITALS: BP 119/69; PULSE 69; RESP 16; O2SAT 97; BMI 28.8
--- OUTSIDE RECORDS SUMMARY | 2024-11-22 15:04 | XMS_ITS | Encounter Summary ---
Author Organization [facility] Address [phone] [facility] [place] [address] Care Team Providers Care Tree Trimming Supervisor Name Role Phone Talisha Manzanares MD Primary Care Provider + Encounter Details Date Type Department Care Team (Late st Contact Info) Description 11/19/2022 Procedure Pass [facility], Radio Flouroscopy [address] [place] [address] Social History Tobacco Use Types Packs/Day Years [...] on filedocumented in this encounter Care Teams Tree Trimming Supervisor Relationship Specialty Start Date End Date Tal[place] [address] PCP - General 07/27/17 documented as of this encounter Additional Source Comments The information contained in this document represents components of the legal health record. It is not the complete legal health record.[facility]
--- OUTSIDE RECORDS SUMMARY | 2024-11-22 15:04 | XMS_ITS | Referral Summary ---
Author Organization [facility] Address [address] [place] [address] Care Team Providers Care Centrifugal Drier Operator Name Role Phone Unavailable Primary Care Provider Unavailabl e Allergies No known active allergies Immunizations Name Administration Dates Next Due Covid-19, Pfizer, mRNA, [place] valent, PF 30 mcg/0.3 mL dose (for [...]
--- OUTSIDE RECORDS SUMMARY | 2024-11-22 15:04 | XMS_ITS | Clinical Summary ---
Author Organization [facility] Address [address] [place] [address] Care Team Providers Care Location Analyst Name Role Phone Talisha Manzanares Primary Care [...] Hx Diabetes Negative Hx Hypertension Negative Hx NH Negative Hx Mental Disorder Negative Hx Sleep [...] Td or Tdap) 08/05/2030 08/05/2020 Care Teams Location Analyst Relationship Specialty Start Date End Date Manzanares, Talisha J. PCP - General Family Practice 11/13/19
--- OUTSIDE RECORDS SUMMARY | 2024-11-22 15:04 | XMS_ITS | Encounter Summary ---
Author Organization [facility] Address [phone] formerly [facility] [email or web address] [address] Care Team Providers Care Consultant Technology Name Role Phone Talisha Manzanares MD Primary Care Provider + Encounter Details Date Type Department Care Team (Late st Contact Info) Description 02/18/2023 Procedure Pass [facility] Outpatient Care, Radio Flouroscopy [address] [place] [address] Social History Tobacco Use Types Packs/Day Years [...] on filedocumented in this encounter Care Teams Consultant Technology Relationship Specialty Start Date End Date Talisha [place] [address] PCP - General 07/27/17 documented as of this encounter Additional Source Comments The information contained in this document represents components of the legal health record. It is not the complete legal health record.[facility]
--- OUTSIDE RECORDS SUMMARY | 2024-11-22 15:04 | XMS_ITS | Encounter Summary ---
Author Organization [facility] Address [phone] [address] [place] [address] Care Team Providers Care Cinder Pit Crane Operator Name Role Phone Talisha Manzanares MD Primary Care Provider + Encounter Details Date Type Department Care Team ([facility] st Contact Info) Description 10/08/2023 Procedure Pass [place] Admitting Dept - Virtual Department [address] [place] [address] Social History Tobacco Use Types Packs/Day Years [...] on filedocumented in this encounter Care Teams Cinder Pit Crane Operator Relationship Specialty Start Date End Date Talisha Manzanares MD [address] [place] [phone] [email or web address] PCP - General 07/27/17 documented as of this encounter Additional Source Comments The information contained in this document represents components of the legal health record. It is not the complete legal health record.[facility]
--- OUTSIDE RECORDS SUMMARY | 2024-11-22 15:04 | XMS_ITS | Clinical Summary ---
Author Organization [facility] Address [address] [place] [address] Care Team Providers Care Compliance Aide Name Role Phone Talisha Manzanares MD Primary [...] Advance Directives For more information, please contact: [phone] Documents on File Type Date Recorded Patient Track Worker Expl anation Advance Directive and Living Will 04/19/2020 8:19 AM questionnaire Care Teams Compliance Aide Relationship Specialty Start Date End Date Talisha Manzanares MD [address] [place] [phone] PCP - General Family Medicine 10/31/18
--- OUTSIDE RECORDS SUMMARY | 2024-11-22 15:04 | XMS_ITS | Encounter Summary ---
Author Organization [facility] Address [address] [place] [address] Care Team Providers Care Railroad Carman Name Role Phone Unavailable Primary Care Provider Unavailabl e Encounter Details Date Type Department Care Team (Late st Contact Info) Description 07/05/2017 Ophthalmology Data Conversion [facility] Historical Conversion Department [address] [place] [address] [address] Social History Tobacco Use Types Packs/Day Years [...]
--- OUTSIDE RECORDS SUMMARY | 2024-11-22 15:04 | XMS_ITS | Clinical Summary ---
Author Organization [facility] Address [address] [place] [address] Care Team Providers Care Embroidery Finisher Name Role Phone Unavailable Primary Care Provider Unavailabl e Allergies No known active allergies Immunizations Name Administration Dates Next Due Covid-19, Pfizer, mRNA, [place] valent, PF 30 mcg/0.3 mL dose (for [...] age to complete this topic Insurance MEDICARE [facility]
--- OUTSIDE RECORDS SUMMARY | 2024-11-22 15:04 | XMS_ITS | Encounter Summary ---
Author Organization [facility] Address [address] [place] [address] Care Team Providers Care English Instructor Name Role Phone Talisha Manzanares Primary Care Provider Natty vailable Encounter Details Date Type Department Care Team Description 11/20/2021 [facility] Neuro[facility] [place] [address] [place] [address] Yong Ch MD, PHD Social [...] on filedocumented in this encounter Care Teams English Instructor Relationship Specialty Start Date End Date Talisha Manzanares PCP - General Family Practice 11/13/19 documented as of this encounter
--- OUTSIDE RECORDS SUMMARY | 2024-11-22 15:04 | XMS_ITS | Encounter Summary ---
Author Organization [facility] Address [phone] [place] [address] Care Team Providers Care Product Inspection Coordinator Name Role Phone Talisha Manzanares MD Primary Care Provider + Reason for Visit * Reason Comments Shoulder Pain B/L Shoulder Pain- L ast inj Right 11/22/2023, Left 02/21/2024- Hoping for more - Has been seeing [facility] but could not get an appt with him. Encounter Details Date Type Department Care Team (Late st Contact Info) Description 11/10/2024 2:00 PM EST Office Visit [facility] Orthopedics & Sports Medicine [address] [place] [phone] Hernán Grissom PA-C [address] [place] [address] [place] [address] [email or web address] Rotator cuff tendinitis, right (Primary Dx); Rotator cuff tendinitis, left Social History Tobacco Use Types Packs/Day Years [...] on file documented as of this encounter Progress Notes * Hernán Grissom PA-C - 11/10/2024 2:00 PM EST [facility] Date of Visit: 11/10/2024 Reason for Appointment: Bilateral rotator cuff tendinitis HPI: Hernán Alexis is a 69 y.o. male who presents today requesting repeat injections of the bilateral shoulders. He has received these injections previously with Dr. Harrell with good symptomatic relief.Right shoulder had an MRI performed which revealed tearing of the subscapularis. Left shoulder with working diagnosis of cuff tendinitis. Exam: In general, the patient is in no acute distress. Affect is appropriate. Alert and oriented ??3. Breathing is nonlabored. Bilateral upper extremity: skin is clean, dry, and intact. Distally neurovascularly intact. Moving all fingers, sensate throughout and well-perfused. Right shoulder with no deformity or atrophy. 4-5 strength testing of subscapularis with resisted internal rotation. 5 out of 5 supra and infraspinatus Left shoulder with positive impingement testing. Rotator cuff strength preserved throughout Asssessment: Bilateral rotator cuff tendinitis BILATERAL SUBACROMIAL INJECTIONS OF LEFT AND RIGHT SHOULDERS Plan: After risks of injection discussed in detail, informed consent signed. Skin sterilely preppedwith chlorhexidine. Ethyl chloride and 3 cc of 1% plain lidocaine used as anesthetic. 4 cc of 1% lidocaine and 40 mg of Kenalog then injected into the subacromial space without complication. Patient tolerated procedure well and noted improvement in office. Post injection care explained and questions answered. Patient understands instructions. . All questions were answered to the patient's contenttoday. Hernán Alexis verbalizes understanding and agreement with plan. Hernán Grissom PA-C documented in this encounter Plan of Treatment Not on file documented as of this encounter Visit Diagnoses Diagnosis Rotator cuff tendinitis, right- Primary Rotator cuff tendinitis, left documented in this encounter Care Teams Product Inspection Coordinator Relationship Specialty Start Date End Date Talisha Manzanares MD [address] [place] [phone] [email or web address] PCP - General 07/27/17 documented as of this encounter Additional Source Comments The information contained in this document represents components of the legal health record. It is not the complete legal health record.[facility]
--- OUTSIDE RECORDS SUMMARY | 2024-11-22 15:04 | XMS_ITS | Encounter Summary ---
Author Organization [facility] Address [phone] [place] [address] Care Team Providers Care Paper Control Clerk Name Role Phone Talisha Manzanares MD Primary Care Provider + Encounter Details Date Type Department Care Team ([facility] st Contact Info) Description 09/22/2023 Procedure Pass [place] Admitting Dept - Virtual Department [address] [place] [address] Social History Tobacco Use Types Packs/Day Years [...] on filedocumented in this encounter Care Teams Paper Control Clerk Relationship Specialty Start Date End Date Talisha Manzanares MD [address] [place] [phone] [email or web address] PCP - General 07/27/17 documented as of this encounter Additional Source Comments The information contained in this document represents components of the legal health record. It is not the complete legal health record.[facility]
--- OUTSIDE RECORDS SUMMARY | 2024-11-22 15:04 | XMS_ITS | Encounter Summary ---
Author Organization [facility] Address [phone] [address] [place] [address] Care Team Providers Care Insurance Risk Manager Name Role Phone Talisha Manzanares MD Primary Care Provider + Encounter Details Date Type Department Care Team (Late st Contact Info) Description 11/01/2023 Procedure Pass [facility] [address] [place] [address] Social History Tobacco Use Types Packs/Day Years [...] on filedocumented in this encounter Care Teams Insurance Risk Manager Relationship Specialty Start Date End Date Talisha Manzanares MD [address] [place] [phone] [email or web address] PCP - General 07/27/17 documented as of this encounter Additional Source Comments The information contained in this document represents components of the legal health record. It is not the complete legal health record.[facility]
--- OUTSIDE RECORDS SUMMARY | 2024-11-22 15:04 | XMS_ITS | Encounter Summary ---
Author Organization [facility] Address [phone] [address] [place] [address] Care Team Providers Care Career Services Officer Name Role Phone Talisha Manzanares MD Primary Care Provider + Encounter Details Date Type Department Care Team (Late st Contact Info) Description 11/01/2023 Procedure Pass [facility], X-Ray - [facility] [address] [place] [address] Social History Tobacco Use Types Packs/Day Years [...] on filedocumented in this encounter Care Teams Career Services Officer Relationship Specialty Start Date End Date Talisha Manzanares MD [address] [place] [phone] [email or web address] PCP - General 07/27/17 documented as of this encounter Additional Source Comments The information contained in this document represents components of the legal health record. It is not the complete legal health record.[facility]
--- OUTSIDE RECORDS SUMMARY | 2024-11-22 15:04 | XMS_ITS | Encounter Summary ---
Author Organization [facility] Address [phone] [facility] [place] [address] Care Team Providers Care Ux Consultant Name Role Phone Talisha Manzanares MD Primary Care Provider + Encounter Details Date Type Department Care Team ([facility] st Contact Info) Description 12/24/2022 Transcribe Orders [facility] Outpatient Care, Radio Flouroscopy [address] [place] [address] Binta Harris [address] [place] [address] [email or web address] Social History Tobacco Use Types Packs/Day [...] on filedocumented in this encounter Care Teams Ux Consultant Relationship Specialty Start Date End Date Talisha [place] [address] [email or web address] PCP - General 07/27/17 documented as of this encounter Additional Source Comments The information contained in this document represents components of the legal health record. It is not the complete legal health record.[facility]
--- OUTSIDE RECORDS SUMMARY | 2024-11-22 15:04 | XMS_ITS | Encounter Summary ---
Author Organization [facility] Address [phone] [place] [address] Care Team Providers Care Supervisor Landscape Name Role Phone Talisha Manzanares MD Primary Care Provider + Encounter Details Date Type Department Care Team ([facility] Contact Info) Description 03/17/2023 Transcribe Orders [facility] for Outpatient Care, Radio Flouroscopy [address] [place] [address] Juan Stanton [address] [place] [address] [email or web address] Social History Tobacco Use Types Packs/Day Years [...] on filedocumented in this encounter Care Teams Supervisor Landscape Relationship Specialty Start Date End Date Talisha Manzanares MD [address] [place], [place] [id number] [email or web address] PCP - General 07/27/17 documented as of this encounter Additional Source Comments The information contained in this document represents components of the legal health record. It is not the complete legal health record.[facility]
--- OUTSIDE RECORDS SUMMARY | 2024-11-22 15:04 | XMS_ITS | Encounter Summary ---
Author Organization [facility] Address [address] [place] [address] Care Team Providers Care Testing And Regulating Technician Name Role Phone Talisha Manzanares Primary Care Provider Natty vailable Encounter Details Date Type Department Care Team Description 11/20/2021 [facility] Neurosurgery [place] [address] [place] [address] Yong Ch MD, PHD Social [...] on filedocumented in this encounter Care Teams Testing And Regulating Technician Relationship Specialty Start Date End Date Talisha Manzanares PCP - General Family Practice 11/13/19 documented as of this encounter
--- OUTSIDE RECORDS SUMMARY | 2024-11-22 15:04 | XMS_ITS | Encounter Summary ---
Author Organization [facility] Address [phone] [facility] [place] [address] Care Team Providers Care Social Worker Assistant Name Role Phone Talisha Manzanares MD Primary Care Provider + Encounter Details Date Type Department Care Team (Late st Contact Info) Description 10/22/2022 Telephone [facility] Orthopaedic Spine [address] [place] [address] Pasha Cassidy MD [address] [place] [address] [email or web address] Social History Tobacco Use Types Packs/Day Years [...] on filedocumented in this encounter Care Teams Social Worker Assistant Relationship Specialty Start Date End Date Talisha Manzanares MD [address] [place] [address] [email or web address] PCP - General 07/27/17 documented as of this encounter Additional Source Comments The information contained in this document represents components of the legal health record. It is not the complete legal health record.[facility]
--- OUTSIDE RECORDS SUMMARY | 2024-11-22 15:05 | XMS_ITS | Encounter Summary ---
Author Organization [facility] Address [phone] [address] [place] [address] Care Team Providers Care Circulation Assistant Name Role Phone Talisha Manzanares MD Primary Care Provider + Encounter Details Date Type Department Care Team (Late st Contact Info) Description 11/04/2021 Ancillary Orders [facility],Outside Imaging [address] [place] [address] System, Provider Not In, PhD Partners [address] [address] Social History Tobacco Use Types Packs/Day Years [...] on file documented as of this encounter Results * XR Upper Extremity Outside (No Interpretation) (10/09/2021 12:00 AM EST) Narrative SYSTEMGENERATED, DOCUMENTATION - 11/04/2021 8:54 AM EST This study is for PACS storage only and not for interpretation. Provider Not In System PhD IMG OUTSIDE I MAGING W/OUT INTERPRETATION documented in this encounter Visit Diagnoses Not on filedocumented in this encounter Care Teams Circulation Assistant Relationship Specialty Start Date End Date Talisha Manzanares MD [address] [place] [address] [email or web address] PCP - General 07/27/17 documented as of this encounter Additional Source Comments The information contained in this document represents components of the legal health record. It is not the complete legal health record.[facility]
--- OUTSIDE RECORDS SUMMARY | 2024-11-22 15:05 | XMS_ITS | Encounter Summary ---
Author Organization [facility] Address [phone] [facility] [place] [address] Care Team Providers Care Quitline Counselor Name Role Phone Talisha Manzanares MD Primary Care Provider + Reason for Referral * Physical Therapy (Routine) - Closed Specialty Diagnoses / Procedures Referred By Xavier goldstein Referred To Contact Physical Therapy Diagnoses Encounter for rehabilitation Hernán Mejia PA [address] [place] [address] [facility] Parent [address] [place] [address] Referral ID Status Reason Start Date Expiration Date Visits Re quested Visits Authorized [id number] Closed 07/21/2021 07/21/2022 1 1 Encounter Details Date Type Department Care Team (Latest Contact Info) Description 07/21/2021 Transcribe Orders [facility] Rehabilitation Services [address] [place] [address] Hernán Mejia PA [address] [place] [address] [email or web address] Encounter for rehabilitation (Primary Dx) Social History Tobacco Use Types Packs/Day Years Used Date Smoking Tobacco: Never Assessed Sex and Gender Information Value Date Recorded Sex Assigned at Male 07/29/2022 11:31 PM EDT Gender Identity Male 07/29/2022 11:31 PM EDT Sexual Orientation Not on file documented as of this encounter Plan of Treatment Scheduled Referrals Name Type Priority Associated Diagnoses Orde r Schedule Ambulatory referral to [facility] Physical Therapy Outpatient Referral Routine Encounter for rehabilitation Ordered: 07/21/2021 documented as of this encounter Visit Diagnoses Diagnosis Encounter for rehabilitation- Primary documented in this encounter Care Teams Quitline Counselor Relationship Specialty Start Date End Date Talisha Manzanares MD [address] [place] [phone] [email or web address] PCP - General 07/27/17 documented as of this encounter Additional Source Comments The information contained in this document represents components of the legal health record. It is not the complete legal health record.[facility]
--- OUTSIDE RECORDS SUMMARY | 2024-11-22 15:05 | XMS_ITS | Clinical Summary ---
Author Organization [facility] Address [address] [place] [address] Care Team Providers Care Supervisor Liquefaction Name Role Phone Talisha Manzanares MD Primary Care Provider [phone] Immunizations Name Administration Dates Next Due Pfizer SARS-CoV-2 COVID-19, mRNA, LNP-S, preservative free 02/05/2021,01/08/2021 Surgical History Surgery Date Site/Laterality Comments OTHER SURGICAL HISTORY PROCEDURE: UT SPINE DEVICE IMPLANT SURGERY Medical History Medical [...] Recorded Sex Assigned at Not on file Legal Sex Male 11:40 AM EST Gender Identity Not on file Sexual Orientation Not on file Obstetrics History Plan of Treatment Health Maintenance Due Date Last Done Comments DTaP,Tdap,and Td Vaccines (1 - Tdap) 1974 Pneumococcal Vaccine: 50+ Years (1 of 1 - PCV) 2005 Zoster Vaccines (1 of 2) 2005 Abdominal Aortic Aneurysm (AAA) Screen 09/08/2022 Cholesterol [...] patient's age to complete this topic Meningococcal B Vacine Aged Out No lo nger eligible based on patient's age to complete this topic RSV Immunization Patients Under 20 months Aged Out No longer eligible b ased on patient's age to complete this topic Varicella Vaccines Aged Out No longer eligible based on patient's age to complete this topic Care Teams Supervisor Liquefaction Relationship Specialty Start Date End Date Talisha Manzanares MD [address] [place] [phone] PCP - General Family Medicine 10/31/18
--- OUTSIDE RECORDS SUMMARY | 2024-11-22 15:05 | XMS_ITS | Encounter Summary ---
Author Organization [facility] Address [phone] [address] [place] [address] Care Team Providers Care Sole Stainer Name Role Phone Talisha Manzanares MD Primary Care Provider + Talisha Manzanares MD Unavailable [phone] Encounter Details Date Type Department Care Team (Late st Contact Info) Description 02/01/2018 Ancillary Orders Virtual Department [address] [place] [address] Estela Rowell PA-C [address] [place] [phone] [email or web address] [email or web address] Social History Tobacco Use Types [...] min. 39 sec; ??11 IMAGES/FRAMES POS - [id number] Narrative 02/09/2018 10:38 AM EDT COMPARISON: None. BARIUM SWALLOW FINDINGS: Matrix Bath Operator lateral neck radiograph was obtained. ??Soft tissues [...] - 02/09/2018 COMPARISON: None. BARIUM SWALLOW FINDINGS: Matrix Bath Operator lateral neck radiograph was obtained. Soft tissues [...] min. 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 It is not the complete legal health record.[facility]
== END 2024-11-22 14:18 | disposition home or self-care (01) ==
PROVIDERS: PCP Family Medicine; Visit Provider Anesthesiology
DX: G89.4 Chronic pain syndrome (principal); M51.16 Intervertebral disc disorders with radiculopathy, lumbar region; M96.1 Postlaminectomy syndrome, not elsewhere classified; Z98.890 Other specified postprocedural states; M54.51 Vertebrogenic low back pain
CPT/HCPCS: 62368; 99213

== ENCOUNTER → 2024-11-22 13:42 | Outpatient (BNVA) | payer MEDICARE, MEDICAID, SELFPAY | PROVIDERS: PCP Family Medicine; Visit Provider Anesthesiology | DX: Z45.89 Encounter for adjustment and management of other implanted devices (principal); M51.16 Intervertebral disc disorders with radiculopathy, lumbar region; M96.1 Postlaminectomy syndrome, not elsewhere classified; M54.51 Vertebrogenic low back pain; G89.4 Chronic pain syndrome; Z98.890 Other specified postprocedural states | CPT/HCPCS: 62368; 99212 ==

== ENCOUNTER 2024-12-14 14:24 | Outpatient (AMB) | payer MEDICARE, MEDICAID, SELFPAY ==
--- NOTE | 2024-12-14 14:26 | MHC.OFFVIS ---
Vital Signs 12/14/24 14:41 Height 5 ft 9 in Weight 192 lb 8 oz BMI 28.4 BP 139/72 Blood Pressure Location Lt brachial Position Sitting Pulse 58 Pulse Source Pulse Oximeter Intake Visit Reasons: ITDD Refill Intake Note: Pain today 03/20 Occupational Health Manager Required: No Accompanied by: Self / Same As Patient Allergies No Known Allergies [No Known Allergies*] Allergy (Verified 12/14/24 14:42) HPI Comments Details: Hernán is today in the office for intrathecal pain pump adjustment and the follow-up. She reports that recently he started to feel more pain. On the interrogation amount of residual fluid in his pump was 2.5 and we were able to remove 6.8 cc out of the pump. This is very significant discrepancy. I would be willing to perform dye study on this patient. Meanwhile I still would like to continue escalation of his medication his doses are very small. I will invite him next week for the pump interrogation and escalation of the doses again. We also would have to discuss the Modic type 2 changes in his lumbar spine and probably discuss possibility of treatment of his pain with RFA BVN. Prior: status post ITDD Pain Pump Implant 05/12/24. Originally he was referred by Dr. Nix for evaluation for spinal cord stimulator. He is status post laminectomy L3-L4 and L5-S1 diskectomy with posterior lateral fusion. He has L5 radiculopathy EMG confirmed. On recommendation of Dr. Ch I tried spinal cord stimulator on him [employer]. The procedure was very difficult technically. However I was able to establish 2 leads in the thoracic spine. Patient reported minimal pain improvement while on stimulation. At the end of the [employer] trial he was switched to Nevro SCS, unfortunately that did not help his pain in more extent either. He was absent from my care for 2 years , after that he came back requesting the discussion about pain pump he was offered to him at that time. Because the patient was on opioids [place] 7.5 mg TID, initially bupivacaine pain pump was considered however it resulted in poor pain control and side effects. He was switched for hydromorphone. Dr. Ch did not recommend additional surgical intervention and advised he undergo a SCS trial, and thus he was referred to us. He describes a numbness and burning down his right posterior lateral leg extending to the top of his right into his toes. This is worsened with sitting, reaching pain level 8-9/10. He had done extensive PT and also had multiple injections prior to his surgery while seeing pain management provider Dr. Geronimo in [place]. [facility] Medical History History of urinary retention History of numbness Chronic pain syndrome Radiculopathy due to lumbar intervertebral disc disorder Postlaminectomy syndrome Surgical History History of surgery History of basal cell carcinoma excision History of lumbar laminectomy History of laminectomy History of back surgery Hx of arthroscopy of shoulder Hx of repair of rotator cuff Social History Patient Tobacco Use Status: Former Tobacco user Review of Systems Const All systems reviewed & are unremarkable except as noted in HPI and below ENT Reports Normal hearing present Neuro Reports Normal hearing present, Denies confusion and Denies Sensory deficit (Neuro) Psych Denies confusion Physical Exam Vital Signs: Last Vital Signs Pulse 58 12/14/24 14:41 BP 139/72 12/14/24 14:41 BMI result Body Mass Index 28.4 Const General: No confusion Orientation/consciousness: No confusion Eyes Pupils: Equal, round and reactive pupils present EOM: EOMs intact bilaterally Chest Chest palpation & inspection: normal inspection of the chest Resp Effort & Inspection: normal respiratory effort, able to speak in complete sentences, normal respiratory pattern, no audible wheezes and no cough Cardio Jugular venous distension: no JVD Back/Spine/Pelvis Other: Lumbar Spine/Lower back/SIJ: SACROILIAC JOINT No tenderness to palpation. INSPECTION: normal curvature of spine, scar from previous surgery. RANGE OF MOTION decreased extention. PALPATION: no vertebral spine tenderness. STRAIGHT LEG RAISING TEST: positive at 45 degrees on right. MOTOR SYSTEM: 5/5 bilateral lower extremities. SENSORY EXAM: paresthesias right L4-5 distribution. REFLEXES: symmetrical 2+. GAIT: unremarkable. Neuro General: No confusion Cranial nerves: Yes Equal, round and reactive pupils present and Yes Normal hearing present Sensory Exam: No Sensory deficit (Neuro) Psych Speech and movement: Normal speech and movement present Affect: normal affect Attitude: cooperative Thought process: Normal thought process present Thought content: Normal thought content present Insight: Good insight present (Psych) Judgement: Good judgement present (Psych) Results Reviewed Results Reviewed: MR lumbar spine with and without gadolinium Findings: Grade 1 anterolisthesis of L5 on S1 and grade 1 retrolisthesis of L3 on L4 and L4 on L5 without change. Chronic pars defects at L5. No acute lumbar spine fracture. Degenerative type endplate marrow changes are present. There is no suspicious bone lesion. Status post posterior metallic and interbody fusion at L5-S1. No evidence of hardware failure. Cauda equina and conus medullaris within normal limits. L1-L2: No significant degenerative disc disease. Mild bilateral facet osteoarthritis with mild mass effect on the posterolateral margins of the thecal sac. No significant neural foraminal narrowing. L2-L3: Moderate broad-based disc bulge. Bilateral facet osteoarthritis. Mild central canal stenosis. Mild narrowing of bilateral neural foramina. L3-L4: Large disc osteophyte complex with mild thecal sac effacement. Facet osteoarthritis is also present. There is moderate stenosis of the right neural foramen and mild stenosis of the left neural foramen. L4-L5: Mild central disc bulge. Bilateral facet osteoarthritis. Moderate mass effect on the posterolateral margins of the thecal sac. Mild narrowing of bilateral neural foramina. L5-S1: Mild endplate proliferation. No significant central canal narrowing. Mild narrowing of the left neural foramen. Paraspinous musculature intact. IMPRESSION: 1. No acute abnormality of the lumbar spine. Multilevel spondylosis and facet osteoarthritis. Mild central canal stenosis at L2-L3. Moderate stenosis of the right neural foramina at L3-L4. 2. Status post surgical fusion at L5-S1. No evidence of hardware failure. I personally examined the MRI of the patient and there are Modic type 2 changes at L3 and L4 vertebra as well as possible endplate changes at L5 and S1 vertebra. Assessment & Plan Assessment & Plan (1) Chronic pain syndrome: Code(s): G89.4 - Chronic pain syndrome Category: Medical (2) Radiculopathy due to lumbar intervertebral disc disorder: Code(s): M51.16 - Intervertebral disc disorders with radiculopathy, lumbar region Category: Medical (3) Postlaminectomy syndrome: Code(s): M96.1 - Postlaminectomy syndrome, not elsewhere classified Category: Medical (4) S/P insertion of intrathecal pump: Code(s): Z98.890 - Other specified postprocedural states Category: Surgical Plan: . Vertebra genic pain syndrome was suspected because patient complains on pain continuously increasing with prolonged sitting and prolonged standing. He was sent for the MRI of the lumbar spine results of which dictated as above. I offered him BVN RFA intercept. He did not make a decision yet. ItDD refill see as below. The patient is informed about big discrepancy. I will schedule him for the dye study. I am going to continue to escalate the doses nevertheless because he still continues to receive significant portion of the medications in with the pump. (5) Vertebrogenic low back pain: Code(s): M54.51 - Vertebrogenic low back pain Category: Medical (6) Malfunction of intrathecal infusion pump: Code(s): T85.615A - Breakdown (mechanical) of other nervous system device, implant or graft, initial encounter Category: Medical Plan Intrathecal pump refill. THE PATIENT CAME TODAY IN THE office for THE CHANGE OF THE MEDICATION IN her PAIN PUMP. The name and date of were verified and informed consent was obtained for the procedure. ?The pump was interrogated and the residual amount of fluid was found to be 2.5 mL. HE WAS POSITIONED prone on the bed AND THE AREA OF THE INTRATHECAL PUMP WAS PREPPED WITH CHLORAPREP. The fenestrated drape was sterilely applied over the area of the pump. Sterile gloves were worn and of the aspiration system was assembled containing 2 in 22 gauge noncoring needle, the needle was connected to extension tubing which was connected to the 20 cc sterile syringe. The pain pump was palpated under the skin in the patient's right buttock area. The needle was inserted through the skin and the central plug of the pain pump and fluid was aspirated. The clear fluid was going into the syringe the total amount of the fluid was 18.3 mL .. After that a new batch? of medication was obtained which was containing hydromorphone in concentration 300 micro g/ml. The admixture was made in 20 cc syringe prepared by [facility] compounding pharmacy. The syringe was connected to the bacterial filter, and then connected to the extension tubing. After that the medication in the syringe was slowly instilled into the pump with aspirations at 15 and 5 cc lemons.? The pump was reprogrammed for the doses of hydromorphone mcg per day Coding Level of Care Code Est Pt Level 3 (83410) Procedure Only Diagnoses Chronic pain syndrome G89.4 Radiculopathy due to lumbar intervertebral disc disorder M51.16 Postlaminectomy syndrome M96.1 S/P insertion of intrathecal pump Z98.890 Vertebrogenic low back pain M54.51 Malfunction of intrathecal infusion pump T85.773L
[2024-12-14 14:41] VITALS: BP 139/72; PULSE 58; BMI 28.4
--- OUTSIDE RECORDS SUMMARY | 2024-12-14 17:42 | XMS_ITS | Encounter Summary ---
Author Organization [facility] Address [address] [place] [address] Phone Care Team Providers Care Information Assoc Name Role Phone Talisha Manzanares MD Primary Care Provider + Talisha Manzanares MD Unavailable [phone] Encounter Details Date Type Department Care Team (Late st Contact Info) Description 02/01/2018 Ancillary Orders Virtual Department [address] [place] [address] Estela Rowell PA-C [address] [place] [phone] [email or web address] Globus syndrome Social History Tobacco Use Types [...] min. 39 sec; ??11 IMAGES/FRAMES POS - [id number] Narrative 02/09/2018 10:38 AM EDT COMPARISON: None. BARIUM SWALLOW FINDINGS: Quality Systems Engineer lateral neck radiograph was obtained. ??Soft tissues [...] - 02/09/2018 COMPARISON: None. BARIUM SWALLOW FINDINGS: Quality Systems Engineer lateral neck radiograph was obtained. Soft tissues [...] min. 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 It is not the complete legal health record.[facility]
--- OUTSIDE RECORDS SUMMARY | 2024-12-14 17:42 | XMS_ITS | Encounter Summary ---
Author Organization [facility] Address [address] [place] [address] Care Team Providers Care Metal Refiner Name Role Phone Talisha Manzanares Primary Care Provider Natty vailable Encounter Details Date Type Department Care Team Description 01/13/2022 [facility] Neurosurgery [place] [address] [place] [address] Yong Ch MD, PHD Social History Tobacco Use Types Packs/Day Years Used Date Smoking Tobacco: Former Cigarettes Q uit: 1986 Smokeless Tobacco: Never Sex Assigned at Date Recorded Not on file documented as of this encounter Plan of Treatment Not on file documented as of this encounter Visit Diagnoses Not on filedocumented in this encounter Care Teams Metal Refiner Relationship Specialty Start Date End Date Talisha Manzanares PCP - General Family Practice 11/13/19 documented as of this encounter
--- OUTSIDE RECORDS SUMMARY | 2024-12-14 17:42 | XMS_ITS | Encounter Summary ---
Author Organization [facility] Address [address] [place] [address] Phone Care Team Providers Care Director Of Accreditation Name Role Phone Talisha Manzanares MD Primary Care Provider + Encounter Details Date Type Department Care Team (Late st Contact Info) Description 03/17/2023 Transcribe Orders [facility]patient [facility], Radio Flouroscopy [address] [place] [address] Juan Stanton [address] [place] [address] [email or web address] Social History Tobacco Use Types Packs/Day Years [...] in this encounter Care Teams Director Of Accreditation Relationship Specialty Start Date End Date Talisha Manzanares MD [address] [place] [address] [email or web address] PCP - General 07/27/17 documented as of this encounter Additional Source Comments The information contained in this document represents components of the legal health record. It is not the complete legal health record.[facility]
--- OUTSIDE RECORDS SUMMARY | 2024-12-14 17:42 | XMS_ITS | Clinical Summary ---
Author Organization [facility] Address [address] [place] [address] Care Team Providers Care Housekeeping Lead Name Role Phone Unavailable Primary Care Provider Unavailabl e Allergies No known active allergies Immunizations Immunization Administration Dates Next Due Covid-19, Pfizer, mRNA, [place] valent, PF 30 mcg/0.3 mL dose (for [...] FOBT / Fit Test 1955 Sigmoidoscopy 1955 Pneumococcal Vaccine: 50+ Years (1 of 1 - PCV) 2005 Zoster Vaccines (1 of 2) 2005 COVID-19 Vaccine (3 - 2023-2 5 season) [...] age to complete this topic Insurance [facility]ICARE [facility]
--- OUTSIDE RECORDS SUMMARY | 2024-12-14 17:42 | XMS_ITS | Encounter Summary ---
Author Organization [facility] Address [address] [place] [address] Care Team Providers Care Referral Rn Name Role Phone Talisha Manzanares Primary Care Provider Natty vailable Encounter Details Date Type Department Care Team Description 11/20/2021 [facility] Medical [facility] Neurosurgery [place] [address] [place] [address] Yong Ch MD, PHD Social [...] on filedocumented in this encounter Care Teams Referral Rn Relationship Specialty Start Date End Date Talisha Manzanares PCP - General Family Practice 11/13/19 documented as of this encounter
--- OUTSIDE RECORDS SUMMARY | 2024-12-14 17:42 | XMS_ITS | Referral Summary ---
Author Organization [facility] Address [address] [place] [address] Care Team Providers Care Stroke Belt Sander Operator Name Role Phone Unavailable Primary Care Provider Unavailabl e Allergies No known active allergies Immunizations Immunization Administration Dates Next Due Covid-19, Pfizer, mRNA, [place] valent, PF 30 mcg/0.3 mL dose (for [...] of Treatment Not on file Insurance MEDICARE [facility]
--- OUTSIDE RECORDS SUMMARY | 2024-12-14 17:42 | XMS_ITS | Encounter Summary ---
Author Organization [facility] Address [address] [place] [address] Phone Care Team Providers Care Financial Sales Professional Name Role Phone Talisha Manzanares MD Primary Care Provider + Encounter Details Date Type Department Care Team (Late st Contact Info) Description 11/04/2021 Ancillary Orders [facility],Outside Imaging [address] [place] [address] System, Provider Not In, [facility] [address] [address] Social History Tobacco Use Types Packs/Day Years [...] on filedocumented in this encounter Care Teams Financial Sales Professional Relationship Specialty Start Date End Date Talisha Manzanares MD [address] [place] [address] [email or web address] PCP - General 07/27/17 documented as of this encounter Additional Source Comments The information contained in this document represents components of the legal health record. It is not the complete legal health record.[facility]
--- OUTSIDE RECORDS SUMMARY | 2024-12-14 17:42 | XMS_ITS | Encounter Summary ---
Author Organization [facility] Address [address] [address] Phone Care Team Providers Care Loading Machine Tool Setter Name Role Phone Talisha Manzanares MD Primary Care Provider + Encounter Details Date Type Department Care Team (Late st Contact Info) Description 10/22/2022 Telephone [facility] Orthopaedic Spine [address] [place] [address] Pasha Cassidy MD [address] [place] [address] [email or web address] Social History Tobacco Use Types Packs/Day Years [...] on filedocumented in this encounter Care Teams Loading Machine Tool Setter Relationship Specialty Start Date End Date Talisha Manzanares MD [address] [place] [address] [email or web address] PCP - General 07/27/17 documented as of this encounter Additional Source Comments The information contained in this document represents components of the legal health record. It is not the complete legal health record.[facility]
--- OUTSIDE RECORDS SUMMARY | 2024-12-14 17:42 | XMS_ITS | Encounter Summary ---
Author Organization [facility] Address [address] [employer] [facility] [address] [place] [address] Phone Care Team Providers Care Foxer Name Role Phone Talisha Manzanares MD Primary Care Provider + Reason for Referral * Physical Therapy (Routine) - Closed Specialty Diagnoses / Procedures Referred By Xavier goldstein Referred To Contact Physical Therapy Diagnoses Encounter for rehabilitation Hernán Mejia PA [address] [place] [address] [facility] Parent [address] [place] [id number] Referral ID Status Reason Start Date Expiration Date Visits Re quested Visits Authorized [id number] Closed 07/21/2021 07/21/2022 1 1 Encounter Details Date Type Department Care Team (Latest Contact Info) Description 07/21/2021 Transcribe Orders [facility] Rehabilitation Services [address] [place] [address] Hernán Mejia PA [address] [place] [address] [email or web address] Encounter for rehabilitation (Primary Dx) Social History [...] Diagnoses Orde r Schedule Ambulatory referral to [facility] Physical Therapy Outpatient Referral Routine Encounter for rehabilitation Ordered: 07/21/2021 documented as of this encounter Visit Diagnoses Diagnosis Encounter for rehabilitation- Primary documented in this encounter Care Teams Foxer Relationship Specialty Start Date End Date Talisha Manzanares MD [address] [place], [place] [phone] [email or web address] PCP - General 07/27/17 documented as of this encounter Additional Source Comments The information contained in this document represents components of the legal health record. It is not the complete legal health record.[facility]
--- OUTSIDE RECORDS SUMMARY | 2024-12-14 17:42 | XMS_ITS | Encounter Summary ---
Author Organization [facility] Address [address] [employer] [address] [place] [address] Phone Care Team Providers Care Meeting Planner Name Role Phone Talisha Manzanares MD Primary Care Provider + Encounter Details Date Type Department Care Team (Late st Contact Info) Description 11/19/2022 Procedure [facility] for Outpatient Care, Radio Flouroscopy [address] [place] [address] Social History Tobacco Use Types Packs/Day Years [...] on filedocumented in this encounter Care Teams Meeting Planner Relationship Specialty Start Date End Date Talisha Manzanares MD [address] [place] [phone] PCP - General 07/27/17 documented as of this encounter Additional Source Comments The information contained in this document represents components of the legal health record. It is not the complete legal health record.[facility]
--- OUTSIDE RECORDS SUMMARY | 2024-12-14 17:42 | XMS_ITS | Encounter Summary ---
Author Organization [facility] Address [address] [place] [address] Care Team Providers Care Door Liner Helper Name Role Phone Unavailable Primary Care Provider Unavailabl e Encounter Details Date Type Department Care Team (Late st Contact Info) Description 07/05/2017 Ophthalmology Data Conversion [facility] Historical Conversion Department [address] [place] [address] [address] Social History Tobacco Use Types Packs/Day Years [...]
--- OUTSIDE RECORDS SUMMARY | 2024-12-14 17:42 | XMS_ITS | Encounter Summary ---
Author Organization [facility] Address [address] [place] [address] Care Team Providers Care Auto Headlight Mechanic Name Role Phone Talisha Manzanares Primary Care Provider Natty vailable Encounter Details Date Type Department Care Team Description 11/20/2021 [facility] Medical [facility] Neurosurgery [place] [address] [place] [address] Yong Ch MD, PHD Social [...] on filedocumented in this encounter Care Teams Auto Headlight Mechanic Relationship Specialty Start Date End Date Talisha Manzanares PCP - General Family Practice 11/13/19 documented as of this encounter
--- OUTSIDE RECORDS SUMMARY | 2024-12-14 17:42 | XMS_ITS | Clinical Summary ---
Author Organization [facility] Address [address] [place] [address] Care Team Providers Care Television Cabinet Finisher Name Role Phone Talisha Manzanares MD [...] Advance Directives For more information, please contact: [phone] Documents on File Type Date Recorded Patient Block Breaker Operator Expl anation Advance Directive and Living Will 04/19/2020 8:19 AM questionnaire Care Teams Television Cabinet Finisher Relationship Specialty Start Date End Date Talisha Manzanares MD [address] [place] [address] PCP - General Family Medicine 10/31/18
--- OUTSIDE RECORDS SUMMARY | 2024-12-14 17:42 | XMS_ITS | Encounter Summary ---
Author Organization [facility] Address [facility] [address] [address] Phone Care Team Providers Care Laborer Electroplating Name Role Phone Talisha Manzanares MD Primary Care Provider + Encounter Details Date Type Department Care Team (Late st Contact Info) Description 11/01/2023 Procedure Pass [facility] [address] [place] [address] Social History Tobacco Use Types Packs/Day Years [...] on filedocumented in this encounter Care Teams Laborer Electroplating Relationship Specialty Start Date End Date Talisha Manzanares MD [address] [place] [phone] [email or web address] PCP - General 07/27/17 documented as of this encounter Additional Source Comments The information contained in this document represents components of the legal health record. It is not the complete legal health record.[facility]
--- OUTSIDE RECORDS SUMMARY | 2024-12-14 17:42 | XMS_ITS | Encounter Summary ---
Author Organization [facility] Address [facility] [place] [address] [address] Phone Care Team Providers Care Death Claim Examiner Name Role Phone Talisha Manzanares MD Primary Care Provider + Encounter Details Date Type Department Care Team (Late st Contact Info) Description 11/01/2023 Procedure Pass [facility], X-Ray - [facility] [address] [place] [address] Social History Tobacco Use Types Packs/Day Years [...] on filedocumented in this encounter Care Teams Death Claim Examiner Relationship Specialty Start Date End Date Talisha Manzanares MD [address] [place] [address] [email or web address] PCP - General 07/27/17 documented as of this encounter Additional Source Comments The information contained in this document represents components of the legal health record. It is not the complete legal health record.[facility]
--- OUTSIDE RECORDS SUMMARY | 2024-12-14 17:42 | XMS_ITS | Clinical Summary ---
Author Organization [facility] Address [address] [place] [address] Care Team Providers Care Senior It Specialist Name Role Phone Talisha Manzanares MD Primary Care Provider +1- [phone] Immunizations Name Administration Dates Next Due Pfizer SARS-CoV-2 COVID-19, mRNA, LNP-S, preservative free 02/05/2021,01/08/2021 Surgical History Surgery Date Site/Laterality Comments OTHER SURGICAL HISTORY PROCEDURE: [place] SPINE DEVICE IMPLANT SURGERY Medical History Medical [...] age to complete this topic Care Teams Senior It Specialist Relationship Specialty Start Date End Date Talisha Manzanares MD [address] [place] [phone] PCP - General Family Medicine 10/31/18
--- OUTSIDE RECORDS SUMMARY | 2024-12-14 17:42 | XMS_ITS | Clinical Summary ---
Author Organization [facility] Address [facility] [employer] [address] [address] Phone Care Team Providers Care Leather Roller Name Role Phone Talisha Manzanares MD Primary [...] in comments). Taking 3-4 times week Active terazosin (HYTRIN) 5 MG capsule Take 5 mg by mouth nightly at bedtime. 11/07/2024 Active Hospital, Clinic, or Other Facility Administered Medication Ordered Dose Route Frequency Start Date End Date Status lidocaine (XYLOCAINE) 1% injection 3 mL 3 mL Infil Once 11/10/2024 02/08/2025 Active lidocaine (XYLOCAINE) 1% injection 3 mL 3 mL Infil Once 11/10/2024 02/08/2025 Active lidocaine (XYLOCAINE) 1% injection 4 mL 4 mL Infil Once 11/10/2024 02/08/2025 Active lidocaine (XYLOCAINE) 1% injection 4 mL 4 mL Infil Once 11/10/2024 02/08/2025 Active triamcinolone acetonide (KENALOG-40) 40 mg/mL injection 40 mg 40 mg IM Once 11/10/2024 02/08/2025 Active triamcinolone acetonide (KENALOG-40) 40 mg/mL injection 40 mg 40 mg IM Once 11/10/2024 02/08/2025 Active Active Problems Problem Noted Date Diagnosed [...] mg PO taken as needed and hydrocodone-acetaminophen (Wink 7.5-325 mg) 1 table PO as needed with typical use being twice weekly. He has a contract with his PCP for chronic opioid management. Discussed the possibility that it may be more difficulty to control his post-operative pain given current chronic opioid use, however he is only using minimal Wink at twice weekly and did discuss weaning [...] knee 06/10/2023 07/30/2023 Depression 09/12/2020 06/10/2023 07/30/2023 Encounters Date Type Department Care Team Description 11/10/2024 2:00 PM EST Office Visit [facility] Orthopedics & Sports Medicine [address] [place] [phone] Hernán Grissom PA-C Rotator cuff tendinitis, right (Primary Dx); Rotator cuff tendinitis, left from Last 3 Months Family History Medical History Relation Comments Alcohol [...] 11/11/2023 2:37 PM EST Plan of Treatment Health Maintenance Due Date Last Done Comments DEPRESSION SCREENING 1967 SMOKING Hx and SMOKELESS TOBACCO SCREENING 1968 HEPATITIS C SCREENING 1973 COLOGUARD 2000 FIT TEST 2000 FOBT 2000 SIGMOIDOSCOPY 2000 VIRTUAL COLONOSCOPY 2000 ABDOMINAL AORTIC ANEURYSM (AAA) SCREENING 2020 ZOSTER VACCINES (2 of 2) 05/26/2021 03/31/2021 LIPID PANEL 09/30/2023 09/30/2018, 09/23/2016 INFLUENZA VACCINE (#1) 2024 , 08/05/2020, 08/28/2016, Additional history exists COVID-19 VACCINE ( season) 2024 04/19/2023, 04/06/2022, 08/19/2021, Additional history exists COLONOSCOPY 10/15/2025 10/15/2015 COLORECTAL CANCER SCREENING 10/15/2025 SCREENING FOR DIABETES 07/26/2026 07/26/2023, 2022 Adult Td,Tdap Booster 08/05/2030 08/05/2020, 011 RSV VACCINE (1 - 1-dose 75+ series) 2030 PNEUMOCOCCAL VACCINES (50+ years) Completed 04/28/2024, 04/19/2023 HEPATITIS A VACCINES Aged Out No long [...] Recently Relevant to Health Maintenance Care Teams Leather Roller Relationship Specialty Start Date End Date Talisha Manzanares MD [address] [place] [phone] [email or web address] PCP - General 07/27/17 Additional Source Comments The information contained in this document represents components of the legal health record. It is not the complete legal health record.[facility]
--- OUTSIDE RECORDS SUMMARY | 2024-12-14 17:42 | XMS_ITS | Encounter Summary ---
Author Organization [facility] Address [address] [place] [address] Phone Care Team Providers Care Systems Software Engineer Name Role Phone Talisha Manzanares MD Primary Care Provider + Encounter Details Date Type Department Care Team (Late st Contact Info) Description 10/08/2023 Procedure Pass [place] Admitting Dept - Virtual Department [address] [place] [address] Social History Tobacco Use Types Packs/Day Years [...] on filedocumented in this encounter Care Teams Systems Software Engineer Relationship Specialty Start Date End Date Talisha Manzanares MD [address] [place] [address] [email or web address] PCP - General 07/27/17 documented as of this encounter Additional Source Comments The information contained in this document represents components of the legal health record. It is not the complete legal health record.[facility]
--- OUTSIDE RECORDS SUMMARY | 2024-12-14 17:42 | XMS_ITS | Encounter Summary ---
Author Organization [facility] Address [address] [place] [address] Care Team Providers Care Automatic Shirring Machine Operator Name Role Phone Talisha Manzanares Primary Care Provider Natty vailable Encounter Details Date Type Department Care Team Description 11/20/2021 [facility] Medical [facility] Neurosurgery [place] [address] [place] [address] Yong Ch MD, PHD Social [...] on filedocumented in this encounter Care Teams Automatic Shirring Machine Operator Relationship Specialty Start Date End Date Talisha Manzanares PCP - General Family Practice 11/13/19 documented as of this encounter
--- OUTSIDE RECORDS SUMMARY | 2024-12-14 17:42 | XMS_ITS | Encounter Summary ---
Author Organization [facility] Address [address] [place] [address] Phone Care Team Providers Care Skills Trainer Name Role Phone Talisha Manzanares MD Primary Care Provider + Encounter Details Date Type Department Care Team (Late st Contact Info) Description 09/22/2023 Procedure Pass [place] Admitting Dept - Virtual Department [address] [place] [address] Social History Tobacco Use Types Packs/Day Years [...] on filedocumented in this encounter Care Teams Skills Trainer Relationship Specialty Start Date End Date Talisha Manzanares MD [address] [place] [phone] [email or web address] PCP - General 07/27/17 documented as of this encounter Additional Source Comments The information contained in this document represents components of the legal health record. It is not the complete legal health record.[facility]
--- OUTSIDE RECORDS SUMMARY | 2024-12-14 17:42 | XMS_ITS | Encounter Summary ---
Author Organization [facility] Address [address] [facility] [address] [place] [address] Phone Care Team Providers Care Synthetic Department Supervisor Name Role Phone Talisha Manzanares MD Primary Care Provider + Encounter Details Date Type Department Care Team (Late st Contact Info) Description 02/18/2023 Procedure [facility] for Outpatient Care, Radio Flouroscopy [address] [place] [address] Social History Tobacco Use Types Packs/Day Years [...] on filedocumented in this encounter Care Teams Synthetic Department Supervisor Relationship Specialty Start Date End Date Talisha Manzanares [place] [address] PCP - General 07/27/17 documented as of this encounter Additional Source Comments The information contained in this document represents components of the legal health record. It is not the complete legal health record.[facility]
--- OUTSIDE RECORDS SUMMARY | 2024-12-14 17:42 | XMS_ITS | Encounter Summary ---
Author Organization [facility] Address [address] [facility] [address] [place] [address] Phone Care Team Providers Care Dental Ceramist Helper Name Role Phone Talisha Manzanares MD Primary Care Provider + Encounter Details Date Type Department Care Team (Late st Contact Info) Description 12/24/2022 Transcribe Orders [facility] Outpatient Care, Radio Flouroscopy [address] [place] [address] Binta Harris [address] [place] [address] [email or web address] Social History Tobacco Use Types Packs/Day [...] on filedocumented in this encounter Care Teams Dental Ceramist Helper Relationship Specialty Start Date End Date Talisha Manzanares MD [address] [place] [address] PCP - General 07/27/17 documented as of this encounter Additional Source Comments The information contained in this document represents components of the legal health record. It is not the complete legal health record.[facility]
--- OUTSIDE RECORDS SUMMARY | 2024-12-14 17:42 | XMS_ITS | Encounter Summary ---
Author Organization [facility] Address [address] [place] [address] Care Team Providers Care Immigration Investigator Name Role Phone Talisha Manzanares Primary Care Provider Natty vailable Encounter Details Date Type Department Care Team Description 09/03/2020 Transfer Records Medical Records [address] [place] [address] Abstract, Provider Social History Tobacco Use Types Packs/Day Years Used Date Smoking Tobacco: Never Assessed Sex Assigned at Date Recorded Not on file documented as of this encounter Plan of Treatment Not on file documented as of this encounter Visit Diagnoses Not on filedocumented in this encounter Care Teams Immigration Investigator Relationship Specialty Start Date End Date Talisha Manzanares PCP - General Family Practice 11/13/19 documented as of this encounter
== END 2024-12-14 14:48 | disposition home or self-care (01) ==
PROVIDERS: PCP Family Medicine; Visit Provider Anesthesiology
DX: G89.4 Chronic pain syndrome (principal); M51.16 Intervertebral disc disorders with radiculopathy, lumbar region; M96.1 Postlaminectomy syndrome, not elsewhere classified; Z98.890 Other specified postprocedural states; Z45.1 Encounter for adjustment and management of infusion pump; M54.51 Vertebrogenic low back pain; T85.615A Breakdown (mechanical) of other nervous system device, implant or graft, initial encounter
CPT/HCPCS: 62370; 99213

== ENCOUNTER → 2024-12-14 14:24 | Outpatient (BNVA) | payer MEDICARE, MEDICAID, SELFPAY | PROVIDERS: PCP Family Medicine; Visit Provider Anesthesiology | DX: G89.4 Chronic pain syndrome (principal); M51.16 Intervertebral disc disorders with radiculopathy, lumbar region; M96.1 Postlaminectomy syndrome, not elsewhere classified; M54.51 Vertebrogenic low back pain; T85.615A Breakdown (mechanical) of other nervous system device, implant or graft, initial encounter; X58.XXXA Exposure to other specified factors, initial encounter; Y93.9 Activity, unspecified; Y92.9 Unspecified place or not applicable; Y99.9 Unspecified external cause status; Z45.1 Encounter for adjustment and management of infusion pump; Z79.899 Other long term (current) drug therapy | CPT/HCPCS: 62370; 99212 ==

== ENCOUNTER 2024-12-27 15:40 | Outpatient (AMB) | payer MEDICARE, MEDICAID, SELFPAY ==
[2024-12-27 15:45] VITALS: BP 138/71; PULSE 64; O2SAT 96; BMI 28.8
--- NOTE | 2024-12-27 15:45 | A.OFFVIS_ITS ---
Vital Signs 12/27/24 15:45 Height 5 ft 9 in Weight 195 lb BMI 28.8 BP 138/71 Blood Pressure Location Rt brachial Position Sitting Pulse 64 Pulse Source Pulse Oximeter Pulse Oximetry (%) 96 Oxygen Delivery Method Room Air Intake Visit Reasons: Pain Pump Follow Up Per Dr. Bhardwaj Chiropractic Practice Manager Required: No Allergies No Known Allergies [No Known Allergies*] Allergy (Verified 12/27/24 15:48) Medication List - Last Reconciled 12/27/24 by Paige Malloy, RN BARIATRIC cephalexin 1,000 mg (2 x 500 mg) PO Q8H 16 days naloxone 4 mg/actuation 4 mg intranasal Q2M 1 day pregabalin 75 mg PO DAILY quetiapine (Seroquel) 100 mg PO BEDTIME selegiline (Emsam) 1 patch transdermal DAILY terazosin 5 mg PO BEDTIME 90 days HPI Comments Details: Hernán is today in the office for intrathecal pain pump adjustment and the follow- up. Again we discussed possibility of treatment of his pain with BVN radiofrequency ablation. He also has discrepancy on last pump refill so I schedule him for dye study of his pain pump. Prolonged and detailed discussion was held about intercept procedure and relationship of this patient's pain this procedure. Patient decided to think about it and let me know about his decision. We will continue escalation of his pain pump medication as soon as we know the reason for obstruction of the intrathecal catheter. Prior: status post ITDD Pain Pump Implant 05/12/24. Originally he was referred by Dr. Nix for evaluation for spinal cord stimulator. He is status post laminectomy L3-L4 and L5-S1 diskectomy with posterior lateral fusion. He has L5 radiculopathy EMG confirmed. On recommendation of Dr. Ch I tried spinal cord stimulator on him [place] [employer]. The procedure was very difficult technically. However I was able to establish 2 leads in the thoracic spine. Patient reported minimal pain improvement while on stimulation. At the end of the [place] [employer] trial he was switched to Nevro SCS, unfortunately that did not help his pain in more extent either. He was absent from my care for 2 years , after that he came back requesting the discussion about pain pump he was offered to him at that time. Because the patient was on opioids [place] 7.5 mg TID, initially bupivacaine pain pump was considered however it resulted in poor pain control and side effects. He was switched for hydromorphone. Dr. Ch did not recommend additional surgical intervention and advised he undergo a SCS trial, and thus he was referred to us. He describes a numbness and burning down his right posterior lateral leg extending to the top of his right into his toes. This is worsened with sitting, reaching pain level 8-9/10. He had done extensive PT and also had multiple injections prior to his surgery while seeing pain management provider Dr. Geronimo in [place]. [facility] Medical History History of urinary retention History of numbness Chronic pain syndrome Radiculopathy due to lumbar intervertebral disc disorder Postlaminectomy syndrome Surgical History History of surgery History of basal cell carcinoma excision History of lumbar laminectomy History of laminectomy History of back surgery Hx of arthroscopy of shoulder Hx of repair of rotator cuff Social History Patient Tobacco Use Status: Former Tobacco user Review of Systems Const All systems reviewed & are unremarkable except as noted in HPI and below ENT Reports Normal hearing present Neuro Reports Normal hearing present, Denies confusion and Denies Sensory deficit (Neuro) Psych Denies confusion Physical Exam Vital Signs: Last Vital Signs Pulse 64 12/27/24 15:45 BP 138/71 12/27/24 15:45 Pulse Ox 96 12/27/24 15:45 Oxygen Delivery Method Room Air 12/27/24 15:45 BMI result Body Mass Index 28.8 Const General: No confusion Orientation/consciousness: No confusion Eyes Pupils: Equal, round and reactive pupils present EOM: EOMs intact bilaterally Chest Chest palpation & inspection: normal inspection of the chest Resp Effort & Inspection: normal respiratory effort, able to speak in complete sentences, normal respiratory pattern, no audible wheezes and no cough Cardio Jugular venous distension: no JVD Back/Spine/Pelvis Other: Lumbar Spine/Lower back/SIJ: SACROILIAC JOINT No tenderness to palpation. INSPECTION: normal curvature of spine, scar from previous surgery. RANGE OF MOTION decreased extention. PALPATION: no vertebral spine tenderness. STRAIGHT LEG RAISING TEST: positive at 45 degrees on right. MOTOR SYSTEM: 5/5 bilateral lower extremities. SENSORY EXAM: paresthesias right L4-5 distribution. REFLEXES: symmetrical 2+. GAIT: unremarkable. Neuro General: No confusion Cranial nerves: Yes Equal, round and reactive pupils present and Yes Normal hearing present Sensory Exam: No Sensory deficit (Neuro) Psych Speech and movement: Normal speech and movement present Affect: normal affect Attitude: cooperative Thought process: Normal thought process present Thought content: Normal thought content present Insight: Good insight present (Psych) Judgement: Good judgement present (Psych) Assessment & Plan Assessment & Plan (1) Chronic pain syndrome: Code(s): G89.4 - Chronic pain syndrome Category: Medical (2) Radiculopathy due to lumbar intervertebral disc disorder: Code(s): M51.16 - Intervertebral disc disorders with radiculopathy, lumbar region Category: Medical (3) Postlaminectomy syndrome: Code(s): M96.1 - Postlaminectomy syndrome, not elsewhere classified Category: Medical (4) S/P insertion of intrathecal pump: Code(s): Z98.890 - Other specified postprocedural states Category: Surgical Plan: . . (5) Vertebrogenic low back pain: Code(s): M54.51 - Vertebrogenic low back pain Category: Medical (6) Malfunction of intrathecal infusion pump: Code(s): T85.615A - Breakdown (mechanical) of other nervous system device, implant or graft, initial encounter Category: Medical Plan Vertebra genic pain syndrome was suspected because patient complains on pain continuously increasing with prolonged sitting and prolonged standing. He was sent for the MRI of the lumbar spine results of which dictated as above. I offered him BVN RFA intercept. He did not make a decision yet. Prolonged and detailed conversation was held about the procedure. The risks and benefits were explained to the patient. This procedure does not have a trial injection therefore we just need to perform it was expectation to have his pain alleviated. Meanwhile his pain pump demonstrates discrepancy more than 4 cc. I schedule him for dye study. After dye study I will continue escalation of the medications doses however I informed frankly the patient today that escalation of the opioids may lead to urinary retention as well as it was when he was on bupivacaine with his pain pump. Patient Instructions: I here by testify that I spent 30 minutes in conversation with this patient as well as planning his care and organizing this note. Coding Level of Care Code Est Pt Level 4 (33674) Diagnoses Chronic pain syndrome G89.4 Radiculopathy due to lumbar intervertebral disc disorder M51.16 Postlaminectomy syndrome M96.1 S/P insertion of intrathecal pump Z98.890 Vertebrogenic low back pain M54.51 Malfunction of intrathecal infusion pump T85.257G
--- OUTSIDE RECORDS SUMMARY | 2024-12-27 17:37 | XMS_ITS | Clinical Summary ---
Author Organization [facility] Address [facility] [place] [address] [address] Phone Care Team Providers Care Skin Pass Operator Name Role Phone Talisha Manzanares MD [...] mg PO taken as needed and hydrocodone-acetaminophen ([place] 7.5-325 mg) 1 table PO as needed with typical use being twice weekly. He has a contract with his PCP for chronic opioid management. Discussed the possibility that it may be more difficulty to control his post-operative pain given current chronic opioid use, however he is only using minimal [place] at twice weekly and did discuss weaning [...] coronary syndromes including unstable or severe angina, [place] within 1 month, severe CHF, high grade [...] 2:00 PM EST Office Visit [facility] [address] [place] [address] Hernán Grissom PA-C Rotator cuff tendinitis, right [...] Recently Relevant to Health Maintenance Care Teams Skin Pass Operator Relationship Specialty Start Date End Date Talisha Manzanares MD [address] [place] [phone] [email or web address] PCP - General 07/27/17 Additional Source Comments The information contained in this document represents components of the legal health record. It is not the complete legal health record.[facility]
--- OUTSIDE RECORDS SUMMARY | 2024-12-27 17:37 | XMS_ITS | Encounter Summary ---
Author Organization [facility] Address [address] [place] [address] Care Team Providers Care Coffee Urn Attendant Name Role Phone Unavailable Primary Care Provider Unavailabl e Encounter Details Date Type Department Care Team (Late st Contact Info) Description 07/05/2017 Ophthalmology Data Conversion [facility] Historical Conversion Department [address] [place] [address] [address] Social History Tobacco Use Types Packs/Day Years [...]
--- OUTSIDE RECORDS SUMMARY | 2024-12-27 17:37 | XMS_ITS | Encounter Summary ---
Author Organization [facility] Address [address] [facility] [address] [place] [address] Phone Care Team Providers Care Spring Encaser Name Role Phone Talisha Manzanares MD Primary Care Provider + Encounter Details Date Type Department Care Team (Late st Contact Info) Description 02/18/2023 Procedure [facility], Radio Flouroscopy [address] [place] [address] Social History Tobacco Use Types Packs/Day Years [...] on filedocumented in this encounter Care Teams Spring Encaser Relationship Specialty Start Date End Date Talisha Man[place] [address] PCP - General 07/27/17 documented as of this encounter Additional Source Comments The information contained in this document represents components of the legal health record. It is not the complete legal health record.[facility]
--- OUTSIDE RECORDS SUMMARY | 2024-12-27 17:37 | XMS_ITS | Clinical Summary ---
Author Organization [facility] Address [address] [place] [address] Care Team Providers Care Deputy Coroner Investigator Name Role Phone Talisha Manzanares MD Primary Care Provider [phone] Immunizations Name Administration Dates Next Due Pfizer SARS-CoV-2 COVID-19, mRNA, LNP-S, preservative free 02/05/2021,01/08/2021 Surgical History Surgery Date Site/Laterality Comments OTHER SURGICAL HISTORY PROCEDURE: DC SPINE DEVICE IMPLANT SURGERY Medical History Medical [...] age to complete this topic Care Teams Deputy Coroner Investigator Relationship Specialty Start Date End Date Talisha Manzanares MD [address] [place] [phone] PCP - General Family Medicine 10/31/18
--- OUTSIDE RECORDS SUMMARY | 2024-12-27 17:37 | XMS_ITS | Encounter Summary ---
Author Organization [facility] Address [address] [employer] [address] [place] [address] Phone Care Team Providers Care Eap Clinician Name Role Phone Talisha Manzanares MD Primary Care Provider + Encounter Details Date Type Department Care Team (Late st Contact Info) Description 11/19/2022 Procedure [facility], Radio Flouroscopy [address] [place] [address] Social History Tobacco Use Types Packs/Day Years [...] on filedocumented in this encounter Care Teams Eap Clinician Relationship Specialty Start Date End Date Talisha [place] [address] PCP - General 07/27/17 documented as of this encounter Additional Source Comments The information contained in this document represents components of the legal health record. It is not the complete legal health record.[facility]
--- OUTSIDE RECORDS SUMMARY | 2024-12-27 17:37 | XMS_ITS | Encounter Summary ---
Author Organization [facility] Address [address] [place] [address] Care Team Providers Care Cake Puller Name Role Phone Talisha Manzanares Primary Care Provider Natty vailable Encounter Details Date Type Department Care Team Description 08/08/2020 Corporate Sales Manager Report Medical Records [address] [place] [address] Yong Ch MD, PHD Social History Tobacco Use Types Packs/Day Years Used Date Smoking Tobacco: Never Assessed Sex Assigned at Date Recorded Not on file documented as of this encounter Plan of Treatment Not on file documented as of this encounter Visit Diagnoses Not on filedocumented in this encounter Care Teams Cake Puller Relationship Specialty Start Date End Date Talisha Manzanares PCP - General Family Practice 11/13/19 documented as of this encounter
--- OUTSIDE RECORDS SUMMARY | 2024-12-27 17:37 | XMS_ITS | Encounter Summary ---
Author Organization [facility] Address [address] [address] Phone Care Team Providers Care Salesforce Trainer Name Role Phone Talisha Manzanares MD Primary Care Provider + Encounter Details Date Type Department Care Team (Late st Contact Info) Description 10/22/2022 Telephone [facility] Orthopaedic Spine [address] [place] [address] Pasha Cassidy MD [address] [place] [address] [email or web address] Social History Tobacco Use Types Packs/Day Years [...] on filedocumented in this encounter Care Teams Salesforce Trainer Relationship Specialty Start Date End Date Talisha Manzanares MD [address] [place] [address] [email or web address] PCP - General 07/27/17 documented as of this encounter Additional Source Comments The information contained in this document represents components of the legal health record. It is not the complete legal health record.[facility]
--- OUTSIDE RECORDS SUMMARY | 2024-12-27 17:37 | XMS_ITS | Encounter Summary ---
Author Organization [facility] Address [address] [place] [address] Phone Care Team Providers Care Health Safety Manager Name Role Phone Talisha Manzanares MD Primary Care Provider + Encounter Details Date Type Department Care Team (Late st Contact Info) Description 10/08/2023 Procedure Pass [place] Admitting Dept - Virtual Department [address] [place] [address] Social History Tobacco Use Types Packs/Day Years [...] on filedocumented in this encounter Care Teams Health Safety Manager Relationship Specialty Start Date End Date Talisha Manzanares MD [address] [place] [address] [email or web address] PCP - General 07/27/17 documented as of this encounter Additional Source Comments The information contained in this document represents components of the legal health record. It is not the complete legal health record.[facility]
--- OUTSIDE RECORDS SUMMARY | 2024-12-27 17:37 | XMS_ITS | Encounter Summary ---
Author Organization [facility] Address [address] [facility] [address] [place] [address] Phone Care Team Providers Care Airplane Gas Tank Liner Assembler Name Role Phone Talisha Manzanares MD Primary Care Provider + Reason for Referral * Physical Therapy (Routine) - Closed Specialty Diagnoses / Procedures Referred By Xavier goldstein Referred To Contact Physical Therapy Diagnoses Encounter for rehabilitation Hernán Mejia PA [address] [place] [address] [facility] Parent [address] [place] [address] Referral ID Status Reason Start Date Expiration Date Visits Re quested Visits Authorized [id number] Closed 07/21/2021 07/21/2022 1 1 Encounter Details Date Type Department Care Team (Latest Contact Info) Description 07/21/2021 Transcribe Orders [facility] [address] [place] [address] Hernán Mejia PA [address] [place] [address] [email or web address] Encounter for rehabilitation (Primary Dx) Social History [...] Diagnoses Orde r Schedule Ambulatory referral to [facility] Physical Therapy Outpatient Referral Routine Encounter for rehabilitation Ordered: 07/21/2021 documented as of this encounter Visit Diagnoses Diagnosis Encounter for rehabilitation- Primary documented in this encounter Care Teams Airplane Gas Tank Liner Assembler Relationship Specialty Start Date End Date Talisha Manzanares MD [address] [place], [place] [id number] [email or web address] PCP - General 07/27/17 documented as of this encounter Additional Source Comments The information contained in this document represents components of the legal health record. It is not the complete legal health record.[facility]
--- OUTSIDE RECORDS SUMMARY | 2024-12-27 17:37 | XMS_ITS | Clinical Summary ---
Author Organization [facility] Address [address] [place] [address] Care Team Providers Care Fibre Optic Cable Splicer Name Role Phone Unavailable Primary Care Provider Unavailabl e Allergies No known active allergies Immunizations Immunization Administration Dates Next Due Covid-19, Pfizer, mRNA, [place] valent, PF 30 mcg/0.3 mL dose (for [...] age to complete this topic Insurance [facility]IC[facility]
--- OUTSIDE RECORDS SUMMARY | 2024-12-27 17:37 | XMS_ITS | Clinical Summary ---
Author Organization [facility] Address [address] [place] [address] Care Team Providers Care Assistance Specialist Name Role Phone Talisha Manzanares MD [...] Advance Directives For more information, please contact: [phone] Documents on File Type Date Recorded Patient Manager Animation Expl anation Advance Directive and Living Will 04/19/2020 8:19 AM questionnaire Care Teams Assistance Specialist Relationship Specialty Start Date End Date Talisha Manzanares MD [address] [place] [address] PCP - General Family Medicine 10/31/18
--- OUTSIDE RECORDS SUMMARY | 2024-12-27 17:37 | XMS_ITS | Referral Summary ---
Author Organization [facility] Address [address] [place] [address] Care Team Providers Care Top Precipitator Operator Name Role Phone Unavailable Primary Care Provider Unavailabl e Allergies No known active allergies Immunizations Immunization Administration Dates Next Due Covid-19, Pfizer, mRNA, [place] valent, PF 30 mcg/0.3 mL dose (for [...] of Treatment Not on file Insurance MEDICARE [facility]
--- OUTSIDE RECORDS SUMMARY | 2024-12-27 17:37 | XMS_ITS | Encounter Summary ---
Author Organization [facility] Address [facility] [place] [address] [address] Phone Care Team Providers Care Tractor Sweeper Operator Name Role Phone Talisha Manzanares MD Primary Care Provider + Encounter Details Date Type Department Care Team (Late st Contact Info) Description 11/01/2023 Procedure Pass [facility], X-Ray - [facility] [address] [place] [address] Social History Tobacco Use Types Packs/Day Years [...] on filedocumented in this encounter Care Teams Tractor Sweeper Operator Relationship Specialty Start Date End Date Talisha Manzanares MD [address] [place] [phone] [email or web address] PCP - General 07/27/17 documented as of this encounter Additional Source Comments The information contained in this document represents components of the legal health record. It is not the complete legal health record.[facility]
--- OUTSIDE RECORDS SUMMARY | 2024-12-27 17:37 | XMS_ITS | Encounter Summary ---
Author Organization [facility] Address [address] [place] [address] Care Team Providers Care Medical Billing Specialist Name Role Phone Talisha Manzanares Primary Care Provider Natty vailable Encounter Details Date Type Department Care Team Description 11/20/2021 [facility] Neurosurgery [place] [address] [place] [address] Yong Ch MD, PHD Social [...] on filedocumented in this encounter Care Teams Medical Billing Specialist Relationship Specialty Start Date End Date Talisha Manzanares PCP - General Family Practice 11/13/19 documented as of this encounter
--- OUTSIDE RECORDS SUMMARY | 2024-12-27 17:37 | XMS_ITS | Encounter Summary ---
Author Organization [facility] Address [address] [place] [address] Phone Care Team Providers Care Loss Prevention Manager Name Role Phone Tlaisha Manzanares MD Primary Care Provider + Encounter Details Date Type Department Care Team (Late st Contact Info) Description 09/22/2023 Procedure Pass [place] Admitting Dept - Virtual Department [address] [place] [address] Social History Tobacco Use Types Packs/Day Years [...] on filedocumented in this encounter Care Teams Loss Prevention Manager Relationship Specialty Start Date End Date Talisha Manzanares MD [address] [place] [address] [email or web address] PCP - General 07/27/17 documented as of this encounter Additional Source Comments The information contained in this document represents components of the legal health record. It is not the complete legal health record.[facility]
--- OUTSIDE RECORDS SUMMARY | 2024-12-27 17:37 | XMS_ITS | Encounter Summary ---
Author Organization [facility] Address [address] [place] [address] Phone Care Team Providers Care Proteomics Scientist Name Role Phone Talisha Manzanares MD Primary Care Provider + Talisha Manzanares MD Unavailable [phone] Encounter Details Date Type Department Care Team (Late st Contact Info) Description 02/01/2018 Ancillary Orders Virtual Department [address] [place] [address] Estela Rowell PA-C [address] [place] [phone] [email or web address] Globus syndrome Social History Tobacco [...] min. 39 sec; ??11 IMAGES/FRAMES POS - [id number] Narrative 02/09/2018 10:38 AM EDT COMPARISON: None. BARIUM SWALLOW FINDINGS: Tractor Trailer Driver lateral neck radiograph was obtained. ??Soft tissues [...] - 02/09/2018 COMPARISON: None. BARIUM SWALLOW FINDINGS: Tractor Trailer Driver lateral neck radiograph was obtained. Soft tissues [...] min. 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 It is not the complete legal health record.[facility]
--- OUTSIDE RECORDS SUMMARY | 2024-12-27 17:37 | XMS_ITS | Encounter Summary ---
Author Organization [facility] Address [facility] [employer] [address] [address] Phone Care Team Providers Care Branding Machine Tender Name Role Phone Talisha Manzanares MD Primary Care Provider + Encounter Details Date Type Department Care Team (Late st Contact Info) Description 11/01/2023 Procedure Pass [facility] [address] [place] [address] Social History Tobacco Use Types Packs/Day Years [...] on filedocumented in this encounter Care Teams Branding Machine Tender Relationship Specialty Start Date End Date Talisha Manzanares MD [address] [place] [address] [email or web address] PCP - General 07/27/17 documented as of this encounter Additional Source Comments The information contained in this document represents components of the legal health record. It is not the complete legal health record.[facility]
--- OUTSIDE RECORDS SUMMARY | 2024-12-27 17:37 | XMS_ITS | Encounter Summary ---
Author Organization [facility] Address [address] [email or web address] [address] [place] [address] Phone Care Team Providers Care Medication Aide Name Role Phone Talisha Manzanares MD Primary Care Provider + Encounter Details Date Type Department Care Team (Late st Contact Info) Description 12/24/2022 Transcribe Orders [facility] Outpatient Care, Radio Flouroscopy [address] [place] [address] Binta Harris [address] [place] [address] [email or web address] Social History Tobacco Use Types Packs/Day Years [...] on filedocumented in this encounter Care Teams Medication Aide Relationship Specialty Start Date End Date Talisha Manzanares MD [address] [place] [phone] PCP - General 07/27/17 documented as of this encounter Additional Source Comments The information contained in this document represents components of the legal health record. It is not the complete legal health record.[facility]
--- OUTSIDE RECORDS SUMMARY | 2024-12-27 17:37 | XMS_ITS | Encounter Summary ---
Author Organization [facility] Address [address] [place] [address] Care Team Providers Care Filament Coil Winder Name Role Phone Talisha Manzanares Primary Care Provider Natty vailable Encounter Details Date Type Department Care Team Description 01/13/2022 [facility] [address] [place] [address] Yong Ch MD, PHD Social History Tobacco Use Types Packs/Day Years Used Date Smoking Tobacco: Former Cigarettes Q uit: 1986 Smokeless Tobacco: Never Sex Assigned at Date Recorded Not on file documented as of this encounter Plan of Treatment Not on file documented as of this encounter Visit Diagnoses Not on filedocumented in this encounter Care Teams Filament Coil Winder Relationship Specialty Start Date End Date Talisha Manzanares PCP - General Family Practice 11/13/19 documented as of this encounter
--- OUTSIDE RECORDS SUMMARY | 2024-12-27 17:37 | XMS_ITS | Encounter Summary ---
Author Organization [facility] Address [address] [place] [address] Care Team Providers Care Cinder Snapper Name Role Phone Talisha Manzanares Primary Care Provider Natty vailable Encounter Details Date Type Department Care Team Description 09/17/2020 Release of Information Medical Records [address] [place] [address] Abstract, Provider Social History Tobacco Use Types [...] filedocumented in this encounter Care Teams Cinder Snapper Relationship Specialty Start Date End Date Talisha Manzanares PCP - General Family Practice 11/13/19 documented as of this encounter
--- OUTSIDE RECORDS SUMMARY | 2024-12-27 17:37 | XMS_ITS | Encounter Summary ---
Author Organization [facility] Address [facility] [address] [address] Phone Care Team Providers Care Bender Hand Name Role Phone Talisha Manzanares MD Primary Care Provider + Encounter Details Date Type Department Care Team (Late st Contact Info) Description 11/04/2021 Ancillary Orders [facility],Outside Imaging [address] [place] [address] System, Provider Not In, [facility] [address] [address] Social History Tobacco Use Types Packs/Day Years [...] on filedocumented in this encounter Care Teams Bender Hand Relationship Specialty Start Date End Date Talisha Manzanares MD [address] [place] [phone] [email or web address] PCP - General 07/27/17 documented as of this encounter Additional Source Comments The information contained in this document represents components of the legal health record. It is not the complete legal health record.[facility]
--- OUTSIDE RECORDS SUMMARY | 2024-12-27 17:37 | XMS_ITS | Encounter Summary ---
Author Organization [facility] Address [address] [place] [address] Phone Care Team Providers Care Boring Mill Operator Name Role Phone Talisha Manzanares MD Primary Care Provider + Encounter Details Date Type Department Care Team (Late st Contact Info) Description 03/17/2023 Transcribe Orders [facility] for Outpatient Care, Radio Flouroscopy [address] [place] [address] Juan Stanton [address] [place] [address] [email or web address] Social History [...] on filedocumented in this encounter Care Teams Boring Mill Operator Relationship Specialty Start Date End Date Talisha Manzanares MD [address] [place] [address] [email or web address] PCP - General 07/27/17 documented as of this encounter Additional Source Comments The information contained in this document represents components of the legal health record. It is not the complete legal health record.[facility]
== END 2024-12-27 16:24 | disposition home or self-care (01) ==
LOC: HO.PMC 15:41
PROVIDERS: PCP Family Medicine; Visit Provider Anesthesiology
DX: G89.4 Chronic pain syndrome (principal); M51.16 Intervertebral disc disorders with radiculopathy, lumbar region; M96.1 Postlaminectomy syndrome, not elsewhere classified; Z98.890 Other specified postprocedural states; M54.51 Vertebrogenic low back pain; T85.615A Breakdown (mechanical) of other nervous system device, implant or graft, initial encounter
CPT/HCPCS: 99214

== ENCOUNTER → 2024-12-27 15:40 | Outpatient (BNVA) | payer MEDICARE, MEDICAID, SELFPAY | PROVIDERS: PCP Family Medicine; Visit Provider Anesthesiology | DX: G89.4 Chronic pain syndrome (principal); M51.16 Intervertebral disc disorders with radiculopathy, lumbar region; M96.1 Postlaminectomy syndrome, not elsewhere classified; M54.51 Vertebrogenic low back pain; T85.615A Breakdown (mechanical) of other nervous system device, implant or graft, initial encounter; X58.XXXA Exposure to other specified factors, initial encounter; Y93.9 Activity, unspecified; Y92.9 Unspecified place or not applicable; Y99.9 Unspecified external cause status; Z96.89 Presence of other specified functional implants | CPT/HCPCS: 99212 ==

== ENCOUNTER 2025-01-02 06:28 | Outpatient (REF) | payer MEDICARE, MEDICAID, SELFPAY ==
--- NOTE | ~2025-01-02 | FL_ITS ---
EXAMINATION: XR FLUOROSCOPY WITH IMAGES CLINICAL INFORMATION: Spinal stimulator placement. COMPARISON: Lumbar spine radiographs 10/26/2024. MR lumbar 11/05/2024. TECHNIQUE: Fluoroscopy provided to: Dr. Bhardwaj Fluoroscopy time: 1.1 minutes DAP: 0.248 mGycm2 Images: 4 FINDINGS: 4 spot images obtained during spinal stimulator placement . Please refer to full procedural report for details. FL/FL guidance in treatment room IMPRESSION: Fluoroscopic guidance. Electronically signed by: Roberto Fairchild MD 01/03/2025 03:20 PM EDT
== END 2025-01-02 06:29 | disposition home or self-care (01) ==
LOC: CF 06:28
PROVIDERS: Visit Provider Anesthesiology
DX: T85.615A Breakdown (mechanical) of other nervous system device, implant or graft, initial encounter (principal); M54.51 Vertebrogenic low back pain; M51.16 Intervertebral disc disorders with radiculopathy, lumbar region; M96.1 Postlaminectomy syndrome, not elsewhere classified; G89.4 Chronic pain syndrome; Z96.82 Presence of neurostimulator
CPT/HCPCS: 61070; Q9967

== ENCOUNTER 2025-01-02 13:37 | Outpatient (AMB) | payer MEDICARE, MEDICAID, SELFPAY ==
[2025-01-02 13:43] VITALS: BP 111/70; PULSE 57; O2SAT 98
--- NOTE | 2025-01-02 13:43 | MHC.OFFVIS ---
Vital Signs 01/02/25 13:43 01/02/25 14:12 BP 111/70 102/63 Blood Pressure Location Lt brachial Lt brachial Position Sitting Sitting Pulse 57 57 Pulse Source Pulse Oximeter Pulse Oximeter Pulse Oximetry (%) 98 98 Oxygen Delivery Method Room Air Room Air Comment Pre-procedure Post-procedure Intake Visit Reasons: CATHETER DYE STUDY PAIN PUMP Allergies No Known Allergies [No Known Allergies*] Allergy (Verified 12/27/24 15:48) PFSH Medical History History of urinary retention History of numbness Chronic pain syndrome Radiculopathy due to lumbar intervertebral disc disorder Postlaminectomy syndrome Surgical History History of surgery History of basal cell carcinoma excision History of lumbar laminectomy History of laminectomy History of back surgery Hx of arthroscopy of shoulder Hx of repair of rotator cuff Social History Patient Tobacco Use Status: Former Tobacco user Physical Exam Vital Signs: Last Vital Signs Pulse 57 01/02/25 14:12 BP 102/63 01/02/25 14:12 Pulse Ox 98 01/02/25 14:12 Oxygen Delivery Method Room Air 01/02/25 14:12 Assessment & Plan Assessment & Plan (1) Chronic pain syndrome: Code(s): G89.4 - Chronic pain syndrome Category: Medical (2) Radiculopathy due to lumbar intervertebral disc disorder: Code(s): M51.16 - Intervertebral disc disorders with radiculopathy, lumbar region Category: Medical (3) Postlaminectomy syndrome: Code(s): M96.1 - Postlaminectomy syndrome, not elsewhere classified Category: Medical (4) S/P insertion of intrathecal pump: Code(s): Z98.890 - Other specified postprocedural states Category: Surgical Plan: . . (5) Vertebrogenic low back pain: Code(s): M54.51 - Vertebrogenic low back pain Category: Medical (6) Malfunction of intrathecal infusion pump: Code(s): T85.615A - Breakdown (mechanical) of other nervous system device, implant or graft, initial encounter Category: Medical Plan Intrathecal catheter dye study x-ray guided. Informed consent was thoroughly explained to the patient risks and benefits were explained . The risks were delineated as risk of bleeding infection. She was positioned prone on the operating table and area of the pain pump was prepped with ChloraPrep and draped with fenestrated drape. C-arm was brought over the operating field and sq picture of the pain pump was demonstrated on the screen. After that 25 gauge 1-1/2 inch needle connected to the syringe via extension tubing was inserted into the side port of the pump under direct x-ray guidance and the needle was aspirated. 2 cc of clear straw-colored CSF was obtained from the side port. It demonstrated no obstruction of the intrathecal catheter. The syringe containing Isovue M contrast was connected to the extension tubing and injection of the contrast was performed into the side port of the pain pump. The contrast was followed to the thoracic spine were myelogram was demonstrated. Therefore the system is functioning appropriately. Patient was taken outside of the operating room and prime bolus was programmed the pain pump of the patient. We agreed that he will schedule an appointment with me and we will continue escalation of the dose of the opioid medication. Orders: Orders FL guidance in treatment room 01/02/25 T85.615A - Breakdown (mechanical) of other nervous system device, implant or graft, initial encounter Coding Level of Care Code Procedure Only Diagnoses Chronic pain syndrome G89.4 Radiculopathy due to lumbar intervertebral disc disorder M51.16 Postlaminectomy syndrome M96.1 S/P insertion of intrathecal pump Z98.890 Vertebrogenic low back pain M54.51 Malfunction of intrathecal infusion pump T85.615A
[2025-01-02 14:12] VITALS: BP 102/63; PULSE 57; O2SAT 98
== END 2025-01-02 14:17 | disposition home or self-care (01) ==
LOC: HO.PMCPRC 13:37
PROVIDERS: PCP Family Medicine; Visit Provider Anesthesiology
DX: T85.615A Breakdown (mechanical) of other nervous system device, implant or graft, initial encounter (principal); G89.4 Chronic pain syndrome; M51.16 Intervertebral disc disorders with radiculopathy, lumbar region; M96.1 Postlaminectomy syndrome, not elsewhere classified; Z98.890 Other specified postprocedural states; M54.51 Vertebrogenic low back pain
CPT/HCPCS: 61070; 75809

== ENCOUNTER 2025-01-08 15:26 | Outpatient (AMB) | payer MEDICARE, MEDICAID, SELFPAY ==
[2025-01-08 15:34] VITALS: BP 127/75; PULSE 61; O2SAT 98; BMI 28.1
--- NOTE | 2025-01-08 15:34 | A.OFFVIS_ITS ---
Vital Signs 01/08/25 15:34 Height 5 ft 9 in Weight 190 lb BMI 28.1 BP 127/75 Blood Pressure Location Lt brachial Position Sitting Pulse 61 Pulse Source Pulse Oximeter Pulse Oximetry (%) 98 Oxygen Delivery Method Room Air Intake Visit Reasons: Pain Pump Review Intake Note: Pain today 03/20 Juke Box Mechanic Required: No Accompanied by: Self / Same As Patient Allergies No Known Allergies [No Known Allergies*] Allergy (Verified 01/08/25 15:35) HPI Comments Details: Hernán is today in the office for intrathecal pain pump adjustment and the follow- up. He went for a dye study during which I was able to aspirate CSF from the side port of the pain pump and inject the dye into the catheter delineating myelogram. Therefore the pump is working appropriately although there maybe some positioned obstruction of the catheter. I decided to try baclofen for the patient. I will next time order for the patient hydromorphone 600 micro g per mL and baclofen 250 micro g per mL. The patient's pain is mostly in the right lower extremity and he denies pain in the axial back. I offered the patient right caudal epidural steroid injection with catheter he stated that he will think about this procedure, I also would like to see how baclofen addition to the pump will work on the patient before going for yet another invasive procedure on this patient. Prior: status post ITDD Pain Pump Implant 05/12/24. Originally he was referred by Dr. Nix for evaluation for spinal cord stimulator. He is status post laminectomy L3-L4 and L5 S1 diskectomy with posterior lateral fusion. He has L5 radiculopathy EMG confirmed. On recommendation of Dr. Ch I tried spinal cord stimulator on him [place] [employer]. The procedure was very difficult technically. However I was able to establish 2 leads in the thoracic spine. Patient reported minimal pain improvement while on stimulation. At the end of the [place] [employer] trial he was switched to [place] SCS, unfortunately that did not help his pain in more extent either. He was absent from my care for 2 years , after that he came back requesting the discussion about pain pump he was offered to him at that time. Because the patient was on opioids [place] 7.5 mg TID, initially bupivacaine pain pump was considered however it resulted in poor pain control and side effects. He was switched for hydromorphone. Dr. Ch did not recommend additional surgical intervention and advised he undergo a SCS trial, and thus he was referred to us. He describes a numbness and burning down his right posterior lateral leg extending to the top of his right into his toes. This is worsened with sitting, reaching pain level 8-9/10. He had done extensive PT and also had multiple injections prior to his surgery while seeing pain management provider Dr. Geronimo in [place]. [facility] Medical History History of urinary retention History of numbness Chronic pain syndrome Radiculopathy due to lumbar intervertebral disc disorder Postlaminectomy syndrome Surgical History History of surgery History of basal cell carcinoma excision History of lumbar laminectomy History of laminectomy History of back surgery Hx of arthroscopy of shoulder Hx of repair of rotator cuff Social History Patient Tobacco Use Status: Former Tobacco user Review of Systems Const All systems reviewed & are unremarkable except as noted in HPI and below ENT Reports Normal hearing present Neuro Reports Normal hearing present, Denies confusion and Denies Sensory deficit (Neuro) Psych Denies confusion Physical Exam Vital Signs: Last Vital Signs Pulse 61 01/08/25 15:34 BP 127/75 01/08/25 15:34 Pulse Ox 98 01/08/25 15:34 Oxygen Delivery Method Room Air 01/08/25 15:34 BMI result Body Mass Index 28.1 Const General: No confusion Orientation/consciousness: No confusion Eyes Pupils: Equal, round and reactive pupils present EOM: EOMs intact bilaterally Chest Chest palpation & inspection: normal inspection of the chest Resp Effort & Inspection: normal respiratory effort, able to speak in complete sentences, normal respiratory pattern, no audible wheezes and no cough Cardio Jugular venous distension: no JVD Back/Spine/Pelvis Other: Lumbar Spine/Lower back/SIJ: SACROILIAC JOINT No tenderness to palpation. INSPECTION: normal curvature of spine, scar from previous surgery. RANGE OF MOTION decreased extention. PALPATION: no vertebral spine tenderness. STRAIGHT LEG RAISING TEST: positive at 45 degrees on right. MOTOR SYSTEM: 5/5 bilateral lower extremities. SENSORY EXAM: paresthesias right L4-5 distribution. REFLEXES: symmetrical 2+. GAIT: unremarkable. Neuro General: No confusion Cranial nerves: Yes Equal, round and reactive pupils present and Yes Normal hearing present Sensory Exam: No Sensory deficit (Neuro) Psych Speech and movement: Normal speech and movement present Affect: normal affect Attitude: cooperative Thought process: Normal thought process present Thought content: Normal thought content present Insight: Good insight present (Psych) Judgement: Good judgement present (Psych) Assessment & Plan Assessment & Plan (1) Chronic pain syndrome: Code(s): G89.4 - Chronic pain syndrome Category: Medical (2) Radiculopathy due to lumbar intervertebral disc disorder: Code(s): M51.16 - Intervertebral disc disorders with radiculopathy, lumbar region Category: Medical (3) Postlaminectomy syndrome: Code(s): M96.1 - Postlaminectomy syndrome, not elsewhere classified Category: Medical (4) S/P insertion of intrathecal pump: Code(s): Z98.890 - Other specified postprocedural states Category: Surgical Plan: . . (5) Vertebrogenic low back pain: Code(s): M54.51 - Vertebrogenic low back pain Category: Medical (6) Malfunction of intrathecal infusion pump: Code(s): T85.615A - Breakdown (mechanical) of other nervous system device, implant or graft, initial encounter Category: Medical Plan: Pain pump adjustment Intrathecal pain pump was interrogated, there is enough of the medication in the pain pump for 2 weeks. The dose was adjusted like: Pain pump was adjusted today with increase of the dose of the medication from 115 0.17 micro g a day to 164 0.87 micro g a day of hydromorphone. Plan Unlikely vertebra genic pain syndrome, patient reports mostly pain in the extremity and absence of axial back pain. He denies pain with prolonged sitting although reports pain was increased activity. His pain is mostly in the leg. Pain pump was adjusted today with increase of the dose of the medication from 115 0.17 micro g a day to 164 0.87 micro g a day of hydromorphone. Next time in 2 weeks I will fill up his pump with hydromorphone 600 micro g as well as baclofen 250 micro g. Considering that pain of the patient is mostly radiating into the extremity I offered him caudal epidural steroid injection. He promised to think about it, he is not very eager to go for yet another invasive procedure. Patient Instructions: I here by testify that I spent 30 minutes in conversation with this patient as well as planning his care evaluating his prior diagnostic studies and organizing this note. Coding Level of Care Code Est Pt Level 4 (60236) Procedure Only Diagnoses Chronic pain syndrome G89.4 Radiculopathy due to lumbar intervertebral disc disorder M51.16 Postlaminectomy syndrome M96.1 S/P insertion of intrathecal pump Z98.890 Vertebrogenic low back pain M54.51 Malfunction of intrathecal infusion pump T85.615A
--- OUTSIDE RECORDS SUMMARY | 2025-01-08 17:26 | XMS_ITS | Encounter Summary ---
Author Organization [facility] Address [address] [facility] [address] [place] [address] Phone Care Team Providers Care Reimbursement Spec Name Role Phone Talisha Manzanares MD Primary Care Provider + Encounter Details Date Type Department Care Team (Late st Contact Info) Description 02/18/2023 Procedure [facility] for Outpatient Care, Radio Flouroscopy [address] [place] [address] Social History Tobacco Use Types Packs/Day Years [...] on filedocumented in this encounter Care Teams Reimbursement Spec Relationship Specialty Start Date End Date Talisha Manzanares MD [employer] [address] PCP - General 07/27/17 documented as of this encounter Additional Source Comments The information contained in this document represents components of the legal health record. It is not the complete legal health record.[facility]
--- OUTSIDE RECORDS SUMMARY | 2025-01-08 17:26 | XMS_ITS | Clinical Summary ---
Author Organization [facility] Address [address] [place] [address] Care Team Providers Care Recordist Chief Name Role Phone Talisha Manzanares MD Primary [...] Advance Directives For more information, please contact: [phone] Documents on File Type Date Recorded Patient Electronic Scale Tester Expl anation Advance Directive and Living Will 04/19/2020 8:19 AM questionnaire Care Teams Recordist Chief Relationship Specialty Start Date End Date Talisha Manzanares MD [address] [place] [address] PCP - General Family Medicine 10/31/18
--- OUTSIDE RECORDS SUMMARY | 2025-01-08 17:26 | XMS_ITS | Encounter Summary ---
Author Organization [facility] Address [facility] [employer] [address] [address] Phone Care Team Providers Care Mill Hand Name Role Phone Talisha Manzanares MD Primary Care Provider + Encounter Details Date Type Department Care Team (Late st Contact Info) Description 11/01/2023 Procedure Pass [facility], X-Ray - [facility] [address] [place] [address] Social History Tobacco Use Types Packs/Day Years [...] on filedocumented in this encounter Care Teams Mill Hand Relationship Specialty Start Date End Date Talisha Manzanares MD [address] [place] [address] [email or web address] PCP - General 07/27/17 documented as of this encounter Additional Source Comments The information contained in this document represents components of the legal health record. It is not the complete legal health record.[facility]
--- OUTSIDE RECORDS SUMMARY | 2025-01-08 17:26 | XMS_ITS | Encounter Summary ---
Author Organization [facility] Address [facility] [address] [address] Phone Care Team Providers Care Appointment Clerk Name Role Phone Talisha Manzanares MD Primary Care Provider + Encounter Details Date Type Department Care Team (Late st Contact Info) Description 11/01/2023 Procedure Pass [facility] [address] [place] [address] Social History Tobacco Use Types Packs/Day Years [...] on filedocumented in this encounter Care Teams Appointment Clerk Relationship Specialty Start Date End Date Talisha Manzanares MD [address] [place] [phone] [email or web address] PCP - General 07/27/17 documented as of this encounter Additional Source Comments The information contained in this document represents components of the legal health record. It is not the complete legal health record.[facility]
--- OUTSIDE RECORDS SUMMARY | 2025-01-08 17:26 | XMS_ITS | Encounter Summary ---
Author Organization [facility] Address [address] [place] [address] Care Team Providers Care Lens Generator Name Role Phone Talisha Manzanares Primary Care Provider Natty vailable Encounter Details Date Type Department Care Team Description 09/03/2020 Transfer Records Medical Records [address] [place] [address] Abstract, Provider Social History Tobacco Use Types Packs/Day Years Used Date Smoking Tobacco: Never Assessed Sex Assigned at Date Recorded Not on file documented as of this encounter Plan of Treatment Not on file documented as of this encounter Visit Diagnoses Not on filedocumented in this encounter Care Teams Lens Generator Relationship Specialty Start Date End Date Talisha Manzanares PCP - General Family Practice 11/13/19 documented as of this encounter
--- OUTSIDE RECORDS SUMMARY | 2025-01-08 17:26 | XMS_ITS | Encounter Summary ---
Author Organization [facility] Address [address] [address] Phone Care Team Providers Care Wool Mixer Name Role Phone Talisha Manzanares MD Primary Care Provider + Encounter Details Date Type Department Care Team (Late st Contact Info) Description 10/22/2022 Telephone [facility] [address] [place] [address] Pasha Cassidy MD [address] [place] [address] [email or web address] Social History Tobacco Use [...] on filedocumented in this encounter Care Teams Wool Mixer Relationship Specialty Start Date End Date Talisha Manzanares MD [address] [place] [address] [email or web address] PCP - General 07/27/17 documented as of this encounter Additional Source Comments The information contained in this document represents components of the legal health record. It is not the complete legal health record.[facility]
--- OUTSIDE RECORDS SUMMARY | 2025-01-08 17:26 | XMS_ITS | Referral Summary ---
Author Organization [facility] Address [address] [place] [address] Care Team Providers Care Director Of Cloud Services Name Role Phone Unavailable Primary Care Provider Unavailabl e Allergies No known active allergies Immunizations Immunization Administration Dates Next Due Covid-19, Pfizer, mRNA, Otoe valent, PF 30 mcg/0.3 mL dose (for [...] of Treatment Not on file Insurance MEDIC[facility]
--- OUTSIDE RECORDS SUMMARY | 2025-01-08 17:26 | XMS_ITS | Encounter Summary ---
Author Organization [facility] Address [address] [place] [address] Phone Care Team Providers Care Archives Technician Name Role Phone Talisha Manzanares MD Primary Care Provider + Encounter Details Date Type Department Care Team (Late st Contact Info) Description 03/17/2023 Transcribe Orders [facility], Radio Flouroscopy [address] [place] [address] Juan Stanton [address] [place] [address] [email or web address] Social History Tobacco Use Types Packs/Day Years [...] on filedocumented in this encounter Care Teams Archives Technician Relationship Specialty Start Date End Date Talisha Manzanares MD [address] [place] [address] [email or web address] PCP - General 07/27/17 documented as of this encounter Additional Source Comments The information contained in this document represents components of the legal health record. It is not the complete legal health record.[facility]
--- OUTSIDE RECORDS SUMMARY | 2025-01-08 17:26 | XMS_ITS | Clinical Summary ---
Author Organization [facility] Address [address] [place] [address] Care Team Providers Care Cotton Farmer Name Role Phone Talisha Manzanares Primary Care [...] Td or Tdap) 08/05/2030 08/05/2020 Care Teams Cotton Farmer Relationship Specialty Start Date End Date Manzanares, Talisha J. PCP - General Family Practice 11/13/19
--- OUTSIDE RECORDS SUMMARY | 2025-01-08 17:26 | XMS_ITS | Encounter Summary ---
Author Organization [facility] Address [address] [place] [address] Phone Care Team Providers Care Manager Administrative Name Role Phone Talisha Manzanares MD Primary Care Provider + Encounter Details Date Type Department Care Team (Late st Contact Info) Description 11/19/2022 Procedure [facility], Radio Flouroscopy [address] [place] [address] Social History Tobacco Use Types Packs/Day Years [...] on filedocumented in this encounter Care Teams Manager Administrative Relationship Specialty Start Date End Date Talisha Manzanarse MD [address] [place] [address] PCP - General 07/27/17 documented as of this encounter Additional Source Comments The information contained in this document represents components of the legal health record. It is not the complete legal health record.[facility]
--- OUTSIDE RECORDS SUMMARY | 2025-01-08 17:26 | XMS_ITS | Encounter Summary ---
Author Organization [facility] Address [address] [place] [address] Phone Care Team Providers Care Shingles Roofer Helper Name Role Phone Talisha Manzanares MD Primary Care Provider + Encounter Details Date Type Department Care Team (Late st Contact Info) Description 10/08/2023 Procedure Pass [place] Admitting Dept - Virtual Department [address] [place] [address] Social History Tobacco Use Types Packs/Day Years [...] on filedocumented in this encounter Care Teams Shingles Roofer Helper Relationship Specialty Start Date End Date Talisha Manzanares MD [address] [place] [address] [email or web address] PCP - General 07/27/17 documented as of this encounter Additional Source Comments The information contained in this document represents components of the legal health record. It is not the complete legal health record.[facility]
--- OUTSIDE RECORDS SUMMARY | 2025-01-08 17:26 | XMS_ITS | Encounter Summary ---
Author Organization [facility] Address [address] [place] [address] Care Team Providers Care Asphalt Distributor Operator Name Role Phone Unavailable Primary Care Provider Unavailabl e Encounter Details Date Type Department Care Team (Late st Contact Info) Description 07/05/2017 Ophthalmology Data Conversion [facility] Historical Conversion Department [address] [place] [address] [address] Social History Tobacco Use Types Packs/Day Years [...]
--- OUTSIDE RECORDS SUMMARY | 2025-01-08 17:26 | XMS_ITS | Encounter Summary ---
Author Organization [facility] Address [address] [place] [address] Care Team Providers Care Rn Intern Name Role Phone Talisha Manzanares Primary Care Provider Natty vailable Encounter Details Date Type Department Care Team Description 01/13/2022 [facility] Neuro[facility] [place] [address] [place] [address] Yong Ch MD, PHD Social History Tobacco Use Types Packs/Day Years Used Date Smoking Tobacco: Former Cigarettes Q uit: 1986 Smokeless Tobacco: Never Sex Assigned at Date Recorded Not on file documented as of this encounter Plan of Treatment Not on file documented as of this encounter Visit Diagnoses Not on filedocumented in this encounter Care Teams Rn Intern Relationship Specialty Start Date End Date Talisha Manzanares PCP - General Family Practice 11/13/19 documented as of this encounter
--- OUTSIDE RECORDS SUMMARY | 2025-01-08 17:26 | XMS_ITS | Encounter Summary ---
Author Organization [facility] Address [address] [place] [address] Phone Care Team Providers Care Pan Washer Hand Name Role Phone Talisha Manzanares MD Primary Care Provider + Encounter Details Date Type Department Care Team (Late st Contact Info) Description 09/22/2023 Procedure Pass [place] Admitting Dept - Virtual Department [address] [place] [address] Social History Tobacco Use Types Packs/Day Years [...] on filedocumented in this encounter Care Teams Pan Washer Hand Relationship Specialty Start Date End Date Talisha Manzanares MD [address] [place] [address] [email or web address] PCP - General 07/27/17 documented as of this encounter Additional Source Comments The information contained in this document represents components of the legal health record. It is not the complete legal health record.[facility]
--- OUTSIDE RECORDS SUMMARY | 2025-01-08 17:26 | XMS_ITS | Clinical Summary ---
Author Organization [facility] Address [address] [place] [address] Care Team Providers Care Fine Sander Name Role Phone Unavailable Primary Care Provider Unavailabl e Allergies No known active allergies Immunizations Immunization Administration Dates Next Due Covid-19, Pfizer, mRNA, [place] valent, PF 30 mcg/0.3 mL dose (for [...] age to complete this topic Insurance MEDICARE [facility]
--- OUTSIDE RECORDS SUMMARY | 2025-01-08 17:27 | XMS_ITS | Clinical Summary ---
Author Organization [facility] Address [facility] [employer] [address] [address] Phone Care Team Providers Care Search Advertising Strategist Name Role Phone Talisha Manzanares MD Primary [...] mg PO taken as needed and hydrocodone-acetaminophen (Bedrock 7.5-325 mg) 1 table PO as needed with typical use being twice weekly. He has a contract with his PCP for chronic opioid management. Discussed the possibility that it may be more difficulty to control his post-operative pain given current chronic opioid use, however he is only using minimal Bedrock at twice weekly and did discuss weaning [...] coronary syndromes including unstable or severe angina, MD within 1 month, severe CHF, high grade [...] Description 11/10/2024 2:00 PM EST Office Visit [facility] [address] [place] [address] Hernán Grissom PA-C Rotator cuff tendinitis, right [...] Recently Relevant to Health Maintenance Care Teams Search Advertising Strategist Relationship Specialty Start Date End Date Talisha Manzanares MD [address] [place] [address] [email or web address] PCP - General 07/27/17 Additional Source Comments The information contained in this document represents components of the legal health record. It is not the complete legal health record.[facility]
--- OUTSIDE RECORDS SUMMARY | 2025-01-08 17:27 | XMS_ITS | Encounter Summary ---
Author Organization [facility] Address [address] [facility] [address] [place] [address] Phone Care Team Providers Care Clinical Supervisor Name Role Phone Talisha Manzanares MD Primary Care Provider + Encounter Details Date Type Department Care Team (Late st Contact Info) Description 12/24/2022 Transcribe Orders [facility] Outpatient Care, Radio Flouroscopy [address] [place] [address] Binta Harris [address] [place] [address] [email or web address] Social History Tobacco Use Types [...] filedocumented in this encounter Care Teams Clinical Supervisor Relationship Specialty Start Date End Date Talisha Manzanares MD [address] [place] [address] PCP - General 07/27/17 documented as of this encounter Additional Source Comments The information contained in this document represents components of the legal health record. It is not the complete legal health record.[facility]
--- OUTSIDE RECORDS SUMMARY | 2025-01-08 17:27 | XMS_ITS | Encounter Summary ---
Author Organization [facility] Address [address] [place] [address] Phone Care Team Providers Care Tower Helper Name Role Phone Talisha Manzanares MD Primary Care Provider + Talisha Manzanares MD Unavailable Encounter Details Date Type Department Care Team (Late st Contact Info) Description 02/01/2018 Ancillary Orders Virtual Department [address] [place] [address] Estela Rowell PA-C [address] [place] [address] [email or web address] Globus syndrome Social History Tobacco Use Types [...] min. 39 sec; ??11 IMAGES/FRAMES POS - [id number] Narrative 02/09/2018 10:38 AM EDT COMPARISON: None. BARIUM SWALLOW FINDINGS: Occupational Health And Safety Adviser lateral neck radiograph was obtained. ??Soft tissues [...] - 02/09/2018 COMPARISON: None. BARIUM SWALLOW FINDINGS: Occupational Health And Safety Adviser lateral neck radiograph was obtained. Soft tissues [...] min. 39 sec; 11 IMAGES/FRAMES POS - [id number] Estela HARE [place] MISC documented in this encounter Visit Diagnoses Diagnosis Globus syndrome Conversion disorder Globus syndrome Conversion disorder documented in this encounter Care Teams Tower Helper Relationship Specialty Start Date End Date Talisha Manzanares MD [address] [place] [address] PCP - General 07/27/17 Talisha Manzanares MD [address] [place] [address] [email or web address] Insurance Assigned Provider 12/04/17 documented as of this encounter Additional Source Comments The information contained in this document represents components of the legal health record. It is not the complete legal health record.[facility]
--- OUTSIDE RECORDS SUMMARY | 2025-01-08 17:27 | XMS_ITS | Encounter Summary ---
Author Organization [facility] Address [facility] [address] [address] Phone Care Team Providers Care Potato Peeling Machine Operator Name Role Phone Talisha Manzanares MD Primary Care Provider + Encounter Details Date Type Department Care Team (Late st Contact Info) Description 11/04/2021 Ancillary Orders [facility] Imaging [address] [place] [address] System, Provider Not In, [facility] [address] [address] Social History Tobacco Use Types Packs/Day Years [...] on filedocumented in this encounter Care Teams Potato Peeling Machine Operator Relationship Specialty Start Date End Date Talisha Manzanares MD [address] [place] [address] [email or web address] PCP - General 07/27/17 documented as of this encounter Additional Source Comments The information contained in this document represents components of the legal health record. It is not the complete legal health record.[facility]
--- OUTSIDE RECORDS SUMMARY | 2025-01-08 17:27 | XMS_ITS | Clinical Summary ---
Author Organization [facility] Address [address] [place] [address] Care Team Providers Care Certified Welding Inspector Name Role Phone Talisha Manzanares MD Primary Care Provider [phone] Immunizations Name Administration Dates Next Due Pfizer SARS-CoV-2 COVID-19, mRNA, LNP-S, preservative free 02/05/2021,01/08/2021 Surgical History Surgery Date Site/Laterality Comments OTHER SURGICAL HISTORY PROCEDURE: [place] SPINE DEVICE IMPLANT SURGERY Medical History Medical [...] age to complete this topic Care Teams Certified Welding Inspector Relationship Specialty Start Date End Date Talisha Manzanares MD [address] [place] [phone] PCP - General Family Medicine 10/31/18
--- OUTSIDE RECORDS SUMMARY | 2025-01-08 17:27 | XMS_ITS | Encounter Summary ---
Author Organization [facility] Address [address] [facility] [address] [place] [address] Phone Care Team Providers Care Rug Underlay Machine Operator Name Role Phone Talisha Manzanares MD Primary Care Provider + Reason for Referral * Physical Therapy (Routine) - Closed Specialty Diagnoses / Procedures Referred By Xavier goldstein Referred To Contact Physical Therapy Diagnoses Encounter for rehabilitation Hernán Mejia PA [address] [place] [address] [facility] Parent [address] [place] [address] Referral ID Status Reason Start Date Expiration Date Visits Re quested Visits Authorized [id number] Closed 07/21/2021 07/21/2022 1 1 Encounter Details Date Type Department Care Team (Latest Contact Info) Description 07/21/2021 Transcribe Orders [facility] [address] [place] [address] Hernán Mejia PA [address] [place] [address] [email or web address] Encounter for rehabilitation (Primary Dx) Social History [...] Diagnoses Orde r Schedule Ambulatory referral to [facility] Physical Therapy Outpatient Referral Routine Encounter for rehabilitation Ordered: 07/21/2021 documented as of this encounter Visit Diagnoses Diagnosis Encounter for rehabilitation- Primary documented in this encounter Care Teams Rug Underlay Machine Operator Relationship Specialty Start Date End Date Talisha Manzanares MD [address] [place], [place] [phone] [email or web address] PCP - General 07/27/17 documented as of this encounter Additional Source Comments The information contained in this document represents components of the legal health record. It is not the complete legal health record.[facility]
== END 2025-01-08 15:58 | disposition home or self-care (01) ==
LOC: HO.PMC 15:27
PROVIDERS: PCP Family Medicine; Visit Provider Anesthesiology
DX: G89.4 Chronic pain syndrome (principal); M51.16 Intervertebral disc disorders with radiculopathy, lumbar region; M96.1 Postlaminectomy syndrome, not elsewhere classified; Z98.890 Other specified postprocedural states; M54.51 Vertebrogenic low back pain; T85.615A Breakdown (mechanical) of other nervous system device, implant or graft, initial encounter; Z45.1 Encounter for adjustment and management of infusion pump
CPT/HCPCS: 95991; 99214

== ENCOUNTER → 2025-01-08 15:26 | Outpatient (BNVA) | payer MEDICARE, MEDICAID, SELFPAY | PROVIDERS: PCP Family Medicine; Visit Provider Anesthesiology | DX: Z45.89 Encounter for adjustment and management of other implanted devices (principal); T85.615D Breakdown (mechanical) of other nervous system device, implant or graft, subsequent encounter; M51.16 Intervertebral disc disorders with radiculopathy, lumbar region; M96.1 Postlaminectomy syndrome, not elsewhere classified; M54.51 Vertebrogenic low back pain; G89.4 Chronic pain syndrome; Z98.890 Other specified postprocedural states; Z79.891 Long term (current) use of opiate analgesic | CPT/HCPCS: 99212 ==

== ENCOUNTER 2025-01-24 10:39 | Outpatient (AMB) | payer MEDICARE, MEDICAID, SELFPAY ==
[2025-01-24 11:16] VITALS: BP 121/68; PULSE 69; O2SAT 99; BMI 28.1
--- NOTE | 2025-01-24 11:16 | MHC.OFFVIS ---
Vital Signs 01/24/25 11:16 Height 5 ft 9 in Weight 190 lb BMI 28.1 BP 121/68 Blood Pressure Location Rt brachial Position Sitting Pulse 69 Pulse Source Pulse Oximeter Pulse Oximetry (%) 99 Oxygen Delivery Method Room Air Intake Visit Reasons: ITDD Refill [employer] Required: No Allergies No Known Allergies [No Known Allergies*] Allergy (Verified 01/24/25 11:16) Medication List - Last Reconciled 01/24/25 by Paige Malloy, MUNICIPAL COURT JUDGE naloxone 4 mg/actuation 4 mg intranasal Q2M 1 day pregabalin 75 mg PO DAILY pregabalin mg PO quetiapine (Seroquel) 100 mg PO BEDTIME selegiline (Emsam) 1 patch transdermal DAILY terazosin 5 mg PO BEDTIME 90 days HPI Comments Details: Hernán is today in the office for intrathecal pain pump adjustment and the follow-up. He went for a dye study during which I was able to aspirate CSF from the side port of the pain pump and inject the dye into the catheter delineating myelogram. Therefore the pump is working appropriately although there maybe some positioned obstruction of the catheter. The patient came today for the refill of his intrathecal pain pump. The pump refill see as below. There is a new concentration of his hydromorphone to 600 micro g as well as addition of 250 micro g of baclofen. Patient has PTM device and I will introduced 1 dose in 24 hours of PTM device see refill as below. Prior: status post ITDD Pain Pump Implant 05/12/24. Originally he was referred by Dr. Nix for evaluation for spinal cord stimulator. He is status post laminectomy L3-L4 and L5 S1 diskectomy with posterior lateral fusion. He has L5 radiculopathy EMG confirmed. On recommendation of Dr. Ch I tried spinal cord stimulator on him [employer]. The procedure was very difficult technically. However I was able to establish 2 leads in the thoracic spine. Patient reported minimal pain improvement while on stimulation. At the end of the [employer] trial he was switched to Nevro SCS, unfortunately that did not help his pain in more extent either. He was absent from my care for 2 years , after that he came back requesting the discussion about pain pump he was offered to him at that time. Because the patient was on opioids [place] 7.5 mg TID, initially bupivacaine pain pump was considered however it resulted in poor pain control and side effects. He was switched for hydromorphone. Dr. Ch did not recommend additional surgical intervention and advised he undergo a SCS trial, and thus he was referred to us. He describes a numbness and burning down his right posterior lateral leg extending to the top of his right into his toes. This is worsened with sitting, reaching pain level 8-9/10. He had done extensive PT and also had multiple injections prior to his surgery while seeing pain management provider Dr. Geronimo in [place]. [facility] Medical History History of urinary retention History of numbness Chronic pain syndrome Radiculopathy due to lumbar intervertebral disc disorder Postlaminectomy syndrome Surgical History History of surgery History of basal cell carcinoma excision History of lumbar laminectomy History of laminectomy History of back surgery Hx of arthroscopy of shoulder Hx of repair of rotator cuff Social History Patient Tobacco Use Status: Former Tobacco user Review of Systems Const All systems reviewed & are unremarkable except as noted in HPI and below ENT Reports Normal hearing present Neuro Reports Normal hearing present, Denies confusion and Denies Sensory deficit (Neuro) Psych Denies confusion Physical Exam Vital Signs: Last Vital Signs Pulse 69 01/24/25 11:16 BP 121/68 01/24/25 11:16 Pulse Ox 99 01/24/25 11:16 Oxygen Delivery Method Room Air 01/24/25 11:16 BMI result Body Mass Index 28.1 Const General: No confusion Orientation/consciousness: No confusion Eyes Pupils: Equal, round and reactive pupils present EOM: EOMs intact bilaterally Chest Chest palpation & inspection: normal inspection of the chest Resp Effort & Inspection: normal respiratory effort, able to speak in complete sentences, normal respiratory pattern, no audible wheezes and no cough Cardio Jugular venous distension: no JVD Back/Spine/Pelvis Other: Lumbar Spine/Lower back/SIJ: SACROILIAC JOINT No tenderness to palpation. INSPECTION: normal curvature of spine, scar from previous surgery. RANGE OF MOTION decreased extention. PALPATION: no vertebral spine tenderness. STRAIGHT LEG RAISING TEST: positive at 45 degrees on right. MOTOR SYSTEM: 5/5 bilateral lower extremities. SENSORY EXAM: paresthesias right L4-5 distribution. REFLEXES: symmetrical 2+. GAIT: unremarkable. Neuro General: No confusion Cranial nerves: Yes Equal, round and reactive pupils present and Yes Normal hearing present Sensory Exam: No Sensory deficit (Neuro) Psych Speech and movement: Normal speech and movement present Affect: normal affect Attitude: cooperative Thought process: Normal thought process present Thought content: Normal thought content present Insight: Good insight present (Psych) Judgement: Good judgement present (Psych) Assessment & Plan Assessment & Plan (1) Chronic pain syndrome: Code(s): G89.4 - Chronic pain syndrome Category: Medical (2) Radiculopathy due to lumbar intervertebral disc disorder: Code(s): M51.16 - Intervertebral disc disorders with radiculopathy, lumbar region Category: Medical (3) Postlaminectomy syndrome: Code(s): M96.1 - Postlaminectomy syndrome, not elsewhere classified Category: Medical (4) S/P insertion of intrathecal pump: Code(s): Z98.890 - Other specified postprocedural states Category: Surgical Plan: . Since the most of the patient's pain is pain in the lower extremity vertebra genic pain syndrome is unlikely he is major pain generators. We will not be considering intercept procedure for this patient. (5) Vertebrogenic low back pain: Code(s): M54.51 - Vertebrogenic low back pain Category: Medical (6) Neuropathic pain syndrome (non-herpetic): Code(s): M79.2 - Neuralgia and neuritis, unspecified Category: Medical Plan: The patient was explained today about side effects of baclofen. The patient also was given today a bridge bolus of 15 hours. He was explained that after the bridge bolus he will start to feel effects of baclofen. He was explained to be careful with his mobility. He was explained that his legs might be very weak. I told him not to use his PTM device until the weakness in the bilateral lower extremities we will become better. I also requested him to give me a call in 1 week and reports how his pain condition is affected by the pump. After that we will make a decision about his next refill medication. Plan Intrathecal pump refill. THE PATIENT CAME TODAY IN THE office for THE CHANGE OF THE MEDICATION IN her PAIN PUMP. The name and date of were verified and informed consent was obtained for the procedure. ?The pump was interrogated and the residual amount of fluid was found to be 1.6 mL. HE WAS POSITIONED prone on the bed AND THE AREA OF THE INTRATHECAL PUMP WAS PREPPED WITH CHLORAPREP. The fenestrated drape was sterilely applied over the area of the pump. Sterile gloves were worn and of the aspiration system was assembled containing 2 in 22 gauge noncoring needle, the needle was connected to extension tubing which was connected to the 20 cc sterile syringe. The pain pump was palpated under the skin in the patient's right buttock area. The needle was inserted through the skin and the central plug of the pain pump and fluid was aspirated. The clear fluid was going into the syringe the total amount of the fluid was 2.3 mL . This amount is much without any discrepancy.. After that a new batch? of medication was obtained which was containing hydromorphone in concentration 600 micro g/ml and baclofen 250 micro g per mL. The admixture was made in 20 cc syringe prepared by [facility] compounding pharmacy. The syringe was connected to the bacterial filter, and then connected to the extension tubing. After that the medication in the syringe was slowly instilled into the pump with aspirations at 15 and 5 cc lemons.? The pump was reprogrammed for the doses of hydromorphone 164.87 mcg per day with corresponding dose of baclofen 69 micro g. Patient was also given 1 bolus dose of 100 micro g of anymore phone and secondary drug baclofen 41.7 micro g 1 bolus a day. Patient Instructions: I here by testify that I spent 30 minutes in conversation with this patient as well as planning his care and organizing this note. Coding Level of Care Code Est Pt Level 4 (96253) Procedure Only Diagnoses Chronic pain syndrome G89.4 Radiculopathy due to lumbar intervertebral disc disorder M51.16 Postlaminectomy syndrome M96.1 S/P insertion of intrathecal pump Z98.890 Vertebrogenic low back pain M54.51 Neuropathic pain syndrome (non-herpetic) M79.2
--- OUTSIDE RECORDS SUMMARY | 2025-01-24 12:36 | XMS_ITS | Encounter Summary ---
Author Organization [facility] Address [address] [address] Phone Care Team Providers Care Pals Nurse Name Role Phone Talisha Manzanares MD Primary Care Provider + Encounter Details Date Type Department Care Team (Late st Contact Info) Description 10/22/2022 Telephone [facility] Orthopaedic Spine [address] [place] [address] Pasha Cassidy MD [address] [place] [address] [email or web address] Social History Tobacco Use Types Packs/Day Years [...] on filedocumented in this encounter Care Teams Pals Nurse Relationship Specialty Start Date End Date Talisha Manzanares MD [address] [place] [address] [email or web address] PCP - General 07/27/17 documented as of this encounter Additional Source Comments The information contained in this document represents components of the legal health record. It is not the complete legal health record.[facility]
--- OUTSIDE RECORDS SUMMARY | 2025-01-24 12:36 | XMS_ITS | Referral Summary ---
Author Organization [facility] Address [address] [place] [address] Care Team Providers Care Coordinate Measuring Machine Technician Name Role Phone Unavailable Primary Care Provider Unavailabl e Allergies No known active allergies Immunizations Immunization Administration Dates Next Due Covid-19, Pfizer, mRNA, [place] valent, PF 30 mcg/0.3 mL dose (for [...] Treatment Not on file Insurance [facility]
--- OUTSIDE RECORDS SUMMARY | 2025-01-24 12:36 | XMS_ITS | Clinical Summary ---
Author Organization [facility] Address [facility] [employer] [address] [address] Phone Care Team Providers Care Admission Nurse Coordinator Name Role Phone Talisha Manzanares MD [...] mg PO taken as needed and hydrocodone-acetaminophen (Nauvoo 7.5-325 mg) 1 table PO as needed with typical use being twice weekly. He has a contract with his PCP for chronic opioid management. Discussed the possibility that it may be more difficulty to control his post-operative pain given current chronic opioid use, however he is only using minimal [place] at twice weekly and did discuss weaning [...] coronary syndromes including unstable or severe angina, LA within 1 month, severe CHF, high grade [...] Description 11/10/2024 2:00 PM EST Office Visit [facility] Orth[facility] & Sports Medicine [address] [place] [address] Hernán Grissom PA-C Rotator cuff tendinitis, right [...] 05/26/2021 03/31/2021 LIPID PANEL 09/30/2023 09/30/2018, 09/23/2016 COVID-19 VACCINE ( season) 2024 04/19/2023, 04/06/2022, [...] Recently Relevant to Health Maintenance Care Teams Admission Nurse Coordinator Relationship Specialty Start Date End Date Talisha Manzanares MD [address] [place] [address] [email or web address] PCP - General 07/27/17 Additional Source Comments The information contained in this document represents components of the legal health record. It is not the complete legal health record.[facility]
--- OUTSIDE RECORDS SUMMARY | 2025-01-24 12:36 | XMS_ITS | Clinical Summary ---
Author Organization [facility] Address [address] [place] [address] Care Team Providers Care Adjunct Instructor Chemistry Name Role Phone Talisha Manzanares MD Primary Care Provider [phone] Immunizations Name Administration Dates Next Due Pfizer SARS-CoV-2 COVID-19, mRNA, LNP-S, preservative free 02/05/2021,01/08/2021 Surgical History Surgery Date Site/Laterality Comments OTHER SURGICAL HISTORY PROCEDURE: [place] SPINE DEVICE IMPLANT SURGERY Medical History Medical [...] season) 2024 04/06/2022, 02/05/2021, 01/08/2021 Influenza Vaccine (Season Ended) 2025 06/30/2021 RSV Immunization Adult Patients (1 - 1-dose 75+ series) 2030 HIB [...] age to complete this topic Meningococcal B Vaccine Aged Out No l onger eligible based on patient's age to complete this topic RSV Immunization Patients Under 20 months Aged Out No longer eligible b ased on patient's age to complete this topic Varicella Vaccines Aged Out No longer eligible based on patient's age to complete this topic Care Teams Adjunct Instructor Chemistry Relationship Specialty Start Date End Date Talisha Manzanares MD [address] [place] [phone] PCP - General Family Medicine 10/31/18
--- OUTSIDE RECORDS SUMMARY | 2025-01-24 12:36 | XMS_ITS | Encounter Summary ---
Author Organization [facility] Address [address] [place] [address] Phone Care Team Providers Care Drum Stenciler Name Role Phone Talisha Manzanares MD Primary Care Provider + Encounter Details Date Type Department Care Team (Late st Contact Info) Description 03/17/2023 Transcribe Orders [facility] for Outpatient Care, Radio Flouroscopy [address] [place] [address] Juan Stanton [address] [place] [address] [email or web address] Social History Tobacco Use Types Packs/Day Years [...] on filedocumented in this encounter Care Teams Drum Stenciler Relationship Specialty Start Date End Date Talisha Manzanares MD [address] [place] [address] [email or web address] PCP - General 07/27/17 documented as of this encounter Additional Source Comments The information contained in this document represents components of the legal health record. It is not the complete legal health record.[facility]
--- OUTSIDE RECORDS SUMMARY | 2025-01-24 12:36 | XMS_ITS | Encounter Summary ---
Author Organization [facility] Address [facility] [address] [address] Phone Care Team Providers Care Grinding And Spraying Supervisor Name Role Phone Talisha Manzanares MD Primary Care Provider + Encounter Details Date Type Department Care Team (Late st Contact Info) Description 11/01/2023 Procedure Pass [facility], [facility] [address] [place] [address] Social History Tobacco Use Types Packs/Day Years [...] on filedocumented in this encounter Care Teams Grinding And Spraying Supervisor Relationship Specialty Start Date End Date Talisha Manzanares MD [address] [place] [address] [email or web address] PCP - General 07/27/17 documented as of this encounter Additional Source Comments The information contained in this document represents components of the legal health record. It is not the complete legal health record.[facility]
--- OUTSIDE RECORDS SUMMARY | 2025-01-24 12:36 | XMS_ITS | Encounter Summary ---
Author Organization [facility] Address [address] [place] [address] Phone Care Team Providers Care Premium Cancellation Clerk Name Role Phone Talisha Manzanares MD Primary Care Provider + Encounter Details Date Type Department Care Team (Late st Contact Info) Description 11/04/2021 Ancillary Orders [facility],Outside Imaging [address] [place] [address] System, Provider Not In, [facility] [address] [address] Social History Tobacco Use Types Packs/Day Years [...] on filedocumented in this encounter Care Teams Premium Cancellation Clerk Relationship Specialty Start Date End Date Talisha Manzanares MD [address] [place] [address] [email or web address] PCP - General 07/27/17 documented as of this encounter Additional Source Comments The information contained in this document represents components of the legal health record. It is not the complete legal health record.[facility]
--- OUTSIDE RECORDS SUMMARY | 2025-01-24 12:36 | XMS_ITS | Encounter Summary ---
Author Organization [facility] Address [address] [employer] [address] [place] [address] Phone Care Team Providers Care Furnace Liner Name Role Phone Talisha Manzanares MD Primary Care Provider + Reason for Referral * Physical Therapy (Routine) - Closed Specialty Diagnoses / Procedures Referred By Xavier goldstein Referred To Contact Physical Therapy Diagnoses Encounter for rehabilitation Hernán Mejia PA [address] [place] [address] [facility] Parent [address] [place] [phone] Referral ID Status Reason Start Date Expiration Date Visits Re quested Visits Authorized [id number] Closed 07/21/2021 07/21/2022 1 1 Encounter Details Date Type Department Care Team (Latest Contact Info) Description 07/21/2021 Transcribe Orders [facility] Rehabilitation Services [address] [place] [address] Hernán Mejia PA [address] [place] [address] [email or web address] Encounter for rehabilitation (Primary Dx) Social History [...] Diagnoses Orde r Schedule Ambulatory referral to [facility] Physical Therapy Outpatient Referral Routine Encounter for rehabilitation Ordered: 07/21/2021 documented as of this encounter Visit Diagnoses Diagnosis Encounter for rehabilitation- Primary documented in this encounter Care Teams Furnace Liner Relationship Specialty Start Date End Date Talisha Manzanares MD [address] [place], [place] [phone] [email or web address] PCP - General 07/27/17 documented as of this encounter Additional Source Comments The information contained in this document represents components of the legal health record. It is not the complete legal health record.[facility]
--- OUTSIDE RECORDS SUMMARY | 2025-01-24 12:36 | XMS_ITS | Encounter Summary ---
Author Organization [facility] Address [address] [place] [address] Phone Care Team Providers Care Outdoor Fitness Trainer Name Role Phone Talisha Manzanares MD Primary Care Provider + Encounter Details Date Type Department Care Team (Late st Contact Info) Description 09/22/2023 Procedure Pass [place] Admitting Dept - Virtual Department [address] [place] [address] Social History Tobacco Use Types Packs/Day Years [...] on filedocumented in this encounter Care Teams Outdoor Fitness Trainer Relationship Specialty Start Date End Date Talisha Manzanares MD [address] [place] [address] [email or web address] PCP - General 07/27/17 documented as of this encounter Additional Source Comments The information contained in this document represents components of the legal health record. It is not the complete legal health record.[facility]
--- OUTSIDE RECORDS SUMMARY | 2025-01-24 12:36 | XMS_ITS | Encounter Summary ---
Author Organization [facility] Address [address] [place] [address] Care Team Providers Care Process Control Specialist Name Role Phone Unavailable Primary Care Provider Unavailabl e Encounter Details Date Type Department Care Team (Late st Contact Info) Description 07/05/2017 Ophthalmology Data Conversion [facility] Historical Conversion Department [address] [place] [address] [address] Social History Tobacco Use Types Packs/Day Years [...]
--- OUTSIDE RECORDS SUMMARY | 2025-01-24 12:36 | XMS_ITS | Clinical Summary ---
Author Organization [facility] Address [address] [place] [address] Care Team Providers Care Billiard Player Name Role Phone Talisha Manzanares MD Primary [...] Advance Directives For more information, please contact: [phone] Documents on File Type Date Recorded Patient Customer Services Manager Expl anation Advance Directive and Living Will 04/19/2020 8:19 AM questionnaire Care Teams Billiard Player Relationship Specialty Start Date End Date Talisha Manzanares MD [address] [place] [address] PCP - General Family Medicine 10/31/18
--- OUTSIDE RECORDS SUMMARY | 2025-01-24 12:36 | XMS_ITS | Encounter Summary ---
Author Organization [facility] Address [facility] [employer] [address] [address] Phone Care Team Providers Care Oil Well Gun Perforator Operator Name Role Phone Talisha Manzanares MD Primary Care Provider + Encounter Details Date Type Department Care Team (Late st Contact Info) Description 11/01/2023 Procedure Pass [facility], X-Ray - [facility] [address] [place] [address] Social History Tobacco Use Types Packs/Day Years [...] on filedocumented in this encounter Care Teams Oil Well Gun Perforator Operator Relationship Specialty Start Date End Date Talisha Manzanares MD [address] [place] [address] [email or web address] PCP - General 07/27/17 documented as of this encounter Additional Source Comments The information contained in this document represents components of the legal health record. It is not the complete legal health record.[facility]
--- OUTSIDE RECORDS SUMMARY | 2025-01-24 12:36 | XMS_ITS | Encounter Summary ---
Author Organization [facility] Address [facility] [employer] [facility] [address] [place] [address] Phone Care Team Providers Care Forest Supervisor Name Role Phone Talisha Manzanares MD Primary Care Provider + Encounter Details Date Type Department Care Team (Late st Contact Info) Description 12/24/2022 Transcribe Orders [facility] Outpatient Care, Radio Flouroscopy [address] [place] [address] Binta Harris [address] [place] [address] [email or web address] Social History Tobacco Use Types [...] on filedocumented in this encounter Care Teams Forest Supervisor Relationship Specialty Start Date End Date Talisha Manzanares MD [address] [place] [phone] PCP - General 07/27/17 documented as of this encounter Additional Source Comments The information contained in this document represents components of the legal health record. It is not the complete legal health record.[facility]
--- OUTSIDE RECORDS SUMMARY | 2025-01-24 12:36 | XMS_ITS | Encounter Summary ---
Author Organization [facility] Address [address] [place] [address] Phone Care Team Providers Care Department Store Salesperson Name Role Phone Talisha Manzanares MD Primary Care Provider + Encounter Details Date Type Department Care Team (Late st Contact Info) Description 10/08/2023 Procedure Pass [place] Admitting Dept - Virtual Department [address] [place] [address] Social History Tobacco Use Types Packs/Day Years [...] on filedocumented in this encounter Care Teams Department Store Salesperson Relationship Specialty Start Date End Date Talisha Manzanares MD [address] [place] [address] [email or web address] PCP - General 07/27/17 documented as of this encounter Additional Source Comments The information contained in this document represents components of the legal health record. It is not the complete legal health record.[facility]
--- OUTSIDE RECORDS SUMMARY | 2025-01-24 12:36 | XMS_ITS | Encounter Summary ---
Author Organization [facility] Address [address] [facility] [address] [place] [address] Phone Care Team Providers Care Insole Bottom Filler Name Role Phone Talisha Manzanares MD Primary Care Provider + Encounter Details Date Type Department Care Team (Late st Contact Info) Description 02/18/2023 Procedure [facility] for Outpatient Care, Radio Flouroscopy [address] [place] [address] Social History Tobacco Use Types Packs/Day Years [...] on filedocumented in this encounter Care Teams Insole Bottom Filler Relationship Specialty Start Date End Date Talisha Manzanares [place] [address] PCP - General 07/27/17 documented as of this encounter Additional Source Comments The information contained in this document represents components of the legal health record. It is not the complete legal health record.[facility]
--- OUTSIDE RECORDS SUMMARY | 2025-01-24 12:36 | XMS_ITS | Encounter Summary ---
Author Organization [facility] Address [address] [employer] [address] [place] [address] Phone Care Team Providers Care Animal Ride Attendant Name Role Phone Talisha Manzanares MD Primary Care Provider + Encounter Details Date Type Department Care Team (Late st Contact Info) Description 11/19/2022 Procedure [facility] for Outpatient Care, Radio Flouroscopy [address] [place] [address] Social History Tobacco Use Types Packs/Day Years [...] on filedocumented in this encounter Care Teams Animal Ride Attendant Relationship Specialty Start Date End Date Talisha [place]res [place] [address] PCP - General 07/27/17 documented as of this encounter Additional Source Comments The information contained in this document represents components of the legal health record. It is not the complete legal health record.[facility]
--- OUTSIDE RECORDS SUMMARY | 2025-01-24 12:36 | XMS_ITS | Clinical Summary ---
Author Organization [facility] Address [address] [place] [address] Care Team Providers Care High School Coach Name Role Phone Unavailable Primary Care Provider Unavailabl e Allergies No known active allergies Immunizations Immunization Administration Dates Next Due Covid-19, Pfizer, mRNA, Bartholomew valent, PF 30 mcg/0.3 mL dose (for [...] - 2023-2 5 season) 2024 02/05/2021, 01/08/2021 Alcohol/Substance Use Screening 10/11/2024 Health Care Proxy Review 10/11/2024 Influenza Vaccine (Season Ended) 2025 08/05/2020 DTaP,Tdap,and Td Vaccines (2 - Td or Tdap) 08/05/2030 08/05/2020 RSV Vaccine (60+ years old a nd patients) (1 - 1-dose 75+ series) 2030 Hepatitis B Vaccines Aged Out No long er eligible based on patient's age to complete this topic Insurance [facility]
--- OUTSIDE RECORDS SUMMARY | 2025-01-24 12:36 | XMS_ITS | Encounter Summary ---
Author Organization [facility] Address [address] [place] [address] Phone Care Team Providers Care Dental Assistant Teacher Name Role Phone Talisha Manzanares MD Primary Care Provider + Talisha Manzanares MD Unavailable [phone] Encounter Details Date Type Department Care Team (Late st Contact Info) Description 02/01/2018 Ancillary Orders Virtual Department [address] [place] [address] Estela Rowell PA-C [address] [place] [address] [email or web address] Globus syndrome Social History Tobacco Use Types [...] min. 39 sec; ??11 IMAGES/FRAMES POS - [id number] Narrative 02/09/2018 10:38 AM EDT COMPARISON: None. BARIUM SWALLOW FINDINGS: Hospital Television Rental Clerk lateral neck radiograph was obtained. ??Soft tissues [...] - 02/09/2018 COMPARISON: None. BARIUM SWALLOW FINDINGS: Hospital Television Rental Clerk lateral neck radiograph was obtained. Soft tissues [...] min. 39 sec; 11 IMAGES/FRAMES POS - [id number] Estela HARE FL MISC documented in this encounter Visit Diagnoses Diagnosis Globus syndrome Conversion disorder Globus syndrome Conversion disorder documented in this encounter Care Teams Dental Assistant Teacher Relationship Specialty Start Date End Date Talisha Manzanares MD [address] [place] [address] PCP - General 07/27/17 Talisha Manzanares MD [address] [place] [address] [email or web address] Insurance Assigned Provider 12/04/17 documented as of this encounter Additional Source Comments The information contained in this document represents components of the legal health record. It is not the complete legal health record.[facility]
== END 2025-01-24 11:02 | disposition home or self-care (01) ==
PROVIDERS: PCP Family Medicine; Visit Provider Anesthesiology
DX: G89.4 Chronic pain syndrome (principal); M51.16 Intervertebral disc disorders with radiculopathy, lumbar region; M96.1 Postlaminectomy syndrome, not elsewhere classified; Z98.890 Other specified postprocedural states; Z45.1 Encounter for adjustment and management of infusion pump; M54.51 Vertebrogenic low back pain; M79.2 Neuralgia and neuritis, unspecified
CPT/HCPCS: 62370; 99214

== ENCOUNTER → 2025-01-24 10:39 | Outpatient (BNVA) | payer MEDICARE, MEDICAID, SELFPAY | PROVIDERS: PCP Family Medicine; Visit Provider Anesthesiology | DX: G89.4 Chronic pain syndrome (principal); M51.16 Intervertebral disc disorders with radiculopathy, lumbar region; M96.1 Postlaminectomy syndrome, not elsewhere classified; M54.51 Vertebrogenic low back pain; M79.2 Neuralgia and neuritis, unspecified; Z45.1 Encounter for adjustment and management of infusion pump; Z79.899 Other long term (current) drug therapy; Z98.890 Other specified postprocedural states | CPT/HCPCS: 62370; 99212 ==

== ENCOUNTER 2025-02-01 08:53 | Outpatient (AMB) | payer MEDICARE, MEDICAID, SELFPAY ==
--- NOTE | 2025-02-01 08:59 | MHC.OFFVIS ---
Vital Signs 02/01/25 09:03 Height 5 ft 9 in Weight 191 lb BMI 28.2 BP 113/72 Blood Pressure Location Lt brachial Position Sitting Pulse 56 Pulse Source Pulse Oximeter Pulse Oximetry (%) 97 Oxygen Delivery Method Room Air Intake Visit Reasons: Discuss Issues with Change of Medication Intake Note: Pain today 05/20 Manager State Required: No Accompanied by: Self / Same As Patient Allergies No Known Allergies [No Known Allergies*] Allergy (Verified 02/01/25 09:04) HPI Comments Details: Hernán is today in the office for intrathecal pain pump adjustment and the follow-up. He went for a dye study during which I was able to aspirate CSF from the side port of the pain pump and inject the dye into the catheter delineating myelogram. Therefore the pump is working appropriately although there maybe some positioned obstruction of the catheter. We started him on baclofen, he reported not only weakness in bilateral lower extremities as well as nausea and vomiting, he also reported pain aggravation. He stated today that he can not tolerate this any longer he requests me to put pump on minimal rate. I explained to him that although the dose of baclofen is very minimal no more than 67 micro g a day I need to prescribe baclofen for him to help preventing baclofen withdrawal syndrome. I we will prescribe him baclofen 20 mg 3 times a day. I told him that if his spasticity is not very severe after drastic reduction of baclofen dose intrathecally he can not take only 2 pills, if spasticity becomes more severe he needs to take 3 pills a day, I also explained to him that if spasticity is very severe despite the full dose of baclofen we would need to admit him for intravenous baclofen treatment. To prevent withdrawal from reduced dose of hydromorphone I will prescribe him hydromorphone2 mg every 6 hours p.r.n. pain for the next 3 weeks. Also we will joel in medication containing only hydromorphone 600 micro g per mL to replace current dose of baclofen and hydromorphone in his pain pump. Prior: status post ITDD Pain Pump Implant 05/12/24. Originally he was referred by Dr. Nix for evaluation for spinal cord stimulator. He is status post laminectomy L3-L4 and L5 S1 diskectomy with posterior lateral fusion. He has L5 radiculopathy EMG confirmed. On recommendation of Dr. Ch I tried spinal cord stimulator on him [employer]. The procedure was very difficult technically. However I was able to establish 2 leads in the thoracic spine. Patient reported minimal pain improvement while on stimulation. At the end of the [employer] trial he was switched to [place] SCS, unfortunately that did not help his pain in more extent either. He was absent from my care for 2 years , after that he came back requesting the discussion about pain pump he was offered to him at that time. Because the patient was on opioids [place] 7.5 mg TID, initially bupivacaine pain pump was considered however it resulted in poor pain control and side effects. He was switched for hydromorphone. Dr. Ch did not recommend additional surgical intervention and advised he undergo a SCS trial, and thus he was referred to us. He describes a numbness and burning down his right posterior lateral leg extending to the top of his right into his toes. This is worsened with sitting, reaching pain level 8-9/10. He had done extensive PT and also had multiple injections prior to his surgery while seeing pain management provider Dr. Geronimo in [place]. [facility] Medical History History of urinary retention History of numbness Chronic pain syndrome Radiculopathy due to lumbar intervertebral disc disorder Postlaminectomy syndrome Surgical History History of surgery History of basal cell carcinoma excision History of lumbar laminectomy History of laminectomy History of back surgery Hx of arthroscopy of shoulder Hx of repair of rotator cuff Social History Patient Tobacco Use Status: Former Tobacco user Review of Systems Const All systems reviewed & are unremarkable except as noted in HPI and below ENT Reports Normal hearing present Neuro Reports Normal hearing present, Denies confusion and Denies Sensory deficit (Neuro) Psych Denies confusion Physical Exam Vital Signs: Last Vital Signs Pulse 56 02/01/25 09:03 BP 113/72 02/01/25 09:03 Pulse Ox 97 02/01/25 09:03 Oxygen Delivery Method Room Air 02/01/25 09:03 BMI result Body Mass Index 28.2 Const General: No confusion Orientation/consciousness: No confusion Eyes Pupils: Equal, round and reactive pupils present EOM: EOMs intact bilaterally Chest Chest palpation & inspection: normal inspection of the chest Resp Effort & Inspection: normal respiratory effort, able to speak in complete sentences, normal respiratory pattern, no audible wheezes and no cough Cardio Jugular venous distension: no JVD Back/Spine/Pelvis Other: Lumbar Spine/Lower back/SIJ: SACROILIAC JOINT No tenderness to palpation. INSPECTION: normal curvature of spine, scar from previous surgery. RANGE OF MOTION decreased extention. PALPATION: no vertebral spine tenderness. STRAIGHT LEG RAISING TEST: positive at 45 degrees on right. MOTOR SYSTEM: 5/5 bilateral lower extremities. SENSORY EXAM: paresthesias right L4-5 distribution. REFLEXES: symmetrical 2+. GAIT: unremarkable. Neuro General: No confusion Cranial nerves: Yes Equal, round and reactive pupils present and Yes Normal hearing present Sensory Exam: No Sensory deficit (Neuro) Psych Speech and movement: Normal speech and movement present Affect: normal affect Attitude: cooperative Thought process: Normal thought process present Thought content: Normal thought content present Insight: Good insight present (Psych) Judgement: Good judgement present (Psych) Assessment & Plan Assessment & Plan (1) Chronic pain syndrome: Code(s): G89.4 - Chronic pain syndrome Category: Medical (2) Radiculopathy due to lumbar intervertebral disc disorder: Code(s): M51.16 - Intervertebral disc disorders with radiculopathy, lumbar region Category: Medical (3) Postlaminectomy syndrome: Code(s): M96.1 - Postlaminectomy syndrome, not elsewhere classified Category: Medical (4) S/P insertion of intrathecal pump: Code(s): Z98.890 - Other specified postprocedural states Category: Surgical (5) Vertebrogenic low back pain: Code(s): M54.51 - Vertebrogenic low back pain Category: Medical (6) Neuropathic pain syndrome (non-herpetic): Code(s): M79.2 - Neuralgia and neuritis, unspecified Category: Medical Plan: The discussion of the side effects of the baclofen addition are as above. We will joel in new medication which does not contain baclofen. Baclofen withdrawal syndrome was described to the patient, baclofen oral was prescribed to the patient to prevent it, need for potential inpatient intravenous baclofen therapy was explained to the patient. Patient expressed understanding. Hydromorphone also was prescribed to prevent pain withdrawal. Plan Intrathecal pain pump adjustment. The pump was placed on minimal rate. The new medication will be in on Wednesday. Medications: New hydromorphone Partial Fill upon patient request. 2 mg PO Q6H PRN 84 tabs 0RF pain 21 days baclofen 20 mg PO TID 90 tabs 8RF 30 days Patient Instructions: I here by testify that I spent 32 minutes in conversation with this patient as well as planning his care and organizing this note. Coding Level of Care Code Est Pt Level 4 (35128) Diagnoses Chronic pain syndrome G89.4 Radiculopathy due to lumbar intervertebral disc disorder M51.16 Postlaminectomy syndrome M96.1 S/P insertion of intrathecal pump Z98.890 Vertebrogenic low back pain M54.51 Neuropathic pain syndrome (non-herpetic) M79.2
[2025-02-01 09:03] VITALS: BP 113/72; PULSE 56; O2SAT 97; BMI 28.2
--- OUTSIDE RECORDS SUMMARY | 2025-02-01 09:28 | XMS_ITS | Clinical Summary ---
Author Organization [facility] Address [address] [place] [address] Care Team Providers Care Technical Illustrator Name Role Phone Talisha Manzanares MD Primary [...] Advance Directives For more information, please contact: [phone] Documents on File Type Date Recorded Patient Media Services Specialist Expl anation Advance Directive and Living Will 04/19/2020 8:19 AM questionnaire Care Teams Technical Illustrator Relationship Specialty Start Date End Date Talisha Manzanares MD [address] [place] [address] PCP - General Family Medicine 10/31/18
--- OUTSIDE RECORDS SUMMARY | 2025-02-01 09:28 | XMS_ITS | Encounter Summary ---
Author Organization [facility] Address [address] [place] [address] Care Team Providers Care Consumer Marketing Specialist Name Role Phone Unavailable Primary Care Provider Unavailabl e Encounter Details Date Type Department Care Team (Late st Contact Info) Description 07/05/2017 Ophthalmology Data Conversion [facility] Historical Conversion Department [address] [place] [address] [address] [address] Social History Tobacco Use Types Packs/Day Years [...]
--- OUTSIDE RECORDS SUMMARY | 2025-02-01 09:28 | XMS_ITS | Clinical Summary ---
Author Organization [facility] Address [address] [place] [address] Care Team Providers Care Investigator Operator Name Role Phone Unavailable Primary Care Provider Unavailabl e Allergies No known active allergies Immunizations Immunization Administration Dates Next Due Covid-19, Pfizer, mRNA, [place] valent, PF 30 mcg/0.3 mL dose (for [...]
--- OUTSIDE RECORDS SUMMARY | 2025-02-01 09:28 | XMS_ITS | Referral Summary ---
Author Organization [facility] Address [address] [place] [address] Care Team Providers Care Register Repairer Name Role Phone Unavailable Primary Care Provider Unavailabl e Allergies No known active allergies Immunizations Immunization Administration Dates Next Due Covid-19, Pfizer, mRNA, [place] valent, PF 30 mcg/0.3 mL dose (for [...] of Treatment Not on file Insurance MEDICARE [facility]
--- OUTSIDE RECORDS SUMMARY | 2025-02-01 09:28 | XMS_ITS | Clinical Summary ---
Author Organization [facility] Address [address] [place] [address] Care Team Providers Care Rehabilitation Counsellor Name Role Phone Talisha Manzanares MD Primary Care Provider [phone] Immunizations Name Administration Dates Next Due Pfizer [...] age to complete this topic Care Teams Rehabilitation Counsellor Relationship Specialty Start Date End Date Talisha Manzanares MD [address] [place] [phone] PCP - General Family Medicine 10/31/18
== END 2025-02-01 09:18 | disposition home or self-care (01) ==
LOC: HO.PMC 08:54
PROVIDERS: PCP Family Medicine; Visit Provider Anesthesiology
DX: G89.4 Chronic pain syndrome (principal); M51.16 Intervertebral disc disorders with radiculopathy, lumbar region; M96.1 Postlaminectomy syndrome, not elsewhere classified; Z98.890 Other specified postprocedural states; M54.51 Vertebrogenic low back pain; M79.2 Neuralgia and neuritis, unspecified
CPT/HCPCS: 99214

== ENCOUNTER → 2025-02-01 08:53 | Outpatient (BNVA) | payer MEDICARE, MEDICAID, SELFPAY | PROVIDERS: PCP Family Medicine; Visit Provider Anesthesiology | DX: G89.4 Chronic pain syndrome (principal); M51.16 Intervertebral disc disorders with radiculopathy, lumbar region; M96.1 Postlaminectomy syndrome, not elsewhere classified; M54.51 Vertebrogenic low back pain; M79.2 Neuralgia and neuritis, unspecified; Z98.890 Other specified postprocedural states | CPT/HCPCS: 99212 ==

== ENCOUNTER 2025-02-05 10:50 | Outpatient (AMB) | payer MEDICARE, MEDICAID, SELFPAY ==
[2025-02-05 11:21] VITALS: BP 137/76; PULSE 79; O2SAT 99; BMI 26.9
--- NOTE | 2025-02-05 11:21 | A.OFFVIS_ITS ---
Vital Signs 02/05/25 11:21 Height 5 ft 9 in Weight 182 lb BMI 26.9 BP 137/76 Blood Pressure Location Rt brachial Position Sitting Pulse 79 Pulse Source Pulse Oximeter Pulse Oximetry (%) 99 Oxygen Delivery Method Room Air Intake Visit Reasons: Pump fill Food Service Director Required: No Allergies No Known Allergies [No Known Allergies*] Allergy (Verified 02/05/25 11:22) Medication List - Last Reconciled 02/05/25 by Paige Malloy, FRUIT CHECKER baclofen 20 mg PO TID 30 days hydromorphone 2 mg PO Q6H PRN 21 days naloxone 4 mg/actuation 4 mg intranasal Q2M 1 day pregabalin 75 mg PO DAILY pregabalin mg PO quetiapine (Seroquel) 100 mg PO BEDTIME selegiline (Emsam) 1 patch transdermal DAILY terazosin 5 mg PO BEDTIME 90 days HPI Comments Details: Hernán is today in the office for intrathecal pain pump refill and follow-up. Last time he came to my office urgently with complains on nausea and vomiting and weakness in bilateral lower extremities. While weakness in bilateral lower extremities would be expected finding on addition of baclofen to the admixture nausea and vomiting most likely therapy terminating event. I put him on minimal rate and his condition improved. However now we received a new batch of the intrathecal medication containing only hydromorphone I would have to increase the rate, I would need to administer him a bridge bolus during which he would get higher doses of the baclofen. We agreed that I will prescribe him Zofran. His bridge bolus will be lasting for next 10 days. After that he will schedule appointment with me for pain pump adjustment. I will continue escalation of the pain pump to improve his condition. He went for a dye study during which I was able to aspirate CSF from the side port of the pain pump and inject the dye into the catheter delineating myelogram. Therefore the pump is working appropriately although there maybe some positioned obstruction of the catheter. We carefully discussed today his options of the treatment. Unfortunately with his hardware in the back [place] size spinal cord stimulator in the lumbar gutter would not be possible to perform. In the past trial of the spinal cord stimulator was not effective to alleviate his pain. He reports that his pain is aggravated when he is sitting for the long period of time. However this is not the pain in the axial back this is pain radiating to the leg. He has [place] type changes in his lumbar spine, however because his pain is not axial I decided not to proceed for intercept procedure. Prior: status post ITDD Pain Pump Implant 05/12/24. Originally he was referred by Dr. Nix for evaluation for spinal cord stimulator. He is status post laminectomy L3-L4 and L5 S1 diskectomy with posterior lateral fusion. He has L5 radiculopathy EMG confirmed. On recommendation of Dr. Ch I tried spinal cord stimulator on him [place] [employer]. The procedure was very difficult technically. However I was able to establish 2 leads in the thoracic spine. Patient reported minimal pain improvement while on stimulation. At the end of the [place] scientific trial he was switched to Nevro SCS, unfortunately that did not help his pain in more extent either. He was absent from my care for 2 years , after that he came back requesting the discussion about pain pump he was offered to him at that time. Because the patient was on opioids [place] 7.5 mg TID, initially bupivacaine pain pump was considered however it resulted in poor pain control and side effects. He was switched for hydromorphone. Dr. Ch did not recommend additional surgical intervention and advised he undergo a SCS trial, and thus he was referred to us. He describes a numbness and burning down his right posterior lateral leg extending to the top of his right into his toes. This is worsened with sitting, reaching pain level 8-9/10. He had done extensive PT and also had multiple injections prior to his surgery while seeing pain management provider Dr. Geronimo in [place]. [facility] Medical History History of urinary retention History of numbness Chronic pain syndrome Radiculopathy due to lumbar intervertebral disc disorder Postlaminectomy syndrome Surgical History History of surgery History of basal cell carcinoma excision History of lumbar laminectomy History of laminectomy History of back surgery Hx of arthroscopy of shoulder Hx of repair of rotator cuff Social History Patient Tobacco Use Status: Former Tobacco user Review of Systems Const All systems reviewed & are unremarkable except as noted in HPI and below ENT Reports Normal hearing present Neuro Reports Normal hearing present, Denies confusion and Denies Sensory deficit (Neuro) Psych Denies confusion Physical Exam Vital Signs: Last Vital Signs Pulse 79 02/05/25 11:21 BP 137/76 02/05/25 11:21 Pulse Ox 99 02/05/25 11:21 Oxygen Delivery Method Room Air 02/05/25 11:21 BMI result Body Mass Index 26.9 Const General: No confusion Orientation/consciousness: No confusion Eyes Pupils: Equal, round and reactive pupils present EOM: EOMs intact bilaterally Chest Chest palpation & inspection: normal inspection of the chest Resp Effort & Inspection: normal respiratory effort, able to speak in complete sentences, normal respiratory pattern, no audible wheezes and no cough Cardio Jugular venous distension: no JVD Back/Spine/Pelvis Other: Lumbar Spine/Lower back/SIJ: SACROILIAC JOINT No tenderness to palpation. INSPECTION: normal curvature of spine, scar from previous surgery. RANGE OF MOTION decreased extention. PALPATION: no vertebral spine tenderness. STRAIGHT LEG RAISING TEST: positive at 45 degrees on right. MOTOR SYSTEM: 5/5 bilateral lower extremities. SENSORY EXAM: paresthesias right L4-5 distribution. REFLEXES: symmetrical 2+. GAIT: unremarkable. Neuro General: No confusion Cranial nerves: Yes Equal, round and reactive pupils present and Yes Normal hearing present Sensory Exam: No Sensory deficit (Neuro) Psych Speech and movement: Normal speech and movement present Affect: normal affect Attitude: cooperative Thought process: Normal thought process present Thought content: Normal thought content present Insight: Good insight present (Psych) Judgement: Good judgement present (Psych) Assessment & Plan Assessment & Plan (1) Chronic pain syndrome: Code(s): G89.4 - Chronic pain syndrome Category: Medical (2) Radiculopathy due to lumbar intervertebral disc disorder: Code(s): M51.16 - Intervertebral disc disorders with radiculopathy, lumbar region Category: Medical (3) Postlaminectomy syndrome: Code(s): M96.1 - Postlaminectomy syndrome, not elsewhere classified Category: Medical (4) S/P insertion of intrathecal pump: Code(s): Z98.890 - Other specified postprocedural states Category: Surgical (5) Vertebrogenic low back pain: Code(s): M54.51 - Vertebrogenic low back pain Category: Medical (6) Neuropathic pain syndrome (non-herpetic): Code(s): M79.2 - Neuralgia and neuritis, unspecified Category: Medical Plan: Intrathecal pump refill . The patient came today in the office FOR THE CHANGE OF THE MEDICATION IN her PAIN PUMP. The name and date of were verified and informed consent was obtained for the procedure. ?The pump was interrogated and the residual amount of fluid was found to be 17.1 mL. He was positioned prone on the bed AND THE AREA OF THE INTRATHECAL PUMP on the right buttock WAS PREPPED WITH CHLORAPREP. The fenestrated drape was sterilely applied over the area of the pump. Sterile gloves were worn and of the aspiration system was assembled containing 2 in 22 gauge noncoring needle, the needle was connected to extension tubing which was connected to the 20 cc sterile syringe. The pain pump was palpated under the skin The needle was inserted through the skin and the central plug of the pain pump and fluid was aspirated. The clear fluid was going into the syringe the total amount of the fluid was 17.1 ml. After that a new batch? of medication was obtained which was containing hydromorphone 600 micro g per mL. The admixture was made in two 20 cc syringe prepared by [facility] compounding pharmacy. The syringe was connected to the bacterial filter, and then connected to the extension tubing. The new medication was comprising of hydromorphone 600 micro g per mL. Minimal dose was introduced to the patient 29 micro g a day. He also was given a bridge bolus with approximately the same daily dose. We will meet in 10 days and I will ad just his opioid medications. Plan We obtain new medication today which does not contain baclofen. However bridge bolus will take up to 9 days and we would need to treat his nausea if it will occur with Zofran. He will come back in 10 days and we will start escalating his opioid medications in the pain pump. Medications: New ondansetron HCl 4 mg PO Q8H PRN 45 tabs 1RF nausea and vomiting 15 days Patient Instructions: I here by testify that I spent 32 minutes in conversation with this patient as well as planning his care and organizing this note. Coding Level of Care Code Est Pt Level 4 (83145) Procedure Only Diagnoses Chronic pain syndrome G89.4 Radiculopathy due to lumbar intervertebral disc disorder M51.16 Postlaminectomy syndrome M96.1 S/P insertion of intrathecal pump Z98.890 Vertebrogenic low back pain M54.51 Neuropathic pain syndrome (non-herpetic) M79.2
--- OUTSIDE RECORDS SUMMARY | 2025-02-05 12:57 | XMS_ITS | Encounter Summary ---
Author Organization [facility] Address [address] [place] [address] Care Team Providers Care Credentialing Coordinator Name Role Phone Talisha Manzanarse Primary Care Provider Natty vailable Encounter Details Date Type Department Care Team Description 11/20/2021 [facility] Neurosurgery [place] [address] [place] [address] Yong Ch MD, PHD Social [...] on filedocumented in this encounter Care Teams Credentialing Coordinator Relationship Specialty Start Date End Date Talisha Manzanares PCP - General Family Practice 11/13/19 documented as of this encounter
--- OUTSIDE RECORDS SUMMARY | 2025-02-05 12:57 | XMS_ITS | Encounter Summary ---
Author Organization [facility] Address [address] [place] [address] Care Team Providers Care Emd Special Education Teacher Name Role Phone Talisha Manzanares Primary Care Provider Natty vailable Encounter Details Date Type Department Care Team Description 09/17/2020 Release of Information Medical Records [address] [place] [id number] Abstract, Provider Social History Tobacco Use Types [...] on filedocumented in this encounter Care Teams Emd Special Education Teacher Relationship Specialty Start Date End Date Talisha Manzanares PCP - General Family Practice 11/13/19 documented as of this encounter
--- OUTSIDE RECORDS SUMMARY | 2025-02-05 12:57 | XMS_ITS | Encounter Summary ---
Author Organization [facility] Address [address] [facility] [address] [place] [phone] Phone Care Team Providers Care Superintendent Drilling And Production Name Role Phone Talisha Manzanares MD Primary Care Provider + Encounter Details Date Type Department Care Team (Late st Contact Info) Description 02/18/2023 Procedure [facility], Radio Flouroscopy [address] [place] [address] Social History Tobacco Use Types Packs/Day Years [...] on filedocumented in this encounter Care Teams Superintendent Drilling And Production Relationship Specialty Start Date End Date Talisha [place] [address] PCP - General 07/27/17 documented as of this encounter Additional Source Comments The information contained in this document represents components of the legal health record. It is not the complete legal health record.[facility]
--- OUTSIDE RECORDS SUMMARY | 2025-02-05 12:57 | XMS_ITS | Encounter Summary ---
Author Organization [facility] Address [address] [place] [phone] Phone Care Team Providers Care Sap Solutions Architect Name Role Phone Talisha Manzanares MD Primary Care Provider + Encounter Details Date Type Department Care Team (Late st Contact Info) Description 10/08/2023 Procedure [place] Admitting Dept - Virtual Department [address] [place] [address] Social History Tobacco Use Types Packs/Day Years [...] on filedocumented in this encounter Care Teams Sap Solutions Architect Relationship Specialty Start Date End Date Talisha Manzanares MD [address] [place] [phone] [email or web address] PCP - General 07/27/17 documented as of this encounter Additional Source Comments The information contained in this document represents components of the legal health record. It is not the complete legal health record.[facility]
--- OUTSIDE RECORDS SUMMARY | 2025-02-05 12:57 | XMS_ITS | Encounter Summary ---
Author Organization [facility] Address [address] [place] [address] Phone Care Team Providers Care Boiler/Chiller Technician Name Role Phone Talisha Manzanares MD Primary Care Provider + Encounter Details Date Type Department Care Team (Late st Contact Info) Description 09/22/2023 Procedure Pass OR Admitting Dept - Virtual Department [address] [place] [address] Social History Tobacco Use Types Packs/Day Years [...] on filedocumented in this encounter Care Teams Boiler/Chiller Technician Relationship Specialty Start Date End Date Talisha Manzanares MD [address] [place] [address] [email or web address] PCP - General 07/27/17 documented as of this encounter Additional Source Comments The information contained in this document represents components of the legal health record. It is not the complete legal health record.[facility]
--- OUTSIDE RECORDS SUMMARY | 2025-02-05 12:57 | XMS_ITS | Encounter Summary ---
Author Organization [facility] Address [address] [place] [address] Care Team Providers Care Railroad Emergency Services Manager Name Role Phone Talisha Manzanares Primary Care Provider Natty vailable Encounter Details Date Type Department Care Team Description 09/03/2020 Transfer Records Medical Records [address] [place] [address] Abstract, Provider Social History Tobacco Use Types Packs/Day Years Used Date Smoking Tobacco: Never Assessed Sex Assigned at Date Recorded Not on file documented as of this encounter Plan of Treatment Not on file documented as of this encounter Visit Diagnoses Not on filedocumented in this encounter Care Teams Railroad Emergency Services Manager Relationship Specialty Start Date End Date Talisha Manzanares PCP - General Family Practice 11/13/19 documented as of this encounter
--- OUTSIDE RECORDS SUMMARY | 2025-02-05 12:57 | XMS_ITS | Encounter Summary ---
Author Organization [facility] Address [address] [place] [address] Care Team Providers Care 3D Animator Name Role Phone Talisha Manzanares Primary Care Provider Natty vailable Encounter Details Date Type Department Care Team Description 09/12/2019 Measuring Machine Operator Report Medical Records [address] [place] [address] Abdelrahman Zarate PA-C [address] [place] [address] [address] [place] [address] Social History Tobacco Use Types Packs/Day Years Used Date Smoking Tobacco: Never Assessed Sex Assigned at Date Recorded Not on file documented as of this encounter Plan of Treatment Not on file documented as of this encounter Visit Diagnoses Not on filedocumented in this encounter Care Teams 3D Animator Relationship Specialty Start Date End Date Talisha Manzanares PCP - General Family Practice 11/13/19 documented as of this encounter
--- OUTSIDE RECORDS SUMMARY | 2025-02-05 12:57 | XMS_ITS | Clinical Summary ---
Author Organization [facility] Address [address] [place] [address] Care Team Providers Care Pricing Manager Name Role Phone Talisha Manzanares MD [...] Advance Directives For more information, please contact: [phone] Documents on File Type Date Recorded Patient Barrel Maker Expl anation Advance Directive and Living Will 04/19/2020 8:19 AM questionnaire Care Teams Pricing Manager Relationship Specialty Start Date End Date Talisha Manzanares MD [address] [place] [address] PCP - General Family Medicine 10/31/18
--- OUTSIDE RECORDS SUMMARY | 2025-02-05 12:57 | XMS_ITS | Encounter Summary ---
Author Organization [facility] Address [facility] [email or web address] [address] [address] Phone Care Team Providers Care Vamp Seamer Name Role Phone Talisha Manzanares MD Primary Care Provider + Encounter Details Date Type Department Care Team (Late st Contact Info) Description 11/01/2023 Procedure Pass [facility], [facility] [address] [place] [address] Social History Tobacco Use Types Packs/Day Years [...] on filedocumented in this encounter Care Teams Vamp Seamer Relationship Specialty Start Date End Date Talisha Manzanares MD [address] [place] [address] [email or web address] PCP - General 07/27/17 documented as of this encounter Additional Source Comments The information contained in this document represents components of the legal health record. It is not the complete legal health record.[facility]
--- OUTSIDE RECORDS SUMMARY | 2025-02-05 12:57 | XMS_ITS | Encounter Summary ---
Author Organization [facility] Address [facility] [address] [address] Phone Care Team Providers Care Yield Engineer Name Role Phone Talisha Manzanares MD Primary Care Provider + Encounter Details Date Type Department Care Team (Late st Contact Info) Description 11/01/2023 Procedure Pass [facility], X-Ray - [facility] [address] [place] [address] Social History Tobacco Use Types Packs/Day Years [...] on filedocumented in this encounter Care Teams Yield Engineer Relationship Specialty Start Date End Date Talisha Manzanares MD [address] [place] [address] [email or web address] PCP - General 07/27/17 documented as of this encounter Additional Source Comments The information contained in this document represents components of the legal health record. It is not the complete legal health record.[facility]
--- OUTSIDE RECORDS SUMMARY | 2025-02-05 12:57 | XMS_ITS | Encounter Summary ---
Author Organization [facility] Address [address] [place] [address] Phone Care Team Providers Care Tobacco Buyer Name Role Phone Talisha Manzanares MD Primary Care Provider + Encounter Details Date Type Department Care Team (Late st Contact Info) Description 03/17/2023 Transcribe Orders [facility] for Outpatient Care, Radio Flouroscopy [address] [place] [address] Juan Stanton [address] [place] [address] [email or web address] Social History Tobacco Use Types Packs/Day Years [...] on filedocumented in this encounter Care Teams Tobacco Buyer Relationship Specialty Start Date End Date Talisha Manzanares MD [address] [place] [address] [email or web address] PCP - General 07/27/17 documented as of this encounter Additional Source Comments The information contained in this document represents components of the legal health record. It is not the complete legal health record.[facility]
--- OUTSIDE RECORDS SUMMARY | 2025-02-05 12:58 | XMS_ITS | Encounter Summary ---
Author Organization [facility] Address [address] [place] [address] Care Team Providers Care Account Specialist Name Role Phone Unavailable Primary Care Provider Unavailabl e Encounter Details Date Type Department Care Team (Late st Contact Info) Description 07/05/2017 Ophthalmology Data Conversion [facility] Historical Conversion Department [address] [place] [address] [address] Social History Tobacco Use Types Packs/Day Years [...]
--- OUTSIDE RECORDS SUMMARY | 2025-02-05 12:58 | XMS_ITS | Referral Summary ---
Author Organization [facility] Address [address] [place] [address] Care Team Providers Care Sales Producer Name Role Phone Unavailable Primary Care Provider Unavailabl e Allergies No known active allergies Immunizations Immunization Administration Dates Next Due Covid-19, Pfizer, mRNA, [place] valent, PF 30 mcg/0.3 mL dose (for [...] of Treatment Not on file Insurance MEDICARE [facility]
--- OUTSIDE RECORDS SUMMARY | 2025-02-05 12:58 | XMS_ITS | Encounter Summary ---
Author Organization [facility] Address [address] [place] [address] Care Team Providers Care Scientific Editor Name Role Phone Talisha Manzanares Primary Care Provider Natty vailable Encounter Details Date Type Department Care Team Description 11/20/2021 [facility] Neurosurgery [place] [address] [place] [address] Yong Ch MD, PHD Social [...] on filedocumented in this encounter Care Teams Scientific Editor Relationship Specialty Start Date End Date Talisha Manzanares PCP - General Family Practice 11/13/19 documented as of this encounter
--- OUTSIDE RECORDS SUMMARY | 2025-02-05 12:58 | XMS_ITS | Encounter Summary ---
Author Organization [facility] Address [address] [employer] [facility] [address] [place] [address] Phone Care Team Providers Care Cnc Mill Set Up Operator Name Role Phone Talisha Manzanares MD Primary Care Provider + Reason for Referral * Physical Therapy (Routine) - Closed Specialty Diagnoses / Procedures Referred By Xavier goldstein Referred To Contact Physical Therapy Diagnoses Encounter for rehabilitation Hernán Mejia PA [address] [place] [address] [facility] Parent [address] [place] [address] Referral ID Status Reason Start Date Expiration Date Visits Re quested Visits Authorized [id number] Closed 07/21/2021 07/21/2022 1 1 Encounter Details Date Type Department Care Team (Latest Contact Info) Description 07/21/2021 Transcribe Orders [facility] Rehabilitation Services [address] [place] [address] Hernán Mejia PA [address] [place] [address] [email or web address] Encounter for rehabilitation (Primary Dx) Social History [...] Diagnoses Orde r Schedule Ambulatory referral to [facility] Physical Therapy Outpatient Referral Routine Encounter for rehabilitation Ordered: 07/21/2021 documented as of this encounter Visit Diagnoses Diagnosis Encounter for rehabilitation- Primary documented in this encounter Care Teams Cnc Mill Set Up Operator Relationship Specialty Start Date End Date Talisha Manzanares MD [address] [place], [place] [phone] [email or web address] PCP - General 07/27/17 documented as of this encounter Additional Source Comments The information contained in this document represents components of the legal health record. It is not the complete legal health record.[facility]
--- OUTSIDE RECORDS SUMMARY | 2025-02-05 12:58 | XMS_ITS | Encounter Summary ---
Author Organization [facility] Address [address] [place] [address] Care Team Providers Care Modeling Agency Manager Name Role Phone Talisha Manzanares Primary Care Provider Natty vailable Encounter Details Date Type Department Care Team Description 11/20/2021 [facility] Neurosurgery [place] [address] [place] [address] Yong Ch MD, PHD Social [...] on filedocumented in this encounter Care Teams Modeling Agency Manager Relationship Specialty Start Date End Date Talisha Manzanares PCP - General Family Practice 11/13/19 documented as of this encounter
--- OUTSIDE RECORDS SUMMARY | 2025-02-05 12:58 | XMS_ITS | Encounter Summary ---
Author Organization [facility] Address [address] [employer] [facility] [address] [place] [address] Phone Care Team Providers Care Warehouse Handler Name Role Phone Talisha Manzanares MD Primary Care Provider + Encounter Details Date Type Department Care Team (Late st Contact Info) Description 12/24/2022 Transcribe Orders [facility] Outpatient Care, Radio Flouroscopy [address] [place] [address] Binta Harris [address] [place] [address] [email or web address] Social History Tobacco Use Types [...] on filedocumented in this encounter Care Teams Warehouse Handler Relationship Specialty Start Date End Date Talisha Manzanares MD [address] [place] [address] PCP - General 07/27/17 documented as of this encounter Additional Source Comments The information contained in this document represents components of the legal health record. It is not the complete legal health record.[facility]
--- OUTSIDE RECORDS SUMMARY | 2025-02-05 12:58 | XMS_ITS | Encounter Summary ---
Author Organization [facility] Address [address] [facility] [address] [place] [address] Phone Care Team Providers Care Manager Industrial Name Role Phone Talisha Manzanares MD Primary Care Provider + Encounter Details Date Type Department Care Team (Late st Contact Info) Description 10/22/2022 Telephone [facility] Orthopaedic Spine [address] [facility], 3rd Floor, [address] [place] [address] Pasha Cassidy MD [address] [facility] [address] [place] [address] [email or web address] Social History Tobacco Use Types Packs/Day Years [...] filedocumented in this encounter Care Teams Manager Industrial Relationship Specialty Start Date End Date Talisha Manzanares MD [address] [place] [address] [email or web address] PCP - General 07/27/17 documented as of this encounter Additional Source Comments The information contained in this document represents components of the legal health record. It is not the complete legal health record.[facility]
--- OUTSIDE RECORDS SUMMARY | 2025-02-05 12:58 | XMS_ITS | Encounter Summary ---
Author Organization [facility] Address [facility] [employer] [address] [address] Phone Care Team Providers Care Coal Handler Name Role Phone Talisha Manzanares MD Primary Care Provider + Encounter Details Date Type Department Care Team (Late st Contact Info) Description 11/04/2021 Ancillary Orders [facility],Outside Imaging [address] [place] [address] System, Provider Not In, [facility] [address] [address] Social History Tobacco Use Types Packs/Day Years [...] on filedocumented in this encounter Care Teams Coal Handler Relationship Specialty Start Date End Date Talisha Manzanares MD [address] [place] [address] [email or web address] PCP - General 07/27/17 documented as of this encounter Additional Source Comments The information contained in this document represents components of the legal health record. It is not the complete legal health record.[facility]
--- OUTSIDE RECORDS SUMMARY | 2025-02-05 12:58 | XMS_ITS | Encounter Summary ---
Author Organization [facility] Address [address] [place] [address] Phone Care Team Providers Care Geotechnician Name Role Phone Talisha Manzanares MD Primary Care Provider + Talisha Manzanares MD Unavailable [phone] Encounter Details Date Type Department Care Team (Late st Contact Info) Description 02/01/2018 Ancillary Orders Virtual Department [address] [place] [address] Estela Rowell PA-C [address] [place] [address] [email or web address] Globus syndrome Social History Tobacco Use Types [...] min. 39 sec; ??11 IMAGES/FRAMES POS - [id number] Narrative 02/09/2018 10:38 AM EDT COMPARISON: None. BARIUM SWALLOW FINDINGS: Dip Lube Operator lateral neck radiograph was obtained. ??Soft [...] - 02/09/2018 COMPARISON: None. BARIUM SWALLOW FINDINGS: Dip Lube Operator lateral neck radiograph was obtained. Soft [...] min. 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 It is not the complete legal health record.[facility]
--- OUTSIDE RECORDS SUMMARY | 2025-02-05 12:58 | XMS_ITS | Clinical Summary ---
Author Organization [facility] Address [facility] [employer] [address] [address] Phone Care Team Providers Care Position Description Manager Name Role Phone Talisha Manzanares MD [...] mg PO taken as needed and hydrocodone-acetaminophen (Tomah 7.5-325 mg) 1 table PO as needed with typical use being twice weekly. He has a contract with his PCP for chronic opioid management. Discussed the possibility that it may be more difficulty to control his post-operative pain given current chronic opioid use, however he is only using minimal Tomah at twice weekly and did discuss weaning [...] PM EST Office Visit [facility]ics [facility] Medicine [address] [place] [address] Hernán Grissom PA-C Rotator cuff tendinitis, right [...] Recently Relevant to Health Maintenance Care Teams Position Description Manager Relationship Specialty Start Date End Date Talisha Manzanares MD [address] [place] [address] [email or web address] PCP - General 07/27/17 Additional Source Comments The information contained in this document represents components of the legal health record. It is not the complete legal health record.[facility]
--- OUTSIDE RECORDS SUMMARY | 2025-02-05 12:58 | XMS_ITS | Clinical Summary ---
Author Organization [facility] Address [address] [place] [address] Care Team Providers Care Vp Mobile Products Name Role Phone Unavailable Primary Care Provider Unavailabl e Allergies No known active allergies Immunizations Immunization Administration Dates Next Due Covid-19, Pfizer, mRNA, [place] valent, PF 30 mcg/0.3 mL dose (for [...] age to complete this topic Insurance MEDICARE [facility]
--- OUTSIDE RECORDS SUMMARY | 2025-02-05 12:58 | XMS_ITS | Clinical Summary ---
Author Organization [facility] Address [address] [place] [address] Care Team Providers Care Road Cleaner Name Role Phone Talisha Manzanares MD Primary Care Provider [phone] Immunizations Name Administration Dates Next Due Pfizer SARS-CoV-2 COVID-19, mRNA, LNP-S, preservative free 02/05/2021,01/08/2021 Surgical History Surgery Date Site/Laterality Comments OTHER SURGICAL HISTORY PROCEDURE: [place] SPINE DEVICE IMPLANT SURGERY Medical History Medical [...] age to complete this topic Care Teams Road Cleaner Relationship Specialty Start Date End Date Talisha Manzanares MD [address] [place] [phone] PCP - General Family Medicine 10/31/18
--- OUTSIDE RECORDS SUMMARY | 2025-02-05 12:58 | XMS_ITS | Encounter Summary ---
Author Organization [facility] Address [address] [employer] [address] [place] [address] Phone Care Team Providers Care Advertising Strategist Name Role Phone Talisha Manzanares MD Primary Care Provider + Encounter Details Date Type Department Care Team (Late st Contact Info) Description 11/19/2022 Procedure [facility] for Outpatient Care, Radio Flouroscopy [address] [place] [address] Social History Tobacco Use Types Packs/Day Years [...] on filedocumented in this encounter Care Teams Advertising Strategist Relationship Specialty Start Date End Date Talisha Manzanares MD [address] [place] [address] PCP - General 07/27/17 documented as of this encounter Additional Source Comments The information contained in this document represents components of the legal health record. It is not the complete legal health record.[facility]
--- OUTSIDE RECORDS SUMMARY | 2025-02-05 12:58 | XMS_ITS | Encounter Summary ---
Author Organization [facility] Address [address] [place] [address] Care Team Providers Care Patching Machine Operator Name Role Phone Tailsha Manzanares Primary Care Provider Natty vailable Encounter Details Date Type Department Care Team Description 11/20/2021 [facility] Neurosurgery [place] [address] [place] [address] Yong Ch MD, PHD Social [...] on filedocumented in this encounter Care Teams Patching Machine Operator Relationship Specialty Start Date End Date Talisha Manzanares PCP - General Family Practice 11/13/19 documented as of this encounter
== END 2025-02-05 11:27 | disposition home or self-care (01) ==
LOC: HO.PMC 10:51
PROVIDERS: PCP Family Medicine; Visit Provider Anesthesiology
DX: G89.4 Chronic pain syndrome (principal); M51.16 Intervertebral disc disorders with radiculopathy, lumbar region; M96.1 Postlaminectomy syndrome, not elsewhere classified; Z98.890 Other specified postprocedural states; Z45.1 Encounter for adjustment and management of infusion pump; M54.51 Vertebrogenic low back pain; M79.2 Neuralgia and neuritis, unspecified
CPT/HCPCS: 62370; 99214

== ENCOUNTER → 2025-02-05 10:50 | Outpatient (BNVA) | payer MEDICARE, MEDICAID, SELFPAY | PROVIDERS: PCP Family Medicine; Visit Provider Anesthesiology | DX: G89.4 Chronic pain syndrome (principal); M51.16 Intervertebral disc disorders with radiculopathy, lumbar region; M96.1 Postlaminectomy syndrome, not elsewhere classified; M54.51 Vertebrogenic low back pain; M79.2 Neuralgia and neuritis, unspecified; Z45.1 Encounter for adjustment and management of infusion pump; Z98.890 Other specified postprocedural states; Z79.899 Other long term (current) drug therapy | CPT/HCPCS: 62370; 99212 ==

== ENCOUNTER 2025-02-15 10:34 | Outpatient (AMB) | payer MEDICARE, MEDICAID, SELFPAY ==
--- NOTE | 2025-02-15 10:40 | MHC.OFFVIS ---
Vital Signs 02/15/25 10:41 Height 5 ft 9 in Weight 182 lb BMI 26.9 BP 126/67 Blood Pressure Location Lt brachial Position Sitting Respiration 16 Pulse 67 Pulse Source Pulse Oximeter Intake Visit Reasons: [address] Bhardwaj Mechanical Maintenance Instructor Required: No Allergies No Known Allergies [No Known Allergies*] Allergy (Verified 02/15/25 10:42) Medication List - Last Reconciled 02/15/25 by Debbie Beck LPN naloxone 4 mg/actuation 4 mg intranasal Q2M 1 day ondansetron HCl 4 mg PO Q8H PRN 15 days pregabalin 100 mg PO TID quetiapine (Seroquel) 100 mg PO BEDTIME terazosin 5 mg PO BEDTIME 90 days HPI Comments Details: Hernán is today in the office for intrathecal pain pump adjustment. He denies pain improvement from last pump escalation. We agreed today that I will increase again the dose of his pain pump. He was on continuous 29 micro g of hydromorphone a day. That medication was introduced after the baclofen exerted side effects on the patient. Today we interrogated his pump and increased his hydromorphone dose to 40.59 mg a day. We withstand from introducing PTM for now. He went for a dye study during which I was able to aspirate CSF from the side port of the pain pump and inject the dye into the catheter delineating myelogram. Therefore the pump is working appropriately although there maybe some positioned obstruction of the catheter. We carefully discussed today his options of the treatment. Unfortunately with his hardware in the back Preston size spinal cord stimulator in the lumbar gutter would not be possible to perform. In the past trial of the spinal cord stimulator was not effective to alleviate his pain. He reports that his pain is aggravated when he is sitting for the long period of time. However this is not the pain in the axial back this is pain radiating to the leg. He has Modic type changes in his lumbar spine, however because his pain is not axial I decided not to proceed for intercept procedure. Prior: status post ITDD Pain Pump Implant 05/12/24. Originally he was referred by Dr. Nix for evaluation for spinal cord stimulator. He is status post laminectomy L3-L4 and L5 S1 diskectomy with posterior lateral fusion. He has L5 radiculopathy EMG confirmed. On recommendation of Dr. Ch I tried spinal cord stimulator on him Preston scientific. The procedure was very difficult technically. However I was able to establish 2 leads in the thoracic spine. Patient reported minimal pain improvement while on stimulation. At the end of the Preston scientific trial he was switched to Nevro SCS, unfortunately that did not help his pain in more extent either. He was absent from my care for 2 years , after that he came back requesting the discussion about pain pump he was offered to him at that time. Because the patient was on opioids Clayton 7.5 mg TID, initially bupivacaine pain pump was considered however it resulted in poor pain control and side effects. He was switched for hydromorphone. Dr. Ch did not recommend additional surgical intervention and advised he undergo a SCS trial, and thus he was referred to us. He describes a numbness and burning down his right posterior lateral leg extending to the top of his right into his toes. This is worsened with sitting, reaching pain level 8-9/10. He had done extensive PT and also had multiple injections prior to his surgery while seeing pain management provider Dr. Geronimo in [place]. [facility] Medical History History of urinary retention History of numbness Chronic pain syndrome Radiculopathy due to lumbar intervertebral disc disorder Postlaminectomy syndrome Surgical History History of surgery History of basal cell carcinoma excision History of lumbar laminectomy History of laminectomy History of back surgery Hx of arthroscopy of shoulder Hx of repair of rotator cuff Social History Patient Tobacco Use Status: Former Tobacco user Review of Systems Const All systems reviewed & are unremarkable except as noted in HPI and below ENT Reports Normal hearing present Neuro Reports Normal hearing present, Denies confusion and Denies Sensory deficit (Neuro) Psych Denies confusion Physical Exam Vital Signs: Last Vital Signs Pulse 67 02/15/25 10:41 Resp 16 02/15/25 10:41 BP 126/67 02/15/25 10:41 BMI result Body Mass Index 26.9 Const General: No confusion Orientation/consciousness: No confusion Eyes Pupils: Equal, round and reactive pupils present EOM: EOMs intact bilaterally Chest Chest palpation & inspection: normal inspection of the chest Resp Effort & Inspection: normal respiratory effort, able to speak in complete sentences, normal respiratory pattern, no audible wheezes and no cough Cardio Jugular venous distension: no JVD Back/Spine/Pelvis Other: Lumbar Spine/Lower back/SIJ: SACROILIAC JOINT No tenderness to palpation. INSPECTION: normal curvature of spine, scar from previous surgery. RANGE OF MOTION decreased extention. PALPATION: no vertebral spine tenderness. STRAIGHT LEG RAISING TEST: positive at 45 degrees on right. MOTOR SYSTEM: 5/5 bilateral lower extremities. SENSORY EXAM: paresthesias right L4-5 distribution. REFLEXES: symmetrical 2+. GAIT: unremarkable. Neuro General: No confusion Cranial nerves: Yes Equal, round and reactive pupils present and Yes Normal hearing present Sensory Exam: No Sensory deficit (Neuro) Psych Speech and movement: Normal speech and movement present Affect: normal affect Attitude: cooperative Thought process: Normal thought process present Thought content: Normal thought content present Insight: Good insight present (Psych) Judgement: Good judgement present (Psych) Assessment & Plan Assessment & Plan (1) Chronic pain syndrome: Code(s): G89.4 - Chronic pain syndrome Category: Medical (2) Radiculopathy due to lumbar intervertebral disc disorder: Code(s): M51.16 - Intervertebral disc disorders with radiculopathy, lumbar region Category: Medical (3) Postlaminectomy syndrome: Code(s): M96.1 - Postlaminectomy syndrome, not elsewhere classified Category: Medical (4) S/P insertion of intrathecal pump: Code(s): Z98.890 - Other specified postprocedural states Category: Surgical (5) Vertebrogenic low back pain: Code(s): M54.51 - Vertebrogenic low back pain Category: Medical (6) Neuropathic pain syndrome (non-herpetic): Code(s): M79.2 - Neuralgia and neuritis, unspecified Category: Medical Plan I recommend this patient to visit me once or twice a week to continue escalation of the opioid medication in his pain pump. I will see him next week. Coding Level of Care Code Est Pt Level 3 (45751) Diagnoses Chronic pain syndrome G89.4 Radiculopathy due to lumbar intervertebral disc disorder M51.16 Postlaminectomy syndrome M96.1 S/P insertion of intrathecal pump Z98.890 Vertebrogenic low back pain M54.51 Neuropathic pain syndrome (non-herpetic) M79.2
[2025-02-15 10:41] VITALS: BP 126/67; PULSE 67; RESP 16; BMI 26.9
--- OUTSIDE RECORDS SUMMARY | 2025-02-15 11:56 | XMS_ITS | Encounter Summary ---
Author Organization [facility] Address [address] [place] [address] Care Team Providers Care Conservator Artifacts Name Role Phone Unavailable Primary Care Provider Unavailabl e Encounter Details Date Type Department Care Team (Late st Contact Info) Description 07/05/2017 Ophthalmology Data Conversion [facility] Historical Conversion Department [address] [place] [address] [address] Social History Tobacco Use Types Packs/Day Years [...]
--- OUTSIDE RECORDS SUMMARY | 2025-02-15 11:56 | XMS_ITS | Encounter Summary ---
Author Organization [facility] Address [address] [place] [address] Phone Care Team Providers Care Beam Warper Name Role Phone Talisha Manzanares MD Primary Care Provider + Encounter Details Date Type Department Care Team (Late Contact Info) Description 02/18/2023 Procedure [facility], Radio Flouroscopy [address] [place] [address] Social History Tobacco Use Types Packs/Day Years [...] Department Care Team (Late Contact Info) Description 03/12/2025 10:30 AM EDT Office Visit [facility] Orthopedics & Sports Medicine [address] [place] [address] Hernán Grissom PA-C [address] [place] [address] [place] [address] 04/03/2025 3:15 PM EDT Appointment [facility] Center for Pain Medicine [address] [facility], [address] [place] [address] Jaclyn Almanzar MD [address] [place], [place] [address]B [address] [place] [address] [email or web address] U documented as of this encounter Visit Diagnoses Not on filedocumented in this encounter Care Teams Beam Warper Relationship Specialty Start Date End Date Talisha Manzanares MD [address] [place] [address] [email or web address] PCP - General 07/27/17 documented as of this encounter Additional Source Comments The information contained in this document represents components of the legal health record. It is not the complete legal health record.[facility]
--- OUTSIDE RECORDS SUMMARY | 2025-02-15 11:56 | XMS_ITS | Encounter Summary ---
Author Organization [facility] Address [address] [place] [address] Phone Care Team Providers Care Sales And Operations Trainee Name Role Phone Talisha Manzanares MD Primary Care Provider + Encounter Details Date Type Department Care Team (Late Contact Info) Description 11/01/2023 Procedure Pass [facility], [facility] [address] [place] [address] Social History Tobacco Use Types Packs/Day Years [...] Description 03/12/2025 10:30 AM EDT Office Visit [facility] Orthopedics & Sports Medicine [address] [place] [address] Hernán Grissom PA-C [address] [place] [address] [place] [address] 04/03/2025 3:15 PM EDT Appointment [facility] Center for Pain Medicine [address] [facility], [address] [place] [address] Jaclyn Almanzar MD [address] [facility] [address] [place] [address] [email or web address] U documented as of this encounter Visit Diagnoses Not on filedocumented in this encounter Care Teams Sales And Operations Trainee Relationship Specialty Start Date End Date Talisha Manzanares MD [address] [place], [place] [address], [place] [address] [email or web address] PCP - General 07/27/17 documented as of this encounter Additional Source Comments The information contained in this document represents components of the legal health record. It is not the complete legal health record.[facility]
--- OUTSIDE RECORDS SUMMARY | 2025-02-15 11:56 | XMS_ITS | Encounter Summary ---
Author Organization [facility] Address [address] [place] [address] Phone Care Team Providers Care Brewery Pumper Name Role Phone Talisha Manzanares MD Primary Care Provider + Talisha Manzanares MD Unavailable [phone] Encounter Details Date Type Department Care Team (Late st Contact Info) Description 02/01/2018 Ancillary Orders Virtual Department [address] [place] [address] Estela Rowell PA-C [address] [place] [address] [email or web address] Globus syndrome Social History Tobacco Use Types Packs/Day Years Used Date Smoking Tobacco: Never Assessed Sex and Gender Information Value Date Recorded Sex Assigned at Male 07/29/2022 11:31 PM EDT Gender Identity Male 07/29/2022 11:31 PM EDT Sexual Orientation Not on file documented as of this encounter Plan of Treatment Upcoming Encounters Date Type Department Care Team (Late st Contact Info) Description 03/12/2025 10:30 AM EDT Office Visit [facility] Orthopedics & Sports Medicine [address] [place] [address] Hernán Grissom PA-C [address] [place] [address] [place] [address] 04/03/2025 3:15 PM EDT Appointment [facility] Center for Pain Medicine [address] [facility], [address] [place] [address] Jaclyn Almanzar MD [address] [facility] [address] [place] [address] [email or web address] U documented as of this encounter Results * FL BARIUM SWALLOW ESOPHAGRAM SINGLE CONTRAST (02/09/2018 10:28 AM EDT) Anatomical Region Laterality Modality Chest Radiographic Elaina ging 02/09/2018 10:3 6 AM EDT Impressions 02/09/2018 10:38 AM EDT 1. ??Normal esophagram. 2. ??Severe cervical spine degenerative disc disease. FLUOROSCOPY TIME: ??1 min. 39 sec; ??11 IMAGES/FRAMES POS - [id number] Narrative 02/09/2018 10:38 AM EDT COMPARISON: None. BARIUM SWALLOW FINDINGS: Molder Floor lateral neck radiograph was obtained. ??Soft tissues [...] - 02/09/2018 COMPARISON: None. BARIUM SWALLOW FINDINGS: Molder Floor lateral neck radiograph was obtained. Soft tissues [...] min. 39 sec; 11 IMAGES/FRAMES POS - [id number] Estela Rowell PA-C IMG FL MISC documented in this encounter Visit Diagnoses Diagnosis Globus syndrome Conversion disorder Globus syndrome Conversion disorder documented in this encounter Care Teams Brewery Pumper Relationship Specialty Start Date End Date Talisha Manzanares MD [address] [place] [address] PCP - General 07/27/17 Talisha Manzanares MD [address] [place] [address] Insurance Assigned Provider 12/04/17 documented as of this encounter Additional Source Comments The information contained in this document represents components of the legal health record. It is not the complete legal health record.[facility]
--- OUTSIDE RECORDS SUMMARY | 2025-02-15 11:56 | XMS_ITS | Clinical Summary ---
Author Organization [facility] Address [facility] [employer] [address] [address] Phone Care Team Providers Care Service Plumber Name Role Phone Talisha Manzanares MD Primary [...] mL 3 mL Infil Once 11/10/2024 02/08/2025 Ended lidocaine (XYLOCAINE) 1% injection 3 mL 3 mL Infil Once 11/10/2024 02/08/2025 Ended lidocaine (XYLOCAINE) 1% injection 4 mL 4 mL Infil Once 11/10/2024 02/08/2025 Ended lidocaine (XYLOCAINE) 1% injection 4 mL 4 mL Infil Once 11/10/2024 02/08/2025 Ended triamcinolone acetonide (KENALOG-40) 40 mg/mL injection 40 mg 40 mg IM Once 11/10/2024 02/08/2025 Ended triamcinolone acetonide (KENALOG-40) 40 mg/mL injection 40 mg 40 mg IM Once 11/10/2024 02/08/2025 Ended Active Problems Problem Noted Date Diagnosed Date [...] mg PO taken as needed and hydrocodone-acetaminophen (Tallmadge 7.5-325 mg) 1 table PO as needed with typical use being twice weekly. He has a contract with his PCP for chronic opioid management. Discussed the possibility that it may be more difficulty to control his post-operative pain given current chronic opioid use, however he is only using minimal Tallmadge at twice weekly and did discuss weaning [...] coronary syndromes including unstable or severe angina, [place] within 1 month, severe CHF, high grade [...] Description 03/12/2025 10:30 AM EDT Office Visit [facility] Orthopedics & Sports Medicine [address] [place] [address] Hernán Grissom PA-C [address] [place] [address] [place] [address] 04/03/2025 3:15 PM EDT Appointment [facility] Center for [facility] Medicine [address] [facility], [address] [place] [address] Jaclyn Almanzar MD [address] [place] [address] [email or web address] U Health Maintenance Due Date Last Done Comments [...] Recently Relevant to Health Maintenance Care Teams Service Plumber Relationship Specialty Start Date End Date Talisha Manzanares MD [address] [place] [address] [email or web address] PCP - General 07/27/17 Additional Source Comments The information contained in this document represents components of the legal health record. It is not the complete legal health record.[facility]
--- OUTSIDE RECORDS SUMMARY | 2025-02-15 11:56 | XMS_ITS | Encounter Summary ---
Author Organization [facility] Address [facility] [employer] [address] [address] Phone Care Team Providers Care Commander Internal Affairs Name Role Phone Talisha Manzanares MD Primary Care Provider + Encounter Details Date Type Department Care Team (Late Contact Info) Description 11/04/2021 Ancillary Orders [facility],Outside Imaging [address] [place] [address] System, Provider Not In, [facility] [address] [address] Social History Tobacco Use Types Packs/Day Years [...] Description 03/12/2025 10:30 AM EDT Office Visit [facility] Orthopedics & Sports Medicine [address] [place] [address] Hernán Grissom PA-C [address] [place] [address] [place] [address] 04/03/2025 3:15 PM EDT Appointment [facility] [address] [facility], [address] [place] [address] Jaclyn Almanzar MD [address] [place] [address] [email or web address] U documented as of this encounter Results * XR Upper Extremity Outside (No Interpretation) (10/09/2021 12:00 AM EST) Narrative SYSTEMGENERATED, DOCUMENTATION - 11/04/2021 8:54 AM EST This study is for PACS storage only and not for interpretation. Provider Not In System PhD IMG OUTSIDE I MAGING W/OUT INTERPRETATION documented in this encounter Visit Diagnoses Not on filedocumented in this encounter Care Teams Commander Internal Affairs Relationship Specialty Start Date End Date Talisha Manzanares MD [address] [place] [address] [email or web address] PCP - General 07/27/17 documented as of this encounter Additional Source Comments The information contained in this document represents components of the legal health record. It is not the complete legal health record.[facility]
--- OUTSIDE RECORDS SUMMARY | 2025-02-15 11:56 | XMS_ITS | Clinical Summary ---
Author Organization [facility] Address [address] [place] [address] Care Team Providers Care Hemodialysis Technician Name Role Phone Talisha Manzanares MD [...] Advance Directives For more information, please contact: [phone] Documents on File Type Date Recorded Patient Spanish Interpreter/Translator Expl anation Advance Directive and Living Will 04/19/2020 8:19 AM questionnaire Care Teams Hemodialysis Technician Relationship Specialty Start Date End Date Talisha Manzanares MD [address] [place] [address] PCP - General Family Medicine 10/31/18
--- OUTSIDE RECORDS SUMMARY | 2025-02-15 11:56 | XMS_ITS | Encounter Summary ---
Author Organization [facility] Address [facility] [employer] [address] [address] Phone Care Team Providers Care Sand Shoveler Name Role Phone Talisha Manzanares MD Primary Care Provider + Encounter Details Date Type Department Care Team (Late Contact Info) Description 11/01/2023 Procedure Pass [facility], X-Ray - [facility] [address] [place] [address] Social History Tobacco Use Types Packs/Day Years [...] 03/12/2025 10:30 AM EDT Office Visit [facility] Orthopedics & Sports Medicine [address] [place] [address] Hernán Grissom PA-C [address] [place] [address] [place] [address] 04/03/2025 3:15 PM EDT Appointment [facility] Center for Pain Medicine [address] [facility], [address] [place] [address] Jaclyn Almanzar MD [address] [place], [place] [address]B [address] [place] [address] [email or web address] U documented as of this encounter Visit Diagnoses Not on filedocumented in this encounter Care Teams Sand Shoveler Relationship Specialty Start Date End Date Talisha Manzanares MD [address] [place], [place] [address], [place] [address] [email or web address] PCP - General 07/27/17 documented as of this encounter Additional Source Comments The information contained in this document represents components of the legal health record. It is not the complete legal health record.[facility]
--- OUTSIDE RECORDS SUMMARY | 2025-02-15 11:56 | XMS_ITS | Clinical Summary ---
Author Organization [facility] Address [address] [place] [address] Care Team Providers Care Baton Twirler Name Role Phone Unavailable Primary Care Provider Unavailabl e Allergies No known active allergies Immunizations Immunization Administration Dates Next Due Covid-19, Pfizer, mRNA, Daggett valent, PF 30 mcg/0.3 mL dose (for [...] age to complete this topic Insurance MEDICARE [facility]
--- OUTSIDE RECORDS SUMMARY | 2025-02-15 11:56 | XMS_ITS | Encounter Summary ---
Author Organization [facility] Address [address] [place] [address] Phone Care Team Providers Care Cryptanalyst Name Role Phone Talisha Manzanares MD Primary Care Provider + Encounter Details Date Type Department Care Team (Late Contact Info) Description 10/08/2023 Procedure Pass [place] Admitting Dept - Virtual Department [address] [place] [address] Social History Tobacco Use Types Packs/Day Years [...] 03/12/2025 10:30 AM EDT Office Visit [facility] Orthopedics & Sports Medicine [address] [place] [address] Hernán Grissom PA-C [address] [place] [address] [place] [address] 04/03/2025 3:15 PM EDT Appointment [facility] Center for Pain Medicine [address] [facility], [address] [place] [address] Jaclyn Almanzar MD [address] [place], [place] [address] [address] [place] [address] [email or web address] U documented as of this encounter Visit Diagnoses Not on filedocumented in this encounter Care Teams Cryptanalyst Relationship Specialty Start Date End Date Talisha Manzanares MD [address] [place] [address] [address] [email or web address] PCP - General 07/27/17 documented as of this encounter Additional Source Comments The information contained in this document represents components of the legal health record. It is not the complete legal health record.[facility]
--- OUTSIDE RECORDS SUMMARY | 2025-02-15 11:56 | XMS_ITS | Encounter Summary ---
Author Organization [facility] Address [address] [place] [address] Phone Care Team Providers Care Steeping Press Tender Name Role Phone Talisha Manzanares MD Primary Care Provider + Encounter Details Date Type Department Care Team (Late Contact Info) Description 09/22/2023 Procedure Pass [place] Admitting Dept - Virtual Department [address] [place] [address] Social History Tobacco Use Types Packs/Day Years [...] 03/12/2025 10:30 AM EDT Office Visit [facility] Orthopedics & Sports Medicine [address] [place] [address] Hernán Grissom PA-C [address] [place] [address] [place] [address] 04/03/2025 3:15 PM EDT Appointment [facility] Center for Pain Medicine [address] [facility], [address] [place] [address] Jaclyn Almanzar MD [address] [place], [place] [address]B [address] [place] [address] [email or web address] U documented as of this encounter Visit Diagnoses Not on filedocumented in this encounter Care Teams Steeping Press Tender Relationship Specialty Start Date End Date Talisha Manzanares MD [address] [place], [place] [address] [address] [email or web address] PCP - General 07/27/17 documented as of this encounter Additional Source Comments The information contained in this document represents components of the legal health record. It is not the complete legal health record.[facility]
--- OUTSIDE RECORDS SUMMARY | 2025-02-15 11:56 | XMS_ITS | Encounter Summary ---
Author Organization [facility] Address [address] [place], [place] [address] [place] [address] Phone Care Team Providers Care Imaging Specialist Name Role Phone Talisha Manzanares MD Primary Care Provider + Encounter Details Date Type Department Care Team (Late Contact Info) Description 11/19/2022 Procedure Pass [facility], Radio Flouroscopy [address] [place] [address] Social History Tobacco Use Types Packs/Day Years [...] Description 03/12/2025 10:30 AM EDT Office Visit [facility] Orthopedics & Sports Medicine 4 [place] [address] Hernán Grissom PA-C [address] [place] [address] [place] [address] 04/03/2025 3:15 PM EDT Appointment [facility] Center for Pain Medicine [address] [facility], [address] [place] [address] Jaclyn Almanzar MD [address] [place], [place] [address]B 444 [place] [address] [email or web address] documented as of this encounter Visit Diagnoses Not on filedocumented in this encounter Care Teams Imaging Specialist Relationship Specialty Start Date End Date Talisha Manzanares MD [address] [place] [address] [email or web address] PCP - General 07/27/17 documented as of this encounter Additional Source Comments The information contained in this document represents components of the legal health record. It is not the complete legal health record.[facility]
--- OUTSIDE RECORDS SUMMARY | 2025-02-15 11:56 | XMS_ITS | Encounter Summary ---
Author Organization [facility] Address [address] [place] [address] Phone Care Team Providers Care Creative Engagement Director Name Role Phone Talisha Manzanares MD Primary Care Provider + Encounter Details Date Type Department Care Team ([facility] Contact Info) Description 03/17/2023 Transcribe Orders [facility], Radio Flouroscopy [address] [place] [address] Juan Stanton 15 [place] [address] [email or web address] [...] Upcoming Encounters Date Type Department Care Team ([facility] st Contact Info) Description 03/12/2025 10:30 AM EDT Office Visit [facility] Orthopedics & Sports Medicine 4 [place] [address] Hernán Grissom PA-C [address] [place] [address] [place] [address] 04/03/2025 3:15 PM EDT Appointment [facility] Center for [facility] Medicine [address] [facility], [address] [place] [address] Jaclyn Almanzar MD [facility] 444 [place] [address] [email or web address] U documented as of this encounter Visit Diagnoses Not on filedocumented in this encounter Care Teams Creative Engagement Director Relationship Specialty Start Date End Date Talisha Manzanares MD [address] [place] [address] [email or web address] PCP - General 07/27/17 documented as of this encounter Additional Source Comments The information contained in this document represents components of the legal health record. It is not the complete legal health record.[facility]
--- OUTSIDE RECORDS SUMMARY | 2025-02-15 11:56 | XMS_ITS | Encounter Summary ---
Author Organization [facility] Address [address] [place] [address] Phone Care Team Providers Care Campground Manager Name Role Phone Talisha Manzanares MD Primary Care Provider + Encounter Details Date Type Department Care Team (Late Contact Info) Description 12/24/2022 Transcribe [facility]patient Care, Radio Flouroscopy [address] [place] [address] Binat Harris 15 [place] [address] [email or web address] Social History Tobacco Use Types [...] Hospital [facility] Orthopedics & Sports Medicine [address] [place] [address] Hernán Grissom PA-C [address] [place] [address] [place] [address] 04/03/2025 3:15 PM EDT Appointment [facility] Center [facility] Medicine 15 [facility], [address] [place] [address] Jaclyn Almanzar MD [facility] 444 [place] [address] [email or web address] documented as of this encounter Visit Diagnoses Not on filedocumented in this encounter Care Teams Campground Manager Relationship Specialty Start Date End Date Talisha Manzanares MD [address] [place] [address] [email or web address] PCP - General 07/27/17 documented as of this encounter Additional Source Comments The information contained in this document represents components of the legal health record. It is not the complete legal health record.[facility]
--- OUTSIDE RECORDS SUMMARY | 2025-02-15 11:56 | XMS_ITS | Encounter Summary ---
Author Organization [facility] Address [address] [facility] [address] [place] [address] Phone Care Team Providers Care Parking Assistant Name Role Phone Talisha Manzanares MD Primary Care Provider + Reason for Referral * Physical Therapy (Routine) - Closed Specialty Diagnoses / Procedures Referred By Xavier goldstein Referred To Contact Physical Therapy Diagnoses Encounter for rehabilitation Hernán Mejia PA [address] [place] [address] [facility] Parent [address] [place] [id number] Referral ID Status Reason Start Date Expiration Date Visits Re quested Visits Authorized [id number] Closed 07/21/2021 07/21/2022 1 1 Encounter Details Date Type Department Care Team (Latest Contact Info) Description 07/21/2021 Transcribe Orders [facility] [address] [place] [address] Hernán Mejia PA 17 [place] [address] [email or web address] Encounter for rehabilitation (Primary Dx) Social History [...] Description 03/12/2025 10:30 AM EDT Office Visit [facility] Orthopedics & Sports Medicine [address] [place] [address] Hernán Grissom PA-C [address] [place] [address] [place] [address] 04/03/2025 3:15 PM EDT Appointment [facility] [address] [facility], [address] [place] [address] Jaclyn Almanzar MD [address] [place], [place] [address]B 444 [place] [address] [email or web address] Scheduled Referrals Name Type Priority Associated Diagnoses Orde r Schedule Ambulatory referral to [facility] Physical Therapy Outpatient Referral Routine Encounter for rehabilitation Ordered: 07/21/2021 documented as of this encounter Visit Diagnoses Diagnosis Encounter for rehabilitation- Primary documented in this encounter Care Teams Parking Assistant Relationship Specialty Start Date End Date Talisha Manzanares MD [address] [place] [address] [email or web address] PCP - General 07/27/17 documented as of this encounter Additional Source Comments The information contained in this document represents components of the legal health record. It is not the complete legal health record.[facility]
--- OUTSIDE RECORDS SUMMARY | 2025-02-15 11:56 | XMS_ITS | Encounter Summary ---
Author Organization [facility] Address [address] [place] [address] [address] [place] [address] Phone Care Team Providers Care Brick Tester Name Role Phone Talisha Manzanares MD Primary Care Provider + Encounter Details Date Type Department Care Team (Late Contact Info) Description 10/22/2022 Telephone [facility] [address] [facility], 3rd Floor, [address] [place] [address] Pasha Cassidy MD [address] [address] [email or web address] Social History Tobacco Use Types Packs/Day Years [...] 03/12/2025 10:30 AM EDT Office Visit [facility] Medicine [address] [place] [address] Hernán Grissom PA-C [address] [place] [address] [place] [address] 04/03/2025 3:15 PM EDT Appointment [facility] [address] [facility], [address] [place] [address] Jaclyn Almanzar MD [address] [facility] 444 [place] [address] [email or web address] U documented as of this encounter Visit Diagnoses Not on filedocumented in this encounter Care Teams Brick Tester Relationship Specialty Start Date End Date Talisha Manzanares MD [address] [place] [address] [email or web address] PCP - General 07/27/17 documented as of this encounter Additional Source Comments The information contained in this document represents components of the legal health record. It is not the complete legal health record.[facility]
--- OUTSIDE RECORDS SUMMARY | 2025-02-15 11:56 | XMS_ITS | Clinical Summary ---
Author Organization [facility] Address [address] [place] [address] Care Team Providers Care Site Specialist Name Role Phone Talisha Manzanares MD Primary Care Provider [phone] Immunizations Name Administration Dates Next Due Pfizer SARS-CoV-2 COVID-19, mRNA, LNP-S, preservative free 02/05/2021,01/08/2021 Surgical History Surgery Date Site/Laterality Comments OTHER SURGICAL HISTORY PROCEDURE: ID SPINE DEVICE IMPLANT SURGERY Medical History Medical [...] Vaccines (1 of 2) 2005 COVID-19 Vaccine (4 - 2023-2 5 season) [...] age to complete this topic Care Teams Site Specialist Relationship Specialty Start Date End Date Talisha Manzanares MD [address] [place] [phone] PCP - General Family Medicine 10/31/18
--- OUTSIDE RECORDS SUMMARY | 2025-02-15 11:56 | XMS_ITS | Referral Summary ---
Author Organization [facility] Address [address] [place] [address] Care Team Providers Care Corrections Unit Supervisor Name Role Phone Unavailable Primary Care Provider Unavailabl e Allergies No known active allergies Immunizations Immunization Administration Dates Next Due Covid-19, Pfizer, mRNA, [place] valent, PF 30 mcg/0.3 mL dose (for [...] of Treatment Not on file Insurance [facility]
== END 2025-02-15 11:06 | disposition home or self-care (01) ==
LOC: HO.PMC 10:34
PROVIDERS: PCP Family Medicine; Visit Provider Anesthesiology
DX: G89.4 Chronic pain syndrome (principal); M51.16 Intervertebral disc disorders with radiculopathy, lumbar region; M96.1 Postlaminectomy syndrome, not elsewhere classified; M54.51 Vertebrogenic low back pain; Z45.1 Encounter for adjustment and management of infusion pump; M79.2 Neuralgia and neuritis, unspecified
CPT/HCPCS: 95991; 99213

== ENCOUNTER → 2025-02-15 10:34 | Outpatient (BNVA) | payer MEDICARE, MEDICAID, SELFPAY | PROVIDERS: PCP Family Medicine; Visit Provider Anesthesiology | DX: G89.4 Chronic pain syndrome (principal); M51.16 Intervertebral disc disorders with radiculopathy, lumbar region; M96.1 Postlaminectomy syndrome, not elsewhere classified; M54.51 Vertebrogenic low back pain; M79.2 Neuralgia and neuritis, unspecified; Z45.1 Encounter for adjustment and management of infusion pump; Z79.891 Long term (current) use of opiate analgesic | CPT/HCPCS: 99212 ==

== ENCOUNTER 2025-02-19 09:54 | Outpatient (AMB) | payer MEDICARE, MEDICAID, SELFPAY ==
--- NOTE | 2025-02-19 09:56 | A.OFFVIS_ITS ---
Vital Signs 02/19/25 09:57 Height 5 ft 9 in Weight 182 lb BMI 26.9 BP 122/70 Blood Pressure Location Lt brachial Position Sitting Respiration 16 Pulse 61 Pulse Source Pulse Oximeter Pulse Oximetry (%) 99 Oxygen Delivery Method Room Air Intake Visit Reasons: PAIN PUMP FOLLOW UP Child Life Therapist Required: No Allergies No Known Allergies [No Known Allergies*] Allergy (Verified 02/19/25 09:58) Medication List - Last Reconciled 02/19/25 by Debbie Beck LPN naloxone 4 mg/actuation 4 mg intranasal Q2M 1 day ondansetron HCl 4 mg PO Q8H PRN 15 days pregabalin 100 mg PO TID quetiapine (Seroquel) 100 mg PO BEDTIME terazosin 5 mg PO BEDTIME 90 days HPI Comments Details: Hernán is today in the office for intrathecal pain pump adjustment. He denies pain improvement from last pump escalation. The same time he did denied any side effects. We decided to introduce PTM today. See the full description of the pump reprogramming as below. He went for a dye study during which I was able to aspirate CSF from the side port of the pain pump and inject the dye into the catheter delineating myelogram. Therefore the pump is working appropriately although there maybe some positioned obstruction of the catheter. We carefully discussed today his options of the treatment. Unfortunately with his hardware in the back [place] size spinal cord stimulator in the lumbar gutter would not be possible to perform. In the past trial of the spinal cord stimulator was not effective to alleviate his pain. He reports that his pain is aggravated when he is sitting for the long period of time. However this is not the pain in the axial back this is pain radiating to the leg. He has Modic type changes in his lumbar spine, however because his pain is not axial I decided not to proceed for intercept procedure. Prior: status post ITDD Pain Pump Implant 05/12/24. Originally he was referred by Dr. Nix for evaluation for spinal cord stimulator. He is status post laminectomy L3-L4 and L5 S1 diskectomy with posterior lateral fusion. He has L5 radiculopathy EMG confirmed. On recommendation of Dr. Ch I tried spinal cord stimulator on him [place] Sprio. The procedure was very difficult technically. However I was able to establish 2 leads in the thoracic spine. Patient reported minimal pain improvement while on stimulation. At the end of the [place] scientific trial he was switched to Nevro SCS, unfortunately that did not help his pain in more extent either. He was absent from my care for 2 years , after that he came back requesting the discussion about pain pump he was offered to him at that time. Because the patient was on opioids Troup 7.5 mg TID, initially bupivacaine pain pump was considered however it resulted in poor pain control and side effects. He was switched for hydromorphone. Dr. Ch did not recommend additional surgical intervention and advised he undergo a SCS trial, and thus he was referred to us. He describes a numbness and burning down his right posterior lateral leg extending to the top of his right into his toes. This is worsened with sitting, reaching pain level 8-9/10. He had done extensive PT and also had multiple injections prior to his surgery while seeing pain management provider Dr. Geronimo in [place]. [facility] Medical History History of urinary retention History of numbness Chronic pain syndrome Radiculopathy due to lumbar intervertebral disc disorder Postlaminectomy syndrome Surgical History History of surgery History of basal cell carcinoma excision History of lumbar laminectomy History of laminectomy History of back surgery Hx of arthroscopy of shoulder Hx of repair of rotator cuff Social History Patient Tobacco Use Status: Former Tobacco user Review of Systems Const All systems reviewed & are unremarkable except as noted in HPI and below ENT Reports Normal hearing present Neuro Reports Normal hearing present, Denies confusion and Denies Sensory deficit (Neuro) Psych Denies confusion Physical Exam Vital Signs: Last Vital Signs Pulse 61 02/19/25 09:57 Resp 16 02/19/25 09:57 BP 122/70 02/19/25 09:57 Pulse Ox 99 02/19/25 09:57 Oxygen Delivery Method Room Air 02/19/25 09:57 BMI result Body Mass Index 26.9 Const General: No confusion Orientation/consciousness: No confusion Eyes Pupils: Equal, round and reactive pupils present EOM: EOMs intact bilaterally Chest Chest palpation & inspection: normal inspection of the chest Resp Effort & Inspection: normal respiratory effort, able to speak in complete sentences, normal respiratory pattern, no audible wheezes and no cough Cardio Jugular venous distension: no JVD Back/Spine/Pelvis Other: Lumbar Spine/Lower back/SIJ: SACROILIAC JOINT No tenderness to palpation. INSPECTION: normal curvature of spine, scar from previous surgery. RANGE OF MOTION decreased extention. PALPATION: no vertebral spine tenderness. STRAIGHT LEG RAISING TEST: positive at 45 degrees on right. MOTOR SYSTEM: 5/5 bilateral lower extremities. SENSORY EXAM: paresthesias right L4-5 distribution. REFLEXES: symmetrical 2+. GAIT: unremarkable. Neuro General: No confusion Cranial nerves: Yes Equal, round and reactive pupils present and Yes Normal hearing present Sensory Exam: No Sensory deficit (Neuro) Psych Speech and movement: Normal speech and movement present Affect: normal affect Attitude: cooperative Thought process: Normal thought process present Thought content: Normal thought content present Insight: Good insight present (Psych) Judgement: Good judgement present (Psych) Assessment & Plan Assessment & Plan (1) Chronic pain syndrome: Code(s): G89.4 - Chronic pain syndrome Category: Medical (2) Radiculopathy due to lumbar intervertebral disc disorder: Code(s): M51.16 - Intervertebral disc disorders with radiculopathy, lumbar region Category: Medical (3) Postlaminectomy syndrome: Code(s): M96.1 - Postlaminectomy syndrome, not elsewhere classified Category: Medical (4) S/P insertion of intrathecal pump: Code(s): Z98.890 - Other specified postprocedural states Category: Surgical (5) Vertebrogenic low back pain: Code(s): M54.51 - Vertebrogenic low back pain Category: Medical (6) Neuropathic pain syndrome (non-herpetic): Code(s): M79.2 - Neuralgia and neuritis, unspecified Category: Medical Plan: Pain pump interrogation and adjustment. The pain pump was read it containing 18.8 mL of hydromorphone solution. Hydromorphone concentration is 600 micro g. Patient was on 40 micro g a day regimen. Today the dose was increased to 59.97 micro g a day and also 1 PTM dose was introduced for the patient at 59,97 micro g. Over the course of 7 minutes. Plan We agreed that I will continue escalating his doses of the opioids in the future as needed until the side effects appears or until the pain will be better. The pump was reprogrammed as above. I will see him in 3 days for yet another escalation. Coding Level of Care Code Est Pt Level 3 (71845) Procedure Only Diagnoses Chronic pain syndrome G89.4 Radiculopathy due to lumbar intervertebral disc disorder M51.16 Postlaminectomy syndrome M96.1 S/P insertion of intrathecal pump Z98.890 Vertebrogenic low back pain M54.51 Neuropathic pain syndrome (non-herpetic) M79.2
[2025-02-19 09:57] VITALS: BP 122/70; PULSE 61; RESP 16; O2SAT 99; BMI 26.9
--- OUTSIDE RECORDS SUMMARY | 2025-02-19 10:16 | XMS_ITS | Referral Summary ---
Author Organization [facility] Address [address] [place] [address] Care Team Providers Care Library Supervisor Name Role Phone Unavailable Primary Care Provider Unavailabl e Allergies No known active allergies Immunizations Immunization Administration Dates Next Due Covid-19, Pfizer, mRNA, [place] valent, PF 30 mcg/0.3 mL dose (for [...] of Treatment Not on file Insurance [facility]
--- OUTSIDE RECORDS SUMMARY | 2025-02-19 10:16 | XMS_ITS | Encounter Summary ---
Author Organization [facility] Address [address] [place] [address] Phone Care Team Providers Care Respiratory Care Instructor Name Role Phone Talisha Manzanares MD Primary Care Provider + Encounter Details Date Type Department Care Team (Late Contact Info) Description 02/18/2023 Procedure Pass [facility] for Outpatient Care, Radio Flouroscopy [address] [place] [address] Social History Tobacco Use Types Packs/Day Years [...] Assigned at Male 07/29/2022 11:31 PM EDT Legal Sex Male 9:55 PM EDT Gender Identity Male 07/29/2022 11:31 PM EDT Sexual Orientation Not on file documented as of this encounter Plan of Treatment Upcoming Encounters Date Type Department Care Team (Late Contact Info) Description 03/14/2025 11:30 AM EDT Office Visit [facility] Orthopedics & Sports Medicine [address] [place] [address] Hernán Grissom PA-C [address] [place] [address] [place] [address] 04/03/2025 3:15 PM EDT Appointment [facility] Center for Pain Medicine [address] [facility], [address] [place] [address] Jaclyn Almanzar MD [address] [place], [place] [address]B [address] [place] [address] [email or web address] documented as of this encounter Visit Diagnoses Not on filedocumented in this encounter Care Teams Respiratory Care Instructor Relationship Specialty Start Date End Date Talisha Manzanares MD [address] [place] [address] [email or web address] PCP - General 07/27/17 documented as of this encounter Additional Source Comments The information contained in this document represents components of the legal health record. It is not the complete legal health record.[facility]
--- OUTSIDE RECORDS SUMMARY | 2025-02-19 10:16 | XMS_ITS | Clinical Summary ---
Author Organization [facility] Address [address] [place] [address] Care Team Providers Care Patrol Deputy Sheriff Name Role Phone Unavailable Primary Care Provider Unavailabl e Allergies No known active allergies Immunizations Immunization Administration Dates Next Due Covid-19, Pfizer, mRNA, [place] valent, PF 30 mcg/0.3 mL dose (for [...] to complete this topic Insurance [facility]
--- OUTSIDE RECORDS SUMMARY | 2025-02-19 10:16 | XMS_ITS | Encounter Summary ---
Author Organization [facility] Address [facility] [address] [address] Phone Care Team Providers Care Sash Installer Name Role Phone Talisha Manzanares MD Primary Care Provider + Encounter Details Date Type Department Care Team (Late Contact Info) Description 11/04/2021 Ancillary Orders [facility],Outside Imaging [address] [place] [address] System, Provider Not In, PhD Partners [address] [address] Social History Tobacco Use Types Packs/Day Years [...] Description 03/14/2025 11:30 AM EDT Office Visit [facility] Orthopedics & Sports Medicine [address] [place] [address] Hernán Grissom PA-C [address] [place] [address] [place] [address] 04/03/2025 3:15 PM EDT Appointment [facility] [address] [facility], [address] [place] [address] Jaclyn Almanzar MD [address] [facility] [address] [place] [address] [email or web address] documented as of this encounter Results * XR Upper Extremity Outside (No Interpretation) (10/09/2021 12:00 AM EST) Narrative SYSTEMGENERATED, DOCUMENTATION - 11/04/2021 8:54 AM EST This study is for PACS storage only and not for interpretation. us Provider Not In System PhD IMG OUTSIDE IMAGING W /OUT INTERPRETATION Final Result documented in this encounter Visit Diagnoses Not on filedocumented in this encounter Care Teams Sash Installer Relationship Specialty Start Date End Date Talisha Manzanares MD [address] [place] [phone] [email or web address] PCP - General 07/27/17 documented as of this encounter Additional Source Comments The information contained in this document represents components of the legal health record. It is not the complete legal health record.[facility]
--- OUTSIDE RECORDS SUMMARY | 2025-02-19 10:16 | XMS_ITS | Encounter Summary ---
Author Organization [facility] Address [address] [facility] [address] [place] [address] Phone Care Team Providers Care Agricultural Extension Specialist Name Role Phone Talisha Manzanares MD Primary Care Provider + Reason for Referral * Physical Therapy (Routine) - Closed Specialty Diagnoses / Procedures Referred By Xavier goldstein Referred To Contact Physical Therapy Diagnoses Encounter for rehabilitation Hernán Mejia PA [address] [place] [address] Phone: tel: fax: mailto:[email or web address] [address] [place] [address] Phone: tel: Referral ID Status Reason Start Date Expiration Date Visits Re quested Visits Authorized [id number] Closed 07/21/2021 07/21/2022 1 1 Encounter Details Date Type Department Care Team (Latest Contact Info) Description 07/21/2021 Transcribe Orders [facility] [address] [place] [address] Hernán Mejia PA [address] [place] [address] [email or web address] Encounter for rehabilitation (Primary Dx) Social History [...] Care Team (Late st Contact Info) Description 03/14/2025 11:30 AM EDT Office Visit [facility] Orthopedics & Sports Medicine [address] [place] [address] Hernán Grissom PA-C [address] [place] [address] [place] [address] 04/03/2025 3:15 PM EDT Appointment [facility] [address] [place] [address], [address] [place] [address] Jaclyn Almanzar MD [address] [place] [address] [address] [place] [address] [email or web address].ED U Scheduled Referrals Name Type Priority Associated Diagnoses Orde r Schedule Ambulatory referral to [facility] Physical Therapy Outpatient Referral Routine Encounter for rehabilitation Ordered: 07/21/2021 documented as of this encounter Visit Diagnoses Diagnosis Encounter for rehabilitation- Primary documented in this encounter Care Teams Agricultural Extension Specialist Relationship Specialty Start Date End Date Talisha Manzanares MD [address] [place], [place] [address] [place] [address] [email or web address] PCP - General 07/27/17 documented as of this encounter Additional Source Comments The information contained in this document represents components of the legal health record. It is not the complete legal health record.[facility]
--- OUTSIDE RECORDS SUMMARY | 2025-02-19 10:16 | XMS_ITS | Clinical Summary ---
Author Organization [facility] Address [facility] [employer] [address] [address] Phone Care Team Providers Care Rn Child Name Role Phone Talisha Manzanares MD Primary Care Provider + Allergies No known active allergies Medications HYDROcodone-ac etaminophen (NORCO) 7.5-325 mg per tablet Take 1 tablet by mouth as needed for pain (specific location in comments). Long-term management of chronic LBP and radiculopathy right leg. Taking a few times a week. Active QUEtiapine (SEROQUEL) 50 MG tablet Take 50 mg by mouth nightly at bedtime. 2 Active pregabalin (LYRICA) 200 MG capsule Take 200 mg by mouth as needed. Taking 4-5 times a week for nerve pain 1 Active ibuprofen (ADVIL,MOTRIN) 600 MG tablet Take 600 mg by mouth as needed for pain (specific location in comments). Taking 3-4 times week Active terazosin (HYTRIN) 5 MG capsule Take 5 mg by mouth nightly at bedtime. 5 Active Hospital, Clinic, or Other Facility Administered [...] mg PO taken as needed and hydrocodone-acetaminophen ([place] 7.5-325 mg) 1 table PO as needed with typical use being twice weekly. He has a contract with his PCP for chronic opioid management. Discussed the possibility that it may be more difficulty to control his post-operative pain given current chronic opioid use, however he is only using minimal [place] at twice weekly and did discuss weaning [...] coronary syndromes including unstable or severe angina, CA within 1 month, severe CHF, high grade [...] Description 03/14/2025 11:30 AM EDT Office Visit [facility] Orthopedics & Sports Medicine [address] [place] [address] Hernán Grissom PA-C [address] [place] [address] [place] [address] 04/03/2025 3:15 PM EDT Appointment [facility] [place] [place] [facility] Medicine [address] [facility], [address] [place] [address] Jaclyn Almanzar MD [address] [facility] [address] [place] [address] [email or web address] [email or web address] U Health Maintenance Due Date Last Done [...] - 250 mg/ml Historical Provider LAB BLOOD ORDERABLES Lani l Result from Last 3 Months or Most Recently Relevant to Health Maintenance Insurance MEDICARE PART A & B [facility] MEDEX SUPPLEMENT HEALTH SAFETY NET [facility] MEDICARE PART A & B [employer] MEDEX SUPPLEMENT [facility] SAFET[facility] & B MEDICARE PART A & B MEDICARE PART A & B BLUE [employer] MEDEX SUPPLEMENT [facility] [place] [address] [place] [address] MEDICARE PART A & B MEDICARE PART A & B BLUE [employer] MEDEX SUPPLEMENT HEALTH SAFETY [facility] A & B [place] [employer]OSS MEDEX SUPPLEMENT HEALTH SAFETY NET [facility]IC[facility] PART A & B BLUE [employer]OSS MEDEX SUPPLEMENT HEALTH SAFETY NET FULL Member Subscriber Plan / Payer (Ef fective 2022-Present) Name:Hernán Alexis Relation to Subscriber:Self Name:Hrenán Alexis Payer ID:Not on file Group ID:Not on file Type:Medicaid Address: [address] Care Teams Rn Child Relationship Specialty Start Date End Date Talisha Manzanares MD [address] [place] [address] PCP - General 07/27/17 Additional Source Comments The information contained in this document represents components of the legal health record. It is not the complete legal health record.[facility]
--- OUTSIDE RECORDS SUMMARY | 2025-02-19 10:16 | XMS_ITS | Encounter Summary ---
Author Organization [facility] Address [address] [place] [address] Phone Care Team Providers Care Oven Worker Name Role Phone Talisha Manzanares MD Primary Care Provider + Encounter Details Date Type Department Care Team (Late Contact Info) Description 09/22/2023 Procedure Pass OR Admitting Dept - Virtual Department [address] [place] [address] Social History Tobacco Use Types Packs/Day Years [...] Description 03/14/2025 11:30 AM EDT Office Visit [facility] Orthopedics & Sports Medicine 4 [place] [address] Hernán Grissom PA-C [address] [place] [address] [place] [address] 04/03/2025 3:15 PM EDT Appointment [facility] Center for Pain Medicine [address] [facility], [address] [place] [address] Jaclyn Almanzar MD 55 [facility] [address] [place] [address] [email or web address] documented as of this encounter Visit Diagnoses Not on filedocumented in this encounter Care Teams Oven Worker Relationship Specialty Start Date End Date Talisha Manzanares MD [address] [place] [address] [place] [address] [email or web address] PCP - General 07/27/17 documented as of this encounter Additional Source Comments The information contained in this document represents components of the legal health record. It is not the complete legal health record.[facility]
--- OUTSIDE RECORDS SUMMARY | 2025-02-19 10:16 | XMS_ITS | Encounter Summary ---
Author Organization [facility] Address [address] [place] [address] Phone Care Team Providers Care Technical Analyst Name Role Phone Talisha Manzanares MD Primary Care Provider + Talisha Manzanares MD Unavailable +[phone] Encounter Details Date Type Department Care Team (Late st Contact Info) Description 02/01/2018 Ancillary Orders Virtual Department [address] [place] [address] Estela Rowell PA-C [address] [place] [address] [email or web address] Globus syndrome Social History [...] Description 03/14/2025 11:30 AM EDT Office Visit [facility] Orthopedics & Sports Medicine [address] [place] [address] Hernán Grissom PA-C [address] [place] [address] [place] [address] 04/03/2025 3:15 PM EDT Appointment [facility] for [facility] Medicine [address] [facility], [address] [place] [address] Jaclyn Almanzar MD [address] [place], [place] [address]B 444 [place] [address] [email or web address] documented as of this encounter Results * FL BARIUM SWALLOW ESOPHAGRAM SINGLE CONTRAST (02/09/2018 10:28 AM EDT) Anatomical Region Laterality Modality Chest Radiographic Elaina ging 02/09/2018 10:3 6 AM EDT Impressions 02/09/2018 10:38 AM EDT 1. ??Normal esophagram. 2. ??Severe cervical spine degenerative disc disease. FLUOROSCOPY TIME: ??1 min. 39 sec; ??11 IMAGES/FRAMES POS - [id number] Narrative 02/09/2018 10:38 AM EDT COMPARISON: None. BARIUM SWALLOW FINDINGS: Burrer Operator lateral neck radiograph was obtained. ??Soft [...] - 02/09/2018 COMPARISON: None. BARIUM SWALLOW FINDINGS: Burrer Operator lateral neck radiograph was obtained. Soft [...] min. 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 It is not the complete legal health record.[facility]
--- OUTSIDE RECORDS SUMMARY | 2025-02-19 10:16 | XMS_ITS | Encounter Summary ---
Author Organization [facility] Address [facility] [employer] [address] [address] Phone Care Team Providers Care Motel Operator Name Role Phone Talisha Manzanares MD Primary Care Provider + Encounter Details Date Type Department Care Team (Late st Contact Info) Description 03/17/2023 Transcribe Orders [facility] for Outpatient Care, Radio Flouroscopy [address] [place] [address] Juan Stanton [address] [place] [address] [email or web address] Social History Tobacco Use Types Packs/Day [...] Description 03/14/2025 11:30 AM EDT [facility] Medicine [address] [place] [address] Hernán Grissom PA-C [address] [place] [address] [place] [address] 04/03/2025 3:15 PM EDT Appointment [facility] Center for Pain Medicine [address] [facility], [address] [place] [address] Jaclyn Almanzar MD [address] [place], [place] [address]B [address] [place] [address] [email or web address] U documented as of this encounter Visit Diagnoses Not on filedocumented in this encounter Care Teams Motel Operator Relationship Specialty Start Date End Date Talisha Manzanares MD [address] [place] [address] [email or web address] PCP - General 07/27/17 documented as of this encounter Additional Source Comments The information contained in this document represents components of the legal health record. It is not the complete legal health record.[facility]
--- OUTSIDE RECORDS SUMMARY | 2025-02-19 10:16 | XMS_ITS | Encounter Summary ---
Author Organization [facility] Address [address] [place] [address] Phone Care Team Providers Care Hand Bander Name Role Phone Talisha Manzanares MD Primary Care Provider + Encounter Details Date Type Department Care Team (Late st Contact Info) Description 11/19/2022 Procedure Pass [facility] for Outpatient Care, Radio Flouroscopy [address] [place] [address] Social History Tobacco Use Types Packs/Day Years [...] 03/14/2025 11:30 AM EDT Office Visit [facility] Orthopedics & Sports Medicine [address] [place] [address] Hernán Grissom PA-C [address] [place] [address] [place] [address] 04/03/2025 3:15 PM EDT Appointment [facility] Center for Pain Medicine [address] [place] [address] 340 [place] [address] Jaclyn Almanzar MD [address] [place] [address] [email or web address] documented as of this encounter Visit Diagnoses Not on filedocumented in this encounter Care Teams Hand Bander Relationship Specialty Start Date End Date Talisha Manzanares MD [address] [place] [address] [email or web address] PCP - General 07/27/17 documented as of this encounter Additional Source Comments The information contained in this document represents components of the legal health record. It is not the complete legal health record.[facility]
--- OUTSIDE RECORDS SUMMARY | 2025-02-19 10:16 | XMS_ITS | Encounter Summary ---
Author Organization [facility] Address [facility] [employer] [address] [address] Phone Care Team Providers Care Armament Aircraft Mechanic Name Role Phone Talisha Manzanares MD Primary Care Provider + Encounter Details Date Type Department Care Team (Late st Contact Info) Description 11/01/2023 Procedure Pass [facility], [facility] [address] [place] [address] Social History Tobacco Use Types Packs/Day Years [...] Description 03/14/2025 11:30 AM EDT Office Visit [facility] Orthopedics & Sports Medicine 4 [place] [address] Hernán Grissom PA-C [address] [place] [address] [place] [address] [email or web address] 04/03/2025 3:15 PM EDT Appointment [facility] 15 [facility], [address] [place] [address] Jaclyn Almanzar MD [address] [place], [place] [address]B [address] [place] [address] [email or web address] documented as of this encounter Visit Diagnoses Not on filedocumented in this encounter Care Teams Armament Aircraft Mechanic Relationship Specialty Start Date End Date Talisha Manzanares MD [address] [place], [place] [address] [address] [email or web address] PCP - General 07/27/17 documented as of this encounter Additional Source Comments The information contained in this document represents components of the legal health record. It is not the complete legal health record.[facility]
--- OUTSIDE RECORDS SUMMARY | 2025-02-19 10:16 | XMS_ITS | Encounter Summary ---
Author Organization [facility] Address [facility] [employer] [address] [address] Phone Care Team Providers Care Air Turning Machine Feeder Name Role Phone Talisha Manzanares MD Primary Care Provider + Encounter Details Date Type Department Care Team (Late Contact Info) Description 11/01/2023 Procedure Pass [facility], [facility] 30 [place] [address] Social History Tobacco Use Types Packs/Day Years [...] 03/14/2025 11:30 AM EDT Office Visit [facility] Orthopedics & Sports Medicine 4 [place] [address] Hernán Grissom PA-C [address] [place] [address] [place] [address] [email or web address] 04/03/2025 3:15 PM EDT Appointment [facility] for [facility] Medicine [address] [facility], [address] [place] [address] Jaclyn Almanzar MD [address] [place], [place] [address]B 444 [place] [address] [email or web address] documented as of this encounter Visit Diagnoses Not on filedocumented in this encounter Care Teams Air Turning Machine Feeder Relationship Specialty Start Date End Date Talisha Manzanares MD [address] [place] [address] [place] [address] [email or web address] PCP - General 07/27/17 documented as of this encounter Additional Source Comments The information contained in this document represents components of the legal health record. It is not the complete legal health record.[facility]
--- OUTSIDE RECORDS SUMMARY | 2025-02-19 10:16 | XMS_ITS | Encounter Summary ---
Author Organization [facility] Address [address] [place] [address] Care Team Providers Care Cardroom Plastic Card Grader Name Role Phone Unavailable Primary Care Provider Unavailabl e Encounter Details Date Type Department Care Team (Late st Contact Info) Description 07/05/2017 Ophthalmology Data Conversion [facility] Historical Conversion Department [address] [place] [address] [address] Social History Tobacco Use Types Packs/Day Years [...]
--- OUTSIDE RECORDS SUMMARY | 2025-02-19 10:16 | XMS_ITS | Encounter Summary ---
Author Organization [facility] Address [address] [place] [address] Phone Care Team Providers Care Hot Car Charger Name Role Phone Talisha Manzanares MD Primary Care Provider + Encounter Details Date Type Department Care Team (Late Contact Info) Description 12/24/2022 Transcribe [facility] Outpatient Care, Radio Flouroscopy 32 [place] [address] Binta Harris [address] [place] [address] [email or web address] Social History Tobacco Use Types [...] 03/14/2025 11:30 AM EDT Office Visit [facility] Orthopedics & Sports Medicine [address] [place] [address] Hernán Grissom PA-C [address] [place] [address] [place] [address] 04/03/2025 3:15 PM EDT Appointment [facility] Center for Pain Medicine [address] [facility], [address] [place] [address] Jaclyn Almanzar MD 55 [facility] [address] [place] [address] [email or web address] U documented as of this encounter Visit Diagnoses Not on filedocumented in this encounter Care Teams Hot Car Charger Relationship Specialty Start Date End Date Talisha Manzanares MD [address] [place] [address] [email or web address] PCP - General 07/27/17 documented as of this encounter Additional Source Comments The information contained in this document represents components of the legal health record. It is not the complete legal health record.[facility]
--- OUTSIDE RECORDS SUMMARY | 2025-02-19 10:16 | XMS_ITS | Encounter Summary ---
Author Organization [facility] Address [address] [place] [address] [address] [place] [address] Phone Care Team Providers Care Central Office Worker Name Role Phone Talisha Manzanares MD Primary Care Provider + Encounter Details Date Type Department Care Team (Late st Contact Info) Description 10/22/2022 Telephone [facility] [address] [facility], 3rd Floor, [address] [place] [address] Pasha Cassidy MD [address] [address] [email or web address] Social History Tobacco Use Types Packs/Day Years [...] Description 03/14/2025 11:30 AM EDT Office Visit [facility] Orthopedics & Sports Medicine [address] [place] [address] Hernán Grissom PA-C [address] [place] [address] [place] [address] 04/03/2025 3:15 PM EDT Appointment [facility] for [facility] Medicine [address] [facility], [address] [place] [address] Jaclyn Almanzar MD [address] [place] [address] [place] [address] [email or web address] documented as of this encounter Visit Diagnoses Not on filedocumented in this encounter Care Teams Central Office Worker Relationship Specialty Start Date End Date Talisha Manzanares MD [address] [place] [address] [email or web address] PCP - General 07/27/17 documented as of this encounter Additional Source Comments The information contained in this document represents components of the legal health record. It is not the complete legal health record.[facility]
--- OUTSIDE RECORDS SUMMARY | 2025-02-19 10:16 | XMS_ITS | Encounter Summary ---
Author Organization [facility] Address [address] [place] [address] Phone Care Team Providers Care Info Specialist Name Role Phone Talisha Manzanares MD Primary Care Provider + Encounter Details Date Type Department Care Team ([facility] Contact Info) Description 10/08/2023 Procedure Pass OR Admitting Dept - Virtual Department [address] [place] [address] Social History Tobacco Use Types Packs/Day Years [...] 03/14/2025 11:30 AM EDT Office Visit [facility] Orthopedics & Sports Medicine [address] [place] [address] Hernán Grissom PA-C [address] [place] [address] [place] [address] 04/03/2025 3:15 PM EDT Appointment [facility] Center for Pain Medicine [address] [facility], [address] [place] [address] Jaclyn Almanzar MD 55 [facility] 444 [place] [address] [email or web address] U documented as of this encounter Visit Diagnoses Not on filedocumented in this encounter Care Teams Info Specialist Relationship Specialty Start Date End Date Talisha Manzanares MD [address] [place] [address] [place] [address] [email or web address] PCP - General 07/27/17 documented as of this encounter Additional Source Comments The information contained in this document represents components of the legal health record. It is not the complete legal health record.[facility]
--- OUTSIDE RECORDS SUMMARY | 2025-02-19 10:16 | XMS_ITS | Clinical Summary ---
Author Organization [facility] Address [address] [place] [address] Care Team Providers Care Engravings Polisher Name Role Phone Talisha Manzanares MD Primary [...] Advance Directives For more information, please contact: [phone] Documents on File Type Date Recorded Patient School Lunch Manager Expl anation Advance Directive and Living Will 04/19/2020 8:19 AM questionnaire Care Teams Engravings Polisher Relationship Specialty Start Date End Date Talisha Manzanares MD [address] [place] [address] PCP - General Family Medicine 10/31/18
== END 2025-02-19 10:13 | disposition home or self-care (01) ==
PROVIDERS: PCP Family Medicine; Visit Provider Anesthesiology
DX: G89.4 Chronic pain syndrome (principal); M51.16 Intervertebral disc disorders with radiculopathy, lumbar region; M96.1 Postlaminectomy syndrome, not elsewhere classified; Z98.890 Other specified postprocedural states; Z45.1 Encounter for adjustment and management of infusion pump; M54.51 Vertebrogenic low back pain; M79.2 Neuralgia and neuritis, unspecified
CPT/HCPCS: 62370; 99213

== ENCOUNTER → 2025-02-19 09:54 | Outpatient (BNVA) | payer MEDICARE, MEDICAID, SELFPAY | PROVIDERS: PCP Family Medicine; Visit Provider Anesthesiology | DX: M51.16 Intervertebral disc disorders with radiculopathy, lumbar region (principal); M96.1 Postlaminectomy syndrome, not elsewhere classified; M54.51 Vertebrogenic low back pain; M79.2 Neuralgia and neuritis, unspecified; G89.4 Chronic pain syndrome; Z98.890 Other specified postprocedural states | CPT/HCPCS: 62370; 99212 ==

== ENCOUNTER 2025-02-22 12:54 | Outpatient (AMB) | payer MEDICARE, MEDICAID, SELFPAY ==
--- NOTE | 2025-02-22 13:03 | A.OFFVIS_ITS ---
Vital Signs 02/22/25 13:07 Height 5 ft 9 in Weight 182 lb 3 oz BMI 26.9 BP 150/93 H Blood Pressure Location Rt brachial Position Sitting Pulse 64 Pulse Source Pulse Oximeter Pulse Oximetry (%) 97 Oxygen Delivery Method Room Air Intake Visit Reasons: FU per Dr Bhardwaj Intake Note: Pain today 03/20 Double Cut Sawyer Required: No Accompanied by: Self / Same As Patient Allergies No Known Allergies [No Known Allergies*] Allergy (Verified 02/22/25 13:08) HPI Comments Details: Hernán is today in the office for 1 more intrathecal pain pump adjustment. He denies pain improvement from last pump escalation. The same time he did denied any side effects. He did not use PTM however he denied pain improvement from increased level of the medication. At this time I would insists on him using PTM and see if PTM we will help him. See the results of the pain pump adjustment as below. I will see him on 02/27/25 for yet another pain pump adjustment. He went for a dye study during which I was able to aspirate CSF from the side p ort of the pain pump and inject the dye into the catheter delineating myelogram. Therefore the pump is working appropriately although there maybe some positioned obstruction of the catheter. We carefully discussed today his options of the treatment. Unfortunately with his hardware in the back [place] size spinal cord stimulator in the lumbar gutter would not be possible to perform. In the past trial of the spinal cord stimulator was not effective to alleviate his pain. He reports that his pain is aggravated when he is sitting for the long period of time. However this is not the pain in the axial back this is pain radiating to the leg. He has Modic type changes in his lumbar spine, however because his pain is not axial I decided not to proceed for intercept procedure. Prior: status post ITDD Pain Pump Implant 05/12/24. Originally he was referred by Dr. Nix for evaluation for spinal cord stimulator. He is status post laminectomy L3-L4 and L5 S1 diskectomy with posterior lateral fusion. He has L5 radiculopathy EMG confirmed. On recommendation of Dr. Ch I tried spinal cord stimulator on him [place] scientific. The procedure was very difficult technically. However I was able to establish 2 leads in the thoracic spine. Patient reported minimal pain improvement while on stimulation. At the end of the [place] scientific trial he was switched to [place] SCS, unfortunately that did not help his pain in more extent either. He was absent from my care for 2 years , after that he came back requesting the discussion about pain pump he was offered to him at that time. Because the patient was on opioids [place] 7.5 mg TID, initially bupivacaine pain pump was considered however it resulted in poor pain control and side effects. He was switched for hydromorphone. Dr. Ch did not recommend additional surgical intervention and advised he undergo a SCS trial, and thus he was referred to us. He describes a numbness and burning down his right posterior lateral leg extending to the top of his right into his toes. This is worsened with sitting, reaching pain level 8-9/10. He had done extensive PT and also had multiple injections prior to his surgery while seeing pain management provider Dr. Geronimo in [place]. [facility] Medical History History of urinary retention History of numbness Chronic pain syndrome Radiculopathy due to lumbar intervertebral disc disorder Postlaminectomy syndrome Surgical History History of surgery History of basal cell carcinoma excision History of lumbar laminectomy History of laminectomy History of back surgery Hx of arthroscopy of shoulder Hx of repair of rotator cuff Social History Patient Tobacco Use Status: Former Tobacco user Review of Systems Const All systems reviewed & are unremarkable except as noted in HPI and below ENT Reports Normal hearing present Neuro Reports Normal hearing present, Denies confusion and Denies Sensory deficit (Neuro) Psych Denies confusion Physical Exam Vital Signs: Last Vital Signs Pulse 64 02/22/25 13:07 BP 150/93 H 02/22/25 13:07 Pulse Ox 97 02/22/25 13:07 Oxygen Delivery Method Room Air 02/22/25 13:07 BMI result Body Mass Index 26.9 Const General: No confusion Orientation/consciousness: No confusion Eyes Pupils: Equal, round and reactive pupils present EOM: EOMs intact bilaterally Chest Chest palpation & inspection: normal inspection of the chest Resp Effort & Inspection: normal respiratory effort, able to speak in complete sentences, normal respiratory pattern, no audible wheezes and no cough Cardio Jugular venous distension: no JVD Back/Spine/Pelvis Other: Lumbar Spine/Lower back/SIJ: SACROILIAC JOINT No tenderness to palpation. INSPECTION: normal curvature of spine, scar from previous surgery. RANGE OF MOTION decreased extention. PALPATION: no vertebral spine tenderness. STRAIGHT LEG RAISING TEST: positive at 45 degrees on right. MOTOR SYSTEM: 5/5 bilateral lower extremities. SENSORY EXAM: paresthesias right L4-5 distribution. REFLEXES: symmetrical 2+. GAIT: unremarkable. Neuro General: No confusion Cranial nerves: Yes Equal, round and reactive pupils present and Yes Normal hearing present Sensory Exam: No Sensory deficit (Neuro) Psych Speech and movement: Normal speech and movement present Affect: normal affect Attitude: cooperative Thought process: Normal thought process present Thought content: Normal thought content present Insight: Good insight present (Psych) Judgement: Good judgement present (Psych) Assessment & Plan Assessment & Plan (1) Chronic pain syndrome: Code(s): G89.4 - Chronic pain syndrome Category: Medical (2) Radiculopathy due to lumbar intervertebral disc disorder: Code(s): M51.16 - Intervertebral disc disorders with radiculopathy, lumbar region Category: Medical (3) Postlaminectomy syndrome: Code(s): M96.1 - Postlaminectomy syndrome, not elsewhere classified Category: Medical (4) S/P insertion of intrathecal pump: Code(s): Z98.890 - Other specified postprocedural states Category: Surgical (5) Vertebrogenic low back pain: Code(s): M54.51 - Vertebrogenic low back pain Category: Medical (6) Neuropathic pain syndrome (non-herpetic): Code(s): M79.2 - Neuralgia and neuritis, unspecified Category: Medical Plan: Pain pump interrogation and adjustment. The pain pump was read it containing 18.4 mL of hydromorphone solution. Hydromorphone concentration is 600 micro g. Patient was on 60 micro g a day regimen. Today the dose was increased to 70 micro g a day and also 1 PTM dose was introduced for the patient at 65 micro g. Over the course of 7 minutes. Plan We agreed that I will continue escalating his doses of the opioids in the future as needed until the side effects appears or until the pain will be better. The pump was reprogrammed as above. Next appointment 02/27/25 for yet another pain pump adjustment. He does not need to go for the refill he has a plain medicine in the pump. Coding Level of Care Code Est Pt Level 3 (62510) Procedure Only Diagnoses Chronic pain syndrome G89.4 Radiculopathy due to lumbar intervertebral disc disorder M51.16 Postlaminectomy syndrome M96.1 S/P insertion of intrathecal pump Z98.890 Vertebrogenic low back pain M54.51 Neuropathic pain syndrome (non-herpetic) M79.2
[2025-02-22 13:07] VITALS: BP 150/93; PULSE 64; O2SAT 97; BMI 26.9
--- OUTSIDE RECORDS SUMMARY | 2025-02-22 13:33 | XMS_ITS | Encounter Summary ---
Author Organization [facility] Address [address] [place] [address] Care Team Providers Care Preparation Supervisor Name Role Phone Talisha Manzanraes Primary Care Provider Natty vailable Encounter Details Date Type Department Care Team Description 09/12/2019 [employer] Sales Manager Report Medical Records [address] [place] [address] Abdelrahman Zarate PA-C [address] [place] [address] [address] [place] [address] Social History Tobacco Use Types Packs/Day Years Used Date Smoking Tobacco: Never Assessed Sex Assigned at Date Recorded Not on file documented as of this encounter Plan of Treatment Not on file documented as of this encounter Visit Diagnoses Not on filedocumented in this encounter Care Teams Preparation Supervisor Relationship Specialty Start Date End Date Talisha Manzanares PCP - General Family Practice 11/13/19 documented as of this encounter
--- OUTSIDE RECORDS SUMMARY | 2025-02-22 13:33 | XMS_ITS | Encounter Summary ---
Author Organization [facility] Address [address] [place] [address] Phone Care Team Providers Care Supervisor Carpenters Name Role Phone Talisha Manzanares MD Primary Care Provider + Encounter Details Date Type Department Care Team ([facility] Contact Info) Description 10/08/2023 Procedure Pass OR Admitting Dept - Virtual Department [address] [place] [address] Social History Tobacco Use Types Packs/Day Years [...] 03/14/2025 11:30 AM EDT Office Visit [facility] & Sports Medicine [address] [place] [address] Hernán Grissom PA-C [address] [place] [address] [place] [address] 04/03/2025 3:15 PM EDT Appointment [facility] Center for [facility] Medicine [address] [facility], [address] [place] [address] Jaclyn Almanzar MD [facility] [address] [place] [address] [email or web address] documented as of this encounter Visit Diagnoses Not on filedocumented in this encounter Care Teams Supervisor Carpenters Relationship Specialty Start Date End Date Talisha Manzanares MD [address] [place] [address] [place] [address] [email or web address] PCP - General 07/27/17 documented as of this encounter Additional Source Comments The information contained in this document represents components of the legal health record. It is not the complete legal health record.[facility]
--- OUTSIDE RECORDS SUMMARY | 2025-02-22 13:33 | XMS_ITS | Encounter Summary ---
Author Organization [facility] Address [facility] [employer] [address] [address] Phone Care Team Providers Care Doughnut Machine Operator Helper Name Role Phone Talisha Manzanares MD Primary Care Provider + Encounter Details Date Type Department Care Team (Late st Contact Info) Description 11/01/2023 Procedure Pass [facility], X-Ray - [facility] [address] [place] [address] Social History Tobacco Use Types Packs/Day Years [...] Description 03/14/2025 11:30 AM EDT Office Visit [facility] Orthopedics & Sports Medicine [address] [place] [address] Hernán Grissom PA-C [address] [place] [address] [place] [address] [email or web address] 04/03/2025 3:15 PM EDT Appointment [facility] [address] [facility], [address] [place] [address] Jaclyn Almanzar MD [address] [place], [place] [address]B [address] [place] [address] [email or web address] documented as of this encounter Visit Diagnoses Not on filedocumented in this encounter Care Teams Doughnut Machine Operator Helper Relationship Specialty Start Date End Date Talisha Manzanares MD [address] [place], [place] [address] [address] [email or web address] PCP - General 07/27/17 documented as of this encounter Additional Source Comments The information contained in this document represents components of the legal health record. It is not the complete legal health record.[facility]
--- OUTSIDE RECORDS SUMMARY | 2025-02-22 13:33 | XMS_ITS | Encounter Summary ---
Author Organization [facility] Address [address] [place] [address] Phone Care Team Providers Care Assistant Maintenance Manager Name Role Phone Talisha Manzanares MD Primary Care Provider + Encounter Details Date Type Department Care Team (Late Contact Info) Description 02/18/2023 Procedure Pass [facility], Radio Flouroscopy [address] [place] [address] Social History Tobacco Use Types Packs/Day Years [...] Description 03/14/2025 11:30 AM EDT Office Visit [facility] Orthopedics & Sports Medicine [address] [place] [address] Hernán Grissom PA-C [address] [place] [address] [place] [address] 04/03/2025 3:15 PM EDT Appointment [facility] [place] Center for [facility] Medicine [address] [facility], [address] [place] [address] Jaclyn Almanzar MD [address] [place], [place] [address]B [address] [place] [address] [email or web address] documented as of this encounter Visit Diagnoses Not on filedocumented in this encounter Care Teams Assistant Maintenance Manager Relationship Specialty Start Date End Date Talisha Manzanares MD [address] [place] [address] [email or web address] PCP - General 07/27/17 documented as of this encounter Additional Source Comments The information contained in this document represents components of the legal health record. It is not the complete legal health record.[facility]
--- OUTSIDE RECORDS SUMMARY | 2025-02-22 13:33 | XMS_ITS | Encounter Summary ---
Author Organization [facility] Address [address] [place] [address] Phone Care Team Providers Care Pipeline Maintenance Supervisor Name Role Phone Talisha Manzanares MD Primary Care Provider + Encounter Details Date Type Department Care Team (Late Contact Info) Description 09/22/2023 Procedure Pass OR Admitting Dept - Virtual Department [address] [place] [address] Social History Tobacco Use Types Packs/Day Years [...] 03/14/2025 11:30 AM EDT Office Visit [facility] Orthopedics & Sports Medicine 4 [place] [address] Hernán Grissom PA-C [address] [place] [address] [place] [address] 04/03/2025 3:15 PM EDT Appointment [facility] Center for [facility] Medicine [address] [facility], [address] [place] [address] Jaclyn Almanzar MD 55 [facility] 444 [place] [address] [email or web address] documented as of this encounter Visit Diagnoses Not on filedocumented in this encounter Care Teams Pipeline Maintenance Supervisor Relationship Specialty Start Date End Date Talisha Manzanares MD [address] [place] [address] [place] [address] [email or web address] PCP - General 07/27/17 documented as of this encounter Additional Source Comments The information contained in this document represents components of the legal health record. It is not the complete legal health record.[facility]
--- OUTSIDE RECORDS SUMMARY | 2025-02-22 13:33 | XMS_ITS | Encounter Summary ---
Author Organization [facility] Address [facility] [employer] [address] [address] Phone Care Team Providers Care Surveyor Helper Rod Name Role Phone Talisha Manzanares MD Primary Care Provider + Encounter Details Date Type Department Care Team (Late Contact Info) Description 11/01/2023 Procedure Pass [facility] [address] [place] [address] Social History Tobacco Use Types Packs/Day Years [...] 03/14/2025 11:30 AM EDT Office Visit [facility] Medicine 4 [place] [address] Hernán Grissom PA-C [address] [place] [address] [place] [address] [email or web address] 04/03/2025 3:15 PM EDT Appointment [facility] Medicine [address] [facility], [address] [place] [address] Jaclyn Almanzar MD [address] [place], [place] [address]B 444 [place] [address] [email or web address] documented as of this encounter Visit Diagnoses Not on filedocumented in this encounter Care Teams Surveyor Helper Rod Relationship Specialty Start Date End Date Talisha Manzanares MD [address] [place] [address] [place] [address] [email or web address] PCP - General 07/27/17 documented as of this encounter Additional Source Comments The information contained in this document represents components of the legal health record. It is not the complete legal health record.[facility]
--- OUTSIDE RECORDS SUMMARY | 2025-02-22 13:33 | XMS_ITS | Encounter Summary ---
Author Organization [facility] Address [address] [place] [address] Care Team Providers Care Tortilla Maker Name Role Phone Talisha Manzanares Primary Care Provider Natty vailable Encounter Details Date Type Department Care Team Description 08/08/2020 It Support Manager Report Medical Records [address] [place] [address] Yong Ch MD, PHD Social History Tobacco Use Types Packs/Day Years Used Date Smoking Tobacco: Never Assessed Sex Assigned at Date Recorded Not on file documented as of this encounter Plan of Treatment Not on file documented as of this encounter Visit Diagnoses Not on filedocumented in this encounter Care Teams Tortilla Maker Relationship Specialty Start Date End Date Talisha Manzanares PCP - General Family Practice 11/13/19 documented as of this encounter
--- OUTSIDE RECORDS SUMMARY | 2025-02-22 13:33 | XMS_ITS | Clinical Summary ---
Author Organization [facility] Address [address] [place] [address] Care Team Providers Care Straightening Machine Operator Name Role Phone Talisha Manzanares [...] Advance Directives For more information, please contact: [phone] Documents on File Type Date Recorded Patient Customs Consultant Expl anation Advance Directive and Living Will 04/19/2020 8:19 AM questionnaire Care Teams Straightening Machine Operator Relationship Specialty Start Date End Date Talisha Manzanares MD [address] [place] [address] PCP - General Family Medicine 10/31/18
--- OUTSIDE RECORDS SUMMARY | 2025-02-22 13:33 | XMS_ITS | Encounter Summary ---
Author Organization [facility] Address [address] [place] [address] [address] [place] [address] Phone Care Team Providers Care Director Of Event Sales Name Role Phone Talisha Manzanares MD Primary Care Provider + Encounter Details Date Type Department Care Team (Late st Contact Info) Description 10/22/2022 Telephone [facility] Orthopaedic Spine [address] [facility], 3rd Floor, [address] [place] [address] Pasha Cassidy MD [address] [address] [email or web address] Social History Tobacco Use Types [...] Description 03/14/2025 11:30 AM EDT Office Visit [facility] Orthopedics & Sports Medicine [address] [place] [address] Hernán Grissom PA-C [address] [place] [address] [place] [address] 04/03/2025 3:15 PM EDT Appointment [facility] Center for Pain Medicine [address] [facility], [address] [place] [address] Jaclyn Almanzar MD [address] [place] [address] [address] [place] [address] [email or web address] documented as of this encounter Visit Diagnoses Not on filedocumented in this encounter Care Teams Director Of Event Sales Relationship Specialty Start Date End Date Talisha Manzanares MD [address] [place] [place] [address] [email or web address] PCP - General 07/27/17 documented as of this encounter Additional Source Comments The information contained in this document represents components of the legal health record. It is not the complete legal health record.[facility]
--- OUTSIDE RECORDS SUMMARY | 2025-02-22 13:33 | XMS_ITS | Encounter Summary ---
Author Organization [facility] Address [facility] [employer] [address] [address] Phone Care Team Providers Care Upholstery Technician Name Role Phone Talisha Manzanares MD Primary Care Provider + Encounter Details Date Type Department Care Team (Late st Contact Info) Description 03/17/2023 Transcribe Orders [facility], Radio Flouroscopy [address] [place] [address] Juan Stanton [address] [place] [address] [email or web address] Social History Tobacco Use Types Packs/Day Years [...] Description 03/14/2025 11:30 AM EDT [facility] 4 [place] [address] Hernán Grissom PA-C [address] [place] [address] [place] [id number] 04/03/2025 3:15 PM EDT Appointment [facility] Center for Pain Medicine [address] [facility], [address] [place] [address] Jaclyn Almanzar MD [address] [place], [place] [address]B [address] [place] [address] [email or web address] documented as of this encounter Visit Diagnoses Not on filedocumented in this encounter Care Teams Upholstery Technician Relationship Specialty Start Date End Date Talisha Manzanares MD [address] [place] [address] [email or web address] PCP - General 07/27/17 documented as of this encounter Additional Source Comments The information contained in this document represents components of the legal health record. It is not the complete legal health record.[facility]
--- OUTSIDE RECORDS SUMMARY | 2025-02-22 13:33 | XMS_ITS | Encounter Summary ---
Author Organization [facility] Address [address] [place] [address] Care Team Providers Care Bulk Pallet Builder Name Role Phone Talisha Manzanares Primary Care Provider Natty vailable Encounter Details Date Type Department Care Team Description 11/20/2021 [facility] Neurosurgery [place] [address] [place] [address] Yong Ch MD, PHD Social [...] on filedocumented in this encounter Care Teams Bulk Pallet Builder Relationship Specialty Start Date End Date Talisha Manzanares PCP - General Family Practice 11/13/19 documented as of this encounter
--- OUTSIDE RECORDS SUMMARY | 2025-02-22 13:34 | XMS_ITS | Clinical Summary ---
Author Organization [facility] Address [address] [place] [address] Care Team Providers Care Department Administrator Name Role Phone Talisha Manzanares MD Primary Care Provider +1- [phone] Immunizations Name Administration Dates Next Due Pfizer SARS-CoV-2 COVID-19, mRNA, LNP-S, preservative free 02/05/2021,01/08/2021 Surgical History Surgery Date Site/Laterality Comments OTHER SURGICAL HISTORY PROCEDURE: [place] SPINE DEVICE IMPLANT SURGERY Medical History Medical [...] age to complete this topic Care Teams Department Administrator Relationship Specialty Start Date End Date Talisha Manzanares MD [address] [place] [phone] PCP - General Family Medicine 10/31/18
--- OUTSIDE RECORDS SUMMARY | 2025-02-22 13:34 | XMS_ITS | Encounter Summary ---
Author Organization [facility] Address [address] [facility] [address] [place] [address] Phone Care Team Providers Care Database Modeler Name Role Phone Talisha Manzanares MD Primary Care Provider + Reason for Referral * Physical Therapy (Routine) - Closed Specialty Diagnoses / Procedures Referred By Xavier goldstein Referred To Contact Physical Therapy Diagnoses Encounter for rehabilitation Hernán Mejia PA 6 [place] [address] Phone: tel: fax: [email or web address] 30 [place] [address] Phone: tel: Referral ID Status Reason Start Date Expiration Date Visits Re quested Visits Authorized [id number] Closed 07/21/2021 07/21/2022 1 1 Encounter Details Date Type Department Care Team (Latest Contact Info) Description 07/21/2021 Transcribe Orders [facility] Rehabilitation Services [address] [place] [address] Hernán Mejia PA 17 [place] [address] [email or web address] Encounter for rehabilitation (Primary Dx) Social History [...] Description 03/14/2025 11:30 AM EDT Office Visit [facility] Orthopedics & Sports Medicine [address] [place] [address] Hernán Grissom PA-C [address] [place] [address] [place] [address] 04/03/2025 3:15 PM EDT Appointment [facility] Center for Pain Medicine [address] [place] [address], [address] [place] [address] Jaclyn Almanzar MD [address] [place] [address] 444 [place] [address] [email or web address] U Scheduled Referrals Name Type Priority Associated Diagnoses Orde r Schedule Ambulatory referral to [facility] Physical Therapy Outpatient Referral Routine Encounter for rehabilitation Ordered: 07/21/2021 documented as of this encounter Visit Diagnoses Diagnosis Encounter for rehabilitation- Primary documented in this encounter Care Teams Database Modeler Relationship Specialty Start Date End Date Talisha Manzanares MD [address] [place], [place] [address] [address] [email or web address] PCP - General 07/27/17 documented as of this encounter Additional Source Comments The information contained in this document represents components of the legal health record. It is not the complete legal health record.[facility]
--- OUTSIDE RECORDS SUMMARY | 2025-02-22 13:34 | XMS_ITS | Encounter Summary ---
Author Organization [facility] Address [address] [place] [address] Phone Care Team Providers Care Section Plotter Operator Name Role Phone Talisha Manzanares MD Primary Care Provider + Talisha Manzanares MD Unavailable +[phone] Encounter Details Date Type Department Care Team (Late st Contact Info) Description 02/01/2018 Ancillary Orders Virtual Department [address] [place] [address] Estela Rowell PA-C [address] [place] [address] [email or web address] Globus syndrome Social History Tobacco Use Types [...] Description 03/14/2025 11:30 AM EDT Office [facility] Orthopedics & Sports Medicine [address] [place] [address] Hernán Grissom PA-C [address] [place] [address] [place] [address] 04/03/2025 3:15 PM EDT Appointment [facility] Center for Pain Medicine [address] [facility], [address] [place] [address] Jaclyn Almanzar MD [address] [place], [place] [address]B 444 [place] [address] [email or web address] documented as of this encounter Results * FL BARIUM SWALLOW ESOPHAGRAM SINGLE CONTRAST (02/09/2018 10:28 AM EDT) Anatomical Region Laterality Modality Chest Radiographic Elaina ging 02/09/2018 10:3 6 AM EDT Impressions 02/09/2018 10:38 AM EDT 1. ??Normal esophagram. 2. ??Severe cervical spine degenerative disc disease. FLUOROSCOPY TIME: ??1 min. 39 sec; ??11 IMAGES/FRAMES POS - [id number] Narrative 02/09/2018 10:38 AM EDT COMPARISON: None. BARIUM SWALLOW FINDINGS: Central Sterile Tech lateral neck radiograph was obtained. ??Soft tissues [...] - 02/09/2018 COMPARISON: None. BARIUM SWALLOW FINDINGS: Central Sterile Tech lateral neck radiograph was obtained. Soft tissues [...] min. 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 It is not the complete legal health record.[facility]
--- OUTSIDE RECORDS SUMMARY | 2025-02-22 13:34 | XMS_ITS | Encounter Summary ---
Author Organization [facility] Address [address] [place] [address] Care Team Providers Care Building Repair Maintenance Supervisor Name Role Phone Unavailable Primary Care Provider Unavailabl e Encounter Details Date Type Department Care Team (Late st Contact Info) Description 07/05/2017 Ophthalmology Data Conversion [facility] Historical Conversion Department [address] [place] [address] [address] Social History Tobacco Use Types Packs/Day Years [...]
--- OUTSIDE RECORDS SUMMARY | 2025-02-22 13:34 | XMS_ITS | Clinical Summary ---
Author Organization [facility] Address [address] [place] [address] Care Team Providers Care Slot Shift Manager Name Role Phone Unavailable Primary Care Provider Unavailabl e Allergies No known active allergies Immunizations Immunization Administration Dates Next Due Covid-19, Pfizer, mRNA, Martin valent, PF 30 mcg/0.3 mL dose (for [...] age to complete this topic Insurance [facility]
--- OUTSIDE RECORDS SUMMARY | 2025-02-22 13:34 | XMS_ITS | Encounter Summary ---
Author Organization [facility] Address [address] [place] [address] Phone Care Team Providers Care Hosted Services Analyst Name Role Phone Talisha Manzanares MD Primary Care Provider + Encounter Details Date Type Department Care Team (Late Contact Info) Description 12/24/2022 Transcribe [facility] Outpatient Care, Radio Flouroscopy [address] [place] [address] Binta Harris [address] [place] [address] [email or web address] Social History Tobacco Use Types Packs/Day [...] 03/14/2025 11:30 AM EDT Office Visit [facility] Orthopedics & Sports Medicine [address] [place] [address] Hernán Grsisom PA-C [address] [place] [address] [place] [address] 04/03/2025 3:15 PM EDT Appointment [facility] Center for Pain Medicine [address] [facility], [address] [place] [address] Jaclyn Almanzar MD [address] [facility] [address] [place] [address] [email or web address] documented as of this encounter Visit Diagnoses Not on filedocumented in this encounter Care Teams Hosted Services Analyst Relationship Specialty Start Date End Date Talisha Manzanares MD [address] [place] [address] [email or web address] PCP - General 07/27/17 documented as of this encounter Additional Source Comments The information contained in this document represents components of the legal health record. It is not the complete legal health record.[facility]
--- OUTSIDE RECORDS SUMMARY | 2025-02-22 13:34 | XMS_ITS | Encounter Summary ---
Author Organization [facility] Address [address] [place] [address] Phone Care Team Providers Care Plastic Cablemaking Machine Operator Name Role Phone Talisha Manzanares MD Primary Care Provider + Encounter Details Date Type Department Care Team (Late st Contact Info) Description 11/19/2022 Procedure Pass [facility] for Outpatient Care, Radio Flouroscopy [address] [place] [address] Social History Tobacco Use Types Packs/Day Years [...] Description 03/14/2025 11:30 AM EDT Office Visit [facility] Orthopedics & Sports Medicine [address] [place] [address] Hernán Grissom PA-C [address] [place] [address] [place] [address] 04/03/2025 3:15 PM EDT Appointment [facility] Center for Pain Medicine [address] [place] [address], [address] [place] [address] Jaclyn Almanzar MD [address] [place] [address] [email or web address] documented as of this encounter Visit Diagnoses Not on filedocumented in this encounter Care Teams Plastic Cablemaking Machine Operator Relationship Specialty Start Date End Date Talisha Manzanares MD [address] [place] [address] [email or web address] PCP - General 07/27/17 documented as of this encounter Additional Source Comments The information contained in this document represents components of the legal health record. It is not the complete legal health record.[facility]
--- OUTSIDE RECORDS SUMMARY | 2025-02-22 13:34 | XMS_ITS | Encounter Summary ---
Author Organization [facility] Address [address] [place] [address] Care Team Providers Care Brake Lining Curer Name Role Phone Talisha Manzanares Primary Care Provider Natty vailable Encounter Details Date Type Department Care Team Description 01/13/2022 [facility] Neurosurgery [place] [address] [place] [address] Yong Ch MD, PHD Social History Tobacco Use Types Packs/Day Years Used Date Smoking Tobacco: Former Cigarettes Q uit: 1986 Smokeless Tobacco: Never Sex Assigned at Date Recorded Not on file documented as of this encounter Plan of Treatment Not on file documented as of this encounter Visit Diagnoses Not on filedocumented in this encounter Care Teams Brake Lining Curer Relationship Specialty Start Date End Date Talisha Manzanares PCP - General Family Practice 11/13/19 documented as of this encounter
--- OUTSIDE RECORDS SUMMARY | 2025-02-22 13:34 | XMS_ITS | Clinical Summary ---
Author Organization [facility] Address [facility] [address] [address] Phone Care Team Providers Care Daily Release And Dupe Printer Name Role Phone Talisha Manzanares MD Primary [...] mg PO taken as needed and hydrocodone-acetaminophen (Brighton 7.5-325 mg) 1 table PO as needed with typical use being twice weekly. He has a contract with his PCP for chronic opioid management. Discussed the possibility that it may be more difficulty to control his post-operative pain given current chronic opioid use, however he is only using minimal Brighton at twice weekly and did discuss weaning [...] coronary syndromes including unstable or severe angina, [place] within 1 month, severe CHF, high grade [...] Description 03/14/2025 11:30 AM EDT Office Visit [facility] Orthopedics & Sports Medicine [address] [place] [address] Hernán Grissom PA-C [address] [place] [address] [place] [address] 04/03/2025 3:15 PM EDT Appointment [facility] Center for Pain Medicine [address] [facility], [address] [place] [address] Jaclyn Almanzar MD [address] [facility] [address] [place] [address] [email or web address] U Health Maintenance Due Date Last Done [...] age to complete this topic MENINGOCOCCAL VACCINES (B) Aged Out N o longer eligible based on patient's age to complete this topic Medical Devices Not on file Procedures Procedure Name Priority Date/Time Associated Diagnosis Comments OUTSIDE LDL Routine 09/23/2016 from Last 3 Months or Most Recently Relevant to Health Maintenance Results * Outside LDL (09/23/2016) LDL - External 120 50 - 250 mg/ml us Historical Provider LAB BLOOD ORDERABLES Lani l Result from Last 3 Months or Most Recently Relevant to Health Maintenance Insurance MEDICARE PART A & B BLUE CROSS MEDEX SUPPLEMENT [facility] NET FULL [facility] MEDICARE PART A & B [employer]flow CROSS MEDEX SUPPLEMENT HEALTH SAFETY NET FULL [facility] PART A & B MEDICARE PART A & B MEDICARE PART A & B BLUE CROSS MEDEX SUPPLEMENT [facility] NET FULL [facility] MEDICARE PART A & B MEDICARE PART A & B BLUE CROSS MEDEX SUPPLEMENT HEALTH SAFETY NET FULL [facility] MEDICARE PART A & B Link Trigger MEDEX SUPPLEMENT HEALTH SAFETY NET FULL [facility] MEDICARE PART A & B Link Trigger MEDEX SUPPLEMENT HEALTH SAFETY NET FULL [facility] Care Teams Daily Release And Dupe Printer Relationship Specialty Start Date End Date Talisha Manzanares MD [address] [place] [address] PCP - General 07/27/17 Additional Source Comments The information contained in this document represents components of the legal health record. It is not the complete legal health record.[facility]
--- OUTSIDE RECORDS SUMMARY | 2025-02-22 13:34 | XMS_ITS | Referral Summary ---
Author Organization [facility] Address [address] [place] [address] Care Team Providers Care Local Intermodal Truck Driver Name Role Phone Unavailable Primary Care Provider Unavailabl e Allergies No known active allergies Immunizations Immunization Administration Dates Next Due Covid-19, Pfizer, mRNA, [place] valent, PF 30 mcg/0.3 mL dose (for [...] of Treatment Not on file Insurance MEDICARE [facility]
--- OUTSIDE RECORDS SUMMARY | 2025-02-22 13:34 | XMS_ITS | Encounter Summary ---
Author Organization [facility] Address [facility] [address] [address] Phone Care Team Providers Care Program Manager Slp Name Role Phone Talisha Manzanares MD Primary Care Provider + Encounter Details Date Type Department Care Team (Late Contact Info) Description 11/04/2021 Ancillary Orders [facility],Outside Imaging [address] [place] [address] System, Provider Not In, [facility] [employer] [address] [address] Social History Tobacco Use Types Packs/Day Years [...] Description 03/14/2025 11:30 AM EDT Office Visit [facility] Orthopedics & Sports Medicine [address] [place] [address] Hernán Grissom PA-C [address] [place] [address] [place] [address] 04/03/2025 3:15 PM EDT Appointment [facility] Center for Pain Medicine [address] [facility], [address] [place] [address] Jaclyn Almanzar MD [address] [facility] [facility] [address] [place] [address] [email or web address] documented as of this encounter Results [...] on filedocumented in this encounter Care Teams Program Manager Slp Relationship Specialty Start Date End Date Talisha Manzanares MD [address] [place] [address] [email or web address] PCP - General 07/27/17 documented as of this encounter Additional Source Comments The information contained in this document represents components of the legal health record. It is not the complete legal health record.[facility]
== END 2025-02-22 13:19 | disposition home or self-care (01) ==
LOC: HO.PMC 12:55
PROVIDERS: PCP Family Medicine; Visit Provider Anesthesiology
DX: G89.4 Chronic pain syndrome (principal); M51.16 Intervertebral disc disorders with radiculopathy, lumbar region; M96.1 Postlaminectomy syndrome, not elsewhere classified; Z98.890 Other specified postprocedural states; M54.51 Vertebrogenic low back pain; M79.2 Neuralgia and neuritis, unspecified
CPT/HCPCS: 62368; 99213

== ENCOUNTER → 2025-02-22 12:54 | Outpatient (BNVA) | payer MEDICARE, MEDICAID, SELFPAY | PROVIDERS: PCP Family Medicine; Visit Provider Anesthesiology | DX: Z45.89 Encounter for adjustment and management of other implanted devices (principal); F11.20 Opioid dependence, uncomplicated; M51.16 Intervertebral disc disorders with radiculopathy, lumbar region; M96.1 Postlaminectomy syndrome, not elsewhere classified; M54.51 Vertebrogenic low back pain; M79.2 Neuralgia and neuritis, unspecified; G89.4 Chronic pain syndrome; Z98.890 Other specified postprocedural states | CPT/HCPCS: 62368; 99212 ==

== ENCOUNTER 2025-02-27 06:11 | Outpatient (REF) | payer MEDICARE, MEDICAID, SELFPAY ==
--- OUTSIDE RECORDS SUMMARY | 2025-02-27 06:13 | XMS_ITS | Encounter Summary ---
Author Organization [facility] Address [facility] [email or web address] [address] [address] Phone Care Team Providers Care Front Window Cashier Name Role Phone Talisha Manzanares MD Primary Care Provider + Encounter Details Date Type Department Care Team (Late st Contact Info) Description 11/01/2023 Procedure Pass [facility], X-Ray - [facility] [address] [place] [address] Social History Tobacco Use Types Packs/Day Years [...] Description 03/14/2025 11:30 AM EDT Office Visit [facility] Orthopedics & Sports Medicine 4 [place] [address] Hernán Grissom PA-C [address] [place] [address] [place] [address] [email or web address] 04/03/2025 3:15 PM EDT Appointment [facility] Center for Pain Medicine [address] [facility], [address] [place] [address] Jaclyn Almanzar MD [address] [place], [place] [address]B 444 [place] [address] [email or web address] documented as of this encounter Visit Diagnoses Not on filedocumented in this encounter Care Teams Front Window Cashier Relationship Specialty Start Date End Date Talisha Manzanares MD [address] [place] [address] [address] [email or web address] PCP - General 07/27/17 documented as of this encounter Additional Source Comments The information contained in this document represents components of the legal health record. It is not the complete legal health record.[facility]
--- OUTSIDE RECORDS SUMMARY | 2025-02-27 06:13 | XMS_ITS | Encounter Summary ---
Author Organization [facility] Address [facility] [employer] [address] [address] Phone Care Team Providers Care Torpedo Shooter Name Role Phone Talisha Manzanares MD Primary Care Provider + Encounter Details Date Type Department Care Team (Late st Contact Info) Description 03/17/2023 Transcribe Orders [facility] for Outpatient Care, Radio Flouroscopy [address] [place] [address] Juan Stanton [address] [place] [address] [email or web address] Social History Tobacco Use Types Packs/Day Years [...] Description 03/14/2025 11:30 AM EDT [facility] 4 [place] [address] Hernán Grissom PA-C [address] [place] [address] [place] [address] 04/03/2025 3:15 PM EDT Appointment [facility] Center for Pain Medicine [address] [facility], [address] [place] [address] Jaclyn Almanzar MD [address] [place], [place] [address]B 444 [place] [address] [email or web address] U documented as of this encounter Visit Diagnoses Not on filedocumented in this encounter Care Teams Torpedo Shooter Relationship Specialty Start Date End Date Talisha Manzanares MD [address] [place] [address] [email or web address] PCP - General 07/27/17 documented as of this encounter Additional Source Comments The information contained in this document represents components of the legal health record. It is not the complete legal health record.[facility]
--- OUTSIDE RECORDS SUMMARY | 2025-02-27 06:13 | XMS_ITS | Encounter Summary ---
Author Organization [facility] Address [facility] [employer] [address] [address] Phone Care Team Providers Care Loom Fixer Apprentice Name Role Phone Talisha Manzanares MD Primary Care Provider + Encounter Details Date Type Department Care Team (Late Contact Info) Description 11/01/2023 Procedure Pass [facility] [address] [place] [address] Social History Tobacco Use Types Packs/Day Years [...] 03/14/2025 11:30 AM EDT Office Visit [facility] Orthopedics & Sports Medicine 4 [place] [address] Hernán Grissom PA-C [address] [place] [address] [place] [address] [email or web address] 04/03/2025 3:15 PM EDT Appointment [facility] 15 [facility], [address] [place] [address] Jaclyn Almanzar MD [address] [place], [place] [address]B 444 [place] [address] [email or web address] documented as of this encounter Visit Diagnoses Not on filedocumented in this encounter Care Teams Loom Fixer Apprentice Relationship Specialty Start Date End Date Talisha Manzanares MD [address] [place] [address] [place] [address] [email or web address] PCP - General 07/27/17 documented as of this encounter Additional Source Comments The information contained in this document represents components of the legal health record. It is not the complete legal health record.[facility]
--- OUTSIDE RECORDS SUMMARY | 2025-02-27 06:13 | XMS_ITS | Encounter Summary ---
Author Organization [facility] Address [address] [place] [address] Phone Care Team Providers Care Ctc Operator Name Role Phone Talisha Manzanares MD Primary Care Provider + Encounter Details Date Type Department Care Team ([facility] Contact Info) Description 10/08/2023 Procedure Pass [place] Admitting Dept - Virtual Department 30 [place] [address] Social History Tobacco Use Types Packs/Day Years [...] 03/14/2025 11:30 AM EDT Office Visit [facility] Orthopedics & Sports Medicine 4 [place] [address] Hernán Grissom PA-C [address] [place] [address] [place] [address] 04/03/2025 3:15 PM EDT Appointment [facility] Center [facility] Medicine [address] [facility], [address] [place] [address] Jaclyn Almanzar MD 55 [facility] 444 [place] [address] [email or web address] documented as of this encounter Visit Diagnoses Not on filedocumented in this encounter Care Teams Ctc Operator Relationship Specialty Start Date End Date Talisha Manzanares MD [address] [place] [address] [place] [address] [email or web address] PCP - General 07/27/17 documented as of this encounter Additional Source Comments The information contained in this document represents components of the legal health record. It is not the complete legal health record.[facility]
--- OUTSIDE RECORDS SUMMARY | 2025-02-27 06:13 | XMS_ITS | Encounter Summary ---
Author Organization [facility] Address [address] [place] [address] Phone Care Team Providers Care Seed Tester Name Role Phone Talisha Manzanares MD Primary Care Provider + Encounter Details Date Type Department Care Team (Late Contact Info) Description 02/18/2023 Procedure Pass [facility] for Outpatient Care, Radio Flouroscopy [address] [place] [address] Social History Tobacco Use Types Packs/Day Years [...] Description 03/14/2025 11:30 AM EDT Office Visit [facility] Orthopedics & Sports Medicine [address] [place] [address] Hernán Grissom PA-C [address] [place] [address] [place] [address] 04/03/2025 3:15 PM EDT Appointment [facility] Center for Pain Medicine [address] [facility], [address] [place] [address] Jaclyn Almanzar MD [address] [place], [place] [address]B 444 [place] [address] [email or web address] U documented as of this encounter Visit Diagnoses Not on filedocumented in this encounter Care Teams Seed Tester Relationship Specialty Start Date End Date Talisha Manzanares MD [address] [place] [address] [email or web address] PCP - General 07/27/17 documented as of this encounter Additional Source Comments The information contained in this document represents components of the legal health record. It is not the complete legal health record.[facility]
--- OUTSIDE RECORDS SUMMARY | 2025-02-27 06:13 | XMS_ITS | Encounter Summary ---
Author Organization [facility] Address [address] [place] [address] Phone Care Team Providers Care Peoplesoft Hcm Developer Name Role Phone Talisha Manzanares MD Primary Care Provider + Encounter Details Date Type Department Care Team (Late Contact Info) Description 09/22/2023 Procedure Pass OR Admitting Dept - Virtual Department [address] [place] [address] Social History Tobacco Use Types Packs/Day Years [...] 03/14/2025 11:30 AM EDT Office Visit [facility] Orthopedics & Sports Medicine [address] [place] [address] Hernán Grissom PA-C [address] [place] [address] [place] [address] 04/03/2025 3:15 PM EDT Appointment [facility] Medicine [address] [facility], [address] [place] [address] Jaclyn Almanzar MD [facility] [address] [place] [address] [email or web address] documented as of this encounter Visit Diagnoses Not on filedocumented in this encounter Care Teams Peoplesoft Hcm Developer Relationship Specialty Start Date End Date Talisha Manzanares MD [address] [place] [address] [place] [address] [email or web address] PCP - General 07/27/17 documented as of this encounter Additional Source Comments The information contained in this document represents components of the legal health record. It is not the complete legal health record.[facility]
--- OUTSIDE RECORDS SUMMARY | 2025-02-27 06:13 | XMS_ITS | Encounter Summary ---
Author Organization [facility] Address [address] [place] [address] [address] [place] [address] Phone Care Team Providers Care Suction Worker Name Role Phone Talisha Manzanares MD Primary Care Provider + Encounter Details Date Type Department Care Team (Late st Contact Info) Description 10/22/2022 Telephone [facility] Orthopaedic Spine [address] [facility], 3rd Floor, [address] [place] [address] Pasha Cassidy MD [address] [address] [email or web address] Social History Tobacco Use Types Packs/Day Years [...] Description 03/14/2025 11:30 AM EDT Office Visit [facility] Orthopedics & Sports Medicine [address] [place] [address] Hernán Grissom PA-C [address] [place] [address] [place] [address] 04/03/2025 3:15 PM EDT Appointment [facility] Center for Pain Medicine [address] [facility], [address] [place] [address] Jaclyn Almanzar MD [address] [place] [address] 444 [place] [address] [email or web address] documented as of this encounter Visit Diagnoses Not on filedocumented in this encounter Care Teams Suction Worker Relationship Specialty Start Date End Date Talisha Manzanares MD [address] [place] [address] [email or web address] PCP - General 07/27/17 documented as of this encounter Additional Source Comments The information contained in this document represents components of the legal health record. It is not the complete legal health record.[facility]
--- OUTSIDE RECORDS SUMMARY | 2025-02-27 06:13 | XMS_ITS | Clinical Summary ---
Author Organization [facility] Address [address] [place] [address] Care Team Providers Care Renewable Energy Technician Name Role Phone Talisha Manzanares MD [...] Advance Directives For more information, please contact: [phone] Documents on File Type Date Recorded Patient Rosin Barrel Filler Expl anation Advance Directive and Living Will 04/19/2020 8:19 AM questionnaire Care Teams Renewable Energy Technician Relationship Specialty Start Date End Date Talisha Manzanares MD [address] [place] [address] PCP - General Family Medicine 10/31/18
--- OUTSIDE RECORDS SUMMARY | 2025-02-27 06:14 | XMS_ITS | Clinical Summary ---
Author Organization [facility] Address [facility] [employer] [address] [address] Phone Care Team Providers Care Kitchen Utility Associate Name Role Phone Talisha Manzanares MD Primary [...] mg PO taken as needed and hydrocodone-acetaminophen (Millerton 7.5-325 mg) 1 table PO as needed with typical use being twice weekly. He has a contract with his PCP for chronic opioid management. Discussed the possibility that it may be more difficulty to control his post-operative pain given current chronic opioid use, however he is only using minimal Millerton at twice weekly and did discuss weaning [...] Description 03/14/2025 11:30 AM EDT Office Visit [facility] Orthopedics & Sports Medicine [address] [place] [address] Hernán Grissom PA-C [address] [place] [address] [place] [address] 04/03/2025 3:15 PM EDT Appointment [facility] Center for Pain Medicine [address] [facility], [address] [place] [address] Jaclyn Almanzar MD 55 [facility] [address] [place] [address] [email or web address] U Health Maintenance Due Date Last Done [...] A & B BLUE CROSS MEDEX SUPPLEMENT [facility] NET FULL [facility] MEDICARE PART A & B [id number] CROSS MEDEX SUPPLEMENT HEALTH [facility]AF[facility] NET FULL [facility] A & B MEDICARE PART A & B MEDICARE PART A & B BLUE CROSS MEDEX SUPPLEMENT [facility] NET FULL [facility] MED[facility] PART A & B MEDICARE PART A & B BLUE CROSS MEDEX SUPPLEMENT HEALTH SAFETY NET FULL [facility] MED[facility] PART A & B Traffio MEDEX SUPPLEMENT HEALTH SAFETY NET FULL [facility] MED[facility] PART A & B Traffio MEDEX SUPPLEMENT HEALTH SAFETY NET FULL [facility] Care Teams Kitchen Utility Associate Relationship Specialty Start Date End Date Talisha Manzanares MD [address] [place] [address] PCP - General 07/27/17 Additional Source Comments The information contained in this document represents components of the legal health record. It is not the complete legal health record.[facility]
--- OUTSIDE RECORDS SUMMARY | 2025-02-27 06:14 | XMS_ITS | Clinical Summary ---
Author Organization [facility] it Address [address] [place] [address] Care Team Providers Care Cotton Chopper Name Role Phone Talisha Manzanares MD Primary Care Provider [phone] Immunizations Name Administration Dates Next Due Pfizer [...] age to complete this topic Care Teams Cotton Chopper Relationship Specialty Start Date End Date Talisha Manzanares MD [address] [place] [phone] PCP - General Family Medicine 10/31/18
--- OUTSIDE RECORDS SUMMARY | 2025-02-27 06:14 | XMS_ITS | Encounter Summary ---
Author Organization [facility] Address [address] [place] [address] Care Team Providers Care Lastex Operator Name Role Phone Unavailable Primary Care Provider Unavailabl e Encounter Details Date Type Department Care Team (Late st Contact Info) Description 07/05/2017 Ophthalmology Data Conversion [facility] Historical Conversion Department [address] [place] [address] [address] Social History Tobacco Use Types Packs/Day Years [...]
--- OUTSIDE RECORDS SUMMARY | 2025-02-27 06:14 | XMS_ITS | Encounter Summary ---
Author Organization [facility] Address [address] [place] [address] Phone Care Team Providers Care Packer Inspector Name Role Phone Talisha Manzanares MD Primary Care Provider + Talisha Manzanares MD Unavailable [phone] Encounter Details Date Type Department Care Team (Late st Contact Info) Description 02/01/2018 Ancillary Orders Virtual Department [address] [place] [address] Estela Rowell PA-C [address] [place] [address] [email or web address] Globus [...] Description 03/14/2025 11:30 AM EDT Office Visit [facility] Orthopedics & Sports Medicine [address] [place] [address] Hernán Grissom PA-C [address] [place] [address] [place] [address] 04/03/2025 3:15 PM EDT Appointment [facility] Center for Pain Medicine [address] [facility], [address] [place] [address] Jaclyn Almanzar MD [address] [place], [place] [address] [address] [place] [address] [email or web address] documented as of this encounter Results * FL BARIUM SWALLOW ESOPHAGRAM SINGLE CONTRAST (02/09/2018 10:28 AM EDT) Anatomical Region Laterality Modality Chest Radiographic Elaina ging 02/09/2018 10:3 6 AM EDT Impressions 02/09/2018 10:38 AM EDT 1. ??Normal esophagram. 2. ??Severe cervical spine degenerative disc disease. FLUOROSCOPY TIME: ??1 min. 39 sec; ??11 IMAGES/FRAMES POS - [id number] Narrative 02/09/2018 10:38 AM EDT COMPARISON: None. BARIUM SWALLOW FINDINGS: Quarry Supervisor Open Pit lateral neck radiograph was obtained. ??Soft tissues [...] - 02/09/2018 COMPARISON: None. BARIUM SWALLOW FINDINGS: Quarry Supervisor Open Pit lateral neck radiograph was obtained. Soft tissues [...] min. 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 It is not the complete legal health record.[facility]
--- OUTSIDE RECORDS SUMMARY | 2025-02-27 06:14 | XMS_ITS | Encounter Summary ---
Author Organization [facility] Address [facility] [email or web address] [address] [address] Phone Care Team Providers Care Jail Officer Name Role Phone Talisha Manzanares MD Primary Care Provider + Encounter Details Date Type Department Care Team (Late Contact Info) Description 11/04/2021 Ancillary Orders [facility] [address] [place] [address] System, Provider Not In, [facility] [address] [address] Social History Tobacco Use Types Packs/Day Years [...] Description 03/14/2025 11:30 AM EDT Office Visit [facility] Orthopedics & Sports Medicine [address] [place] [address] Hernán Grissom PA-C [address] [place] [address] [place] [address] 04/03/2025 3:15 PM EDT Appointment [facility] [address] [facility], [address] [place] [address] Jaclyn Almanzar MD [address] [facility] [address] [place] [address] [email or web address] documented as of this encounter Results [...] on filedocumented in this encounter Care Teams Jail Officer Relationship Specialty Start Date End Date Talisha Manzanares MD [address] [place] [address] [email or web address] PCP - General 07/27/17 documented as of this encounter Additional Source Comments The information contained in this document represents components of the legal health record. It is not the complete legal health record.[facility]
--- OUTSIDE RECORDS SUMMARY | 2025-02-27 06:14 | XMS_ITS | Encounter Summary ---
Author Organization [facility] Address [address] [place] [address] Phone Care Team Providers Care Colorer Hides And Skins Name Role Phone Talisha Manzanares MD Primary Care Provider + Encounter Details Date Type Department Care Team (Late st Contact Info) Description 11/19/2022 Procedure Pass [facility], Radio Flouroscopy [address] [place] [address] Social History Tobacco Use Types Packs/Day Years [...] Description 03/14/2025 11:30 AM EDT Office Visit [facility] Orthopedics & Sports Medicine [address] [place] [address] Hernán Grissom PA-C [address] [place] [address] [place] [address] 04/03/2025 3:15 PM EDT Appointment [facility] Center for Pain Medicine [address] [place] [address] [address] [place] [address] Jaclyn Almanzar MD [address] [place] [address] [email or web address] documented as of this encounter Visit Diagnoses Not on filedocumented in this encounter Care Teams Colorer Hides And Skins Relationship Specialty Start Date End Date Talisha Manzanares MD [address] [place] [address] [email or web address] PCP - General 07/27/17 documented as of this encounter Additional Source Comments The information contained in this document represents components of the legal health record. It is not the complete legal health record.[facility]
--- OUTSIDE RECORDS SUMMARY | 2025-02-27 06:14 | XMS_ITS | Encounter Summary ---
Author Organization [facility] Address [address] [place] [address] Phone Care Team Providers Care Supervisor Welding Equipment Repairer Name Role Phone Talisha Manzanares MD Primary Care Provider + Encounter Details Date Type Department Care Team (Late Contact Info) Description 12/24/2022 Transcribe [facility] Outpatient Care, Radio Flouroscopy [address] [place] [address] Binta Harris [address] [place] [address] [email or web address] Social History Tobacco Use Types [...] 03/14/2025 11:30 AM EDT Office Visit [facility] Orthopedics & Sports Medicine [address] [place] [address] Hernán Grissom PA-C [address] [place] [address] [place] [address] 04/03/2025 3:15 PM EDT Appointment [facility] Center for Pain Medicine [address] [facility], [address] [place] [address] Jaclyn Almanzar MD 55 [facility] [address] [place] [address] [email or web address] U documented as of this encounter Visit Diagnoses Not on filedocumented in this encounter Care Teams Supervisor Welding Equipment Repairer Relationship Specialty Start Date End Date Talisha Manzanares MD [address] [place] [address] [email or web address] PCP - General 07/27/17 documented as of this encounter Additional Source Comments The information contained in this document represents components of the legal health record. It is not the complete legal health record.[facility]
--- OUTSIDE RECORDS SUMMARY | 2025-02-27 06:14 | XMS_ITS | Clinical Summary ---
Author Organization [facility] Address [address] [place] [address] Care Team Providers Care Productivity Engineer Name Role Phone Unavailable Primary Care Provider Unavailabl e Allergies No known active allergies Immunizations Immunization Administration Dates Next Due Covid-19, Pfizer, mRNA, Lyman valent, PF 30 mcg/0.3 mL dose (for [...] this topic Insurance MEDICARE [facility]
--- OUTSIDE RECORDS SUMMARY | 2025-02-27 06:14 | XMS_ITS | Referral Summary ---
Author Organization [facility] Address [address] [place] [address] Care Team Providers Care Clinical Informatics Educator Name Role Phone Unavailable Primary Care Provider Unavailabl e Allergies No known active allergies Immunizations Immunization Administration Dates Next Due Covid-19, Pfizer, mRNA, Crane valent, PF 30 mcg/0.3 mL dose (for [...] of Treatment Not on file Insurance MEDICARE [facility]
--- OUTSIDE RECORDS SUMMARY | 2025-02-27 06:14 | XMS_ITS | Encounter Summary ---
Author Organization [facility] Address [address] [employer] [address] [facility] [address] [place] [address] Phone Care Team Providers Care Managed Care Manager Name Role Phone Talisha Manzanares MD Primary Care Provider + Reason for Referral * Physical Therapy (Routine) - Closed Specialty Diagnoses / Procedures Referred By Xavier goldstein Referred To Contact Physical Therapy Diagnoses Encounter for rehabilitation Hernán Mejia PA [address] [place] [address] Phone: tel: fax: [email or web address] [address] [place] [address] Phone: tel: Referral ID Status Reason Start Date Expiration Date Visits Re quested Visits Authorized [id number] Closed 07/21/2021 07/21/2022 1 1 Encounter Details Date Type Department Care Team (Latest Contact Info) Description 07/21/2021 Transcribe Orders [facility] [address] [place] [address] Hernán Mejia PA [address] [place] [address] [email or web address] Encounter for rehabilitation (Primary Dx) Social History [...] Description 03/14/2025 11:30 AM EDT Office Visit [facility] Orthopedics & Sports Medicine [address] [place] [address] Hernán Grissom PA-C [address] [place] [address] [place] [address] 04/03/2025 3:15 PM EDT Appointment [facility] Center for Pain Medicine [address] [place] [address], [address] [place] [address] Jaclyn Almanzar MD [address] [place] [address] [address] [place] [address] [email or web address] U Scheduled Referrals Name Type Priority Associated Diagnoses Orde r Schedule Ambulatory referral to [facility] Physical Therapy Outpatient Referral Routine Encounter for rehabilitation Ordered: 07/21/2021 documented as of this encounter Visit Diagnoses Diagnosis Encounter for rehabilitation- Primary documented in this encounter Care Teams Managed Care Manager Relationship Specialty Start Date End Date Talisha Manzanares MD [address] [place], [place] [address] [place] [address] [email or web address] PCP - General 07/27/17 documented as of this encounter Additional Source Comments The information contained in this document represents components of the legal health record. It is not the complete legal health record.[facility]
== END 2025-02-27 06:12 | disposition home or self-care (01) ==
LOC: CF 06:11
PROVIDERS: Visit Provider Anesthesiology
DX: Z45.1 Encounter for adjustment and management of infusion pump (principal); M54.9 Dorsalgia, unspecified; Z96.89 Presence of other specified functional implants; Z79.891 Long term (current) use of opiate analgesic
CPT/HCPCS: 62368; 99212

== ENCOUNTER 2025-02-27 12:43 | Outpatient (AMB) | payer MEDICARE, MEDICAID, SELFPAY ==
[2025-02-27 12:59] VITALS: BP 136/68; PULSE 62; RESP 16; O2SAT 98
--- NOTE | 2025-02-27 12:59 | A.OFFVIS_ITS ---
Vital Signs 02/27/25 12:59 BP 136/68 Blood Pressure Location Lt brachial Position Sitting Respiration 16 Pulse 62 Pulse Source Pulse Oximeter Pulse Oximetry (%) 98 Oxygen Delivery Method Room Air Intake Visit Reasons: PUMP ADJUSTMENT Plant Buyer Required: No Allergies No Known Allergies [No Known Allergies*] Allergy (Verified 02/27/25 12:59) Medication List - Last Reconciled 02/27/25 by Debbie Beck LPN azelastmary intranasal naloxone 4 mg/actuation 4 mg intranasal Q2M 1 day ondansetron HCl 4 mg PO Q8H PRN 15 days pregabalin 100 mg PO TID quetiapine (Seroquel) 100 mg PO BEDTIME terazosin 5 mg PO BEDTIME 90 days HPI Comments Details: Hernán is today in the office for 3rd intrathecal pain pump adjustment. He denies pain improvement from last pump escalation. He reports that average level of pain 5-6. He reports feeling nauseous on the next day he was using PTM device. In my opinion unlikely it is a complication of the opioid medication, if he would feel it within few hours after the PTM application than I would consider it related to the intrathecal opioids. Pump adjustment is as below. I increased PTM dose from 60 micro g once a day to 90 micro g once a day He went for a dye study during which I was able to aspirate CSF from the side port of the pain pump and inject the dye into the catheter delineating myelogram. Therefore the pump is working appropriately although there maybe some positioned obstruction of the catheter. We carefully discussed today his options of the treatment. Unfortunately with his hardware in the back Ecorse size spinal cord stimulator in the lumbar gutter would not be possible to perform. In the past trial of the spinal cord stimulator was not effective to alleviate his pain. He reports that his pain is aggravated when he is sitting for the long period of time. However this is not the pain in the axial back this is pain radiating to the leg. He has Modic type changes in his lumbar spine, however because his pain is not axial I decided not to proceed for intercept procedure. Prior: status post ITDD Pain Pump Implant 05/12/24. Originally he was referred by Dr. Nix for evaluation for spinal cord stimulator. He is status post laminectomy L3-L4 and L5 S1 diskectomy with posterior lateral fusion. He has L5 radiculopathy EMG confirmed. On recommendation of Dr. Ch I tried spinal cord stimulator on him [employer] scientific. The procedure was very difficult technically. However I was able to establish 2 leads in the thoracic spine. Patient reported minimal pain improvement while on stimulation. At the end of the Ecorse scientific trial he was switched to Nevro SCS, unfortunately that did not help his pain in more extent either. He was absent from my care for 2 years , after that he came back requesting the discussion about pain pump he was offered to him at that time. Because the patient was on opioids Brooks 7.5 mg TID, initially bupivacaine pain pump was considered however it resulted in poor pain control and side effects. He was switched for hydromorphone. Dr. Ch did not recommend additional surgical intervention and advised he undergo a SCS trial, and thus he was referred to us. He describes a numbness and burning down his right posterior lateral leg extending to the top of his right into his toes. This is worsened with sitting, reaching pain level 8-9/10. He had done extensive PT and also had multiple injections prior to his surgery while seeing pain management provider Dr. Geronimo in [place]. [facility] Medical History History of urinary retention History of numbness Chronic pain syndrome Radiculopathy due to lumbar intervertebral disc disorder Postlaminectomy syndrome Surgical History History of surgery History of basal cell carcinoma excision History of lumbar laminectomy History of laminectomy History of back surgery Hx of arthroscopy of shoulder Hx of repair of rotator cuff Social History Patient Tobacco Use Status: Former Tobacco user Review of Systems Const All systems reviewed & are unremarkable except as noted in HPI and below ENT Reports Normal hearing present Neuro Reports Normal hearing present, Denies confusion and Denies Sensory deficit (Neuro) Psych Denies confusion Physical Exam Vital Signs: Last Vital Signs Pulse 62 02/27/25 12:59 Resp 16 02/27/25 12:59 BP 136/68 02/27/25 12:59 Pulse Ox 98 02/27/25 12:59 Oxygen Delivery Method Room Air 02/27/25 12:59 Const General: No confusion Orientation/consciousness: No confusion Eyes Pupils: Equal, round and reactive pupils present EOM: EOMs intact bilaterally Chest Chest palpation & inspection: normal inspection of the chest Resp Effort & Inspection: normal respiratory effort, able to speak in complete sentences, normal respiratory pattern, no audible wheezes and no cough Cardio Jugular venous distension: no JVD Back/Spine/Pelvis Other: Lumbar Spine/Lower back/SIJ: SACROILIAC JOINT No tenderness to palpation. INSPECTION: normal curvature of spine, scar from previous surgery. RANGE OF MOTION decreased extention. PALPATION: no vertebral spine tenderness. STRAIGHT LEG RAISING TEST: positive at 45 degrees on right. MOTOR SYSTEM: 5/5 bilateral lower extremities. SENSORY EXAM: paresthesias right L4-5 distribution. REFLEXES: symmetrical 2+. GAIT: unremarkable. Neuro General: No confusion Cranial nerves: Yes Equal, round and reactive pupils present and Yes Normal hearing present Sensory Exam: No Sensory deficit (Neuro) Psych Speech and movement: Normal speech and movement present Affect: normal affect Attitude: cooperative Thought process: Normal thought process present Thought content: Normal thought content present Insight: Good insight present (Psych) Judgement: Good judgement present (Psych) Assessment & Plan Assessment & Plan (1) Chronic pain syndrome: Code(s): G89.4 - Chronic pain syndrome Category: Medical (2) Radiculopathy due to lumbar intervertebral disc disorder: Code(s): M51.16 - Intervertebral disc disorders with radiculopathy, lumbar region Category: Medical (3) Postlaminectomy syndrome: Code(s): M96.1 - Postlaminectomy syndrome, not elsewhere classified Category: Medical (4) S/P insertion of intrathecal pump: Code(s): Z98.890 - Other specified postprocedural states Category: Surgical (5) Vertebrogenic low back pain: Code(s): M54.51 - Vertebrogenic low back pain Category: Medical (6) Neuropathic pain syndrome (non-herpetic): Code(s): M79.2 - Neuralgia and neuritis, unspecified Category: Medical Plan: Pain pump interrogation and adjustment. The pain pump was read it containing 17.5 mL of hydromorphone solution. Hydromorphone concentration is 600 micro g. The patient was on continuous hydromorphone 70 micro g a day and PTM 65 micro g once a day once in 24 hours. Lockout duration was 23 hours 30 minutes. I increase the PTM dose from 65 micro g once a day to 90 micro g once a day. Maximal daily dose now is 159.0 5 micro g. Plan We agreed that I will continue escalating his doses of the opioids in the future as needed until the side effects appears or until the pain will be better. The pump was reprogrammed as above. Next appointment 03/06/2025 for yet another pain pump adjustment. Coding Level of Care Code Est Pt Level 3 (18337) Procedure Only Diagnoses Chronic pain syndrome G89.4 Radiculopathy due to lumbar intervertebral disc disorder M51.16 Postlaminectomy syndrome M96.1 S/P insertion of intrathecal pump Z98.890 Vertebrogenic low back pain M54.51 Neuropathic pain syndrome (non-herpetic) M79.2
--- OUTSIDE RECORDS SUMMARY | 2025-02-27 13:46 | XMS_ITS | Encounter Summary ---
Author Organization [facility] Address [facility] [employer] [address] [address] Phone Care Team Providers Care Laborer/Grade Check Name Role Phone Talisha Manzanares MD Primary Care Provider + Encounter Details Date Type Department Care Team (Late st Contact Info) Description 11/01/2023 Procedure Pass [facility], X-Ray - [facility] [address] [place] [address] Social History Tobacco Use Types Packs/Day Years [...] Description 03/14/2025 11:30 AM EDT Office Visit [facility] Orthopedics & Sports Medicine [address] [place] [address] Hernán Grissom PA-C [address] [place] [address] [place] [address] [email or web address] 04/03/2025 3:15 PM EDT Appointment [facility] Center for Pain Medicine [address] [facility], [address] [place] [address] Jaclyn Almanzar MD [address] [place], [place] [address]B [address] [place] [address] [email or web address] documented as of this encounter Visit Diagnoses Not on filedocumented in this encounter Care Teams Laborer/Grade Check Relationship Specialty Start Date End Date Talisha Manzanares MD [address] [place], [place] [address], [place] [address] [email or web address] PCP - General 07/27/17 documented as of this encounter Additional Source Comments The information contained in this document represents components of the legal health record. It is not the complete legal health record.[facility]
--- OUTSIDE RECORDS SUMMARY | 2025-02-27 13:47 | XMS_ITS | Encounter Summary ---
Author Organization [facility] Address [address] [place] [address] Care Team Providers Care Surgery Scheduling Coordinator Name Role Phone Talisha Manzanares Primary Care Provider Natty vailable Encounter Details Date Type Department Care Team Description 09/03/2020 Transfer Records Medical Records [address] [place] [address] Abstract, Provider Social History Tobacco Use Types Packs/Day Years Used Date Smoking Tobacco: Never Assessed Sex Assigned at Date Recorded Not on file documented as of this encounter Plan of Treatment Not on file documented as of this encounter Visit Diagnoses Not on filedocumented in this encounter Care Teams Surgery Scheduling Coordinator Relationship Specialty Start Date End Date Talisha Manzanares PCP - General Family Practice 11/13/19 documented as of this encounter
--- OUTSIDE RECORDS SUMMARY | 2025-02-27 13:47 | XMS_ITS | Encounter Summary ---
Author Organization [facility] Address [facility] [employer] [address] [address] Phone Care Team Providers Care Lift Mechanic Name Role Phone Talisha Manzanares MD Primary Care Provider + Encounter Details Date Type Department Care Team (Late st Contact Info) Description 03/17/2023 Transcribe Orders [facility], Radio Flouroscopy [address] [place] [address] Juan Stanton [address] [place] [address] [email or web address] Social History Tobacco Use Types Packs/Day Years [...] Description 03/14/2025 11:30 AM EDT Office [facility] & [facility] Medicine 4 [place] [address] Hernán Grissom PA-C [address] [place] [address] [place] [address] 04/03/2025 3:15 PM EDT Appointment [facility] Center for Pain Medicine [address] [facility], [address] [place] [address] Jaclyn Almanzar MD [address] [place], [place] [address]B [address] [place] [address] [email or web address] documented as of this encounter Visit Diagnoses Not on filedocumented in this encounter Care Teams Lift Mechanic Relationship Specialty Start Date End Date Talisha Manzanares MD [address] [place] [address] [email or web address] PCP - General 07/27/17 documented as of this encounter Additional Source Comments The information contained in this document represents components of the legal health record. It is not the complete legal health record.[facility]
--- OUTSIDE RECORDS SUMMARY | 2025-02-27 13:47 | XMS_ITS | Encounter Summary ---
Author Organization [facility] Address [address] [place] [address] [address] [place] [address] Phone Care Team Providers Care Physiotherapist'S Assistant Name Role Phone Talisha Manzanares MD Primary Care Provider + Encounter Details Date Type Department Care Team (Late st Contact Info) Description 10/22/2022 Telephone [facility] Orthopaedic Spine [address] [facility], 3rd Floor, [address] [place] [address] Pasha Cassidy MD [address] [address] [email or web address] Social History Tobacco Use Types Packs/Day Years [...] Description 03/14/2025 11:30 AM EDT Office Visit [facility] Orthopedics & Sports Medicine [address] [place] [address] Hernán Grissom PA-C [address] [place] [address] [place] [address] 04/03/2025 3:15 PM EDT Appointment [facility] Center for Pain Medicine [address] [facility], [address] [place] [address] Jaclyn Almanzar MD [address] [place] [address] 444 [place] [address] [email or web address] documented as of this encounter Visit Diagnoses Not on filedocumented in this encounter Care Teams Physiotherapist'S Assistant Relationship Specialty Start Date End Date Talisha Manzanares MD [address] [place] [address] [email or web address] PCP - General 07/27/17 documented as of this encounter Additional Source Comments The information contained in this document represents components of the legal health record. It is not the complete legal health record.[facility]
--- OUTSIDE RECORDS SUMMARY | 2025-02-27 13:47 | XMS_ITS | Encounter Summary ---
Author Organization [facility] Address [address] [place] [address] Phone Care Team Providers Care Staff Veterinarian Name Role Phone Talisha Manzanares MD Primary Care Provider + Talisha Manzanares MD Unavailable [phone] Encounter Details Date Type Department Care Team (Late st Contact Info) Description 02/01/2018 Ancillary Orders Virtual Department [address] [place] [address] Estela Rowell PA-C [address] [place] [address] [email or web address] Globus syndrome Social History Tobacco Use Types [...] Description 03/14/2025 11:30 AM EDT Office Visit [facility] Orthopedics & Sports Medicine [address] [place] [address] Hernán Grissom PA-C [address] [place] [address] [place] [address] 04/03/2025 3:15 PM EDT Appointment [facility] Center for Pain Medicine [address] [facility], [address] [place] [address] Jaclyn Almanzar MD [address] [place], [place] [address]B 444 [place] [address] [email or web address] documented as of this encounter Results * FL BARIUM SWALLOW ESOPHAGRAM SINGLE CONTRAST (02/09/2018 10:28 AM EDT) Anatomical Region Laterality Modality Chest Radiographic Elaina ging 02/09/2018 10:3 6 AM EDT Impressions 02/09/2018 10:38 AM EDT 1. ??Normal esophagram. 2. ??Severe cervical spine degenerative disc disease. FLUOROSCOPY TIME: ??1 min. 39 sec; ??11 IMAGES/FRAMES POS - [id number] Narrative 02/09/2018 10:38 AM EDT COMPARISON: None. BARIUM SWALLOW FINDINGS: Planishing Hammer Operator lateral neck radiograph was obtained. ??Soft [...] - 02/09/2018 COMPARISON: None. BARIUM SWALLOW FINDINGS: Planishing Hammer Operator lateral neck radiograph was obtained. Soft [...] min. 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 It is not the complete legal health record.[facility]
--- OUTSIDE RECORDS SUMMARY | 2025-02-27 13:47 | XMS_ITS | Encounter Summary ---
Author Organization [facility] Address [address] [place] [address] Care Team Providers Care Counsel Name Role Phone Talisha Manzanares Primary Care Provider Natty vailable Encounter Details Date Type Department Care Team Description 11/20/2021 SCAN [facility] Neurosurgery [place] [address] [place] [address] Yong Ch MD, PHD Social [...] on filedocumented in this encounter Care Teams Counsel Relationship Specialty Start Date End Date Talisha Manzanares PCP - General Family Practice 11/13/19 documented as of this encounter
--- OUTSIDE RECORDS SUMMARY | 2025-02-27 13:47 | XMS_ITS | Encounter Summary ---
Author Organization [facility] Address [address] [place] [address] Phone Care Team Providers Care Muleser Name Role Phone Talisha Manzanares MD Primary Care Provider + Encounter Details Date Type Department Care Team ([facility] Contact Info) Description 10/08/2023 Procedure Pass OR Admitting Dept - Virtual Department [address] [place] [address] Social History Tobacco Use Types Packs/Day Years [...] 03/14/2025 11:30 AM EDT Office Visit [facility] Orthopedics & Sports Medicine 4 [place] [address] Hernán Grissom PA-C [address] [place] [address] [place] [address] 04/03/2025 3:15 PM EDT Appointment [facility] Center for Pain Medicine [address] [facility], [address] [place] [address] Jaclyn Almanzar MD [address] [facility] [address] [place] [address] [email or web address] documented as of this encounter Visit Diagnoses Not on filedocumented in this encounter Care Teams Muleser Relationship Specialty Start Date End Date Talisha Manzanares MD [address] [place] [address] [place] [address] [email or web address] PCP - General 07/27/17 documented as of this encounter Additional Source Comments The information contained in this document represents components of the legal health record. It is not the complete legal health record.[facility]
--- OUTSIDE RECORDS SUMMARY | 2025-02-27 13:47 | XMS_ITS | Encounter Summary ---
Author Organization [facility] Address [address] [place] [address] Care Team Providers Care Rayon Winder Name Role Phone Talisha Manzanares Primary Care Provider Natty vailable Encounter Details Date Type Department Care Team Description 11/20/2021 SCAN [facility] Neurosurgery [place] [address] [place] [address] Yong Ch MD, PHD Social [...] on filedocumented in this encounter Care Teams Rayon Winder Relationship Specialty Start Date End Date Talisha Manzanares PCP - General Family Practice 11/13/19 documented as of this encounter
--- OUTSIDE RECORDS SUMMARY | 2025-02-27 13:47 | XMS_ITS | Clinical Summary ---
Author Organization [facility] Address [address] [place] [address] Care Team Providers Care Console Operator Name Role Phone Unavailable Primary Care Provider Unavailabl e Allergies No known active allergies Immunizations Immunization Administration Dates Next Due Covid-19, Pfizer, mRNA, Mifflin valent, PF 30 mcg/0.3 mL dose (for [...] age to complete this topic Insurance MEDICARE [facility]
--- OUTSIDE RECORDS SUMMARY | 2025-02-27 13:47 | XMS_ITS | Encounter Summary ---
Author Organization [facility] Address [address] [place] [address] Care Team Providers Care Facilities Assistant Name Role Phone Unavailable Primary Care Provider Unavailabl e Encounter Details Date Type Department Care Team (Late st Contact Info) Description 07/05/2017 Ophthalmology Data Conversion [facility] Historical Conversion Department [address] [place] [address] [address] Social History Tobacco Use Types Packs/Day Years [...]
--- OUTSIDE RECORDS SUMMARY | 2025-02-27 13:47 | XMS_ITS | Encounter Summary ---
Author Organization [facility] Address [address] [place] [address] Phone Care Team Providers Care Roll Press Operator Name Role Phone Talisha Manzanares MD Primary Care Provider + Encounter Details Date Type Department Care Team (Late Contact Info) Description 09/22/2023 Procedure Pass OR Admitting Dept - Virtual Department [address] [place] [address] Social History Tobacco Use Types Packs/Day Years [...] 03/14/2025 11:30 AM EDT Office Visit [facility] Orthopedics & Sports Medicine [address] [place] [address] Hernán Grissom PA-C [address] [place] [address] [place] [address] 04/03/2025 3:15 PM EDT Appointment [facility] Center for Pain Medicine [address] [facility], [address] [place] [address] Jaclyn Almanzar MD 55 [facility] [address] [place] [address] [email or web address] documented as of this encounter Visit Diagnoses Not on filedocumented in this encounter Care Teams Roll Press Operator Relationship Specialty Start Date End Date Talisha Manzanares MD [address] [place] [address] [place] [address] [email or web address] PCP - General 07/27/17 documented as of this encounter Additional Source Comments The information contained in this document represents components of the legal health record. It is not the complete legal health record.[facility]
--- OUTSIDE RECORDS SUMMARY | 2025-02-27 13:47 | XMS_ITS | Clinical Summary ---
Author Organization [facility] it Address [address] [place] [address] Care Team Providers Care Materials Planning Manager Name Role Phone Talisha Manzanares MD Primary Care Provider [phone] Immunizations Name Administration Dates Next Due Pfizer [...] age to complete this topic Care Teams Materials Planning Manager Relationship Specialty Start Date End Date Talisha Manzanares MD [address] [place] [phone] PCP - General Family Medicine 10/31/18
--- OUTSIDE RECORDS SUMMARY | 2025-02-27 13:47 | XMS_ITS | Clinical Summary ---
Author Organization [facility] Address [address] [place] [address] Care Team Providers Care Clinical Professor Name Role Phone Talisha Manzanares MD Primary [...] Advance Directives For more information, please contact: [phone] Documents on File Type Date Recorded Patient Instructional Aide Expl anation Advance Directive and Living Will 04/19/2020 8:19 AM questionnaire Care Teams Clinical Professor Relationship Specialty Start Date End Date Talisha Manzanares MD [address] [place] [address] PCP - General Family Medicine 10/31/18
--- OUTSIDE RECORDS SUMMARY | 2025-02-27 13:47 | XMS_ITS | Encounter Summary ---
Author Organization [facility] Address [facility] Disruptor Beam [address] [address] Phone Care Team Providers Care Tobacco Cloth Reclaimer Name Role Phone Talisha Manzanares MD Primary Care Provider + Encounter Details Date Type Department Care Team (Late Contact Info) Description 11/01/2023 Procedure Pass [facility], [facility] [address] [place] [address] Social History Tobacco Use Types Packs/Day Years [...] 03/14/2025 11:30 AM EDT Office Visit [facility]ics & Sports Medicine 4 [place] [address] Hernán Grissom PA-C [address] [place] [address] [place] [address] [email or web address] 04/03/2025 3:15 PM EDT Appointment [facility] 15 [facility], [address] [place] [address] Jaclyn Almanzar MD [address] [place], [place] [address]B 444 [place] [address] [email or web address] documented as of this encounter Visit Diagnoses Not on filedocumented in this encounter Care Teams Tobacco Cloth Reclaimer Relationship Specialty Start Date End Date Talisha Manzanares MD [address] [place] [address] [place] [address] [email or web address] PCP - General 07/27/17 documented as of this encounter Additional Source Comments The information contained in this document represents components of the legal health record. It is not the complete legal health record.[facility]
--- OUTSIDE RECORDS SUMMARY | 2025-02-27 13:47 | XMS_ITS | Encounter Summary ---
Author Organization [facility] Address [address] [place] [address] Care Team Providers Care Emergency Manager Name Role Phone Talisha Manzanares Primary Care Provider Natty vailable Encounter Details Date Type Department Care Team Description 08/08/2020 Risk Adjustment Specialist Report Medical Records [address] [place] [address] Yong Ch MD, PHD Social History Tobacco Use Types Packs/Day Years Used Date Smoking Tobacco: Never Assessed Sex Assigned at Date Recorded Not on file documented as of this encounter Plan of Treatment Not on file documented as of this encounter Visit Diagnoses Not on filedocumented in this encounter Care Teams Emergency Manager Relationship Specialty Start Date End Date Talisha Manzanares PCP - General Family Practice 11/13/19 documented as of this encounter
--- OUTSIDE RECORDS SUMMARY | 2025-02-27 13:47 | XMS_ITS | Encounter Summary ---
Author Organization [facility] Address [address] [place] [address] Phone Care Team Providers Care Desk Lieutenant Name Role Phone Talisha Manzanares MD Primary Care Provider + Encounter Details Date Type Department Care Team (Late Contact Info) Description 02/18/2023 Procedure Pass [facility], Radio Flouroscopy [address] [place] [address] Social History Tobacco Use Types Packs/Day Years [...] Description 03/14/2025 11:30 AM EDT Office Visit [facility] Orthopedics & Sports Medicine [address] [place] [address] Hernán Grissom PA-C [address] [place] [address] [place] [address] 04/03/2025 3:15 PM EDT Appointment [facility] 15 [facility], [address] [place] [address] Jaclyn Almanzar MD [address] [place], [place] [address]B 444 [place] [address] [email or web address] documented as of this encounter Visit Diagnoses Not on filedocumented in this encounter Care Teams Desk Lieutenant Relationship Specialty Start Date End Date Talisha Manzanares MD [address] [place] [address] [email or web address] PCP - General 07/27/17 documented as of this encounter Additional Source Comments The information contained in this document represents components of the legal health record. It is not the complete legal health record.[facility]
--- OUTSIDE RECORDS SUMMARY | 2025-02-27 13:47 | XMS_ITS | Encounter Summary ---
Author Organization [facility] Address [address] [place] [address] Phone Care Team Providers Care Flexible Shaft Winder Name Role Phone Talisha Manzanares MD Primary Care Provider + Encounter Details Date Type Department Care Team (Late Contact Info) Description 12/24/2022 Transcribe [facility] Outpatient Care, Radio Flouroscopy [address] [place] [address] Binta Harris 15 [place] [address] [email or web address] Social History Tobacco Use [...] 03/14/2025 11:30 AM EDT Office Visit [facility] Orth[facility]ics & Sports Medicine [address] [place] [address] Hernán Grissom PA-C [address] [place] [address] [place] [address] 04/03/2025 3:15 PM EDT Appointment [facility] Center for [facility] Medicine 15 [facility], [address] [place] [address] Jaclyn Almanzar MD [facility] [address] [place] [address] [email or web address] documented as of this encounter Visit Diagnoses Not on filedocumented in this encounter Care Teams Flexible Shaft Winder Relationship Specialty Start Date End Date Talisha Manzanares MD [address] [place] [address] [email or web address] PCP - General 07/27/17 documented as of this encounter Additional Source Comments The information contained in this document represents components of the legal health record. It is not the complete legal health record.[facility]
--- OUTSIDE RECORDS SUMMARY | 2025-02-27 13:47 | XMS_ITS | Referral Summary ---
Author Organization [facility] Address [address] [place] [address] Care Team Providers Care Cargo And Ramp Services Manager Name Role Phone Unavailable Primary Care Provider Unavailabl e Allergies No known active allergies Immunizations Immunization Administration Dates Next Due Covid-19, Pfizer, mRNA, [place] valent, PF 30 mcg/0.3 mL dose (for [...] of Treatment Not on file Insurance MEDICARE [facility]
--- OUTSIDE RECORDS SUMMARY | 2025-02-27 13:47 | XMS_ITS | Encounter Summary ---
Author Organization [facility] Address [address] [place] [address] Phone Care Team Providers Care Income Tax Investigator Name Role Phone Talisha Manzanares MD Primary Care Provider + Encounter Details Date Type Department Care Team (Late st Contact Info) Description 11/19/2022 Procedure Pass [facility], Radio Flouroscopy [address] [place] [address] Social History Tobacco Use Types Packs/Day Years [...] Description 03/14/2025 11:30 AM EDT Office Visit [facility] Orthopedics & Sports Medicine [address] [place] [address] Hernán Grissom PA-C [address] [place] [address] [place] [address] 04/03/2025 3:15 PM EDT Appointment [facility] Center for Pain Medicine [address] [place] [address] 340 [place] [address] Jaclyn Almanzar MD [address] [place] [address] [email or web address] documented as of this encounter Visit Diagnoses Not on filedocumented in this encounter Care Teams Income Tax Investigator Relationship Specialty Start Date End Date Talisha Manzanares MD [address] [place] [address] [email or web address] PCP - General 07/27/17 documented as of this encounter Additional Source Comments The information contained in this document represents components of the legal health record. It is not the complete legal health record.[facility]
--- OUTSIDE RECORDS SUMMARY | 2025-02-27 13:47 | XMS_ITS | Encounter Summary ---
Author Organization [facility] Address [facility] [place] [employer] [address] [address] Phone Care Team Providers Care Hairspring Staker Name Role Phone Talisha Manzanares MD Primary Care Provider + Encounter Details Date Type Department Care Team (Late Contact Info) Description 11/04/2021 Ancillary Orders [facility],Outside Imaging [address] [place] [address] System, Provider Not In, [facility] [address] [address] Social History Tobacco Use Types Packs/Day Years [...] AM EDT Office Visit [facility] Orthopedics & Sports Medicine [address] [place] [address] Hernán Grissom PA-C [address] [place] [address] [place] [address] 04/03/2025 3:15 PM EDT Appointment [facility] [address] [facility], [address] [place] [address] Jaclyn Almanzar MD [address] [facility] [facility] [facility] [address] [place] [address] [email or web address] documented as of this encounter Results [...] on filedocumented in this encounter Care Teams Hairspring Staker Relationship Specialty Start Date End Date Talisha Manzanares MD [address] [place] [address] [email or web address] PCP - General 07/27/17 documented as of this encounter Additional Source Comments The information contained in this document represents components of the legal health record. It is not the complete legal health record.[facility]
--- OUTSIDE RECORDS SUMMARY | 2025-02-27 13:47 | XMS_ITS | Encounter Summary ---
Author Organization [facility] Address [address] [place] [address] Care Team Providers Care Liquefier Name Role Phone Talisha Manzanares Primary Care Provider Natty vailable Encounter Details Date Type Department Care Team Description 11/20/2021 SCAN [facility] [place] [address] [place] [address] Yong Ch MD, PHD Social [...] on filedocumented in this encounter Care Teams Liquefier Relationship Specialty Start Date End Date Talisha Manzanares PCP - General Family Practice 11/13/19 documented as of this encounter
--- OUTSIDE RECORDS SUMMARY | 2025-02-27 13:48 | XMS_ITS | Clinical Summary ---
Author Organization [facility] Address [facility] [address] [address] Phone Care Team Providers Care Napper Grinder Name Role Phone Talisha Manzanares MD Primary [...] mg PO taken as needed and hydrocodone-acetaminophen ([place] 7.5-325 mg) 1 table PO as needed with typical use being twice weekly. He has a contract with his PCP for chronic opioid management. Discussed the possibility that it may be more difficulty to control his post-operative pain given current chronic opioid use, however he is only using minimal [place] at twice weekly and did discuss weaning [...] coronary syndromes including unstable or severe angina, PR within 1 month, severe CHF, high grade [...] Description 03/14/2025 11:30 AM EDT Office Visit [facility] Orthopedics & Sports Medicine 4 [place] [address] Hernán Grissom PA-C [address] [place] [address] [place] [address] 04/03/2025 3:15 PM EDT Appointment [facility] Center [facility] Medicine 15 [facility], [address] [place] [address] Jaclyn Almanzar MD [address] [facility] [address] [place] [address] [email or web address] U Health Maintenance Due Date Last Done [...] A & B BLUE CROSS MEDEX SUPPLEMENT [facility] FULL [facility] MEDICARE PART A & B Member Subscriber Plan / Payer (Ef fective 2019-Present) Name:AlexisHernán trujillo Member ID:[id number] Relation to Subscriber:Self Name:Vanesa Hernán Subscriber ID:[id number] Payer ID:[id number] Group ID:Not on file Type:Medicare Address: [facility] Stevia First [facility] IQ (Social Influence Quotient) [facility] [address] [place] [address] [employer] CROSS MEDEX SUPPLEMENT [facility] NET [facility] PART A & B MEDICARE PART A & B MEDICARE PART A & B BLUE CROSS MEDEX SUPPLEMENT [facility] MED[facility] PART A & B MEDICARE PART A & B BLUE CROSS MEDEX SUPPLEMENT [facility] NET [facility] MEDIC[facility] PART A & B [employer] MEDEX SUPPLEMENT [facility] NET [facility] MEDIC[facility] PART A & B [employer] MEDEX SUPPLEMENT [facility]ALTH SAFETY NET [facility] Care Teams Napper Grinder Relationship Specialty Start Date End Date Talisha Manzanares MD [address] [place] [address] PCP - General 07/27/17 Additional Source Comments The information contained in this document represents components of the legal health record. It is not the complete legal health record.[facility]
--- OUTSIDE RECORDS SUMMARY | 2025-02-27 13:48 | XMS_ITS | Encounter Summary ---
Author Organization [facility] Address [address] [facility] [address] [place] [address] Phone Care Team Providers Care Conductor/Brakeman Name Role Phone Talisha Manzanares MD Primary Care Provider + Reason for Referral * Physical Therapy (Routine) - Closed Specialty Diagnoses / Procedures Referred By Xavier goldstein Referred To Contact Physical Therapy Diagnoses Encounter for rehabilitation Hernán Mejia PA [address] [place] [address] Phone: tel: fax: mailto:[email or web address] 30 [place] [address] Phone: tel: Referral ID Status Reason Start Date Expiration Date Visits Re quested Visits Authorized [id number] Closed 07/21/2021 07/21/2022 1 1 Encounter Details Date Type Department Care Team (Latest Contact Info) Description 07/21/2021 Transcribe Orders [facility] Rehabilitation [facility] [address] [place] [address] Hernán Mejia PA [address] [place] [address] [email or web address] Encounter for rehabilitation (Primary Dx) Social History [...] Description 03/14/2025 11:30 AM EDT Office Visit [facility] Orthopedics & Sports Medicine [address] [place] [address] Hernán Grissom PA-C [address] [place] [address] [place] [address] 04/03/2025 3:15 PM EDT Appointment [facility] [address] [place] [address], [address] [place] [address] Jaclyn Almanzar MD [address] [place] [address] 444 [place] [address] [email or web address] Scheduled Referrals Name Type Priority Associated Diagnoses Orde r Schedule Ambulatory referral to [facility] Physical Therapy Outpatient Referral Routine Encounter for rehabilitation Ordered: 07/21/2021 documented as of this encounter Visit Diagnoses Diagnosis Encounter for rehabilitation- Primary documented in this encounter Care Teams Conductor/Brakeman Relationship Specialty Start Date End Date Talisha Manzanares MD [address] [place], [place] [address] [address] [email or web address] PCP - General 07/27/17 documented as of this encounter Additional Source Comments The information contained in this document represents components of the legal health record. It is not the complete legal health record.[facility]
== END 2025-02-27 13:04 | disposition home or self-care (01) ==
LOC: HO.PMCPRC 12:43
PROVIDERS: PCP Family Medicine; Visit Provider Anesthesiology
DX: G89.4 Chronic pain syndrome (principal); M51.16 Intervertebral disc disorders with radiculopathy, lumbar region; M96.1 Postlaminectomy syndrome, not elsewhere classified; Z98.890 Other specified postprocedural states; M54.51 Vertebrogenic low back pain; M79.2 Neuralgia and neuritis, unspecified
CPT/HCPCS: 99213

== ENCOUNTER 2025-03-06 06:47 | Outpatient (REF) | payer MEDICARE, MEDICAID, SELFPAY ==
--- OUTSIDE RECORDS SUMMARY | 2025-03-06 06:49 | XMS_ITS | Clinical Summary ---
Author Organization [facility] Address [address] [place] [address] Care Team Providers Care Airport Operations Specialist Name Role Phone Talisha Manzanares MD [...] Advance Directives For more information, please contact: [phone] Documents on File Type Date Recorded Patient Top Former Expl anation Advance Directive and Living Will 04/19/2020 8:19 AM questionnaire Care Teams Airport Operations Specialist Relationship Specialty Start Date End Date Talisha Manzanares MD [address] [place] [address] PCP - General Family Medicine 10/31/18
== END 2025-03-06 06:48 | disposition home or self-care (01) ==
LOC: CF 06:47
PROVIDERS: Visit Provider Anesthesiology
DX: Z13.89 Encounter for screening for other disorder (principal)

== ENCOUNTER 2025-03-08 10:35 | Outpatient (AMB) | payer MEDICARE, SELFPAY ==
--- NOTE | 2025-03-08 10:56 | MHC.OFFVIS ---
Intake Visit Reasons: 4m/PVR Intake Note: Patient is present for 4M/PVR Urology Medication:TERAZOSIN Antibiotic Allergy:NONE Blood Thinner:NONE Last PVR:0ML'S Todays PVR:89ML'S Investor Relations Director Required: No Allergies No Known Allergies [No Known Allergies*] Allergy (Verified 03/08/25 11:00) HPI Comments Details: Hernán is a pleasant male. He is a patient of . He is seen for the following urologic conditions - incomplete bladder emptying with weakness of stream Four month follow-up terazosin Improved bladder emptying - current PVR 90 cc PSA 11/04 1.5 Imaging Bladder ultrasound - initial - Prevoid volume: 337 mL. Postvoid volume: 173 mL Prostate volume measures 52 mL Urinary Symptoms Review - Weakness of urinary stream - Improvement in post-void residual volume from 170 mL to 90 mL - Nighttime urination frequency varies, with up to five episodes on certain nights - Occasional nights with uninterrupted sleep - Response to terazosin treatment Lower urinary tract symptoms Developed following intrathecal pump pain management Notices weak stream with incomplete in emptying PFSH Medical History History of urinary retention History of numbness Chronic pain syndrome Radiculopathy due to lumbar intervertebral disc disorder Postlaminectomy syndrome Surgical History History of surgery History of basal cell carcinoma excision History of lumbar laminectomy History of laminectomy History of back surgery Hx of arthroscopy of shoulder Hx of repair of rotator cuff Social History Patient Tobacco Use Status: Former Tobacco user Review of Systems Const Denies chills and Denies fever(s) Card Reports no additional complaints and Denies syncope Resp Denies cough GI Denies abdominal pain and Denies heartburn Reports as per HPI and Denies change in libido Neuro Denies syncope Psych Denies change in libido Endo Denies change in libido Physical Exam Const General: cooperative, healthy appearing, comfortable and no acute distress Orientation/consciousness: patient oriented x3 HEENT Face and sinus: Yes normal facial exam Mouth: moist mucous membranes Neck Neck: Yes normal visual inspection, Yes full ROM and Yes trachea midline Chest Chest palpation & inspection: normal inspection of the chest Resp Effort & Inspection: normal respiratory effort, able to speak in complete sentences and no respiratory distress GI Inspection: Yes normal to inspection Back/Spine/Pelvis Cervical Spine: normal cervical lordosis Thoracic/Lumbar Spine: thoracic and lumbar spine normal to inspection Skin General skin exam: no rashes or lesions noted Neuro General: patient oriented x3, gait normal, tone normal and moves all extremities Extrem General: Yes normal to inspection and Yes capillary refill normal Office Procedures Post Void Residual Post Residual Void Post Void Residual (PVR): 89 [id number] Void Residual by ultrasound Assessment & Plan Assessment & Plan (1) Urinary retention with incomplete bladder emptying: Code(s): R33.9 - Retention of urine, unspecified Category: Medical Plan 1. Incomplete Bladder Emptying Continue terazosin. Monitor dietary influences. Follow-up in six months. 2. Nocturia Maintain terazosin. Monitor dietary impacts. Observe symptom patterns. Follow-up aligned with bladder emptying review. Discussion Notes During the visit, I discussed the patient's ongoing treatment with terazosin, which has resulted in improved bladder emptying as evidenced by reduced post-void residual volume. I emphasized the importance of monitoring dietary influences on nocturia, noting that certain foods could exacerbate urinary frequency and urgency. We discussed maintaining the current medication regimen and the possibility of extending follow-up intervals based on treatment efficacy. The patient consented to continue with the current plan and agreed to observe dietary patterns that might affect urinary symptoms. Patient Instructions - Continue taking terazosin as prescribed. - Monitor your diet for foods that might increase nighttime urination, such as spicy foods, chocolate, and tomato-based products. - Keep track of your urinary patterns and note any changes. - Follow up in six months to assess the effectiveness of your treatment. Medications: Refilled terazosin 5 mg PO BEDTIME 90 days 90 caps 1RF N40.1 - Benign prostatic hyperplasia with lower urinary tract symptoms, R33.9 - Retention of urine, unspecified, R35.0 - Frequency of micturition Patient Instructions: This note is constructed using voice recognition software. While every effort has been made to ensure accuracy biztalk architect errors may have been included. Imaging studies, laboratory and physical exam results were discussed and reviewed in detail. No major barriers to patient understanding were identified. An opportunity to ask questions regarding the treatment plan was provided. All questions were answered. The patient expressed understanding and agreement with the above treatment plan. The patient is aware they should contact our office by phone for worsening of their current condition or the appearance of new urologic symptoms. Compliance is encouraged with any medications and followup testing that is ordered. It is a privilege to participate in the urologic care of your patient. If you have any questions or concerns regarding treatment for the above conditions, or other urologic issues, please do not hesitate to contact me. The office telephone contact is [phone]. Sincerely, Dr Daron Jackson MD, RU[facility] - Urology Compassionate Specialist Care for the Genitourinary System Coding Level of Care Code Est Pt Level 3 (87938) Diagnoses Urinary retention with incomplete bladder emptying R33.9 CPT Codes Post Residual Void - PVR CPT Code: 92499-Xlmv Void Residual by ultrasound ([id number])
--- OUTSIDE RECORDS SUMMARY | 2025-03-08 11:02 | XMS_ITS | Clinical Summary ---
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
== END 2025-03-08 11:29 | disposition home or self-care (01) ==
LOC: HO.HUSH 10:35
PROVIDERS: PCP Family Medicine; Visit Provider Urology
DX: R33.9 Retention of urine, unspecified (principal)
CPT/HCPCS: 99213

== ENCOUNTER → 2025-03-08 10:35 | Outpatient (BNVA) | payer MEDICARE, SELFPAY | PROVIDERS: PCP Family Medicine; Visit Provider Urology | DX: R33.9 Retention of urine, unspecified (principal) | CPT/HCPCS: 51798; 99212 ==

== ENCOUNTER 2025-03-14 13:53 | Outpatient (AMB) | payer MEDICARE, MEDICAID, SELFPAY ==
--- OUTSIDE RECORDS SUMMARY | 2025-03-14 13:59 | XMS_ITS | Clinical Summary ---
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
--- NOTE | 2025-03-14 14:06 | MHC.OFFVIS ---
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 He still denies pain improvement from last pump escalation. He reports that average level of pain 5-6. He reports lightheadedness when he administers himself a bolus. I increased today the time of the bolus administration to 40 minutes today. I will see him in few days to do yet another pump adjustment. He went for a dye study during which I was able to aspirate CSF from the side port of the pain pump and inject the dye into the catheter delineating myelogram. Therefore the pump is working appropriately although there maybe some positioned obstruction of the catheter. We carefully discussed today his options of the treatment. Unfortunately with his hardware in the back [place] size spinal cord stimulator in the lumbar gutter would not be possible to perform. In the past trial of the spinal cord stimulator was not effective to alleviate his pain. He reports that his pain is aggravated when he is sitting for the long period of time. However this is not the pain in the axial back this is pain radiating to the leg. He has Modic type changes in his lumbar spine, however because his pain is not axial I decided not to proceed for intercept procedure. Prior: status post ITDD Pain Pump Implant 05/12/24. Originally he was referred by Dr. Nix for evaluation for spinal cord stimulator. He is status post laminectomy L3-L4 and L5 S1 diskectomy with posterior lateral fusion. He has L5 radiculopathy EMG confirmed. On recommendation of Dr. Ch I tried spinal cord stimulator on him [place] [employer]. The procedure was very difficult technically. However I was able to establish 2 leads in the thoracic spine. Patient reported minimal pain improvement while on stimulation. At the end of the [place] scientific trial he was switched to [place] SCS, unfortunately that did not help his pain in more extent either. He was absent from my care for 2 years , after that he came back requesting the discussion about pain pump he was offered to him at that time. Because the patient was on opioids [place] 7.5 mg TID, initially bupivacaine pain pump was considered however it resulted in poor pain control and side effects. He was switched for hydromorphone. Dr. Ch did not recommend additional surgical intervention and advised he undergo a SCS trial, and thus he was referred to us. He describes a numbness and burning down his right posterior lateral leg extending to the top of his right into his toes. This is worsened with sitting, reaching pain level 8-9/10. He had done extensive PT and also had multiple injections prior to his surgery while seeing pain management provider Dr. Geronimo in [place]. PENDING SALE TO [facility] Medical History History of urinary retention History of numbness Chronic pain syndrome Radiculopathy due to lumbar intervertebral disc disorder Postlaminectomy syndrome Surgical History History of surgery History of basal cell carcinoma excision History of lumbar laminectomy History of laminectomy History of back surgery Hx of arthroscopy of shoulder Hx of repair of rotator cuff Social History Patient Tobacco Use Status: Former Tobacco user Review of Systems Const All systems reviewed & are unremarkable except as noted in HPI and below ENT Reports Normal hearing present Neuro Reports Normal hearing present, Denies confusion and Denies Sensory deficit (Neuro) Psych Denies confusion Physical Exam Vital Signs: Last Vital Signs Pulse 63 03/14/25 14:09 Resp 18 03/14/25 14:09 BP 124/62 03/14/25 14:09 Pulse Ox 100 03/14/25 14:09 Oxygen Delivery Method Room Air 03/14/25 14:09 Const General: No confusion Orientation/consciousness: No confusion Eyes Pupils: Equal, round and reactive pupils present EOM: EOMs intact bilaterally Chest Chest palpation & inspection: normal inspection of the chest Resp Effort & Inspection: normal respiratory effort, able to speak in complete sentences, normal respiratory pattern, no audible wheezes and no cough Cardio Jugular venous distension: no JVD Back/Spine/Pelvis Other: Lumbar Spine/Lower back/SIJ: SACROILIAC JOINT No tenderness to palpation. INSPECTION: normal curvature of spine, scar from previous surgery. RANGE OF MOTION decreased extention. PALPATION: no vertebral spine tenderness. STRAIGHT LEG RAISING TEST: positive at 45 degrees on right. MOTOR SYSTEM: 5/5 bilateral lower extremities. SENSORY EXAM: paresthesias right L4-5 distribution. REFLEXES: symmetrical 2+. GAIT: unremarkable. Neuro General: No confusion Cranial nerves: Yes Equal, round and reactive pupils present and Yes Normal hearing present Sensory Exam: No Sensory deficit (Neuro) Psych Speech and movement: Normal speech and movement present Affect: normal affect Attitude: cooperative Thought process: Normal thought process present Thought content: Normal thought content present Insight: Good insight present (Psych) Judgement: Good judgement present (Psych) Assessment & Plan Assessment & Plan (1) Chronic pain syndrome: Code(s): G89.4 - Chronic pain syndrome Category: Medical (2) Radiculopathy due to lumbar intervertebral disc disorder: Code(s): M51.16 - Intervertebral disc disorders with radiculopathy, lumbar region Category: Medical (3) Postlaminectomy syndrome: Code(s): M96.1 - Postlaminectomy syndrome, not elsewhere classified Category: Medical (4) S/P insertion of intrathecal pump: Code(s): Z98.890 - Other specified postprocedural states Category: Surgical (5) Vertebrogenic low back pain: Code(s): M54.51 - Vertebrogenic low back pain Category: Medical (6) Neuropathic pain syndrome (non-herpetic): Code(s): M79.2 - Neuralgia and neuritis, unspecified Category: Medical Plan: Pain pump interrogation and adjustment. The pain pump was read it containing 14.5 mL of hydromorphone solution. Hydromorphone concentration is 600 micro g. The patient was on continuous hydromorphone 70 micro g a day and PTM 65 micro g once a day once in 24 hours. Lockout duration was 23 hours 30 minutes. I increase the PTM dose from 99 micro g once a day to 135 micro g once a day. Maximal daily dose now is 203 05 micro g. Plan We agreed that I will continue escalating his doses of the opioids in the future as needed until the side effects appears or until the pain will be better. The pump was reprogrammed as above. Next appointment 03/20/2025 for yet another pain pump adjustment. Coding Level of Care Code Est Pt Level 3 (96067) Procedure Only Diagnoses Chronic pain syndrome G89.4 Radiculopathy due to lumbar intervertebral disc disorder M51.16 Postlaminectomy syndrome M96.1 S/P insertion of intrathecal pump Z98.890 Vertebrogenic low back pain M54.51 Neuropathic pain syndrome (non-herpetic) M79.2
[2025-03-14 14:09] VITALS: BP 124/62; PULSE 63; RESP 18; O2SAT 100
== END 2025-03-14 14:31 | disposition home or self-care (01) ==
LOC: HO.PMC 13:53
PROVIDERS: PCP Family Medicine; Visit Provider Anesthesiology
DX: G89.4 Chronic pain syndrome (principal); M51.16 Intervertebral disc disorders with radiculopathy, lumbar region; M96.1 Postlaminectomy syndrome, not elsewhere classified; M54.51 Vertebrogenic low back pain; Z45.1 Encounter for adjustment and management of infusion pump; M79.2 Neuralgia and neuritis, unspecified
CPT/HCPCS: 95991; 99213

== ENCOUNTER → 2025-03-14 13:53 | Outpatient (BNVA) | payer MEDICARE, MEDICAID, SELFPAY | PROVIDERS: PCP Family Medicine; Visit Provider Anesthesiology | DX: G89.4 Chronic pain syndrome (principal); M51.16 Intervertebral disc disorders with radiculopathy, lumbar region; M96.1 Postlaminectomy syndrome, not elsewhere classified; M54.51 Vertebrogenic low back pain; M79.2 Neuralgia and neuritis, unspecified; Z46.81 Encounter for fitting and adjustment of insulin pump; Z79.891 Long term (current) use of opiate analgesic; Z98.890 Other specified postprocedural states | CPT/HCPCS: 99212 ==

== ENCOUNTER 2025-03-20 06:08 | Outpatient (REF) | payer MEDICARE, MEDICAID, SELFPAY ==
--- OUTSIDE RECORDS SUMMARY | 2025-03-20 06:11 | XMS_ITS | Clinical Summary ---
Author Organization [facility] Address [address] [place] [address] Care Team Providers Care Fiberglass Boat Builder Name Role Phone Talisha Manzanares MD Primary [...] Advance Directives For more information, please contact: [phone] Documents on File Type Date Recorded Patient Precision Filer Hand Expl anation Advance Directive and Living Will 04/19/2020 8:19 AM questionnaire Care Teams Fiberglass Boat Builder Relationship Specialty Start Date End Date Talisha Manzanares MD [address] [place] [address] PCP - General Family Medicine 10/31/18
== END 2025-03-20 06:09 | disposition home or self-care (01) ==
LOC: CF 06:08
PROVIDERS: Visit Provider Anesthesiology
DX: Z45.1 Encounter for adjustment and management of infusion pump (principal); M51.360 Other intervertebral disc degeneration, lumbar region with discogenic back pain only; M96.1 Postlaminectomy syndrome, not elsewhere classified; M79.2 Neuralgia and neuritis, unspecified; G89.4 Chronic pain syndrome
CPT/HCPCS: 62367; 99212

== ENCOUNTER 2025-03-20 11:49 | Outpatient (AMB) | payer MEDICARE, MEDICAID, SELFPAY ==
--- NOTE | 2025-03-20 11:52 | MHC.OFFVIS ---
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 He still denies pain improvement from last pump escalation. He reports that average level of pain 5-6. He reports increased level of pain lately. He reports that he does not feel any pain relief. I am suspecting that his pain might be central in nature and nothing what we do peripherally including spinal cord and Intrathecal drug delivery system is actually effective to treat his pain. He was asking me a question how far we can escalate his opioid medications. I explained to him that I can escalate until he feels side effects or until he says that he has done with this medication modality trying to help him. He went for a dye study during which I was able to aspirate CSF from the side port of the pain pump and inject the dye into the catheter delineating myelogram. Therefore the pump is working appropriately although there maybe some positioned obstruction of the catheter. We carefully discussed today his options of the treatment. Unfortunately with his hardware in the back [place] size spinal cord stimulator in the lumbar gutter would not be possible to perform. In the past trial of the spinal cord stimulator was not effective to alleviate his pain. He reports that his pain is aggravated when he is sitting for the long period of time. However this is not the pain in the axial back this is pain radiating to the leg. He has Modic type changes in his lumbar spine, however because his pain is not axial I decided not to proceed for intercept procedure. Prior: status post ITDD Pain Pump Implant 05/12/24. Originally he was referred by Dr. Nix for evaluation for spinal cord stimulator. He is status post laminectomy L3-L4 and L5 S1 diskectomy with posterior lateral fusion. He has L5 radiculopathy EMG confirmed. On recommendation of Dr. Ch I tried spinal cord stimulator on him [place] scientific. The procedure was very difficult technically. However I was able to establish 2 leads in the thoracic spine. Patient reported minimal pain improvement while on stimulation. At the end of the [place] scientific trial he was switched to [place] SCS, unfortunately that did not help his pain in more extent either. He was absent from my care for 2 years , after that he came back requesting the discussion about pain pump he was offered to him at that time. Because the patient was on opioids [place] 7.5 mg TID, initially bupivacaine pain pump was considered however it resulted in poor pain control and side effects. He was switched for hydromorphone. Dr. Ch did not recommend additional surgical intervention and advised he undergo a SCS trial, and thus he was referred to us. He describes a numbness and burning down his right posterior lateral leg extending to the top of his right into his toes. This is worsened with sitting, reaching pain level 8-9/10. He had done extensive PT and also had multiple injections prior to his surgery while seeing pain management provider Dr. Geronimo in [place]. [facility] Medical History History of urinary retention History of numbness Chronic pain syndrome Radiculopathy due to lumbar intervertebral disc disorder Postlaminectomy syndrome Surgical History History of surgery History of basal cell carcinoma excision History of lumbar laminectomy History of laminectomy History of back surgery Hx of arthroscopy of shoulder Hx of repair of rotator cuff Social History Patient Tobacco Use Status: Former Tobacco user Review of Systems Const All systems reviewed & are unremarkable except as noted in HPI and below ENT Reports Normal hearing present Neuro Reports Normal hearing present, Denies confusion and Denies Sensory deficit (Neuro) Psych Denies confusion Physical Exam Vital Signs: Last Vital Signs Pulse 62 03/20/25 11:55 Resp 20 03/20/25 11:55 BP 129/72 03/20/25 11:55 Pulse Ox 97 03/20/25 11:55 Oxygen Delivery Method Room Air 03/20/25 11:55 Const General: No confusion Orientation/consciousness: No confusion Eyes Pupils: Equal, round and reactive pupils present EOM: EOMs intact bilaterally Chest Chest palpation & inspection: normal inspection of the chest Resp Effort & Inspection: normal respiratory effort, able to speak in complete sentences, normal respiratory pattern, no audible wheezes and no cough Cardio Jugular venous distension: no JVD Back/Spine/Pelvis Other: Lumbar Spine/Lower back/SIJ: SACROILIAC JOINT No tenderness to palpation. INSPECTION: normal curvature of spine, scar from previous surgery. RANGE OF MOTION decreased extention. PALPATION: no vertebral spine tenderness. STRAIGHT LEG RAISING TEST: positive at 45 degrees on right. MOTOR SYSTEM: 5/5 bilateral lower extremities. SENSORY EXAM: paresthesias right L4-5 distribution. REFLEXES: symmetrical 2+. GAIT: antalgic on the right. Neuro General: No confusion Cranial nerves: Yes Equal, round and reactive pupils present and Yes Normal hearing present Sensory Exam: No Sensory deficit (Neuro) Psych Speech and movement: Normal speech and movement present Affect: normal affect Attitude: cooperative Thought process: Normal thought process present Thought content: Normal thought content present Insight: Good insight present (Psych) Judgement: Good judgement present (Psych) Assessment & Plan Assessment & Plan (1) Chronic pain syndrome: Code(s): G89.4 - Chronic pain syndrome Category: Medical (2) Radiculopathy due to lumbar intervertebral disc disorder: Code(s): M51.16 - Intervertebral disc disorders with radiculopathy, lumbar region Category: Medical (3) Postlaminectomy syndrome: Code(s): M96.1 - Postlaminectomy syndrome, not elsewhere classified Category: Medical (4) S/P insertion of intrathecal pump: Code(s): Z98.890 - Other specified postprocedural states Category: Surgical (5) Vertebrogenic low back pain: Code(s): M54.51 - Vertebrogenic low back pain Category: Medical (6) Neuropathic pain syndrome (non-herpetic): Code(s): M79.2 - Neuralgia and neuritis, unspecified Category: Medical Plan: Pain pump interrogation and adjustment. The pain pump was read it containing 14.5 mL of hydromorphone solution. Hydromorphone concentration is 600 micro g. The patient was on continuous hydromorphone 70 micro g a day and PTM 135 micro g once a day once in 24 hours. Lockout duration was 23 hours 30 minutes. I increase the PTM dose from 135 micro g once a day to 200 micro g once a day. Maximal daily dose now is 203 05 micro g. Plan We agreed that I will continue escalating his doses of the opioids until side effects occurred or until the medication will be in very significant doses. Coding Level of Care Code Est Pt Level 3 (31174) Procedure Only Diagnoses Chronic pain syndrome G89.4 Radiculopathy due to lumbar intervertebral disc disorder M51.16 Postlaminectomy syndrome M96.1 S/P insertion of intrathecal pump Z98.890 Vertebrogenic low back pain M54.51 Neuropathic pain syndrome (non-herpetic) M79.2
[2025-03-20 11:55] VITALS: BP 129/72; PULSE 62; RESP 20; O2SAT 97
== END 2025-03-20 12:34 | disposition home or self-care (01) ==
LOC: HO.PMCPRC 11:49
PROVIDERS: PCP Family Medicine; Visit Provider Anesthesiology
DX: G89.4 Chronic pain syndrome (principal); M51.16 Intervertebral disc disorders with radiculopathy, lumbar region; M96.1 Postlaminectomy syndrome, not elsewhere classified; M54.51 Vertebrogenic low back pain; M79.2 Neuralgia and neuritis, unspecified; Z45.1 Encounter for adjustment and management of infusion pump
CPT/HCPCS: 62367; 99213

== ENCOUNTER 2025-03-28 09:39 | Outpatient (AMB) | payer MEDICARE, MEDICAID, SELFPAY ==
--- NOTE | 2025-03-28 09:41 | MHC.OFFVIS ---
Vital Signs 03/28/25 09:42 Weight 182 lb BP 110/67 Blood Pressure Location Lt brachial Position Sitting Respiration 18 Pulse 74 Pulse Source Pulse Oximeter Pulse Oximetry (%) 100 Oxygen Delivery Method Room Air Intake Visit Reasons: PUMP ADJUSTMENT Director Writing Required: No Allergies No Known Allergies (No Known Allergies*) Allergy (Verified 03/28/25 09:41) HPI Comments Details: Hernán is today in the office for 5th intrathecal pain pump adjustment. He continues to denies pain improvement from last pump escalation. He reports that average level of pain 5-6. He reports increased level of pain lately. He reports that he does not feel any pain relief. I decided to escalated 1 last time and see what it will result in his pain control. I discussed with the patient today possibility of treating his pain with oral opioids and removal of his intrathecal pain pump. I also discussed today possibility of treating him with oral Belbuca/buprenorphine. He went for a dye study during which I was able to aspirate CSF from the side port of the pain pump and inject the dye into the catheter delineating myelogram. Therefore the pump is working appropriately although there maybe some positioned obstruction of the catheter. We carefully discussed today his options of the treatment. Unfortunately with his hardware in the back Henderson size spinal cord stimulator in the lumbar gutter would not be possible to perform. In the past trial of the spinal cord stimulator was not effective to alleviate his pain. He reports that his pain is aggravated when he is sitting for the long period of time. However this is not the pain in the axial back this is pain radiating to the leg. He has Modic type changes in his lumbar spine, however because his pain is not axial I decided not to proceed for intercept procedure. Prior: status post ITDD Pain Pump Implant 05/12/24. Originally he was referred by Dr. Nix for evaluation for spinal cord stimulator. He is status post laminectomy L3-L4 and L5 S1 diskectomy with posterior lateral fusion. He has L5 radiculopathy EMG confirmed. On recommendation of Dr. Ch I tried spinal cord stimulator on him [employer]. The procedure was very difficult technically. However I was able to establish 2 leads in the thoracic spine. Patient reported minimal pain improvement while on stimulation. At the end of the [employer] scientific trial he was switched to Nevro SCS, unfortunately that did not help his pain in more extent either. He was absent from my care for 2 years , after that he came back requesting the discussion about pain pump he was offered to him at that time. Because the patient was on opioids [place] 7.5 mg TID, initially bupivacaine pain pump was considered however it resulted in poor pain control and side effects. He was switched for hydromorphone. Dr. Ch did not recommend additional surgical intervention and advised he undergo a SCS trial, and thus he was referred to us. He describes a numbness and burning down his right posterior lateral leg extending to the top of his right into his toes. This is worsened with sitting, reaching pain level 8-9/10. He had done extensive PT and also had multiple injections prior to his surgery while seeing pain management provider Dr. Geronimo in [place]. [facility] Medical History History of urinary retention History of numbness Chronic pain syndrome Radiculopathy due to lumbar intervertebral disc disorder Postlaminectomy syndrome Surgical History History of surgery History of basal cell carcinoma excision History of lumbar laminectomy History of laminectomy History of back surgery Hx of arthroscopy of shoulder Hx of repair of rotator cuff Social History Patient Tobacco Use Status: Former Tobacco user Review of Systems Const All systems reviewed & are unremarkable except as noted in HPI and below ENT Reports Normal hearing present Neuro Reports Normal hearing present, Denies confusion and Denies Sensory deficit (Neuro) Psych Denies confusion Physical Exam Vital Signs: Last Vital Signs Pulse 74 03/28/25 09:42 Resp 18 03/28/25 09:42 BP 110/67 03/28/25 09:42 Pulse Ox 100 03/28/25 09:42 Oxygen Delivery Method Room Air 03/28/25 09:42 Const General: No confusion Orientation/consciousness: No confusion Eyes Pupils: Equal, round and reactive pupils present EOM: EOMs intact bilaterally Chest Chest palpation & inspection: normal inspection of the chest Resp Effort & Inspection: normal respiratory effort, able to speak in complete sentences, normal respiratory pattern, no audible wheezes and no cough Cardio Jugular venous distension: no JVD Back/Spine/Pelvis Other: Lumbar Spine/Lower back/SIJ: SACROILIAC JOINT No tenderness to palpation. INSPECTION: normal curvature of spine, scar from previous surgery. RANGE OF MOTION decreased extention. PALPATION: no vertebral spine tenderness. STRAIGHT LEG RAISING TEST: positive at 45 degrees on right. MOTOR SYSTEM: 5/5 bilateral lower extremities. SENSORY EXAM: paresthesias right L4-5 distribution. REFLEXES: symmetrical 2+. GAIT: antalgic on the right. Neuro General: No confusion Cranial nerves: Yes Equal, round and reactive pupils present and Yes Normal hearing present Sensory Exam: No Sensory deficit (Neuro) Psych Speech and movement: Normal speech and movement present Affect: normal affect Attitude: cooperative Thought process: Normal thought process present Thought content: Normal thought content present Insight: Good insight present (Psych) Judgement: Good judgement present (Psych) Results Reviewed Results Reviewed: MR lumbar spine with and without gadolinium Findings: Grade 1 anterolisthesis of L5 on S1 and grade 1 retrolisthesis of L3 on L4 and L4 on L5 without change. Chronic pars defects at L5. No acute lumbar spine fracture. Degenerative type endplate marrow changes are present. There is no suspicious bone lesion. Status post posterior metallic and interbody fusion at L5-S1. No evidence of hardware failure. Cauda equina and conus medullaris within normal limits. L1-L2: No significant degenerative disc disease. Mild bilateral facet osteoarthritis with mild mass effect on the posterolateral margins of the thecal sac. No significant neural foraminal narrowing. L2-L3: Moderate broad-based disc bulge. Bilateral facet osteoarthritis. Mild central canal stenosis. Mild narrowing of bilateral neural foramina. L3-L4: Large disc osteophyte complex with mild thecal sac effacement. Facet osteoarthritis is also present. There is moderate stenosis of the right neural foramen and mild stenosis of the left neural foramen. L4-L5: Mild central disc bulge. Bilateral facet osteoarthritis. Moderate mass effect on the posterolateral margins of the thecal sac. Mild narrowing of bilateral neural foramina. L5-S1: Mild endplate proliferation. No significant central canal narrowing. Mild narrowing of the left neural foramen. Paraspinous musculature intact. IMPRESSION: 1. No acute abnormality of the lumbar spine. Multilevel spondylosis and facet osteoarthritis. Mild central canal stenosis at L2-L3. Moderate stenosis of the right neural foramina at L3-L4. 2. Status post surgical fusion at L5-S1. No evidence of hardware failure. I personally examined the MRI of the patient and there are Modic type 2 changes at L3 and L4 vertebra as well as possible endplate changes at L5 and S1 vertebra. Assessment & Plan Assessment & Plan (1) Chronic pain syndrome: Code(s): G89.4 - Chronic pain syndrome Category: Medical (2) Radiculopathy due to lumbar intervertebral disc disorder: Code(s): M51.16 - Intervertebral disc disorders with radiculopathy, lumbar region Category: Medical (3) Postlaminectomy syndrome: Code(s): M96.1 - Postlaminectomy syndrome, not elsewhere classified Category: Medical (4) S/P insertion of intrathecal pump: Code(s): Z98.890 - Other specified postprocedural states Category: Surgical (5) Vertebrogenic low back pain: Code(s): M54.51 - Vertebrogenic low back pain Category: Medical (6) Neuropathic pain syndrome (non-herpetic): Code(s): M79.2 - Neuralgia and neuritis, unspecified Category: Medical Plan: Pain pump interrogation and adjustment. The pain pump was read it containing 11.3 mL of hydromorphone solution. Hydromorphone concentration is 600 micro g. The patient was on continuous hydromorphone 70 micro g a day and PTM 135 micro g once a day once in 24 hours. Lockout duration was 23 hours 30 minutes. I increase the PTM dose from 200 micro g once a day to 300 micro g once a day. Maximal daily dose now is 370 micro g a day. This is not a trivial dose of the opioids anymore. Plan We agreed that I will continue escalating his doses of the opioids until side effects occurred or until the medication will be in very significant doses. We also discussed possibility of trying the clonidine addition to the pump. Patient will research clonidine intrathecal and Belbuca and he next time we will give me the conclusion on his decision. Coding Level of Care Code Est Pt Level 3 (01800) Procedure Only Diagnoses Chronic pain syndrome G89.4 Radiculopathy due to lumbar intervertebral disc disorder M51.16 Postlaminectomy syndrome M96.1 S/P insertion of intrathecal pump Z98.890 Vertebrogenic low back pain M54.51 Neuropathic pain syndrome (non-herpetic) M79.2
[2025-03-28 09:42] VITALS: BP 110/67; PULSE 74; RESP 18; O2SAT 100
--- OUTSIDE RECORDS SUMMARY | 2025-03-28 10:37 | XMS_ITS | Clinical Summary ---
Author Organization [facility] Address [address] [place] [address] Care Team Providers Care Shingle Weaver Name Role Phone Talisha Manzanares MD Primary [...] Advance Directives For more information, please contact: [phone] Documents on File Type Date Recorded Patient Mechanical Assembly Technician Expl anation Advance Directive and Living Will 04/19/2020 8:19 AM questionnaire Care Teams Shingle Weaver Relationship Specialty Start Date End Date Talisha Manzanares MD [address] [place] [address] PCP - General Family Medicine 10/31/18
== END 2025-03-28 10:05 | disposition home or self-care (01) ==
LOC: HO.PMC 09:40
PROVIDERS: PCP Family Medicine; Visit Provider Anesthesiology
DX: G89.4 Chronic pain syndrome (principal); M51.16 Intervertebral disc disorders with radiculopathy, lumbar region; M96.1 Postlaminectomy syndrome, not elsewhere classified; Z98.890 Other specified postprocedural states; Z45.1 Encounter for adjustment and management of infusion pump
CPT/HCPCS: 95991; 99213

== ENCOUNTER → 2025-03-28 09:39 | Outpatient (BNVA) | payer MEDICARE, MEDICAID, SELFPAY | PROVIDERS: PCP Family Medicine; Visit Provider Anesthesiology | DX: Z45.89 Encounter for adjustment and management of other implanted devices (principal); M51.16 Intervertebral disc disorders with radiculopathy, lumbar region; M96.1 Postlaminectomy syndrome, not elsewhere classified; M79.2 Neuralgia and neuritis, unspecified; G89.4 Chronic pain syndrome; Z79.891 Long term (current) use of opiate analgesic | CPT/HCPCS: 99212 ==

== ENCOUNTER 2025-04-04 10:05 | Outpatient (AMB) | payer MEDICARE, MEDICAID, SELFPAY ==
--- NOTE | 2025-04-04 10:11 | MHC.OFFVIS ---
Vital Signs 04/04/25 10:12 Weight 182 lb BP 103/65 Blood Pressure Location Rt brachial Position Sitting Respiration 18 Pulse 71 Pulse Oximetry (%) 97 Oxygen Delivery Method Room Air Intake Visit Reasons: 1 Week Follow Up Per Dr. Bhardwaj Sleep Lab Technologist Required: No Allergies No Known Allergies (No Known Allergies*) Allergy (Verified 04/04/25 10:12) HPI Comments Details: Hernán is today in the office for 6th intrathecal pain pump adjustment. He continues to denies pain improvement from last pump escalation. With the last increase of his PTM device he reported that he had nausea and disorientation on the application of the medication. This is significant side effects. He told me today that he is done with the pain pump therapy and wants the pump to be removed. I explained to him very carefully risks and benefits of the procedure. Patient agreed to go for the procedure. I will deescalate the doses of the pain pump. He stated to me that he did not apply any PTM to himself since last Wednesday. He did not have any withdrawal symptoms. I still will continue deescalate the doses of the medications until the procedure. He reported that he wants to try scramble therapy, the location of this office is in [place]. I offered him to consider chronic opioid therapy with buprenorphine or tramadol in this office. Alternatively he can not go back to his primary care physician and request presybeterian of his chronic prescription of hydrocodone. Prior: status post ITDD Pain Pump Implant 05/12/24. Originally he was referred by Dr. Nix for evaluation for spinal cord stimulator. He is status post laminectomy L3-L4 and L5 S1 diskectomy with posterior lateral fusion. He has L5 radiculopathy EMG confirmed. On recommendation of Dr. Ch I tried spinal cord stimulator on him [employer]. The procedure was very difficult technically. However I was able to establish 2 leads in the thoracic spine. Patient reported minimal pain improvement while on stimulation. At the end of the [employer] trial he was switched to Nevro SCS, unfortunately that did not help his pain in more extent either. He was absent from my care for 2 years , after that he came back requesting the discussion about pain pump he was offered to him at that time. Because the patient was on opioids [place] 7.5 mg TID, initially bupivacaine pain pump was considered however it resulted in poor pain control and side effects. He was switched for hydromorphone. Dr. Ch did not recommend additional surgical intervention and advised he undergo a SCS trial, and thus he was referred to us. He describes a numbness and burning down his right posterior lateral leg extending to the top of his right into his toes. This is worsened with sitting, reaching pain level 8-9/10. He had done extensive PT and also had multiple injections prior to his surgery while seeing pain management provider Dr. Geronimo in [place]. [facility] Medical History History of urinary retention History of numbness Chronic pain syndrome Radiculopathy due to lumbar intervertebral disc disorder Postlaminectomy syndrome Surgical History History of surgery History of basal cell carcinoma excision History of lumbar laminectomy History of laminectomy History of back surgery Hx of arthroscopy of shoulder Hx of repair of rotator cuff Social History Patient Tobacco Use Status: Former Tobacco user Review of Systems Const All systems reviewed & are unremarkable except as noted in HPI and below ENT Reports Normal hearing present Neuro Reports Normal hearing present, Denies confusion and Denies Sensory deficit (Neuro) Psych Denies confusion Physical Exam Vital Signs: Last Vital Signs Pulse 71 04/04/25 10:12 Resp 18 04/04/25 10:12 BP 103/65 04/04/25 10:12 Pulse Ox 97 04/04/25 10:12 Oxygen Delivery Method Room Air 04/04/25 10:12 Const General: No confusion Orientation/consciousness: No confusion Eyes Pupils: Equal, round and reactive pupils present EOM: EOMs intact bilaterally Chest Chest palpation & inspection: normal inspection of the chest Resp Effort & Inspection: normal respiratory effort, able to speak in complete sentences, normal respiratory pattern, no audible wheezes and no cough Cardio Jugular venous distension: no JVD Back/Spine/Pelvis Other: Lumbar Spine/Lower back/SIJ: SACROILIAC JOINT No tenderness to palpation. INSPECTION: normal curvature of spine, scar from previous surgery. RANGE OF MOTION decreased extention. PALPATION: no vertebral spine tenderness. STRAIGHT LEG RAISING TEST: positive at 45 degrees on right. MOTOR SYSTEM: 5/5 bilateral lower extremities. SENSORY EXAM: paresthesias right L4-5 distribution. REFLEXES: symmetrical 2+. GAIT: antalgic on the right. Neuro General: No confusion Cranial nerves: Yes Equal, round and reactive pupils present and Yes Normal hearing present Sensory Exam: No Sensory deficit (Neuro) Psych Speech and movement: Normal speech and movement present Affect: normal affect Attitude: cooperative Thought process: Normal thought process present Thought content: Normal thought content present Insight: Good insight present (Psych) Judgement: Good judgement present (Psych) Assessment & Plan Assessment & Plan (1) Chronic pain syndrome: Code(s): G89.4 - Chronic pain syndrome Category: Medical (2) Radiculopathy due to lumbar intervertebral disc disorder: Code(s): M51.16 - Intervertebral disc disorders with radiculopathy, lumbar region Category: Medical (3) Postlaminectomy syndrome: Code(s): M96.1 - Postlaminectomy syndrome, not elsewhere classified Category: Medical (4) S/P insertion of intrathecal pump: Code(s): Z98.890 - Other specified postprocedural states Category: Surgical (5) Vertebrogenic low back pain: Code(s): M54.51 - Vertebrogenic low back pain Category: Medical (6) Neuropathic pain syndrome (non-herpetic): Code(s): M79.2 - Neuralgia and neuritis, unspecified Category: Medical Plan: Pain pump interrogation and adjustment. The pain pump was read it containing 11.3 mL of hydromorphone solution. Hydromorphone concentration is 600 micro g. The patient was on continuous hydromorphone 70 micro g a day today the hydromorphone dose was changed to 35 micro g a day. We will continue deescalate until of the pump removal. Plan Patient wants to continue escalation of the opioid medications from the pain pump for the purpose of removing of the device. Chronic opioid program was discuss briefly today with the patient. Alternatively we can offer him magnetic stimulation of the peripheral nerves noninvasive. Neuralise. Alternatively he can not go to primary care physician and ask them to reinstate his hydrocodone prescription. Patient Instructions: I here by testify that I spent 32 minutes in conversation with this patient as well as planning his care and organizing this note. Coding Level of Care Code Est Pt Level 4 (07706) Diagnoses Chronic pain syndrome G89.4 Radiculopathy due to lumbar intervertebral disc disorder M51.16 Postlaminectomy syndrome M96.1 S/P insertion of intrathecal pump Z98.890 Vertebrogenic low back pain M54.51 Neuropathic pain syndrome (non-herpetic) M79.2
[2025-04-04 10:12] VITALS: BP 103/65; PULSE 71; RESP 18; O2SAT 97
--- OUTSIDE RECORDS SUMMARY | 2025-04-04 11:34 | XMS_ITS | Clinical Summary ---
Author Organization [facility] Address [address] [place] [address] Care Team Providers Care Automation Technician Name Role Phone Talisha Manzanares MD [...] Advance Directives For more information, please contact: [phone] Documents on File Type Date Recorded Patient Respiratory Manager Expl anation Advance Directive and Living Will 04/19/2020 8:19 AM questionnaire Care Teams Automation Technician Relationship Specialty Start Date End Date Talisha Manzanares MD [address] [place] [address] PCP - General Family Medicine 10/31/18
== END 2025-04-04 10:35 | disposition home or self-care (01) ==
LOC: HO.PMC 10:05
PROVIDERS: PCP Family Medicine; Visit Provider Anesthesiology
DX: G89.4 Chronic pain syndrome (principal); M51.16 Intervertebral disc disorders with radiculopathy, lumbar region; M96.1 Postlaminectomy syndrome, not elsewhere classified; Z45.1 Encounter for adjustment and management of infusion pump
CPT/HCPCS: 95991; 99214

== ENCOUNTER → 2025-04-04 10:05 | Outpatient (BNVA) | payer MEDICARE, MEDICAID, SELFPAY | PROVIDERS: PCP Family Medicine; Visit Provider Anesthesiology | DX: Z45.89 Encounter for adjustment and management of other implanted devices (principal); F11.20 Opioid dependence, uncomplicated; M51.16 Intervertebral disc disorders with radiculopathy, lumbar region; M96.1 Postlaminectomy syndrome, not elsewhere classified; M54.51 Vertebrogenic low back pain; M79.2 Neuralgia and neuritis, unspecified; G89.4 Chronic pain syndrome; Z98.890 Other specified postprocedural states | CPT/HCPCS: 99212 ==

== ENCOUNTER 2025-04-12 11:19 | Outpatient (AMB) | payer MEDICARE, MEDICAID, SELFPAY ==
--- NOTE | 2025-04-12 11:38 | MHC.OFFVIS ---
Vital Signs 04/12/25 11:39 Weight 182 lb BP 104/72 Blood Pressure Location Lt brachial Position Sitting Respiration 18 Pulse 62 Pulse Source Pulse Oximeter Pulse Oximetry (%) 100 Oxygen Delivery Method Room Air Intake Visit Reasons: PUMP ADJUSTMENT Banking And Finance Instructor Required: No Allergies No Known Allergies (No Known Allergies*) Allergy (Verified 04/12/25 11:38) HPI Comments Details: Hernán is today in the office for 6th intrathecal pain pump adjustment. I decreased medication from 37 micro g a day to 28 micro g a day. I will see this patient in 1 week and decrease it to minimal rate. After that I will explant his pump. We discussed what the patient is planning to do next. He reports that g oral pregabalin prescribed by his PCP helps his pain. In the past his PCP also prescribed him the hydrocodone 7.5 mg several times a day. He wants to go back to his primary care physician after explantation of the intrathecal pain medication pump. Prior: status post ITDD Pain Pump Implant 05/12/24. Originally he was referred by Dr. Nix for evaluation for spinal cord stimulator. He is status post laminectomy L3-L4 and L5 S1 diskectomy with posterior lateral fusion. He has L5 radiculopathy EMG confirmed. On recommendation of Dr. Ch I tried spinal cord stimulator on him [employer] [employer]. The procedure was very difficult technically. However I was able to establish 2 leads in the thoracic spine. Patient reported minimal pain improvement while on stimulation. At the end of the [employer] trial he was switched to Nevro SCS, unfortunately that did not help his pain in more extent either. He was absent from my care for 2 years , after that he came back requesting the discussion about pain pump he was offered to him at that time. Because the patient was on opioids Jesse 7.5 mg TID, initially bupivacaine pain pump was considered however it resulted in poor pain control and side effects. He was switched for hydromorphone. Dr. Ch did not recommend additional surgical intervention and advised he undergo a SCS trial, and thus he was referred to us. He describes a numbness and burning down his right posterior lateral leg extending to the top of his right into his toes. This is worsened with sitting, reaching pain level 8-9/10. He had done extensive PT and also had multiple injections prior to his surgery while seeing pain management provider Dr. Geronimo in [place]. [facility] Medical History History of urinary retention History of numbness Chronic pain syndrome Radiculopathy due to lumbar intervertebral disc disorder Postlaminectomy syndrome Surgical History History of surgery History of basal cell carcinoma excision History of lumbar laminectomy History of laminectomy History of back surgery Hx of arthroscopy of shoulder Hx of repair of rotator cuff Social History Patient Tobacco Use Status: Former Tobacco user Review of Systems Const All systems reviewed & are unremarkable except as noted in HPI and below ENT Reports Normal hearing present Neuro Reports Normal hearing present, Denies confusion and Denies Sensory deficit (Neuro) Psych Denies confusion Physical Exam Vital Signs: Last Vital Signs Pulse 62 04/12/25 11:39 Resp 18 04/12/25 11:39 BP 104/72 04/12/25 11:39 Pulse Ox 100 04/12/25 11:39 Oxygen Delivery Method Room Air 04/12/25 11:39 Const General: No confusion Orientation/consciousness: No confusion Eyes Pupils: Equal, round and reactive pupils present EOM: EOMs intact bilaterally Chest Chest palpation & inspection: normal inspection of the chest Resp Effort & Inspection: normal respiratory effort, able to speak in complete sentences, normal respiratory pattern, no audible wheezes and no cough Cardio Jugular venous distension: no JVD Back/Spine/Pelvis Other: Lumbar Spine/Lower back/SIJ: SACROILIAC JOINT No tenderness to palpation. INSPECTION: normal curvature of spine, scar from previous surgery. RANGE OF MOTION decreased extention. PALPATION: no vertebral spine tenderness. STRAIGHT LEG RAISING TEST: positive at 45 degrees on right. MOTOR SYSTEM: 5/5 bilateral lower extremities. SENSORY EXAM: paresthesias right L4-5 distribution. REFLEXES: symmetrical 2+. GAIT: antalgic on the right. Neuro General: No confusion Cranial nerves: Yes Equal, round and reactive pupils present and Yes Normal hearing present Sensory Exam: No Sensory deficit (Neuro) Psych Speech and movement: Normal speech and movement present Affect: normal affect Attitude: cooperative Thought process: Normal thought process present Thought content: Normal thought content present Insight: Good insight present (Psych) Judgement: Good judgement present (Psych) Assessment & Plan Assessment & Plan (1) Chronic pain syndrome: Code(s): G89.4 - Chronic pain syndrome Category: Medical (2) Radiculopathy due to lumbar intervertebral disc disorder: Code(s): M51.16 - Intervertebral disc disorders with radiculopathy, lumbar region Category: Medical (3) Postlaminectomy syndrome: Code(s): M96.1 - Postlaminectomy syndrome, not elsewhere classified Category: Medical (4) S/P insertion of intrathecal pump: Code(s): Z98.890 - Other specified postprocedural states Category: Surgical (5) Vertebrogenic low back pain: Code(s): M54.51 - Vertebrogenic low back pain Category: Medical (6) Neuropathic pain syndrome (non-herpetic): Code(s): M79.2 - Neuralgia and neuritis, unspecified Category: Medical Plan: Pain pump interrogation and adjustment. The pain pump was read it containing 11.3 mL of hydromorphone solution. Hydromorphone concentration is 600 micro g. The patient was on continuous hydromorphone 35 micro g a day today the hydromorphone dose was changed to 29 micro g a day. We will continue deescalate until of the pump removal. Plan Next time patient will be here and we will decrease his medication to the level of minimal rate. He is scheduled for pump explant on 04/27/2025. Coding Level of Care Code Est Pt Level 3 (84282) Diagnoses Chronic pain syndrome G89.4 Radiculopathy due to lumbar intervertebral disc disorder M51.16 Postlaminectomy syndrome M96.1 S/P insertion of intrathecal pump Z98.890 Vertebrogenic low back pain M54.51 Neuropathic pain syndrome (non-herpetic) M79.2
[2025-04-12 11:39] VITALS: BP 104/72; PULSE 62; RESP 18; O2SAT 100
--- OUTSIDE RECORDS SUMMARY | 2025-04-12 12:07 | XMS_ITS | Encounter Summary ---
Author Organization [facility] Address [address] [place] [address] Care Team Providers Care Raised Printer Name Role Phone Unavailable Primary Care Provider Unavailabl e Encounter Details Date Type Department Care Team (Late st Contact Info) Description 07/05/2017 Ophthalmology Data Conversion [facility] Historical Conversion Department [address] [place] [address] [address] Social History Tobacco Use Types Packs/Day Years [...]
--- OUTSIDE RECORDS SUMMARY | 2025-04-12 12:07 | XMS_ITS | Clinical Summary ---
Author Organization [facility] Address [address] [place] [address] Care Team Providers Care Technical Account Representative Name Role Phone Talisha Manzanares MD [...] Advance Directives For more information, please contact: [phone] Documents on File Type Date Recorded Patient Electrotyper Expl anation Advance Directive and Living Will 04/19/2020 8:19 AM questionnaire Care Teams Technical Account Representative Relationship Specialty Start Date End Date Talisha Manzanares MD [address] [place] [address] PCP - General Family Medicine 10/31/18
== END 2025-04-12 12:08 | disposition home or self-care (01) ==
LOC: HO.PMC 11:20
PROVIDERS: PCP Family Medicine; Visit Provider Anesthesiology
DX: G89.4 Chronic pain syndrome (principal); M51.16 Intervertebral disc disorders with radiculopathy, lumbar region; M96.1 Postlaminectomy syndrome, not elsewhere classified; Z98.890 Other specified postprocedural states; Z45.1 Encounter for adjustment and management of infusion pump; M54.51 Vertebrogenic low back pain; M79.2 Neuralgia and neuritis, unspecified
CPT/HCPCS: 95991; 99213

== ENCOUNTER → 2025-04-12 11:19 | Outpatient (BNVA) | payer MEDICARE, MEDICAID, SELFPAY | PROVIDERS: PCP Family Medicine; Visit Provider Anesthesiology | DX: Z45.89 Encounter for adjustment and management of other implanted devices (principal); M51.16 Intervertebral disc disorders with radiculopathy, lumbar region; M96.1 Postlaminectomy syndrome, not elsewhere classified; M54.51 Vertebrogenic low back pain; M79.2 Neuralgia and neuritis, unspecified; G89.4 Chronic pain syndrome; Z79.891 Long term (current) use of opiate analgesic; Z98.890 Other specified postprocedural states | CPT/HCPCS: 99212 ==

== ENCOUNTER 2025-04-19 11:24 | Outpatient (AMB) | payer MEDICARE, MEDICAID, SELFPAY ==
[2025-04-19 11:40] VITALS: BP 124/69; PULSE 58; RESP 18; O2SAT 98
--- NOTE | 2025-04-19 11:40 | A.OFFVIS_ITS ---
Vital Signs 04/19/25 11:40 Weight 182 lb BP 124/69 Blood Pressure Location Lt brachial Position Sitting Respiration 18 Pulse 58 Pulse Source Pulse Oximeter Pulse Oximetry (%) 98 Oxygen Delivery Method Room Air Intake Visit Reasons: Pump Adjustment Ok'd by Dr. Bhardwaj Precision Machinist Required: No Allergies No Known Allergies (No Known Allergies*) Allergy (Verified 04/12/25 11:38) HPI Comments Details: Hernán is today in the office for final intrathecal pain pump in preparation of the explantation of the intrathecal drug delivery system pain pump. He reports no change in level of pain he denies withdrawal. He reports pain level 5/10 on regular basis with exacerbation to 8/10 with strenuous activities. Today I put his pump on minimal rate and with this his daily dose will be 4.15 micro g a day. He is scheduled for pump explantation in 1 week. Prior: status post ITDD Pain Pump Implant 05/12/24. Originally he was referred by Dr. Nix for evaluation for spinal cord stimulator. He is status post laminectomy L3-L4 and L5 S1 diskectomy with posterior lateral fusion. He has L5 radiculopathy EMG confirmed. On recommendation of Dr. Ch I tried spinal cord stimulator on him [employer]. The procedure was very difficult technically. However I was able to establish 2 leads in the thoracic spine. Lexii cadena reported minimal pain improvement while on stimulation. At the end of the [employer] trial he was switched to Nevro SCS, unfortunately that did not help his pain in more extent either. He was absent from my care for 2 years , after that he came back requesting the discussion about pain pump he was offered to him at that time. Because the patient was on opioids [place] 7.5 mg TID, initially bupivacaine pain pump was considered however it resulted in poor pain control and side effects. He was switched for hydromorphone. Dr. Ch did not recommend additional surgical intervention and advised he undergo a SCS trial, and thus he was referred to us. He describes a numbness and burning down his right posterior lateral leg extending to the top of his right into his toes. This is worsened with sitting, reaching pain level 8-9/10. He had done extensive PT and also had multiple injections prior to his surgery while seeing pain management provider Dr. Geronimo in [place]. [facility] Medical History History of urinary retention History of numbness Chronic pain syndrome Radiculopathy due to lumbar intervertebral disc disorder Postlaminectomy syndrome Surgical History History of surgery History of basal cell carcinoma excision History of lumbar laminectomy History of laminectomy History of back surgery Hx of arthroscopy of shoulder Hx of repair of rotator cuff Social History Patient Tobacco Use Status: Former Tobacco user Review of Systems Const All systems reviewed & are unremarkable except as noted in HPI and below ENT Reports Normal hearing present Neuro Reports Normal hearing present, Denies confusion and Denies Sensory deficit (Neuro) Psych Denies confusion Physical Exam Vital Signs: Last Vital Signs Pulse 58 04/19/25 11:40 Resp 18 04/19/25 11:40 BP 124/69 04/19/25 11:40 Pulse Ox 98 04/19/25 11:40 Oxygen Delivery Method Room Air 04/19/25 11:40 Const General: No confusion Orientation/consciousness: No confusion Eyes Pupils: Equal, round and reactive pupils present EOM: EOMs intact bilaterally Chest Chest palpation & inspection: normal inspection of the chest Resp Effort & Inspection: normal respiratory effort, able to speak in complete sentences, normal respiratory pattern, no audible wheezes and no cough Cardio Jugular venous distension: no JVD Back/Spine/Pelvis Other: Lumbar Spine/Lower back/SIJ: SACROILIAC JOINT No tenderness to palpation. INSPECTION: normal curvature of spine, scar from previous surgery. RANGE OF MOTION decreased extention. PALPATION: no vertebral spine tenderness. STRAIGHT LEG RAISING TEST: positive at 45 degrees on right. MOTOR SYSTEM: 5/5 bilateral lower extremities. SENSORY EXAM: paresthesias right L4-5 distribution. REFLEXES: symmetrical 2+. GAIT: antalgic on the right. Neuro General: No confusion Cranial nerves: Yes Equal, round and reactive pupils present and Yes Normal hearing present Sensory Exam: No Sensory deficit (Neuro) Psych Speech and movement: Normal speech and movement present Affect: normal affect Attitude: cooperative Thought process: Normal thought process present Thought content: Normal thought content present Insight: Good insight present (Psych) Judgement: Good judgement present (Psych) Assessment & Plan Assessment & Plan (1) Chronic pain syndrome: Code(s): G89.4 - Chronic pain syndrome Category: Medical (2) Radiculopathy due to lumbar intervertebral disc disorder: Code(s): M51.16 - Intervertebral disc disorders with radiculopathy, lumbar region Category: Medical (3) Postlaminectomy syndrome: Code(s): M96.1 - Postlaminectomy syndrome, not elsewhere classified Category: Medical (4) S/P insertion of intrathecal pump: Code(s): Z98.890 - Other specified postprocedural states Category: Surgical (5) Vertebrogenic low back pain: Code(s): M54.51 - Vertebrogenic low back pain Category: Medical (6) Neuropathic pain syndrome (non-herpetic): Code(s): M79.2 - Neuralgia and neuritis, unspecified Category: Medical Plan: Pain pump interrogation and adjustment. The pain pump was read it containing 9.1 mL of hydromorphone solution. Hydromorphone concentration is 600 micro g. The patient was on continuous hydromorphone 29 micro g a day today the hydromorphone dose was changed to 4.1 micro g a day. Removal of the pain pump is scheduled in 1 week. Plan Next time patient will be here and we will decrease his medication to the level of minimal rate. He is scheduled for pump explant on 04/27/2025. Coding Level of Care Code Est Pt Level 3 (43085) Procedure Only Diagnoses Chronic pain syndrome G89.4 Radiculopathy due to lumbar intervertebral disc disorder M51.16 Postlaminectomy syndrome M96.1 S/P insertion of intrathecal pump Z98.890 Vertebrogenic low back pain M54.51 Neuropathic pain syndrome (non-herpetic) M79.2
--- OUTSIDE RECORDS SUMMARY | 2025-04-19 12:04 | XMS_ITS | Clinical Summary ---
Author Organization [facility] it Address [address] [place] [address] Care Team Providers Care Furnace Loader Name Role Phone Talisha Manzanares MD Primary Care Provider [phone] Immunizations Name Administration Dates Next Due Pfizer SARS-CoV-2 COVID-19, mRNA, LNP-S, preservative free 02/05/2021,01/08/2021 Surgical History Surgery Date Site/Laterality Comments OTHER SURGICAL HISTORY PROCEDURE: MT SPINE DEVICE IMPLANT SURGERY Medical History Medical [...] 2024 04/06/2022, 02/05/2021, 01/08/2021 Influenza Vaccine (#1) 2025 06/30/2021 RSV Immunization Adult Patients (1 [...] age to complete this topic Care Teams Furnace Loader Relationship Specialty Start Date End Date Talisha Manzanares MD [address] [place] [id number] PCP - General Family Medicine 10/31/18
--- OUTSIDE RECORDS SUMMARY | 2025-04-19 12:04 | XMS_ITS | Encounter Summary ---
Author Organization [facility] Address [address] [place] [address] Care Team Providers Care Condominium Association Manager Name Role Phone Unavailable Primary Care Provider Unavailabl e Encounter Details Date Type Department Care Team (Late st Contact Info) Description 07/05/2017 Ophthalmology Data Conversion [facility] Historical Conversion Department [address] [place] [address] [address] Social History Tobacco Use Types Packs/Day Years [...]
--- OUTSIDE RECORDS SUMMARY | 2025-04-19 12:04 | XMS_ITS | Clinical Summary ---
Author Organization [facility] Address [address] [place] [address] Care Team Providers Care Supervisor Wood Crew Name Role Phone Talisha Manzanares MD Primary [...] 1 - PCV) 2020 Influenza Vaccine (#1) 2025 RSV Adult > 60+ Yrs or Pregn ant (1 - 1-dose 75+ series) 2030 Hepatitis B Vaccines Aged Out No long er eligible based on patient's age to complete this topic RSV Ped < 20 months Aged Out No longe r eligible based on patient's age to complete this topic Advance Directives For more information, please contact: [phone] Documents on File Type Date Recorded Patient Senior Mainframe Developer Expl anation Advance Directive and Living Will 04/19/2020 8:19 AM questionnaire Care Teams Supervisor Wood Crew Relationship Specialty Start Date End Date Talisha Manzanares MD [address] [place] [address] PCP - General Family Medicine 10/31/18
== END 2025-04-19 11:49 | disposition home or self-care (01) ==
LOC: HO.PMC 11:24
PROVIDERS: PCP Family Medicine; Visit Provider Anesthesiology
DX: G89.4 Chronic pain syndrome (principal); M51.16 Intervertebral disc disorders with radiculopathy, lumbar region; M96.1 Postlaminectomy syndrome, not elsewhere classified; Z98.890 Other specified postprocedural states; Z45.1 Encounter for adjustment and management of infusion pump; M54.51 Vertebrogenic low back pain; M79.2 Neuralgia and neuritis, unspecified
CPT/HCPCS: 95991; 99213

== ENCOUNTER → 2025-04-19 11:24 | Outpatient (BNVA) | payer MEDICARE, MEDICAID, SELFPAY | PROVIDERS: PCP Family Medicine; Visit Provider Anesthesiology | DX: Z45.89 Encounter for adjustment and management of other implanted devices (principal); M51.16 Intervertebral disc disorders with radiculopathy, lumbar region; M96.1 Postlaminectomy syndrome, not elsewhere classified; M54.51 Vertebrogenic low back pain; M79.2 Neuralgia and neuritis, unspecified; G89.4 Chronic pain syndrome; Z98.890 Other specified postprocedural states; Z79.891 Long term (current) use of opiate analgesic | CPT/HCPCS: 99212 ==

== ENCOUNTER 2025-04-27 07:22 | Day surgery (SDC) | payer MEDICARE, MEDICAID, SELFPAY ==
--- OUTSIDE RECORDS SUMMARY | 2025-04-11 12:59 | XMS_ITS | Clinical Summary ---
Author Organization [facility] Address [address] [place] [address] Care Team Providers Care Rock Mason Apprentice Name Role Phone Talisha Manzanares MD [...] Advance Directives For more information, please contact: [phone] Documents on File Type Date Recorded Patient Orthotic Assistant Expl anation Advance Directive and Living Will 04/19/2020 8:19 AM questionnaire Care Teams Rock Mason Apprentice Relationship Specialty Start Date End Date Talisha Manzanares MD [address] [place] [address] PCP - General Family Medicine 10/31/18
--- OUTSIDE RECORDS SUMMARY | 2025-04-11 12:59 | XMS_ITS | Encounter Summary ---
Author Organization [facility] Address [address] [place] [address] Care Team Providers Care Electron Beam Welding Machine Operator Name Role Phone Unavailable Primary Care Provider Unavailabl e Encounter Details Date Type Department Care Team (Late st Contact Info) Description 07/05/2017 Ophthalmology Data Conversion [facility] Historical Conversion Department [address] [place] [address] [address] Social History Tobacco Use Types Packs/Day Years [...]
--- OUTSIDE RECORDS SUMMARY | 2025-04-11 12:59 | XMS_ITS | Clinical Summary ---
Author Organization [facility] it Address [address] [place] [address] Care Team Providers Care Pigment Pusher Name Role Phone Talisha Manzanares MD Primary Care Provider [phone] Immunizations Name Administration Dates Next Due Pfizer [...] age to complete this topic Care Teams Pigment Pusher Relationship Specialty Start Date End Date Talisha Manzanares MD [address] [place] [id number] PCP - General Family Medicine 10/31/18
[2025-04-25 13:08] VITALS: BMI 26.9
--- NOTE | 2025-04-26 09:34 | HO.ANESPROP2 ---
Documented by User: Aiyana Andre NP 04/26/25 09:37 HPI - Anesthesia Eval Consult details Narrative: 69yo M for Intrathecal Drug Delivery REMOVAL s/p implant 04/2024 with GA-ETT 7 PMFSH Active Problems Active Problems: All Active Problems Neuropathic pain syndrome (non-herpetic) (Acute) Malfunction of intrathecal infusion pump (Acute) Vertebrogenic low back pain (Acute) Urinary retention with incomplete bladder emptying (Acute) S/P insertion of intrathecal pump (Acute) Chronic pain syndrome (Acute) Radiculopathy due to lumbar intervertebral disc disorder (Acute) Postlaminectomy syndrome (Acute) Past Medical History Medical History History of urinary retention History of numbness Chronic pain syndrome Radiculopathy due to lumbar intervertebral disc disorder Postlaminectomy syndrome Family History Family history of problems with anesthesia: No Surgical History Surgical History History of surgery History of basal cell carcinoma excision History of lumbar laminectomy History of laminectomy History of back surgery Hx of arthroscopy of shoulder Hx of repair of rotator cuff History of Problems with Anesthesia: No Social History Social History Are you a primary wound care coordinator to a significant other at home: No Do you presently have visiting nurse or other home services: No Patient Tobacco Use Status: Former Tobacco user Tobacco use type: Cigarette Years Smoked: 15 Smoked in Last 30 Days: No Use of substances other than those prescribed or required for medical reasons: No Have you been hit, kicked, punched, or otherwise hurt by someone within the past year? If so, by whom?: No Are you DNR?: No Advance Directives: No Advance Directives Information Provided: No Advance Directives on File: No Poor oral hygiene: No Meds Allergies Allergy/AdvReac Type Severity Reaction Status Date / Time No Known Allergies (No Known Allergy Verified 04/27/25 08:15 Allergies*) Home Medications ?Medication ?Instructions ?Recorded ?Confirmed ?Last Taken ?Type pregabalin 100 mg capsule 100 mg PO TID 02/15/25 04/27/25 Unknown History azelastine 137 mcg (0.1 %) nasal 1 spray intranasal DAILY 02/22/25 04/27/25 Unknown History spray tramadol 50 mg tablet 50 mg PO BEDTIME 03/14/25 04/27/25 Unknown History Exam Height,Weight and Vital Signs: Height 5 ft 9 in Weight 82.554 kg Assessment and Plan Assessment Anesthesia Assessment: Chart Reviewed Final Anesthetic Review Family History of Problems with Anesthesia: No History of Problems with Anesthesia: No Documented by User: Librado Talbot MD 04/27/25 08:43 [facility], [facility] Past Medical History Medical History History of urinary retention History of numbness Chronic pain syndrome Radiculopathy due to lumbar intervertebral disc disorder Postlaminectomy syndrome Functional capacity: independent ambulation Surgical History Surgical History History of surgery History of basal cell carcinoma excision History of lumbar laminectomy History of laminectomy History of back surgery Hx of arthroscopy of shoulder Hx of repair of rotator cuff Social History Social History Are you a primary wound care coordinator to a significant other at home: No Do you presently have visiting nurse or other home services: No Patient Tobacco Use Status: Former Tobacco user Tobacco use type: Cigarette Years Smoked: 15 Smoked in Last 30 Days: No Use of substances other than those prescribed or required for medical reasons: No Have you been hit, kicked, punched, or otherwise hurt by someone within the past year? If so, by whom?: No Are you DNR?: No Advance Directives: No Advance Directives Information Provided: No Advance Directives on File: No Poor oral hygiene: No Meds Allergies Allergy/AdvReac Type Severity Reaction Status Date / Time No Known Allergies (No Known Allergy Verified 04/27/25 08:15 Allergies*) Home Medications ?Medication ?Instructions ?Recorded ?Confirmed ?Last Taken ?Type pregabalin 100 mg capsule 100 mg PO TID 02/15/25 04/27/25 Unknown History azelastine 137 mcg (0.1 %) nasal 1 spray intranasal DAILY 02/22/25 04/27/25 Unknown History spray tramadol 50 mg tablet 50 mg PO BEDTIME 03/14/25 04/27/25 Unknown History Exam Airway Mallampati Class: II TM Dist: >3cm Neck ROM: Full Loose/Missing/Broken Teeth: No (there are some missing teeth) Heart: rrr Lungs: cta Assessment and Plan Assessment Anesthesia Assessment: Anesthesia Plan Discussed Final Anesthetic Review NPO: Yes ASA Class: II Final Preanesthetic Review: No Changes in Pt Med Stat, Meds/Allgs Chart Reviewed, Consent Obtained/Reviewed and Anes Risks/Benef Reviewed Patient Risk: Low Procedure Risk: Low Anesthetic Plan Anesthetic Plan: MAC: (with general back up) Disposition: Standard PACU
[2025-04-27 07:52] VITALS: BMI 26.0
--- NOTE | 2025-04-27 08:18 | MHC.SHP ---
Pre-Procedural Eval Section A - 24 Hr Update-Section A only Date of Service: 04/27/25 Section B - Complete if H&P > 30 days Chief Complaint: Other specified postprocedural states,chronic pain Details of Present Illness: As above Relevant Family History (Specify if Yes): No Relevant Social History: None Medical History: No relevant PMH History of Previous Operations: No relevant previous surgery Allergies: Allergies Allergy/AdvReac Type Severity Reaction Status Date / Time No Known Allergies (No Known Allergy Verified 04/27/25 08:15 Allergies*) Review of Systems Sugical H&P ROS: Negative: Constitution, Cardiovascular, Respiratory, Neurological, Psychiatric, Hem-Onc, Allergic/Immunologic, Gastrointestinal, Genitourinary, Musculoskeletal, Integumentary, Endocrine and Eyes/Ears/Nose/Throat Exam Surgical H&P Exam: Normal: HEENT, Normal: Heart, Normal: Lungs, Normal: Extremities, Normal: Abdomen, Normal: Skin and Normal: Neurological Plan Diagnosis/Plan: Unchanged I have reviewed the history and physical and performed a pertinent physical examination on my patient. No changes have occurred unless specified. Time Spent With Patient Time: Total time managing care of this patient today ____ minutes.
[2025-04-27 08:21] VITALS: BP 117/78; PULSE 65; RESP 16; TEMP 36.2; O2SAT 99
[2025-04-27] MEDS: Lactated Ringers 1,000 ML 100 ML IVCONT (08:23)
--- NOTE | 2025-04-27 08:25 | PC.NURSE ---
Patient in preop. No preop MRSA swab needed per Dr. Bhardwaj. Order cancelled.
--- NOTE | 2025-04-27 10:02 | P.BOP_ITS ---
Brief Operative Note Date of Service: 04/27/25 Pre-op diagnosis: Presence of intrathecal pain pump, patient's desire to remove the pain pump, failure of the pain pump to alleviate patient's pain. Post-op diagnosis: same Procedure: Removal intrathecal pain pump. Implants: None permanent Surgeon: Dimas Bhardwaj MD Anesthesia: MAC Was an Solar Sales Ambassador used for this Procedure?: No Estimated blood loss (mL): 8 Pathology: none sent Condition: stable Disposition: PACU
--- NOTE | 2025-04-27 10:04 | W.PM.OPN ---
Operative Note Operative Note Date of Service: 04/27/25 Narrative: Removal of intrathecal pain pump. After explaining informed consent including risks benefits and alternatives of the procedure, where the alternatives were listed as the possibility of not removing of the pain pump just keeping the device on minimal rate, the patient agreed to undergo for the procedure and signed the informed consent.. He was taken to the operating room and positioned prone on the operating table. ASA monitors were applied and the patient was sedated. Patient's lower back and upper buttocks were prepped with ChloraPrep and draped with sterile utility towels and full body fenestrated drape. After the the previous scar from implantation of the pain pump in right upper buttock was injected with lidocaine 2% mixture with ropivacaine 0.5% one-to-one 10 mL. Using 10 blade scalpel to incision was made alongside the previous scar. After that thorough hemostasis using electrocautery of the tissues was performed. Soft tissues were divided until the capsule of the pain pump was seen and Metzenbaum scissors were used to sever the posterior wall of the pain pump capsule. The pain pump was located in the wound and anchoring sutures were severed using suture scissors. After that the pump was delivered to the level of the skin. After that the intrathecal catheter was dissected from the underlying adhesions and severed using suture scissors leaving approximately 8 cm length of the intrathecal catheter from the point it penetrates anterior wall of the pain pump capsule. After that the electrocautery was used to incise the anterior wall of the pain pump capsule forming pocket to hide the intrathecal catheter. After that the intrathecal catheter was tied on itself with using 2 0-0 Tycron sutures and it was inserted into the small pocket in the anterior wall. After that 1-0 Tycron suture was used to close the anterior wall hermetically covering the intrathecal catheter. After that thorough hemostasis was performed and wound was inspected. The most inferior lateral corner of the wound was chosen as the point for drainage. Of the 7.0 Gilberto-Alegre drain with flat draining point was inserted into the wound and the tip of the Gilberto-Alegre drain was driven through the skin. After that the draining portion was trimmed appropriately. The wound was irrigated using vancomycin containing normal saline. After that 0-0 Polysorb sutures was used to close the pocket of the pain pump posterior wall. After that 2.0 Polysorb sutures were used to approximate the skin and subcutaneous tissues. [place] were applied to the level of the skin. After that nylon suture 3-0 was used to suture the drain line to the skin. Upon completion of the procedure the wounds were covered with bacitracin ointment dressing which was taped to the skin using Medipore drape. The patient tolerated the procedure well he was awakened extubated and taken outside of the operating room to recovery room where he recovered uneventfully.
[2025-04-27 10:05] VITALS: BP 95/48; PULSE 48; RESP 16; TEMP 36.7; O2SAT 98
[2025-04-27 10:20] VITALS: BP 103/62; PULSE 49; RESP 16; O2SAT 99
[2025-04-27 10:35] VITALS: BP 119/74; PULSE 50; RESP 16; O2SAT 99
[2025-04-27 10:50] VITALS: BP 130/58; PULSE 57; RESP 16; TEMP 36.8; O2SAT 99
== END 2025-04-27 11:30 | disposition home or self-care (01) ==
PROVIDERS: PCP Family Medicine; Visit Provider Anesthesiology
PROC: (CPT 62365; principal; 2025-04-27 09:00)
DX: Z45.1 Encounter for adjustment and management of infusion pump (principal); M96.1 Postlaminectomy syndrome, not elsewhere classified; G89.4 Chronic pain syndrome; M51.16 Intervertebral disc disorders with radiculopathy, lumbar region; M54.51 Vertebrogenic low back pain; R20.0 Anesthesia of skin; M79.2 Neuralgia and neuritis, unspecified; Z87.448 Personal history of other diseases of urinary system; Z85.828 Personal history of other malignant neoplasm of skin; Z98.890 Other specified postprocedural states; Z87.891 Personal history of nicotine dependence
CPT/HCPCS: 62365; J0690; J2003; J2250; J2704; J2795; J3010; J3374

== ENCOUNTER → 2025-04-27 07:22 | Outpatient (BNV) | payer MEDICARE, MEDICAID, SELFPAY | PROVIDERS: PCP Family Medicine; Visit Provider Anesthesiology | DX: Z45.1 Encounter for adjustment and management of infusion pump (principal) | CPT/HCPCS: 62365 ==

== ENCOUNTER 2025-05-03 10:36 | Outpatient (AMB) | payer MEDICARE, MEDICAID, SELFPAY ==
[2025-05-03 10:54] VITALS: BP 113/72; PULSE 63; RESP 18; O2SAT 98
--- NOTE | 2025-05-03 10:54 | A.OFFVIS_ITS ---
Vital Signs 05/03/25 10:54 Weight 179 lb BP 113/72 Blood Pressure Location Lt brachial Position Sitting Respiration 18 Pulse 63 Pulse Source Pulse Oximeter Pulse Oximetry (%) 98 Oxygen Delivery Method Room Air Intake Visit Reasons: S/p ITDD Pain Pump Removal 04/27/25 Allergies No Known Allergies (No Known Allergies*) Allergy (Verified 05/03/25 10:55) HPI Comments Details: Hernán is today in the office 7 days after explantation of the pain pump. The wounds were exposed there is no redness, no pathological discharge, no swelling, no tenderness on palpation. The wounds were washed with ChloraPrep and draped with sterile 4x4s drapes covered by Tegaderm. Staple removal will be scheduled in 7 days, hygiene limitations were reiterated for the patient again. The patient will continue to observe activity limitation as well. He is draining his RUSTAM drain every day. He reports amount of the drainage is no more than 10 mL. The fluid is yellow in color. No signs of cloudiness. no signs of infection. We discussed patient's situation today again. I told him that if he wants to I can consider intercept procedure for his vertebra genic pain syndrome. Patient reports to me that he is starting to get acupuncture sessions. Prior: status post ITDD Pain Pump Implant 05/12/24. Originally he was referred by Dr. Nix for evaluation for spinal cord stimulator. He is status post laminectomy L3-L4 and L5 S1 diskectomy with posterior lateral fusion. He has L5 radiculopathy EMG confirmed. On recommendation of Dr. Ch I tried spinal cord stimulator on him [place] [employer]. The procedure was very difficult technically. However I was able to establish 2 leads in the thora we will be scheduled in [facility] spine. Patient reported minimal pain improvement while on stimulation. At the end of the [place] [employer] trial he was switched to Nevro SCS, unfortunately that did not help his pain in more extent either. He was absent from my care for 2 years , after that he came back requesting the discussion about pain pump he was offered to him at that time. Because the patient was on opioids [place] 7.5 mg TID, initially bupivacaine pain pump was considered however it resulted in poor pain control and side effects. He was switched for hydromorphone. Dr. Ch did not recommend additional surgical intervention and advised he undergo a SCS trial, and thus he was referred to us. He describes a numbness and burning down his right posterior lateral leg extending to the top of his right into his toes. This is worsened with sitting, reaching pain level 8-9/10. He had done extensive PT and also had multiple injections prior to his surgery while seeing pain management provider Dr. Geronimo in [place]. [facility] Medical History History of urinary retention History of numbness Chronic pain syndrome Radiculopathy due to lumbar intervertebral disc disorder Postlaminectomy syndrome Surgical History History of surgery History of basal cell carcinoma excision History of lumbar laminectomy History of laminectomy History of back surgery Hx of arthroscopy of shoulder Hx of repair of rotator cuff Social History Are you a primary healthcare administrative assistant to a significant other at home: No Do you presently have visiting nurse or other home services: No Patient Tobacco Use Status: Former Tobacco user Tobacco use type: Cigarette Years Smoked: 15 Review of Systems Const All systems reviewed & are unremarkable except as noted in HPI and below ENT Reports Normal hearing present Neuro Reports Normal hearing present, Denies confusion and Denies Sensory deficit (Neuro) Psych Denies confusion Physical Exam Vital Signs: Last Vital Signs Pulse 63 05/03/25 10:54 Resp 18 05/03/25 10:54 BP 113/72 05/03/25 10:54 Pulse Ox 98 05/03/25 10:54 Oxygen Delivery Method Room Air 05/03/25 10:54 Const General: No confusion Orientation/consciousness: No confusion Eyes Pupils: Equal, round and reactive pupils present EOM: EOMs intact bilaterally Chest Chest palpation & inspection: normal inspection of the chest Resp Effort & Inspection: normal respiratory effort, able to speak in complete sentences, normal respiratory pattern, no audible wheezes and no cough Cardio Jugular venous distension: no JVD Back/Spine/Pelvis Other: Lumbar Spine/Lower back/SIJ: SACROILIAC JOINT No tenderness to palpation. INSPECTION: normal curvature of spine, scar from previous surgery. RANGE OF MOTION decreased extention. PALPATION: no vertebral spine tenderness. STRAIGHT LEG RAISING TEST: positive at 45 degrees on right. MOTOR SYSTEM: 5/5 bilateral lower extremities. SENSORY EXAM: paresthesias right L4-5 distribution. REFLEXES: symmetrical 2+. GAIT: antalgic on the right. Neuro General: No confusion Cranial nerves: Yes Equal, round and reactive pupils present and Yes Normal hearing present Sensory Exam: No Sensory deficit (Neuro) Psych Speech and movement: Normal speech and movement present Affect: normal affect Attitude: cooperative Thought process: Normal thought process present Thought content: Normal thought content present Insight: Good insight present (Psych) Judgement: Good judgement present (Psych) Assessment & Plan Assessment & Plan (1) Chronic pain syndrome: Code(s): G89.4 - Chronic pain syndrome Category: Medical (2) Radiculopathy due to lumbar intervertebral disc disorder: Code(s): M51.16 - Intervertebral disc disorders with radiculopathy, lumbar region Category: Medical (3) Postlaminectomy syndrome: Code(s): M96.1 - Postlaminectomy syndrome, not elsewhere classified Category: Medical (4) S/P insertion of intrathecal pump: Code(s): Z98.890 - Other specified postprocedural states Category: Surgical (5) Vertebrogenic low back pain: Code(s): M54.51 - Vertebrogenic low back pain Category: Medical (6) Neuropathic pain syndrome (non-herpetic): Code(s): M79.2 - Neuralgia and neuritis, unspecified Category: Medical Plan Pain pump was explanted. As above. Next time we will remove sonia. He is starting acupuncture treatment sessions. We discussed possibility of treating his pain with yet last attempts of intercept procedure addressing his potential vertebra genic pain syndrome. Next week sonia and RUSTAM drainage we will be removed. No new appointment after that. Coding Level of Care Code Est Pt Level 3 (97635) Diagnoses Chronic pain syndrome G89.4 Radiculopathy due to lumbar intervertebral disc disorder M51.16 Postlaminectomy syndrome M96.1 S/P insertion of intrathecal pump Z98.890 Vertebrogenic low back pain M54.51 Neuropathic pain syndrome (non-herpetic) M79.2
--- OUTSIDE RECORDS SUMMARY | 2025-05-03 11:28 | XMS_ITS | Encounter Summary ---
Author Organization [facility] Address [facility] [address] [address] Phone Care Team Providers Care Single Needle Operator Name Role Phone Talisha Manzanares MD Primary Care Provider + Encounter Details Date Type Department Care Team (Late st Contact Info) Description 11/01/2023 Procedure Pass [facility], X-Ray - [facility] [address] [place] [address] Social History Tobacco Use Types Packs/Day Years [...] on filedocumented in this encounter Care Teams Single Needle Operator Relationship Specialty Start Date End Date Talisha Manzanares MD [address] [place], [place] [id number] [email or web address] PCP - General 07/27/17 documented as of this encounter Additional Source Comments The information contained in this document represents components of the legal health record. It is not the complete legal health record.[facility]
--- OUTSIDE RECORDS SUMMARY | 2025-05-03 11:28 | XMS_ITS | Encounter Summary ---
Author Organization [facility] Address [address] [place] [address] Care Team Providers Care Geospatial Analyst Name Role Phone Unavailable Primary Care Provider Unavailabl e Encounter Details Date Type Department Care Team (Late st Contact Info) Description 07/05/2017 Ophthalmology Data Conversion [facility] Historical Conversion Department [address] [place] [address] [address] Social History Tobacco Use Types Packs/Day Years [...]
--- OUTSIDE RECORDS SUMMARY | 2025-05-03 11:28 | XMS_ITS | Clinical Summary ---
Author Organization [facility] it Address [address] [place] [address] Care Team Providers Care Remedial Teacher Name Role Phone Talisha Manzanares MD Primary Care Provider [phone] Immunizations Name Administration Dates Next Due Pfizer SARS-CoV-2 COVID-19, mRNA, LNP-S, preservative free 02/05/2021,01/08/2021 Surgical History Surgery Date Site/Laterality Comments OTHER SURGICAL HISTORY PROCEDURE: GA SPINE DEVICE IMPLANT SURGERY Medical History Medical [...] 2023-2 5 season) 2024 04/06/2022, 02/05/2021, 01/08/2021 Depression Screening 10/11/2024 Influenza Vaccine (#1) 2025 06/30/2021 RSV Immunization [...] age to complete this topic Care Teams Remedial Teacher Relationship Specialty Start Date End Date Talisha Manzanares MD [address] [place] [address] [phone] PCP - General Family Medicine 10/31/18
--- OUTSIDE RECORDS SUMMARY | 2025-05-03 11:28 | XMS_ITS | Clinical Summary ---
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
== END 2025-05-03 11:09 | disposition home or self-care (01) ==
LOC: HO.PMC 10:36
PROVIDERS: PCP Family Medicine; Visit Provider Anesthesiology
DX: G89.4 Chronic pain syndrome (principal); M51.16 Intervertebral disc disorders with radiculopathy, lumbar region; M96.1 Postlaminectomy syndrome, not elsewhere classified; Z98.890 Other specified postprocedural states; M54.51 Vertebrogenic low back pain; M79.2 Neuralgia and neuritis, unspecified
CPT/HCPCS: 99024

== ENCOUNTER → 2025-05-03 10:36 | Outpatient (BNVA) | payer MEDICARE, MEDICAID, SELFPAY | PROVIDERS: PCP Family Medicine; Visit Provider Anesthesiology | DX: G89.4 Chronic pain syndrome (principal); M51.16 Intervertebral disc disorders with radiculopathy, lumbar region; M96.1 Postlaminectomy syndrome, not elsewhere classified; M54.51 Vertebrogenic low back pain; M79.2 Neuralgia and neuritis, unspecified; Z98.890 Other specified postprocedural states | CPT/HCPCS: 99212 ==

== ENCOUNTER 2025-05-10 10:36 | Outpatient (AMB) | payer MEDICARE, MEDICAID, SELFPAY ==
[2025-05-10 10:46] VITALS: BP 119/62; PULSE 65; O2SAT 98; BMI 26.4
--- NOTE | 2025-05-10 10:46 | A.OFFVIS_ITS ---
Vital Signs 05/10/25 10:46 Height 5 ft 9 in Weight 179 lb BMI 26.4 BP 119/62 Blood Pressure Location Lt brachial Position Sitting Pulse 65 Pulse Source Pulse Oximeter Pulse Oximetry (%) 98 Oxygen Delivery Method Room Air Intake Visit Reasons: S/p ITDD Pain Pump Removal 04/27/25 Intake Note: Pain today 02/17 Reverberatory Skimmer Required: No Accompanied by: Self / Same As Patient Allergies No Known Allergies (No Known Allergies*) Allergy (Verified 05/10/25 10:48) HPI Comments Details: The patient is a 69-year-old male presenting with the need for staple and drain removal following the removal of an intrathecal pain pump on 04/20/[address] Bhardwaj. The intrathecal pain pump was removed two weeks ago due to its ineffectiveness in managing the patient's pain. The patient continues to experience chronic back pain with right sided radiculopathy, which has been persistent despite various interventions. He has tried multiple medications, including bupivacaine, hydromorphine, morphine, and baclofen, the latter of which caused an adverse reaction. The patient reports that oral pain medications, such as pregabalin and hydrocodone, have been more effective than the pain pump. The patient's pain primarily radiates from the right buttock down to the foot, with no significant lower back involvement. He also reports right hip pain, which he attributes to an altered gait, although no leg length discrepancy is noted. Patient is starting acupunture through his PCP office. Denies any recent cough, cold, infection, fever or any significant changes in medical history since last office visit. The drain site and incisional wound dressings were removed and sites were cleansed with ChloraPrep. The left lower back/left upper buttock incisions and drain sites are clean, no pathological discharge or swelling. There is mild r edness noted around the drain site without pathological discharge. There is no erythema or local temperature. Sandie were removed and suture around the drain site were severed. Drain pulled in its entirety. The incision and drain site were cleansed again with ChloraPrep. Steri-strips were applied to the incision line. Bacitracin ointment was applied to both incisional and drain sites and covered with dry sterile dressings. No drainage noted post drain removal. Less than 5 ml of light yellow fluid was collected in the drain. Extra dressing supplies were provided to patient for home dressing changes if needed. PRIOR Dr. Bhardwaj 05/03/25: Hernán is today in the office 7 days after explantation of the pain pump. The wounds were exposed there is no redness, no pathological discharge, no swelling, no tenderness on palpation. The wounds were washed with ChloraPrep and draped with sterile 4x4s drapes covered by Tegaderm. Staple removal will be scheduled in 7 days, hygiene limitations were reiterated for the patient again. The patient will continue to observe activity limitation as well. He is draining his RUSTAM drain every day. He reports amount of the drainage is no more than 10 mL. The fluid is yellow in color. No signs of cloudiness. no signs of infection. We discussed patient's situation today again. I told him that if he wants to I can consider intercept procedure for his vertebra genic pain syndrome. Patient reports to me that he is starting to get acupuncture sessions. Prior: status post ITDD Pain Pump Implant 05/12/24. Originally he was referred by Dr. Nix for evaluation for spinal cord stimulator. He is status post laminectomy L3-L4 and L5 S1 diskectomy with posterior lateral fusion. He has L5 radiculopathy EMG confirmed. On recommendation of Dr. Ch I tried spinal cord stimulator on him [place] [employer]. The procedure was very difficult technically. However I was able to establish 2 leads in the thora we will be scheduled in [facility] spine. Patient reported minimal pain improvement while on stimulation. At the end of the [place] [employer] trial he was switched to Nevro SCS, unfortunately that did not help his pain in more extent either. He was absent from my care for 2 years , after that he came back requesting the discussion about pain pump he was offered to him at that time. Because the patient was on opioids [place] 7.5 mg TID, initially bupivacaine pain pump was considered however it resulted in poor pain control and side effects. He was switched for hydromorphone. Dr. Ch did not recommend additional surgical intervention and advised he undergo a SCS trial, and thus he was referred to us. He describes a numbness and burning down his right posterior lateral leg extending to the top of his right into his toes. This is worsened with sitting, reaching pain level 8-9/10. He had done extensive PT and also had multiple injections prior to his surgery while seeing pain management provider Dr. Geronimo in [place]. [facility] Medical History History of urinary retention History of numbness Chronic pain syndrome Radiculopathy due to lumbar intervertebral disc disorder Postlaminectomy syndrome Surgical History History of surgery History of basal cell carcinoma excision History of lumbar laminectomy History of laminectomy History of back surgery Hx of arthroscopy of shoulder Hx of repair of rotator cuff Social History Are you a primary child care education coordinator to a significant other at home: No Do you presently have visiting nurse or other home services: No Patient Tobacco Use Status: Former Tobacco user Tobacco use type: Cigarette Years Smoked: 15 Review of Systems Const All systems reviewed & are unremarkable except as noted in HPI and below Physical Exam Vital Signs: Last Vital Signs Pulse 65 05/10/25 10:46 BP 119/62 05/10/25 10:46 Pulse Ox 98 05/10/25 10:46 Oxygen Delivery Method Room Air 05/10/25 10:46 BMI result Body Mass Index 26.4 General: Appears afebrile. Alert and oriented. Mood and affect appropriate. Follows and participates in conversation appropriately. Respiratory effort is unlabored. No cough. Able to transition from sit to stand unassisted. Ambulates with bilaterally normal heel strike and toe off. General: Yes no CVA tenderness Back/Spine/Pelvis Other: Sandie and drain removed. Dressings were changed in the office today as noted above. Back: no CVA tenderness Cervical Spine: cervical ROM normal, cervical muscular tenderness and No Cervical spine tenderness Thoracic/Lumbar Spine: thoracic and lumbar spine normal to inspection, Thoracic/lumbar spine scar(s), pain with thoraco-lumbar ROM, thoraco-lumbar ROM limited, No thoracic spinal tenderness and No lumbar spinal tenderness Sacroiliac joints: bilaterally nontender Extrem General: Yes capillary refill normal, Yes no clubbing, cyanosis or edema and Yes no calf tenderness Right lower extremity: hip/thigh (Mild to moderate right hip and groin pain with I/E rotations.) Details: normal to inspection and tenderness Location: of the hip Location: laterally and over the greater trochanter and of the proximal upper leg Location: laterally; no swelling, no crepitus and no unusual warmth Results Reviewed Results Reviewed: MR lumbar spine wo/w con 11/05/24 CLINICAL HISTORY: M96.1 - Postlaminectomy syndrome, not elsewhere classified Lspine pain radiating through lower right ext. Comparison: CR/SR - XR LUMBAR SPINE 2-3V - 10/26/24 11:19 EST Findings: Grade 1 anterolisthesis of L5 on S1 and grade 1 retrolisthesis of L3 on L4 and L4 on L5 without change. Chronic pars defects at L5. No acute lumbar spine fracture. Degenerative type endplate marrow changes are present. There is no suspicious bone lesion. Status post posterior metallic and interbody fusion at L5-S1. No evidence of hardware failure. Cauda equina and conus medullaris within normal limits. L1-L2: No significant degenerative disc disease. Mild bilateral facet osteoarthritis with mild mass effect on the posterolateral margins of the thecal sac. No significant neural foraminal narrowing. L2-L3: Moderate broad-based disc bulge. Bilateral facet osteoarthritis. Mild central canal stenosis. Mild narrowing of bilateral neural foramina. L3-L4: Large disc osteophyte complex with mild thecal sac effacement. Facet osteoarthritis is also present. There is moderate stenosis of the right neural foramen and mild stenosis of the left neural foramen. L4-L5: Mild central disc bulge. Bilateral facet osteoarthritis. Moderate mass effect on the posterolateral margins of the thecal sac. Mild narrowing of bilateral neural foramina. L5-S1: Mild endplate proliferation. No significant central canal narrowing. Mild narrowing of the left neural foramen. Paraspinous musculature intact. IMPRESSION: 1. No acute abnormality of the lumbar spine. Multilevel spondylosis and facet osteoarthritis. Mild central canal stenosis at L2-L3. Moderate stenosis of the right neural foramina at L3-L4. 2. Status post surgical fusion at L5-S1. No evidence of hardware failure. Assessment & Plan Assessment & Plan (1) Chronic pain syndrome: Code(s): G89.4 - Chronic pain syndrome Category: Medical (2) Radiculopathy due to lumbar intervertebral disc disorder: Code(s): M51.16 - Intervertebral disc disorders with radiculopathy, lumbar region Category: Medical (3) Postlaminectomy syndrome: Code(s): M96.1 - Postlaminectomy syndrome, not elsewhere classified Category: Medical (4) Vertebrogenic low back pain: Code(s): M54.51 - Vertebrogenic low back pain Category: Medical (5) Right hip pain: Code(s): M25.551 - Pain in right hip Category: Medical Plan The patient will continue with oral pain management using pregabalin and hydrocodone as needed through his PCP, given their effectiveness compared to the previously used intrathecal pain pump. Acupuncture sessions are planned to begin soon, which may provide additional pain relief. The patient is advised to monitor the incision sites for any signs of infection or increased drainage, and to change the drain site dressing as needed. Extra dressing supplies were provided to patient. A follow-up hip x-ray is recommended to assess the cause of the right hip pain, and potential hip injections may be considered based on the results. Intracept procedure was discussed with patient previously by Dr. Bhardwaj. Patient reports his back pain has been manageable but right hip into leg pain has been persistent. All questions and concerns have been answered and patient agreed with the plan. Follow up for xray results and sooner as needed. Patient was informed and verbally consented to the use of an ambient scribe for clinic note documentation during this visit. Orders: Orders XR hip RT min 2V Today M25.551 - Pain in right hip XR pelvis 1-2V Today M25.551 - Pain in right hip Coding Level of Care Code Est Pt Level 4 (70246) Complex EM visit Add On G2211 Diagnoses Chronic pain syndrome G89.4 Radiculopathy due to lumbar intervertebral disc disorder M51.16 Postlaminectomy syndrome M96.1 Vertebrogenic low back pain M54.51 Right hip pain M25.551
--- OUTSIDE RECORDS SUMMARY | 2025-05-10 11:18 | XMS_ITS | Encounter Summary ---
Author Organization [facility] Address [facility] [employer] [address] [address] Phone Care Team Providers Care Real Estate Intern Name Role Phone Talisha Manzanares MD Primary Care Provider + Encounter Details Date Type Department Care Team (Late st Contact Info) Description 11/01/2023 Procedure Pass [facility], X-Ray - [facility] [address] [place] [address] Social History Tobacco Use Types Packs/Day Years [...] on filedocumented in this encounter Care Teams Real Estate Intern Relationship Specialty Start Date End Date Talisha Manzanares MD [address] [place], [place] [id number] [email or web address] PCP - General 07/27/17 documented as of this encounter Additional Source Comments The information contained in this document represents components of the legal health record. It is not the complete legal health record.[facility]
--- OUTSIDE RECORDS SUMMARY | 2025-05-10 11:18 | XMS_ITS | Clinical Summary ---
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
--- OUTSIDE RECORDS SUMMARY | 2025-05-10 11:19 | XMS_ITS | Clinical Summary ---
Author Organization [facility] it Address [address] [place] [address] Care Team Providers Care Incinerator Plant Laborer Name Role Phone Talisha Manzanares MD Primary Care Provider [phone] Immunizations Name Administration Dates Next Due Pfizer SARS-CoV-2 COVID-19, mRNA, LNP-S, preservative free 02/05/2021,01/08/2021 Surgical History Surgery Date Site/Laterality Comments OTHER SURGICAL HISTORY PROCEDURE: [place] SPINE DEVICE IMPLANT SURGERY Medical History Medical [...] age to complete this topic Care Teams Incinerator Plant Laborer Relationship Specialty Start Date End Date Talisha Manzanares MD [address] [place] [phone] PCP - General Family Medicine 10/31/18
--- OUTSIDE RECORDS SUMMARY | 2025-05-10 11:19 | XMS_ITS | Encounter Summary ---
Author Organization [facility] Address [address] [place] [address] Care Team Providers Care Infectious Disease Physician Name Role Phone Unavailable Primary Care Provider Unavailabl e Encounter Details Date Type Department Care Team (Late st Contact Info) Description 07/05/2017 Ophthalmology Data Conversion [facility] Historical Conversion Department [address] [place] [address] [address] Social History Tobacco Use Types Packs/Day Years [...]
== END 2025-05-10 11:07 | disposition home or self-care (01) ==
LOC: HO.PMC 10:36
PROVIDERS: PCP Family Medicine; Visit Provider Nurse Practitioner Family
DX: G89.4 Chronic pain syndrome (principal); M51.16 Intervertebral disc disorders with radiculopathy, lumbar region; M96.1 Postlaminectomy syndrome, not elsewhere classified; M54.51 Vertebrogenic low back pain; M25.551 Pain in right hip
CPT/HCPCS: 99214; G2211

== ENCOUNTER → 2025-05-10 10:36 | Outpatient (BNVA) | payer MEDICARE, MEDICAID, SELFPAY | PROVIDERS: PCP Family Medicine; Visit Provider Nurse Practitioner Family | DX: M51.16 Intervertebral disc disorders with radiculopathy, lumbar region (principal); M96.1 Postlaminectomy syndrome, not elsewhere classified; M54.51 Vertebrogenic low back pain; M25.551 Pain in right hip; G89.4 Chronic pain syndrome | CPT/HCPCS: 99212 ==